=== PATIENT | male | born 1960 | race Caucasian/White ===

== ENCOUNTER 2022-07-09 09:44 | Outpatient (OUT) | payer OTHER, SELFPAY ==
--- NOTE | 2022-07-09 10:02 | XR_ITS ---
The [address] [address] Patient Name: YANIV NARVAEZ MRN: [id number] date: 1960 Sex: M Assigned Patient Location: Current Patient Location: Accession/Order Number: [id number] Exam Date: 07/09/2022 10:11 Report Date: 07/09/2022 15:46 At the request of: POPEYE SINGER Procedure: XR foot LT min 3V PROCEDURE: XR ankle LT min 3V, XR foot LT min 3V HISTORY: LEFT ANKLE PAIN , left foot pain , wound COMPARISON: XR ankle and foot left 06/18/2022 FINDINGS: BONES:Complete collapse of the midfoot and hindfoot with loss versus advanced collapse of the talus. Prominent cortical thickening/periosteal reaction involving the distal tibia and the mid and distal fibula. SOFT TISSUES:Marked soft tissue swelling surrounding the distal lower extremity. EFFUSION:None visible. OTHER: Negative. IMPRESSION: 1. Stable advanced degenerative changes and collapse of the midfoot and hindfoot. 2. No appreciable osteomyelitis. Marked soft tissue swelling surrounding the foot and ankle. Electronically authenticated by: EVITA MORALES Date: 07/09/2022 15:46
--- NOTE | 2022-07-09 10:02 | XR_ITS ---
The [address] [address] Patient Name: YANIV NARVAEZ MRN: [id number] date: 1960 Sex: M Assigned Patient Location: Current Patient Location: Accession/Order Number: [id number] Exam Date: 07/09/2022 10:12 Report Date: 07/09/2022 15:46 At the request of: POPEYE SINGER Procedure: XR ankle LT min 3V PROCEDURE: XR ankle LT min 3V, XR foot LT min 3V HISTORY: LEFT ANKLE PAIN , left foot pain , wound COMPARISON: XR ankle and foot left 06/18/2022 FINDINGS: BONES:Complete collapse of the midfoot and hindfoot with loss versus advanced collapse of the talus. Prominent cortical thickening/periosteal reaction involving the distal tibia and the mid and distal fibula. SOFT TISSUES:Marked soft tissue swelling surrounding the distal lower extremity. EFFUSION:None visible. OTHER: Negative. IMPRESSION: 1. Stable advanced degenerative changes and collapse of the midfoot and hindfoot. 2. No appreciable osteomyelitis. Marked soft tissue swelling surrounding the foot and ankle. Electronically authenticated by: EVITA MORALES Date: 07/09/2022 15:46
== END 2022-07-09 09:45 ==
PROVIDERS: PCP Family Medicine; Visit Provider Podiatrist Foot & Ankle Surgery
DX: M79.672 Pain in left foot (principal); M25.572 Pain in left ankle and joints of left foot; L89.523 Pressure ulcer of left ankle, stage 3; I87.2 Venous insufficiency (chronic) (peripheral); E11.42 Type 2 diabetes mellitus with diabetic polyneuropathy; E11.621 Type 2 diabetes mellitus with foot ulcer; Z89.431 Acquired absence of right foot; S90.422A Blister (nonthermal), left great toe, initial encounter; E11.610 Type 2 diabetes mellitus with diabetic neuropathic arthropathy
CPT/HCPCS: 73610; 73630; 99212

== ENCOUNTER 2022-08-24 12:50 | Outpatient (OUT) | payer BC, SELFPAY ==
--- NOTE | 2022-08-24 13:09 | XR_ITS ---
The [address] [address] Patient Name: YANIV NARVAEZ MRN: [id number] date: 1960 Sex: M Assigned Patient Location: Current Patient Location: Accession/Order Number: [id number] Exam Date: 08/24/2022 13:09 Report Date: 08/24/2022 18:51 At the request of: POPEYE SINGER Procedure: XR foot LT min 3V PROCEDURE: XR ankle LT min 3V, XR foot LT min 3V COMPARISON: 07/09/2022 HISTORY: LEFT ANKLE PAIN FINDINGS: BONES:Stable severe degenerative change of the midfoot and hindfoot with bony destruction of the talus calcaneus and proximal midfoot and low position of the tibia and fibula. Extensive periosteal reaction of the distal tibia and fibula. 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
--- NOTE | 2022-08-24 13:09 | XR_ITS ---
The [address] [address] Patient Name: YANIV NARVAEZ MRN: [id number] date: 1960 Sex: M Assigned Patient Location: Current Patient Location: Accession/Order Number: [id number] Exam Date: 08/24/2022 13:09 Report Date: 08/24/2022 18:51 At the request of: POPEYE SINGER Procedure: XR ankle LT min 3V PROCEDURE: XR ankle LT min 3V, XR foot LT min 3V COMPARISON: 07/09/2022 HISTORY: LEFT ANKLE PAIN FINDINGS: BONES:Stable severe degenerative change of the midfoot and hindfoot with bony destruction of the talus calcaneus and proximal midfoot and low position of the tibia and fibula. Extensive periosteal reaction of the distal tibia and fibula. 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
== END 2022-08-24 12:51 | disposition home or self-care (01) ==
PROVIDERS: PCP Family Medicine; Visit Provider Podiatrist Foot & Ankle Surgery
DX: E11.622 Type 2 diabetes mellitus with other skin ulcer (principal); L97.321 Non-pressure chronic ulcer of left ankle limited to breakdown of skin; E11.610 Type 2 diabetes mellitus with diabetic neuropathic arthropathy; E11.42 Type 2 diabetes mellitus with diabetic polyneuropathy; Z79.4 Long term (current) use of insulin; L89.523 Pressure ulcer of left ankle, stage 3; I87.2 Venous insufficiency (chronic) (peripheral)
CPT/HCPCS: 11042; 73610; 73630

== ENCOUNTER 2022-09-07 14:12 | Outpatient (OUT) | payer BC, SELFPAY ==
--- NOTE | 2022-09-07 14:15 | XR_ITS ---
The [address] [address] Patient Name: YANIV NARVAEZ MRN: [id number] date: 1960 Sex: M Assigned Patient Location: Current Patient Location: Accession/Order Number: [id number] Exam Date: 09/07/2022 14:15 Report Date: 09/07/2022 18:34 At the request of: POPEYE SINGER Procedure: XR foot LT min 3V PROCEDURE: XR ankle LT min 3V, XR foot LT min 3V COMPARISON: 08/24/2022. 07/09/2022 HISTORY: LEFT ANKLE PAIN FINDINGS: BONES:No acute fracture or dislocation. Marked degenerative change of the hindfoot with bony collapse and plantar displacement of the tibia and fibula. Diffuse joint collapse with heterotopic ossification and marginal osteophyte formation. Periosteal reaction distal tibia and fibular diaphyses SOFT TISSUES:Moderate diffuse soft tissue swelling. Vascular calcifications EFFUSION:None visible. OTHER: Negative. XR/XR foot LT min 3V IMPRESSION: Severe stable degenerative changes with hindfoot collapse consistent with known neuropathic osteoarthropathy Electronically authenticated by: ZITA YODER Date: 09/07/2022 18:34
--- NOTE | 2022-09-07 14:15 | XR_ITS ---
The [address] [address] Patient Name: YANIV NARVAEZ MRN: [id number] date: 1960 Sex: M Assigned Patient Location: Current Patient Location: Accession/Order Number: [id number] Exam Date: 09/07/2022 14:15 Report Date: 09/07/2022 18:34 At the request of: POPEYE SINGER Procedure: XR ankle LT min 3V PROCEDURE: XR ankle LT min 3V, XR foot LT min 3V COMPARISON: 08/24/2022. 07/09/2022 HISTORY: LEFT ANKLE PAIN FINDINGS: BONES:No acute fracture or dislocation. Marked degenerative change of the hindfoot with bony collapse and plantar displacement of the tibia and fibula. Diffuse joint collapse with heterotopic ossification and marginal osteophyte formation. Periosteal reaction distal tibia and fibular diaphyses SOFT TISSUES:Moderate diffuse soft tissue swelling. Vascular calcifications EFFUSION:None visible. OTHER: Negative. XR/XR ankle LT min 3V IMPRESSION: Severe stable degenerative changes with hindfoot collapse consistent with known neuropathic osteoarthropathy Electronically authenticated by: ZITA YODER Date: 09/07/2022 18:34
== END 2022-09-07 14:13 | disposition home or self-care (01) ==
LOC: WC 14:12
PROVIDERS: PCP Family Medicine; Visit Provider Podiatrist Foot & Ankle Surgery
DX: M79.672 Pain in left foot (principal); M25.572 Pain in left ankle and joints of left foot; M14.672 Charcot's joint, left ankle and foot; E11.622 Type 2 diabetes mellitus with other skin ulcer; L97.321 Non-pressure chronic ulcer of left ankle limited to breakdown of skin; L97.521 Non-pressure chronic ulcer of other part of left foot limited to breakdown of skin
CPT/HCPCS: 73610; 73630; G0463

== ENCOUNTER 2022-11-09 15:43 | Outpatient (OUT) | payer BC, OTHER, SELFPAY ==
--- NOTE | 2022-11-09 | XR_ITS ---
The [address] [address] Patient Name: YANIV NARVAEZ MRN: [id number] date: 1960 Sex: M Assigned Patient Location: Current Patient Location: Accession/Order Number: [id number] Exam Date: 11/09/2022 13:20 Report Date: 11/09/2022 13:52 At the request of: POPEYE SINGER Procedure: XR foot LT min 3V STUDY: XR ankle LT min 3V, XR foot LT min 3V, [id number], [id number] HISTORY: LEFT ANKLE PAIN COMPARISON: Left foot and ankle x-rays 09/07/2022. FINDINGS: No acute fracture, dislocation, or suspicious osseous lesion. Severe collapse of the left ankle with associated osseous debris and chronic appearing osteolysis/degenerative changes, similar compared with 09/07/2022. Stable degenerative changes throughout the remainder of the left foot. No new or worsening osseous abnormality. Specifically, no new osteolysis. No radiopaque foreign body. XR/XR foot LT min 3V IMPRESSION: Stable severe derangement of the left foot and ankle. No new or worsening osseous abnormality demonstrated. Electronically authenticated by: HECTOR VIGIL Date: 11/09/2022 13:52
--- NOTE | 2022-11-09 | XR_ITS ---
The [address] [address] Patient Name: YANIV NARVAEZ MRN: [id number] date: 1960 Sex: M Assigned Patient Location: Current Patient Location: Accession/Order Number: [id number] Exam Date: 11/09/2022 13:20 Report Date: 11/09/2022 13:52 At the request of: POPEYE SINGER Procedure: XR ankle LT min 3V STUDY: XR ankle LT min 3V, XR foot LT min 3V, [id number], [id number] HISTORY: LEFT ANKLE PAIN COMPARISON: Left foot and ankle x-rays 09/07/2022. FINDINGS: No acute fracture, dislocation, or suspicious osseous lesion. Severe collapse of the left ankle with associated osseous debris and chronic appearing osteolysis/degenerative changes, similar compared with 09/07/2022. Stable degenerative changes throughout the remainder of the left foot. No new or worsening osseous abnormality. Specifically, no new osteolysis. No radiopaque foreign body. XR/XR ankle LT min 3V IMPRESSION: Stable severe derangement of the left foot and ankle. No new or worsening osseous abnormality demonstrated. Electronically authenticated by: HECTOR VIGIL Date: 11/09/2022 13:52
== END 2022-11-09 15:44 | disposition home or self-care (01) ==
LOC: WC 15:43
PROVIDERS: PCP Family Medicine; Visit Provider Podiatrist Foot & Ankle Surgery
DX: M79.672 Pain in left foot (principal); M25.572 Pain in left ankle and joints of left foot; E11.622 Type 2 diabetes mellitus with other skin ulcer; L97.321 Non-pressure chronic ulcer of left ankle limited to breakdown of skin; L97.521 Non-pressure chronic ulcer of other part of left foot limited to breakdown of skin; E11.621 Type 2 diabetes mellitus with foot ulcer
CPT/HCPCS: 73610; 73630; A6213; G0463

== ENCOUNTER 2022-12-03 10:15 | Outpatient (OUT) | payer BC, OTHER, SELFPAY | END 2022-12-03 10:16 | disposition home or self-care (01) | LOC: WC 10:16 | PROVIDERS: PCP Family Medicine; Visit Provider Podiatrist Foot & Ankle Surgery | DX: E11.622 Type 2 diabetes mellitus with other skin ulcer (principal); L97.321 Non-pressure chronic ulcer of left ankle limited to breakdown of skin; E11.621 Type 2 diabetes mellitus with foot ulcer; L97.521 Non-pressure chronic ulcer of other part of left foot limited to breakdown of skin | CPT/HCPCS: 11042 ==

== ENCOUNTER 2022-12-24 10:51 | Outpatient (OUT) | payer BC, OTHER, SELFPAY | END 2022-12-24 10:52 | disposition home or self-care (01) | LOC: WC 10:51 | PROVIDERS: PCP Family Medicine; Visit Provider Podiatrist Foot & Ankle Surgery | DX: E11.621 Type 2 diabetes mellitus with foot ulcer (principal); L97.321 Non-pressure chronic ulcer of left ankle limited to breakdown of skin | CPT/HCPCS: 11042; A6213 ==

== ENCOUNTER 2023-01-14 10:38 | Outpatient (OUT) | payer BC, OTHER, SELFPAY ==
--- NOTE | 2023-01-14 | XR_ITS ---
The [address] [address] Patient Name: YANIV NARVAEZ MRN: [id number] date: 1960 Sex: M Assigned Patient Location: Current Patient Location: Accession/Order Number: [id number] Exam Date: 01/14/2023 11:27 Report Date: 01/16/2023 00:30 At the request of: POPEYE SINGER Procedure: XR ankle LT min 3V EXAM: XR ankle LT min 3V HISTORY: LEFT ANKLE PAIN COMPARISON: 11/09/2022 TECHNIQUE: 3 view study FINDINGS: Again, there is collapse of the left ankle and hindfoot with ostial lysis of the talus and anterior calcaneus. Periosteal reaction of the distal tibia and fibula shafts. These findings are stable compared with prior study of 2 months ago. XR/XR ankle LT min 3V IMPRESSION: Stable findings with collapse at the ankle mortise and hindfoot articulations as well as periosteal reaction of the distal tibia and fibula. No significant interval change from the prior study of 2 months ago. Electronically authenticated by: Eulalia STRICKLAND Date: 01/16/2023 00:30
== END 2023-01-14 10:39 | disposition home or self-care (01) ==
LOC: WC 10:38
PROVIDERS: PCP Family Medicine; Visit Provider Podiatrist Foot & Ankle Surgery
DX: E11.622 Type 2 diabetes mellitus with other skin ulcer (principal); L97.321 Non-pressure chronic ulcer of left ankle limited to breakdown of skin; E11.610 Type 2 diabetes mellitus with diabetic neuropathic arthropathy
CPT/HCPCS: 11042; 73610; A6213

== ENCOUNTER 2023-02-11 11:23 | Outpatient (OUT) | payer BC, SELFPAY ==
--- OUTSIDE RECORDS SUMMARY | 2023-02-11 11:33 | XMS_ITS | CCD ---
Author Name Unknown Address [address] [place] [address] Organization [facility] Care Team Providers Care Mixer Driver Name Role Phone CARLITO VALDOVINOS Referring Unavailable HEIDI, CHARLENE Primary Care Unavailable NICANOR YEBOAH Admitting Unavailable NICANOR YEBOAH Attending Unavailable NON STAFF Primary Care Provider UnavailMD Gil Govea Admit Provider MD Speedy Ramos Other Provider MD Lucille Miller Other Provider YURIDIA Laguna Other Provider DO Michael Caruso Attending Provider Speedy Ramos Unavailable POPEYE PUGH Admitting Unavailable REQUEST, NONE LISTED Primary Care Unavaila POPEYE Galloway Attending Unavailable POPEYE PUGH Admitting Unavailable POPEYE PUGH Consulting Unavailable REQUEST, NONE LISTED Primary Care Unavaila ble POPEYE PUGH Attending Unavailable DIGNA SEXTON Consulting Unavailable DAVID, DR ELVIN Carranza Admitting Unavailable ANDREW, DR EVITA Becker Consulting Unavailable DAIVD, DR ELVIN Carranza Attending Unavailable REQUEST, NONE LISTED Primary Care Unavaila ble DAVID, DR ELVIN Carranza Consulting Unavailable POPEYE PUGH Consulting Unavailable ANDRIA ., REVA DOUGLAS Consulting Unavailable LAURENCE II, LARRY Consulting Unavailable DONTA BARRY Consulting Unavailable VICENTA MONTANEZ Consulting Unavailable POPEYE PUGH Attending Unavailable REQUEST, NONE LISTED Primary Care Unavaila ble PARESH, DR ZITA Cheung Consulting Unavailable POPEYE PUGH Admitting Unavailable POPEYE PUGH Consulting Unavailable POPEYE PUGH Admitting Unavailable POPEYE PUGH Consulting Unavailable REQUEST, NONE LISTED Primary Care Unavaila POPEYE Galloway Attending Unavailable POPEYE PUGH Attending Unavailable POPEYE PUGH Consulting Unavailable REQUEST, NONE LISTED Primary Care Unavaila ble ANTWONANDER, POPEYE Vergara Admitting Unavailable SEXTON, DIGNA Consulting Unavailable REQUEST, NONE LISTED Primary Care Unavaila ble HIGHLANDER, POPEYE Vergara Attending Unavailable HIGHLANDER, POPEYE Vergara Admitting Unavailable HIGHLANDER, POPEYE Vergara Admitting Unavailable HIGHLANDER, POPEYE Vergara Consulting Unavailable REQUEST, NONE LISTED Primary Care Unavaila ble LUCRECIA, POPEYE Vergara Attending Unavailable REQUEST, NONE LISTED Primary Care Unavaila ble NADERER, DR ELVIN Carranza Attending Unavailable NADERER, DR ELVIN Carranza Admitting Unavailable ZIEBER, DR EVITA Becker Consulting Unavailable NADERER, DR ELVIN Carranza Consulting Unavailable HIGHLANDER, POPEYE Vergara Consulting Unavailable CORTEZ, CAROL Consulting Unavailable HIGHLANDER, POPEYE Vergara Procedure Practitioner Unarenny salvador ANDRIA ., REVA DOUGLAS Consulting Unavailable SISTER, MOON Consulting Unavailable NADERER, DR ELVIN Carranza Procedure Practitioner Unavai lable LAURENCE ., PRESLEY Consulting Unavailable LAURENCE II, LARRY Consulting Unavailable HIGHLANDER, POPEYE Vergara Attending Unavailable REQUEST, DR NONE LISTED Primary Care Unavaila ble HIGHLANDER, POPEYE Vergara Admitting Unavailable HIGHLANDER, POPEYE Vergara Admitting Unavailable HIGHLANDER, POPEYE Vergara Attending Unavailable REQUEST, NONE LISTED Primary Care Unavaila ble HIGHLANDER, POPEYE Vergara Admitting Unavailable ZIEBER, DR EVITA Becker Consulting Unavailable REQUEST, NONE LISTED Primary Care Unavaila ble HIGHLANDER, POPEYE Vergara Attending Unavailable HIGHLANDER, POPEYE Vergara Consulting Unavailable HIGHLANDER, POPEYE Vergara Admitting Unavailable WEST, DR ZITA Cheung Consulting Unavailable REQUEST, NONE LISTED Primary Care Unavaila ble HIGHLANDER, POPEYE Vergara Attending Unavailable HIGHLANDER, POPEYE Vergara Consulting Unavailable HIGHLANDER, POPEYE Vergara Admitting Unavailable HIGHLANDER, POPEYE Vergara Consulting Unavailable REQUEST, NONE LISTED Primary Care Unavaila ble LUCRECIA, POPEYE Vergara Attending Unavailable PRESTONRANDALL ARCHULETA Consulting Unavailable HIGHLANDER, POPEYE Vergara Attending Unavailable REQUEST, NONE LISTED Primary Care Unavaila ble HIGHLANDER, POPEYE Vergara Admitting Unavailable HIGHLANDER, POPEYE Vergara Attending Unavailable ZIEBER, DR EVITA Becker Consulting Unavailable HIGHLANDER, POPEYE Vergara Admitting Unavailable HIGHLANDER, POPEYE Vergara Consulting Unavailable Medications Current Medications Medication Drug Class(es) Dates Sig (Normalized) Sig (Original) allopurinol 300 mg oral tablet (2 sources) Xanthine Oxidase Inhibitor Start: 10-07-2021 take 300 mg by mouth once daily Allopurinol Active 300 MG PO Daily October 07, 2021 12:00am amLODIPine 5 mg oral tablet (2 sources) Dihydropyridine Calcium Channel Abel Start: 10-07-2021 take 5 mg by mouth once daily Amlodipine Active 5 MG PO Daily October 07, 2021 12:00am amoxicillin 875 mg / clavulanate 125 mg oral tablet (1 source) Penicillin-class Antibacterial take 1 tablet by mouth every twelve hours Amoxicillin-Pot Clavulanate 875-125 MG 1 tablet Orally every 12 hrs Active atenolol 50 mg oral tablet (2 sources) beta-Adrenergic Abel Start: 10-07-2021 take 50 mg by mouth once daily Atenolol Active 50 MG PO Daily October 07, 2021 12:00am buprenorphine 8 mg / naloxone 2 mg sublingual film (2 sources) Partial Opioid Agonist, Opioid Antagonist Start: 10-07-2021 Buprenorphine-Na loxone Active 2 FILM SUBLINGUAL Daily October 07, 2021 12:00am Buprenorphine HC l-Naloxone HCl 8-2 MG dissolve 2 FILMS under the tongue once daily Sublingual for 28 Days Active cefepime 2000 mg injection (1 source) Cephalosporin Antibacterial Cefepime HCl 2 GM as directed Injection Active clopidogrel 75 mg oral tablet (2 sources) P2Y12 Platelet Inhibitor Start: take 75 mg by mouth once daily Clopidogrel Active 75 MG PO Daily October 07, 2021 12:00am dapagliflozin 5 mg oral tablet (1 source) Sodium-Glucose Cotransporter 2 Inhibitor take 5 mg by mouth once daily FARXIGA 5mg As directed P.O. Daily Active DAPTOmycin (1 source) Lipopeptide Antibacterial Cubicin Active 0.5 ml dulaglutide 1.5 mg/ml auto-injector (2 sources) GLP-1 Receptor Agonist Start: inject 0.75 mg by subcutaneous injection every week Dulaglutide Active 0.75 MG SUBCUT every week October 07, 2021 12:00am Trulicity 0.75 M G/0.5ML INJECT 0.5 ML (0.75 MG TOTAL) UNDER THE SKIN EVERY 7 DAYS Subcutaneous for 28 Days Active ferrous sulfate 325 mg oral tablet (2 sources) Start: 10-07-2021 take 325 mg by mouth once daily Ferrous Sulfate Active 325 MG PO Daily October 07, 2021 12:00am take 1 tablet by mouth once zoe y Ferrous Sulfate 325 (65 Fe) MG 1 tablet Orally Once a day Active furosemide 80 mg oral tablet (2 sources) Loop Diuretic Start: 10-07-2021 take 1 tablet by mouth once daily Furosemide (Lasix) 80 mg Tablet Active 80 MG PO Daily October 07, 2021 12:00am levoFLOXacin 750 mg oral tablet (2 sources) Quinolone Antimicrobial Start: 10-09-2021 Levofloxacin Active 750 MG PO Daily October 09, 2021 12:00am Take every other day, on Tuesday, Tuesday, , and Tuesday, and from Tuesday (10/17/2021) onward then take daily. By that time your kidney function should be normal. take 1 tablet by beryl th every twenty-four hours levoFLOXacin 750 MG 1 tablet Orally Once a day Active linezolid (1 source) Oxazolidinone Antibacterial Zyvox Active lisinopril 10 mg oral tablet (1 source) Angiotensin Converting Enzyme Inhibitor take 1 tablet by mouth every twenty-four hours Lisinopril 10 MG 1 tablet Orally Once a day Active magnesium oxide 400 mg oral tablet (2 sources) Start: 2 take 400 mg by mouth once daily Magnesium Oxide Active 400 MG PO Daily October 07, 2021 12:00am 24 hr metFORMIN hydrochloride 500 mg extended release oral tablet (2 sources) Biguanide Start: 2 take 500 mg by mouth once daily Metformin Active 500 MG PO Daily October 07, 2021 12:00am take 1 tablet by beryl th every twenty-four hours metFORMIN HCl 500 MG 1 tablet with a meal Orally Once a day Active potassium chloride 20 meq powder for oral solution (1 source) take 1 dose by mouth once daily at mealtime Potassium Chloride 20 MEQ 1 packet with food Orally Once a day Active simvastatin 40 mg oral tablet (1 source) HMG-CoA Reductase Inhibitor take 1 tablet by mouth every twenty-four hours Simvastatin 40 MG 1 tablet in the evening Orally Once a day Active tamsulosin hydrochloride 0.4 mg oral capsule (2 sources) alpha-Adrenergic Abel Start: 2 take 1 capsule by mouth once daily Tamsulosin (Flomax) 0.4 mg Capsule Active 0.4 MG PO Daily October 07, 2021 12:00am Problems Active Problems Problem Classification Problem Date Documented Date Episodic/Chronic Acquired foot deformities (1 source) Valgus deformity, not elsewhere classified, left ankle; Translations: [VALGUS DEFORMITY NEC LEFT ANKLE] Onset: 05-27-2022 Episodic Acute and unspecified renal failure (2 sources) Injury of kidney; Translations: [Acute kidney failure, unspecified] 10-07-2021 Episodic Chronic kidney disease (1 source) Chronic kidney disease, unspecified; Translations: [CHRONIC KIDNEY DISEASE UNSPECIFIED] Onset: 02-25-2022 Chronic Chronic ulcer of skin (8 sources) Ankle ulcer; Translations: [Non-pressure chronic ulcer of left ankle with unspecified severity] Onset: 02-25-2022 10-08-2021 Chronic Complications of surgical procedures or medical care (2 sources) Other complications of procedures, not elsewhere classified, subsequent encounter; Translations: [Other complications of procedures, not elsewhere classified, initial encounter] Onset: 04-26-2022 Episodic Coronary atherosclerosis and other heart disease (1 source) Atherosclerotic heart disease of [place] coronary artery without angina pectoris; Translations: [ASHD [place] W/O ANGINA PECTORIS] Onset: 02-25-2022 Chronic Deficiency and other anemia (1 source) Anemia; Translations: [Anemia, unspecified] 10-09-2021 Episodic Diabetes mellitus with complications (17 sources) Type 2 diabetes mellitus with foot ulcer; Translations: [Diabetes with other specified manifestations, type II or unspecified type, not stated as uncontrolled] Onset: 02-25-2022 10-09-2021 Chronic Diabetes mellitus without complication (4 sources) Diabetes mellitus; Translations: [Type 2 diabetes mellitus without complications] Onset: 02-14-2022 10-08-2021 Chronic Essential hypertension (3 sources) Hypertensive disorder; Translations: [Essential (primary) hypertension] Onset: 05-27-2022 10-08-2021 Chronic Gout and other crystal arthropathies (1 source) Gout, unspecified; Translations: [GOUT UNSPECIFIED] Onset: 02-25-2022 Chronic Heart valve disorders (1 source) Nonrheumatic mitral (valve) prolapse; Translations: [NONRHEUMATIC MITRAL VALVE PROLAPSE] Onset: 02-25-2022 Chronic Hypertension with complications and secondary hypertension (1 source) Hypertensive chronic kidney disease with stage 1 through stage 4 chronic kidney disease, or unspecified chronic kidney disease; Translations: [HTN CKD W/STAGE 1-4 CKD/UNS CKD] Onset: 02-25-2022 Chronic Infective arthritis and osteomyelitis (except that caused by tuberculosis or sexually transmitted disease) (5 sources) Osteomyelitis of right foot; Translations: [Osteomyelitis, unspecified] Onset: 02-25-2022 10-08-2021 Chronic Other acquired deformities (1 source) Ankle joint deformity; Translations: [Unspecified acquired deformity of left lower leg] 10-08-2021 Episodic Other acquired deformities (1 source) Unspecified acquired deformity of left lower leg; Translations: [Other acquired deformities of ankle and foot] 10-09-2021 Episodic Other aftercare (1 source) Long-term current use of antibiotic; Translations: [long term care phlebotomist (current) use of antibiotics] 10-07-2021 Episodic Other aftercare (1 source) long term care phlebotomist (current) use of antibiotics; Translations: [Long-term (current) use of antibiotics] 10-09-2021 Episodic Other aftercare (1 source) [facility] (current) use of insulin; Translations: [DELIVERY ARCHITECT CURRENT USE OF INSULIN] Onset: 06-24-2022 Episodic Other aftercare (1 source) long term care phlebotomist (current) use of oral hypoglycemic drugs; Translations: [DELIVERY ARCHITECT USE ORAL HYPOGLYCEMIC DX] Onset: 05-27-2022 Episodic Other bone disease and musculoskeletal deformities (1 source) Acquired absence of right foot; Translations: [ACQUIRED ABSENCE OF RIGHT FOOT] Onset: 04-26-2022 Chronic Other bone disease and musculoskeletal deformities (1 source) Absence of toe; Translations: [Acquired absence of other right toe(s)] 10-07-2021 Episodic Other circulatory disease (1 source) Personal history of transient ischemic attack (TIA), and cerebral infarction without residual deficits; Translations: [PERS HX TIA AND CI NO RESID DEFICIT] Onset: 05-27-2022 Episodic Other connective tissue disease (5 sources) Pain in left foot; Translations: [PAIN IN LEFT FOOT] Onset: 01-26-2022 Episodic Other diseases of veins and lymphatics (5 sources) Venous insufficiency (chronic) (peripheral); Translations: [VENOUS INSUFF CHRONIC PERIPHERAL] Onset: 02-09-2022 Episodic Other ear and sense organ disorders (1 source) Unspecified hearing loss, unspecified ear; Translations: [UNS HEARING LOSS UNSPECIFIED EAR] Onset: 02-25-2022 Chronic Other non-traumatic joint disorders (2 sources) Charcot's arthropathy; Translations: [Charcot's joint, left ankle and foot] 10-08-2021 Chronic Other non-traumatic joint disorders (7 sources) Charcot's joint, left ankle and foot; Translations: [Tabes dorsalis] Onset: 06-04-2022 10-09-2021 Chronic Other non-traumatic joint disorders (5 sources) Pain in left ankle and joints of left foot; Translations: [PAIN IN LEFT ANKLE] Onset: 03-26-2022 Episodic Substance-related disorders (1 source) Opioid abuse, uncomplicated; Translations: [OPIOID ABUSE UNCOMPLICATED] Onset: 02-25-2022 Chronic Superficial injury; contusion (1 source) Blister (nonthermal), left great toe, initial encounter; Translations: [BLISTER NONTHERMAL LT GRT TOE INIT] Onset: 06-24-2022 Episodic Unclassified (1 source) DELIVERY ARCHITECT INJECT NONINSULN ANTIDIAB; Translations: [DELIVERY ARCHITECT INJECT NONINSULN ANTIDIAB] Onset: 05-27-2022 Unclassified (1 source) CONTACT W/AND (SUSP) EXPOS COVID-19; Translations: [CONTACT W/AND (SUSP) EXPOS COVID-19] Onset: 02-18-2022 Past or Other Problems Problem Classification Problem Date Documented Date Episodic/Chronic Acute posthemorrhagic anemia (1 source) Acute posthemorrhagic anemia; Translations: [ACUTE POSTHEMORRHAGIC ANEMIA] Onset: 02-25-2022 Episodic Bacterial infection; unspecified site (3 sources) Methicillin resistant Staphylococcus aureus infection; Translations: [Methicillin resistant Staphylococcus aureus infection, unspecified site] Onset: 02-25-2022 Episodic Deficiency and other anemia (2 sources) Anemia, unspecified; Translations: [Anemia, unspecified] Onset: 02-14-2022 10-09-2021 Episodic Immunizations and screening for infectious disease (1 source) Encounter for immunization; Translations: [ENCOUNTER FOR IMMUNIZATION] Onset: 02-25-2022 Episodic Other aftercare (1 source) Other fdc (current) drug therapy; Translations: [OTH DELIVERY ARCHITECT CURRENT DRUG THERAPY] Onset: 02-25-2022 Episodic Other aftercare (1 source) [facility] (current) use of antithrombotics/antip latelets; Translations: [LONGTERM ANTITHROMBOT/ANTIPLAT LETS] Onset: 02-25-2022 Episodic Other aftercare (1 source) [facility] (current) use of anticoagulants; Translations: [DELIVERY ARCHITECT CURRNT USE ANTICOAGULANTS] Onset: 02-14-2022 Episodic Other bone disease and musculoskeletal deformities (2 sources) Acquired absence of other right toe(s); Translations: [Other toe(s) amputation status] Onset: 02-25-2022 10-09-2021 Episodic Other circulatory disease (1 source) Other specified symptoms and signs involving the circulatory and respiratory systems; Translations: [OTH SPEC SX SIGNS INVLV CIRC RS] Onset: 02-12-2022 Episodic Other connective tissue disease (4 sources) Pain in right foot; Translations: [PAIN IN RIGHT FOOT] Onset: 01-19-2022 Episodic Other non-traumatic joint disorders (1 source) Pain in right ankle and joints of right foot; Translations: [PAIN IN RIGHT ANKLE] Onset: 01-26-2022 Episodic Other skin disorders (1 source) Elastosis perforans serpiginosa; Translations: [ELASTOSIS PERFORANS SERPIGINOSA] Onset: 01-26-2022 Episodic Residual codes; unclassified (1 source) Family history of malignant neoplasm of digestive organs; Translations: [FAM HX MALIG NEOPLASM DIGESTIV ORGN] Onset: 02-25-2022 Episodic Residual codes; unclassified (1 source) Family history of ischemic heart disease and other diseases of the circulatory system; Translations: [FAM HX ISCHEMIC HRT DZ OTH DZ CIRC] Onset: 02-25-2022 Episodic Screening and history of mental health and substance abuse codes (1 source) Personal history of nicotine dependence; Translations: [PERSONAL HISTORY OF NICOTINE DEPEND] Onset: 02-25-2022 Episodic Results Test Name Value Interpretation Reference Range Facility FUNGAL CULTUREon 06-15-2022 Fungus (Mycology) Culture Final report Normal [facility] Comment on above: Performed By: #### O THCX #### [facility] [address] [address] [address] Vitaly Jimenez Fungus Stain Final report Normal [facility] Comment on above: Performed By: #### O THCX #### [facility] [address] [address] [address] Vitaly Jimenez Result [address] [facility] Comment on above: Result Comment: JET/ Calcofluor preparation: no fungus observed. Performed By: #### O THCX #### [facility] [address] [place] [address] Dr. Vitaly Jimenez Result Comment: No y east or mold isolated after 4 weeks. CULTURE OTHERon 05-19-2022 CULTURE OTHER Culture Observations: METHICILLIN RESISTANT STAPH AUREUS ISOLATED. PLEASE FOLLOW APPROPRIATE ISOLATION PROCEDURES. Isolate 1 Staphylococcus aureus Moderate growth of ORGANISM 1 Staphylococcus aureus ANTIBIOTIC M.I.C RX STATUS Beta-Lactamase Pos POS F Cefoxitin Screen Pos POS F Benzylpenicillin >=0.5 R F Oxacillin >=4 R F Ciprofloxacin >=8 R F Levofloxacin >=8 R F Inducible Clindamycin Resistance Neg NEG F Erythromycin >=8 R F Clindamycin >=8 R F Quinupristin/Dalfop ristin 0.5 S F Linezolid 2 S F Vancomycin 1 S F Tetracycline >=16 R F Rifampicin <=0.5 S F Trimethoprim/Sulfam ethoxazole <=[address] [facility] Comment on above: Performed By: #### O THCX #### [facility] [address] [place] [address] Dr. Vitaly Jimenez CBC AUTO DIFFon 05-18-2022 BASO # 0.0 103/ul Normal 0.0-0.1 [facility] Comment on above: Performed By: #### C BC #### [facility] [address] [place] [address] Dr. Vitaly Jimenez Basophils/100 WBC (Bld) 0.2 % Normal 0.2-2.0 [facility] Comment on above: Performed By: #### C BC #### [facility] [address] [place] [address] Dr. Vitaly Jimenez EO # 0.0 103/ul Normal 0.0-0.7 [facility] Comment on above: Performed By: #### C BC #### [facility] [address] [place] [address] Dr. Vitaly Jimenez Eosinophils/100 WBC (Bld) 0.0 % Critically low 0.9-7.0 [facility] Comment on above: Performed By: #### C BC #### [facility] [address] [place] [address] Dr. Vitaly Jimenez Erythrocyte distribution width (RBC) [Ratio] 14.2 % Normal 11.0-15.0 [facility] Comment on above: Performed By: #### C BC #### [facility] [address] [place] [address] Dr. Vitaly Jimenez Hematocrit (Bld) [Volume fraction] 30.0 % Critically low 42.0-54.0 [facility] Comment on above: Performed By: #### C BC #### [facility] [address] [place] [address] Dr. Vitaly Jimenez Hemoglobin (Bld) [Mass/Vol] 10.2 g/dL Critically low 14.0-18.0 [facility] Comment on above: Performed By: #### C BC #### [facility] [address] [place] [address] Dr. Vitaly Jimenez IG # 0.10 10e3/ul Critically high 0.00-0.03 [facility] Comment on above: Performed By: #### C BC #### [facility] [address] [place] [address] Dr. Vitaly Jimenez IG % 0.7 % Critically high 0.0-0.5 [facility] Comment on above: Performed By: #### C BC #### [facility] [address] [place] [address] Dr. Vitaly Jimenez LYMPH # 1.6 103/ul Normal 1.2-3.8 [facility] Comment on above: Performed By: #### C BC #### [facility] [address] [place] [address] Dr. Vitaly Jimenez Lymphocytes/100 WBC (Bld) 10.8 % Critically low 20.5-60.0 [facility] Comment on above: Performed By: #### C BC #### [facility] [address] [place] [address] Dr. Vitaly Jimenez MANUAL DIFF REQ NO Normal [facility] Comment on above: Performed By: #### C BC #### [facility] [address] [place] [address] Dr. Vitaly Jimenez MCH (RBC) [Entitic mass] 28.2 pg Normal 25.9-34.0 [facility] Comment on above: Performed By: #### C BC #### [facility] [address] [place] [address] Dr. Vitaly Jimenez MCHC (RBC) [Mass/Vol] 34.0 g/dL Normal 29.9-35.2 [facility] Comment on above: Performed By: #### C BC #### [facility] [address] [place] [address] Dr. Vitaly Jimenez MCV (RBC) [Entitic vol] 82.9 fL Normal 80.0-94.0 [facility] Comment on above: Performed By: #### C BC #### [facility] [address] [place] [address] Dr. Vitaly Jimenez MONO # 0.8 103/ul Normal 0.3-0.8 [facility] Comment on above: Performed By: #### C BC #### [facility] [address] [place] [address] Dr. Vitaly Jimenez Monocytes/100 WBC (Bld) 5.4 % Normal 1.7-12.0 [facility] Comment on above: Performed By: #### C BC #### [facility] [address] [place] [address] Dr. Vitaly Jimenez NEUT # 12.2 103/ul Critically high 1.4-6.5 [facility] Comment on above: Performed By: #### C BC #### [facility] [address] [place] [address] Dr. Vitaly Jimenez Neutrophils/100 WBC (Bld) 82.9 % Critically high 43.0-75.0 [facility] Comment on above: Performed By: #### C BC #### [facility] [address] [place] [address] Dr. Vitaly Jimenez Platelet mean volume (Bld) [Entitic vol] 10.1 fL Normal 9.5-13.5 [facility] Comment on above: Performed By: #### C BC #### [facility] [address] [address] [address] Vitaly Jimenez PLT 261 103/ul Normal 150-450 [facility] Comment on above: Performed By: #### C BC #### [facility] [address] [place] [address] Dr. Vitaly Jimenez RBC 3.62 106/ul Critically low 4.70-6.10 [facility] Comment on above: Performed By: #### C BC #### [facility] [address] [address] [address] Vitaly Jimenez WBC 14.7 103/ul Critically high 4.0-11.0 [facility] Comment on above: Performed By: #### C BC #### [facility] [address] [place] [address] Dr. Vitaly Jimenez POINT OF CARE GLUCOSEon 05-08 Glucose [Mass/Vol] 273 mg/dL Critically high 74-106 [facility] Comment on above: Performed By: #### A NACX #### [facility] [address] [place] [address] Dr. Vitaly Jimenez Glucose [Mass/Vol] 267 mg/dL Critically high 74-106 [facility] Comment on above: Performed By: #### A NACX #### [facility] [address] [place] [address] Dr. Vitaly Jimenez PROF CHEM 8 (BAS METB)on Anion gap [Moles/Vol] 11.4 mmol/L Normal [facility] Comment on above: Performed By: #### A NACX #### [facility] [address] [place] [address] Dr. Vitaly Jimenez Calcium [Mass/Vol] 9.0 mg/dL Normal 8.5-10.1 [facility] Comment on above: Performed By: #### A NACX #### [facility] [address] [place] [address] Dr. Vitaly Jimenez Chloride [Moles/Vol] 98 mmol/L Normal 98-107 [facility] Comment on above: Performed By: #### A NACX #### [facility] [address] [address] [address] Vitaly Jimenez CO2 [Moles/Vol] 27.0 mmol/L Normal 21.0-32.0 [facility] Comment on above: Performed By: #### A NACX #### [facility] [address] [address] [address] Vitaly Jimenez Creatinine [Mass/Vol] 1.56 mg/dL Critically high 0.70-1.30 [facility] [facility] Comment on above: Performed By: #### A NACX #### [facility] [address] [address] [address] Vitaly Jimenez EGFR-AF GUATEMALAN 55 mL/min/1.73m2 Critically low >=60 [facility] Comment on above: Performed By: #### A NACX #### [facility] [address] [address] [address] Vitaly Jimenez EGFR-NON AF GUATEMALAN 46 mL/min/1.73m2 Critically low >=60 [facility] Comment on above: Performed By: #### A NACX #### [facility] [address] [address] [address] Vitaly Jimenez Glucose [Mass/Vol] 263 mg/dL Critically high 74-106 T [facility] Comment on above: Performed By: #### A NACX #### [facility] [address] [address] [address] Vitaly Jimenez Potassium [Moles/Vol] 4.4 mmol/L Normal 3.5-5.1 [facility] Comment on above: Performed By: #### A NACX #### [facility] [address] [address] [address] Vitaly Jimenez Sodium [Moles/Vol] 132 mmol/L Critically low 136-145 [facility] Comment on above: Performed By: #### A NACX #### [facility] [address] [address] [address] Vitaly Jimenez Urea nitrogen [Mass/Vol] 32.0 mg/dL Critically high 7.0-[address] [facility] Comment on above: Performed By: #### A NACX #### [facility] [address] [place] [address] Dr. Vitaly Jimenez Urea nitrogen/Creatinine [Mass ratio] 20.5 mg/mg Normal [facility] Comment on above: Performed By: #### A NACX #### [facility] [address] [place] [address] Dr. Vitaly Jimenez CBC AUTO DIFFon 05-17-2022 BASO # 0.1 103/ul Normal 0.0-0.1 [facility] Comment on above: Performed By: #### O THCX #### [facility] [address] [place] [address] Dr. Vitaly Jimenez Basophils/100 WBC (Bld) 0.5 % Normal 0.2-2.0 [facility] Comment on above: Performed By: #### O THCX #### [facility] [address] [place] [address] Dr. Vitaly Jimenez EO # 0.2 103/ul Normal 0.0-0.7 [facility] Comment on above: Performed By: #### O THCX #### [facility] [address] [place] [address] Dr. Vitaly Jimenez Eosinophils/100 WBC (Bld) 1.0 % Normal 0.9-7.0 [facility] Comment on above: Performed By: #### O THCX #### [facility] [address] [place] [address] Dr. Vitaly Jimenez Erythrocyte distribution width (RBC) [Ratio] 14.5 % Normal 11.0-15.0 [facility] Comment on above: Performed By: #### O THCX #### [facility] [address] [place] [address] Dr. Vitaly Jimenez Hematocrit (Bld) [Volume fraction] 35.2 % Critically low 42.0-54.0 [facility] Comment on above: Performed By: #### O THCX #### [facility] [address] [place] [address] Dr. Vitaly Jimenez Hemoglobin (Bld) [Mass/Vol] 12.0 g/dL Critically low 14.0-18.0 [facility] Comment on above: Performed By: #### O THCX #### [facility] [address] [address] [address] Vitaly Jimenez IG # 0.11 10e3/ul Critically high 0.00-0.03 [facility] Comment on above: Performed By: #### O THCX #### [facility] [address] [address] [address] Vitaly Jimenez IG % 0.7 % Critically high 0.0-0.5 [facility] Comment on above: Performed By: #### O THCX #### [facility] [address] [address] [address] Vitaly Jimenez LYMPH # 2.5 103/ul Normal 1.2-3.8 [facility] Comment on above: Performed By: #### O THCX #### [facility] [address] [address] [address] Vitaly Jimenez Lymphocytes/100 WBC (Bld) 15.5 % Critically low 20.5-60.0 [facility] Comment on above: Performed By: #### O THCX #### [facility] [address] [address] [address] Vitaly Jimenez MANUAL DIFF REQ NO Normal [facility] Comment on above: Performed By: #### O THCX #### [facility] [address] [address] [address] Vitaly Jimenez MCH (RBC) [Entitic mass] 28.5 pg Normal 25.9-34.0 [facility] Comment on above: Performed By: #### O THCX #### [facility] [address] [address] [address] Vitaly Jimenez MCHC (RBC) [Mass/Vol] 34.1 g/dL Normal 29.9-35.2 [facility] Comment on above: Performed By: #### O THCX #### [facility] [address] [address] [address] Vitaly Jimenez MCV (RBC) [Entitic vol] 83.6 fL Normal 80.0-94.0 [facility] Comment on above: Performed By: #### O THCX #### [facility] [address] [address] [address] Vitaly Jimenez MONO # 1.0 103/ul Critically high 0.3-0.8 [facility] Comment on above: Performed By: #### O THCX #### [facility] [address] [address] [address] Vitaly Jimenez Monocytes/100 WBC (Bld) 6.2 % Normal 1.7-12.0 [facility] Comment on above: Performed By: #### O THCX #### [facility] [address] [address] [address] Vitaly Jimenez NEUT # 12.3 103/ul Critically high 1.4-6.5 [facility] Comment on above: Performed By: #### O THCX #### [facility] [address] [address] [address] Vitaly Jimenez Neutrophils/100 WBC (Bld) 76.1 % Critically high 43.0-75.0 [facility] Comment on above: Performed By: #### O THCX #### [facility] [address] [address] [address] Vitaly Jimenez Platelet mean volume (Bld) [Entitic vol] 9.4 fL Critically low 9.5-13.5 [facility] Comment on above: Performed By: #### O THCX #### [facility] [address] [address] [address] Vitaly Jimenez PLT 313 103/ul Normal 150-450 [facility] Comment on above: Performed By: #### O THCX #### [facility] [address] [address] [address] Vitaly Jimenez RBC 4.21 106/ul Critically low 4.70-6.10 [facility] Comment on above: Performed By: #### O THCX #### [facility] [address] [address] [address] Vitaly Jimenez WBC 16.2 103/ul Critically high 4.0-11.0 [facility] Comment on above: Performed By: #### O THCX #### [facility] [address] [address] LOWER LEG LT WO CONon CT LOWER LEG LT WO CON EXAMINATION: CT LOWER LEG LT WO CON HISTORY: Postoperative visit COMPARISON: XR ankle and foot left 04/30/2022 TECHNIQUE: Multi-planar CT images were created without IV contrast. Dose reduction techniques were achieved by using automated exposure control and/or adjustment of mA and/or kV according to patient size and/or use of iterative reconstruction technique. FINDINGS: BONES: Advanced destructive changes of the ankle joints, hindfoot, and midfoot with complete collapse of the midfoot structures and loss of talus. Numerous lucencies within the bones secondary to prior hardware. SOFT TISSUES: Marked soft tissue swelling lateral to the ankle and hindfoot; edema throughout the subcutaneous fat of the lower left leg and foot. EFFUSION: None visible. OTHER: Negative. IMPRESSION: 1. Marked edema and skin thickening greatest lateral to the foot and ankle. 2. Advanced destructive and degenerative changes of the ankle joint, hindfoot, midfoot. No definable osteomyelitis, but given the chronic advanced degenerative changes this cannot be completely excluded. Electronically authenticated by: EVITA MORALES Date: 2022-05-17 13:22 Normal [facility] CULTURE ANAEROBICon 05-18-19 23 CULTURE ANAEROBIC Culture Observations: No growth of anaerobes at 72 hours Normal [facility] Comment on above: Performed By: #### A NACX #### [facility] [address] [address] [address] Vitaly Jimenez DRUG SCREEN RAPID (URINE)on 05-17-2022 AMP Negative Normal NEGATIVE [facility] Comment on above: Performed By: #### C MP #### [facility] [address] [place] [address] Dr. Vitaly Jimenez BAR Negative Normal NEGATIVE [facility] Comment on above: Performed By: #### C MP #### [facility] [address] [place] [address] Dr. Vitaly Jimenez BUP Positive Abnormal NEGATIVE [facility] Comment on above: Performed By: #### C MP #### [facility] [address] [place] [address] Dr. Vitaly Jimenez BZO Negative Normal NEGATIVE [facility] Comment on above: Performed By: #### C MP #### [facility] [address] [place] [address] Dr. Vitaly Jimenez RUTH Negative Normal NEGATIVE [facility] Comment on above: Performed By: #### C MP #### [facility] [address] [place] [address] Dr. Vitaly Jimenez CUT-OFFS SEE BELOW Normal [facility] Comment on above: Result Comment: AMP (Amphetamine): 500ng/mL, BAR (Barbituates): 200 ng/mL, BZO (Benzodiazepines): 150 ng/mL, BUP (Buprenorphine): 10 ng/mL, RUTH (Cocaine): 150 ng/mL, mAMP (Methamphetamine): 500 ng/mL, MTD (Methadone): 200 ng/mL, OPI (Opiates): 100 ng/mL, OXY (Oxycodone): 100 ng/mL, PCP (Phencyclidine): 25 ng/mL, PPX (Propoxyphene): 300 ng/mL, THC (Cannabinoids): 50 ng/mL, TCA (Trycyclic Antidepressants): 300 ng/mL Performed By: #### C MP #### [facility] [address] [place] [address] Dr. Vitaly Jimenez DRUG CUT HEADER DRUG CLASS TEST SYSTEM CUT-OFF CONCENTRATIONS ARE FOLLOWS: Normal [facility] Comment on above: Performed By: #### C MP #### [facility] [address] [place] [address] Dr. Vitaly Jimenez mAMP Negative Normal NEGATIVE [facility] Comment on above: Performed By: #### C MP #### [facility] [address] [place] [address] Dr. Vitaly Jimenez MTD Negative Normal NEGATIVE [facility] Comment on above: Performed By: #### C MP #### [facility] [address] [place] [address] Dr. Vitaly Jimenez OPI Negative Normal NEGATIVE [facility] Comment on above: Performed By: #### C MP #### [facility] [address] [place] [address] Dr. Vitaly Jimenez OXY Negative Normal NEGATIVE [facility] Comment on above: Performed By: #### C MP #### [facility] [address] [address] [address] Vitaly Jimenez PCP Negative Normal NEGATIVE [facility] Comment on above: Performed By: #### C MP #### [facility] [address] [address] [address] Vitaly Jimenez PPX Negative Normal NEGATIVE [facility] Comment on above: Performed By: #### C MP #### [facility] [address] [address] [address] Vitaly Jimenez TCA Negative Normal NEGATIVE [facility] Comment on above: Performed By: #### C MP #### [facility] [address] [address] [address] Vitaly Jimenez THC Negative Normal NEGATIVE [facility] Comment on above: Performed By: #### C MP #### [facility] [address] [address] [address] Vitaly Jimenez GRAM STAINon 05-17-2022 DIPHTHEROIDS Normal [facility] Comment on above: Performed By: #### A NACX #### [facility] [address] [address] [address] Vitaly Jimenez EPITHELIALS Normal [facility] Comment on above: Performed By: #### A NACX #### [facility] [address] [address] [address] Vitaly Jimenez FUNGAL ELEMENTS Normal [facility] Comment on above: Performed By: #### A NACX #### [facility] [address] [address] [address] Vitaly Jimenez GRAM NEG BACILLI Normal [facility] Comment on above: Performed By: #### A NACX #### [facility] [address] [address] [address] Vitaly Jimenez GRAM NEG DIPPLOCOCCI Normal [facility] Comment on above: Performed By: #### A NACX #### [facility] [address] [address] [address] Vitaly Jimenez GRAM POS BACILLI Normal [facility] Comment on above: Performed By: #### A NACX #### [facility] [address] [address] [address] Vitaly Jimenez GRAM POSITIVE COCCI FEW Normal [facility] Comment on above: Performed By: #### A NACX #### [facility] [address] [address] [address] Vitaly Jimenez GRAM STAIN SOURCE Lt Lower Leg Normal [facility] Comment on above: Performed By: #### A NACX #### [facility] [address] [address] [address] Vitaly Jimenez GS_DIPTH Normal [facility] Comment on above: Performed By: #### A NACX #### [facility] [address] [address] [address] Vitaly Jimenez WBC FEW Normal [facility] Comment on above: Performed By: #### A NACX #### [facility] [address] [place] [address] Dr. Vitaly Jimenez POINT OF CARE GLUCOSEon 05-08 Glucose [Mass/Vol] 399 mg/dL Critically high [address] [place] [address] Comment on above: Performed By: #### O THCX #### [facility] [address] [place] [address] Dr. Vitaly Jimenez Glucose [Mass/Vol] 416 mg/dL Critically high [address] [place] [address] Comment on above: Performed By: #### C BC #### [facility] [address] [address] [address] Vitaly Jimeenz Glucose [Mass/Vol] 411 mg/dL Critically high [address] [place] [address] Comment on above: Performed By: #### C BC #### [facility] [address] [address] [address] Vitaly Jimenez Glucose [Mass/Vol] 195 mg/dL Critically high [address] [place] [address] Comment on above: Performed By: #### C MP #### [facility] [address] [address] [address] Vitaly Jimenez Glucose [Mass/Vol] 221 mg/dL Critically high [facility]106 [facility] Comment on above: Performed By: #### C BC #### [facility] [address] [address] [address] Vitaly Jimenez PROF CHEM 8 (BAS METB)on Anion gap [Moles/Vol] 13.5 mmol/L Normal [facility] Comment on above: Performed By: #### C BC #### [facility] [address] [place] [address] Dr. Vitaly Jimenez Calcium [Mass/Vol] 9.6 mg/dL Normal 8.5-10.1 [facility] Comment on above: Performed By: #### C BC #### [facility] [address] [place] [address] Dr. Vitaly Jimenez Chloride [Moles/Vol] 99 mmol/L Normal 98-107 [facility] Comment on above: Performed By: #### C BC #### [facility] [address] [place] [address] Dr. Vitaly Jimenez CO2 [Moles/Vol] 29.2 mmol/L Normal 21.0-32.0 [facility] Comment on above: Performed By: #### C BC #### [facility] [address] [place] [address] Dr. Vitaly Jimenez Creatinine [Mass/Vol] 1.63 mg/dL Critically high 0.70-1.30 [facility] Comment on above: Performed By: #### C BC #### [facility] [address] [place] [address] Dr. Vitaly Jimenez EGFR-AF GUATEMALAN 53 mL/min/1.73m2 Critically low >=60 [facility] Comment on above: Performed By: #### C BC #### [facility] [address] [place] [address] Dr. Vitaly Jimenez EGFR-NON AF GUATEMALAN 44 mL/min/1.73m2 Critically low >=60 [facility] Comment on above: Performed By: #### C BC #### [facility] [address] [place] [address] Dr. Vitaly Jimenez Glucose [Mass/Vol] 185 mg/dL Critically high 74-106 T [facility] Comment on above: Performed By: #### C BC #### [facility] [address] [address] [address] Vitaly Jimenez Potassium [Moles/Vol] 4.7 mmol/L Normal 3.5-5.1 [facility] Comment on above: Performed By: #### C BC #### [facility] [address] [address] [address] Vitaly Jimenez Sodium [Moles/Vol] 137 mmol/L Normal 136-145 [facility] Comment on above: Performed By: #### C BC #### [facility] [address] [address] [address] Vitaly Jimenez Urea nitrogen [Mass/Vol] 26.0 mg/dL Critically high 7.0-[address] [facility] Comment on above: Performed By: #### C BC #### [facility] [address] [address] [address] Vitaly Jimenez Urea nitrogen/Creatinine [Mass ratio] 16.0 mg/mg Normal [facility] Comment on above: Performed By: #### C BC #### [facility] [address] [address] [address] Vitaly Jimenez ACID FAST SMEAR AND CXon Acid Fast Culture Negative Normal [facility] Comment on above: Result Comment: No a mike fast bacilli isolated after 6 weeks. Performed By: #### C BC #### [facility] [address] [address] [address] Vitaly Jimenez Acid Fast Smear Negative Normal [facility] Comment on above: Performed By: #### C BC #### [facility] [address] [id number] Vitaly Jimenez [employer] Specimen Processing Tissue Grinding [facility] Comment on above: Performed By: #### C BC #### [facility] [id number] Vitaly Jimenez XR FOOT LT MIN 3 VIEWSon XR FOOT LT MIN 3 VIEWS EXAM: XR FOOT LT MIN 3 VIEWS, XR ANKLE LT MIN 3 V HISTORY: Pain in left foot COMPARISON: 02/18/2022. TECHNIQUE: 3 views of the left ankle and 3 views of the left foot were obtained. Limitations: The evaluation of the bony detail of the visualized bones of the ankle and the foot are limited due to the presence of an external device. The lateral view is very suboptimal. 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 There appears to be caudal migration of the tibia and fibula. A longstem device is seen posterior to the tibia and fibula extending to the calcaneus. A talus is not identified. There is extensive periosteal reaction at the distal one third of the fibula and distal one fourth of the tibia. There is extensive sclerosis of the navicular bone. The cuneiforms and the tarsal bones are very deformed with extensive sclerosis. These may be related to prior infection/Charcot arthropathy. Extensive [place] type periosteal reaction is seen at the distal lateral fibular diaphysis. This may be sequela of prior trauma/infection. Neoplasm is also in the differential. IMPRESSION: Marked deformity of the hindfoot and the midfoot which may be related to prior infection/trauma/[place]ot arthropathy. Extensive periosteal reaction at the distal fibula and tibia which may be a sequela of prior neoplasm/infection/ trauma. Clinical correlation and follow-up as indicated. 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 Extensive soft tissue swelling at the entire foot. Periosteal reaction at the proximal half of the metatarsal bones which may be related to prior trauma/infection. Electronically authenticated by: RANDALL PRESTON Date: 2022-03-26 16:[address] [facility] FUNGAL CULTUREon 03-19-2022 Fungus (Mycology) Culture Final report Normal [facility] Comment on above: Performed By: #### A NACX #### [facility] [address] [place] [address] Dr. Vitaly Jimenez Fungus Stain Final report Normal [facility] Comment on above: Performed By: #### A NACX #### [facility] [address], [place] [address] Dr. Vitaly Jimenez Result [address] [facility] Comment on above: Result Comment: JET/ Calcofluor preparation: no fungus observed. Performed By: #### A NACX #### [facility] [address] [address] [address] Vitaly Jimenez Result Comment: No y east or mold isolated after 4 weeks. CBC AUTO DIFFon 02-23-2022 BASO # 0.0 103/ul Normal 0.0-0.1 [facility] Comment on above: Performed By: #### C MP #### [facility] [address] [address] [address] Vitaly Jimenez Basophils/100 WBC (Bld) 0.5 % Normal 0.2-2.0 [facility] Comment on above: Performed By: #### C MP #### [facility] [address] [place] [address] Dr. Vitaly Jimenez EO # 0.2 103/ul Normal 0.0-0.7 [facility] Comment on above: Performed By: #### C MP #### [facility] [address] [address] [address] Vitaly Jimenez Eosinophils/100 WBC (Bld) 4.1 % Normal 0.9-7.0 [facility] Comment on above: Performed By: #### C MP #### [facility] [address] [place] [address] Dr. Vitaly Jimenez Erythrocyte distribution width (RBC) [Ratio] 14.6 % Normal 11.0-15.0 [facility] Comment on above: Performed By: #### C MP #### [facility] [address] [place] [address] Dr. Vitaly Jimenez Hematocrit (Bld) [Volume fraction] 29.0 % Critically low 42.0-54.0 [facility] Comment on above: Performed By: #### C MP #### [facility] [address] [place] [address] Dr. Vitaly Jimenez Hemoglobin (Bld) [Mass/Vol] 9.4 g/dL Critically low 14.0-18.0 [facility] Comment on above: Performed By: #### C MP #### [facility] [address] [place] [address] Dr. Vitaly Jimenez IG # 0.03 10e3/ul Normal 0.00-0.03 [facility] Comment on above: Performed By: #### C MP #### [facility] [address] [place] [address] Dr. Vitaly Jimenez IG % 0.5 % Normal 0.0-0.5 [facility] Comment on above: Performed By: #### C MP #### [facility] [address] [place] [address] Dr. Vitaly Jimenez LYMPH # 1.5 103/ul Normal 1.2-3.8 [facility] Comment on above: Performed By: #### C MP #### [facility] [address] [place] [address] Dr. Vitaly Jimenez Lymphocytes/100 WBC (Bld) 27.2 % Normal 20.5-60.0 [facility] Comment on above: Performed By: #### C MP #### [facility] [address] [place] [address] Dr. Vitaly Jimenez MANUAL DIFF REQ NO Normal [facility] Comment on above: Performed By: #### C MP #### [facility] [address] [place] [address] Dr. Vitaly Jimenez MCH (RBC) [Entitic mass] 26.3 pg Normal 25.9-34.0 [facility] Comment on above: Performed By: #### C MP #### [facility] [address] [place] [address] Dr. Vitaly Jimenez MCHC (RBC) [Mass/Vol] 32.4 g/dL Normal 29.9-35.2 [facility] Comment on above: Performed By: #### C MP #### [facility] [address] [place] [address] Dr. Vitaly Jimenez MCV (RBC) [Entitic vol] 81.2 fL Normal 80.0-94.0 [facility] Comment on above: Performed By: #### C MP #### [facility] [address] [place] [address] Dr. Vitaly Jimenez MONO # 0.4 103/ul Normal 0.3-0.8 [facility] Comment on above: Performed By: #### C MP #### [facility] [address] [place] [address] Dr. Vitaly Jimenez Monocytes/100 WBC (Bld) 6.9 % Normal 1.7-12.0 [facility] Comment on above: Performed By: #### C MP #### [facility] [address] [place] [address] Dr. Vitaly Jimenez NEUT # 3.4 103/ul Normal 1.4-6.5 [facility] Comment on above: Performed By: #### C MP #### [facility] [address] [place] [address] Dr. Vitaly Jimenez Neutrophils/100 WBC (Bld) 60.8 % Normal 43.0-75.0 [facility] Comment on above: Performed By: #### C MP #### [facility] [address] [place] [address] Dr. Vitaly Jimenez Platelet mean volume (Bld) [Entitic vol] 9.0 fL Critically low 9.5-13.5 [facility] Comment on above: Performed By: #### C MP #### [facility] [address] [place] [address] Dr. Vitaly Jimenez PLT 276 103/ul Normal 150-450 [facility] Comment on above: Performed By: #### C MP #### [facility] [address] [place] [address] Dr. Vitaly Jimenez RBC 3.57 106/ul Critically low 4.70-6.10 [facility] Comment on above: Performed By: #### C MP #### [facility] [address] [place], [place] [id number] Dr. Vitaly Jimenez WBC 5.6 103/ul Normal 4.0-11.0 [facility] Comment on above: Performed By: #### C MP #### [facility] [address] [place] [address] Dr. Vitaly Jimenez PROF 14(COMP METB)on 01-17-2 023 Albumin [Mass/Vol] 1.9 g/dL Critically low 3.4-5.0 [facility] Comment on above: Performed By: #### C BC #### [facility] [address] [place] [address] Dr. Vitaly Jimenez Albumin/Globulin [Mass ratio] 0.4 {ratio} Normal [facility] [facility] Comment on above: Performed By: #### C BC #### [facility] [address] [address] [address] Vitaly Jimenez ALP [Catalytic activity/Vol] 118 U/L Critically high 46-116 [facility] Comment on above: Performed By: #### C BC #### [facility] [address] [place] [address] Dr. Vitaly Jimenez ALT [Catalytic activity/Vol] 5 U/L Critically low 16-63 [facility] Comment on above: Performed By: #### C BC #### [facility] [address] [place] [address] Dr. Vitaly Jimenez Anion gap [Moles/Vol] 8.9 mmol/L Normal [facility] Comment on above: Performed By: #### C BC #### [facility] [address] [place] [address] Dr. Vitaly Jimenez AST [Catalytic activity/Vol] 12 U/L Critically low 15-37 [facility] Comment on above: Performed By: #### C BC #### [facility] [address] [place] [address] Dr. Vitaly Jimenez Bilirubin [Mass/Vol] 0.3 mg/dL Normal 0.2-1.0 [facility] Comment on above: Performed By: #### C BC #### [facility] [address] [place] [address] Dr. Vitaly Jimenez Calcium [Mass/Vol] 8.2 mg/dL Critically low 8.5-10.1 [facility] Comment on above: Performed By: #### C BC #### [facility] [address] [place] [address] Dr. Vitaly Jimenez Chloride [Moles/Vol] 101 mmol/L Normal 98-107 [facility] Comment on above: Performed By: #### C BC #### [facility] [address] [address] [address] Vitaly Jimenez CO2 [Moles/Vol] 30.2 mmol/L Normal 21.0-32.0 [facility] Comment on above: Performed By: #### C BC #### [facility] [address] [address] [address] Vitaly Jimenez Creatinine [Mass/Vol] 0.83 mg/dL Normal 0.70-1.30 [facility] Comment on above: Performed By: #### C BC #### [facility] [address] [address] [address] Vitaly Jimenez EGFR-AF GUATEMALAN >60 Normal >=60 [facility] Comment on above: Performed By: #### C BC #### [facility] [address] [address] [address] Vitaly Jimenez EGFR-NON AF GUATEMALAN >60 Normal >=60 [facility] Comment on above: Performed By: #### C BC #### [facility] [address] [address] [address] Vitaly Jimenez Globulin (S) [Mass/Vol] 4.3 g/dL Normal [facility] Comment on above: Performed By: #### C BC #### [facility] [address] [address] [address] Vitaly Jimenez Glucose [Mass/Vol] 113 mg/dL Critically high 74-106 [facility] Comment on above: Performed By: #### C BC #### [facility] [address] [address] [address] Vitaly Jimenez Potassium [Moles/Vol] 4.1 mmol/L Normal 3.5-5.1 [facility] Comment on above: Performed By: #### C BC #### [facility] [address] [place] [address] Dr. Vitaly Jimenez Protein [Mass/Vol] 6.2 g/dL Critically low 6.4-8.2 [facility] Comment on above: Performed By: #### C BC #### [facility] [address] [address] [address] Vitaly Jimenez Sodium [Moles/Vol] 136 mmol/L Normal 136-145 [facility] Comment on above: Performed By: #### C BC #### [facility] [address] [place] [address] Dr. Vitaly Jimenez Urea nitrogen [Mass/Vol] 17.0 mg/dL Normal 7.0-18.0 [facility] Comment on above: Performed By: #### C BC #### [facility] [address] [place] [address] Dr. Vitaly Jimenez Urea nitrogen/Creatinine [Mass ratio] 20.5 mg/mg Normal [facility] Comment on above: Performed By: #### C BC #### [facility] [address] [place] [address] Dr. Vitaly Jimenez VANCOMYCIN TROUGHon 02-23-19 VANCOMYCIN TROUGH 13.2 ug/ml Normal 5.0-20.0 [facility] Comment on above: Performed By: #### C BC #### [facility] [address] [place] [address] Dr. Vitaly Jimenez CBC AUTO DIFFon 02-22-2022 BASO # 0.0 103/ul Normal 0.0-0.1 [facility] Comment on above: Performed By: #### C MP #### [facility] [address] [place] [address] Dr. Vitaly Jimenez Basophils/100 WBC (Bld) 0.7 % Normal 0.2-2.0 [facility] Comment on above: Performed By: #### C MP #### [facility] [address] [place] [address] Dr. Vitaly Jimenez EO # 0.2 103/ul Normal 0.0-0.7 [facility] Comment on above: Performed By: #### C MP #### [facility] [address] [place] [address] Dr. Vitaly Jimenez Eosinophils/100 WBC (Bld) 3.6 % Normal 0.9-7.0 [facility] Comment on above: Performed By: #### C MP #### [facility] [address] [place] [address] Dr. Vitaly Jimenez Erythrocyte distribution width (RBC) [Ratio] 14.5 % Normal 11.0-15.0 [facility] Comment on above: Performed By: #### C MP #### [facility] [address] [place] [address] Dr. Vitaly Jimenez Hematocrit (Bld) [Volume fraction] 27.6 % Critically low 42.0-54.0 [facility] Comment on above: Performed By: #### C MP #### [facility] [address] [place] [address] Dr. Vitaly Jimenez Hemoglobin (Bld) [Mass/Vol] 9.1 g/dL Critically low 14.0-18.0 [facility] Comment on above: Performed By: #### C MP #### [facility] [address] [place] [address] Dr. Vitaly Jimenez IG # 0.02 10e3/ul Normal 0.00-0.03 [facility] Comment on above: Performed By: #### C MP #### [facility] [address] [place] [address] Dr. Vitaly Jimenez IG % 0.3 % Normal 0.0-0.5 [facility] Comment on above: Performed By: #### C MP #### [facility] [address] [place] [address] Dr. Vitaly Jimenez LYMPH # 1.5 103/ul Normal 1.2-3.8 [facility] Comment on above: Performed By: #### C MP #### [facility] [address] [place] [address] Dr. Vitaly Jimenez Lymphocytes/100 WBC (Bld) 26.2 % Normal 20.5-60.0 [facility] Comment on above: Performed By: #### C MP #### [facility] [address] [place] [address] Dr. Vitaly Jimenez MANUAL DIFF REQ NO Normal [facility] Comment on above: Performed By: #### C MP #### [facility] [address] [address] [address] Vitaly Jimenez MCH (RBC) [Entitic mass] 26.3 pg Normal 25.9-34.0 [facility] Comment on above: Performed By: #### C MP #### [facility] [address] [place] [address] Dr. Vitaly Jimenez MCHC (RBC) [Mass/Vol] 33.0 g/dL Normal 29.9-35.2 [facility] Comment on above: Performed By: #### C MP #### [facility] [address] [place] [address] Dr. Vitaly Jimenez MCV (RBC) [Entitic vol] 79.8 fL Critically low 80.0-94. 0 [facility] Comment on above: Performed By: #### C MP #### [facility] [address] [place] [address] Dr. Vitaly Jimenez MONO # 0.6 103/ul Normal 0.3-0.8 [facility] Comment on above: Performed By: #### C MP #### [facility] [address] [place] [address] Dr. Vitaly Jimenez Monocytes/100 WBC (Bld) 9.6 % Normal 1.7-12.0 [facility] Comment on above: Performed By: #### C MP #### [facility] [address] [place] [address] Dr. Vitaly Jimenez NEUT # 3.5 103/ul Normal 1.4-6.5 [facility] Comment on above: Performed By: #### C MP #### [facility] [address] [place] [address] Dr. Vitaly Jimenez Neutrophils/100 WBC (Bld) 59.6 % Normal 43.0-75.0 [facility] Comment on above: Performed By: #### C MP #### [facility] [address] [place] [address] Dr. Vitaly Jimenez Platelet mean volume (Bld) [Entitic vol] 9.2 fL Critically low 9.5-13.5 [facility] Comment on above: Performed By: #### C MP #### [facility] [address] [address] [address] Vitaly Jimenez PLT 250 103/ul Normal 150-450 [facility] Comment on above: Performed By: #### C MP #### [facility] [address] [address] [address] Vitaly Jimenez RBC 3.46 106/ul Critically low 4.70-6.10 [facility] Comment on above: Performed By: #### C MP #### [facility] [address] [address] [address] Vitaly Jimenez WBC 5.8 103/ul Normal 4.0-11.0 [facility] Comment on above: Performed By: #### C MP #### [facility] [address] [place] [address] Dr. Vitaly Jimenez CULTURE OTHERon 02-22-2022 CULTURE OTHER Culture Observations: METHICILLIN RESISTANT STAPH AUREUS ISOLATED. PLEASE FOLLOW APPROPRIATE ISOLATION PROCEDURES. Isolate 1 Staphylococcus aureus Light growth of ORGANISM 1 Staphylococcus aureus ANTIBIOTIC M.I.C RX STATUS Beta-Lactamase Pos POS F Cefoxitin Screen Pos POS F Benzylpenicillin >=0.5 R F Oxacillin >=4 R F Gentamicin <=0.5 S F Ciprofloxacin >=8 R F Levofloxacin >=8 R F Inducible Clindamycin Resistance Neg NEG F Erythromycin >=8 R F Clindamycin >=8 R F Quinupristin/Dalfop ristin 0.5 S F Linezolid 2 S F Vancomycin 1 S F Tetracycline >=16 R F Rifampicin <=0.5 S F Trimethoprim/Sulfam ethoxazole <=10 S F Normal [facility] Comment on above: Performed By: #### O THCX #### [facility] [address] [place] [address] Dr. Vitaly Jimenez PRBC LEUKOREDUCEDon 02-22-19 23 ABO and Rh group Nom (Bld) Cross Match Result Compatible Unit Blood Type A Pos Unit Number [id number] Status Information Transfused Product ID Red Blood Cells Product Code [id number] Cross Match Result Compatible Unit Blood Type A Pos Unit Number [id number] Status Information Transfused Product ID Red Blood Cells Product Code [id number] Normal [facility] Comment on above: Performed By: #### P RBC #### [facility] [address] [place] [address] Dr. Vitaly Jimenez PRBC LEUKOREDUCED Cross Match Result Compatible Unit Blood Type A Pos Unit Number [id number] Status Information Transfused Product ID Red Blood Cells Product Code [id number] Normal [facility] Comment on above: Performed By: #### C MP #### [facility] [address] [place] [address] Dr. Vitaly Jimenez PROF 14(COMP METB)on 023 Albumin [Mass/Vol] 1.8 g/dL Critically low 3.4-5.0 [facility] Comment on above: Performed By: #### C BC #### [facility] [address] [place] [address] Dr. Vitaly Jimenez Albumin/Globulin [Mass ratio] 0.4 {ratio} Normal [facility] Comment on above: Performed By: #### C BC #### [facility] [address] [place] [address] Dr. Viatly Jimenez ALP [Catalytic activity/Vol] 108 U/L Normal 46-116 [facility] Comment on above: Performed By: #### C BC #### [facility] [address] [place] [address] Dr. Vitaly Jimenez ALT [Catalytic activity/Vol] 4 U/L Critically low 16-63 [facility] Comment on above: Performed By: #### C BC #### [facility] [address] [place] [address] Dr. Vitaly Jimenez Anion gap [Moles/Vol] 9.9 mmol/L Normal [facility] Comment on above: Performed By: #### C BC #### [facility] [address] [place] [address] Dr. Vitaly Jimenez AST [Catalytic activity/Vol] 12 U/L Critically low 15-37 [facility] Comment on above: Performed By: #### C BC #### [facility] [address] [place] [address] Dr. Vitaly Jimenez Bilirubin [Mass/Vol] 0.3 mg/dL Normal 0.2-1.0 [facility] Comment on above: Performed By: #### C BC #### [facility] [address] [place] [address] Dr. Vitaly Jimenez Calcium [Mass/Vol] 8.2 mg/dL Critically low 8.5-10.1 [facility] Comment on above: Performed By: #### C BC #### [facility] [address] [place] [address] Dr. Vitaly Jimenez Chloride [Moles/Vol] 100 mmol/L Normal 98-107 [facility] Comment on above: Performed By: #### C BC #### [facility] [address] [place] [address] Dr. Vitaly Jimenez CO2 [Moles/Vol] 29.5 mmol/L Normal 21.0-32.0 [facility] Comment on above: Performed By: #### C BC #### [facility] [address] [place] [address] Dr. Vitaly Jimenez Creatinine [Mass/Vol] 0.96 mg/dL Normal 0.70-1.30 [facility] Comment on above: Performed By: #### C BC #### [facility] [address] [place] [address] Dr. Vitaly Jimenez EGFR-AF GUATEMALAN >60 Normal >=60 [facility] Comment on above: Performed By: #### C BC #### [facility] [address] [place] [address] Dr. Vitaly Jimenez EGFR-NON AF GUATEMALAN >60 Normal >=60 [facility] Comment on above: Performed By: #### C BC #### [facility] [address] [place] [address] Dr. Vitaly Jimenez Globulin (S) [Mass/Vol] 4.2 g/dL Normal [facility] Comment on above: Performed By: #### C BC #### [facility] [address] [place] [address] Dr. Vitaly Jimenez Glucose [Mass/Vol] 147 mg/dL Critically high 74-106 [facility] Comment on above: Performed By: #### C BC #### [facility] [address] [place] [address] Dr. Vitaly Jimenez Potassium [Moles/Vol] 4.4 mmol/L Normal 3.5-5.1 [facility] Comment on above: Performed By: #### C BC #### [facility] [address] [place] [address] Dr. Vitaly Jimenez Protein [Mass/Vol] 6.0 g/dL Critically low 6.4-8.2 [facility] Comment on above: Performed By: #### C BC #### [facility] [address] [place] [address] Dr. Vitaly Jimenez Sodium [Moles/Vol] 135 mmol/L Critically low 136-145 [facility] Comment on above: Performed By: #### C BC #### [facility] [address] [place] [address] Dr. Vitaly Jimenez Urea nitrogen [Mass/Vol] 25.0 mg/dL Critically high 7.0-[address] [facility] Comment on above: Performed By: #### C BC #### [facility] [address] [place] [address] Dr. Vitaly Jimenez Urea nitrogen/Creatinine [Mass ratio] 26.0 mg/mg Normal [facility] Comment on above: Performed By: #### C BC #### [facility] [address] [place] [address] Dr. Vitaly Jimenez CBC AUTO DIFFon 02-21-2022 BASO # 0.0 103/ul Normal 0.0-0.1 [facility] Comment on above: Performed By: #### C BC #### [facility] [address] [place] [address] Dr. Vitaly Jimenez Basophils/100 WBC (Bld) 0.5 % Normal 0.2-2.0 [facility] Comment on above: Performed By: #### C BC #### [facility] [address] [place] [address] Dr. Vitaly Jimenez EO # 0.2 103/ul Normal 0.0-0.7 [facility] Comment on above: Performed By: #### C BC #### [facility] [address] [place] [address] Dr. Vitaly Jimenez Eosinophils/100 WBC (Bld) 2.8 % Normal 0.9-7.0 [facility] Comment on above: Performed By: #### C BC #### [facility] [address] [place] [address] Dr. Vitaly Jimenez Erythrocyte distribution width (RBC) [Ratio] 14.6 % Normal 11.0-15.0 [facility] Comment on above: Performed By: #### C BC #### [facility] [address] [place] [address] Dr. Vitaly Jimenez Hematocrit (Bld) [Volume fraction] 28.6 % Critically low 42.0-54.0 [facility] Comment on above: Performed By: #### C BC #### [facility] [address] [place] [address] Dr. Vitaly Jimenez Hemoglobin (Bld) [Mass/Vol] 9.3 g/dL Critically low 14.0-18.0 [facility] Comment on above: Result Comment: pt. rcvd. blood. Performed By: #### C BC #### [facility] [address] [place] [address] Dr. Vtialy Jimenez IG # 0.02 10e3/ul Normal 0.00-0.03 [facility] Comment on above: Performed By: #### C BC #### [facility] [address] [place] [address] Dr. Vitaly Jimenez IG % 0.3 % Normal 0.0-0.5 [facility] Comment on above: Performed By: #### C BC #### [facility] [address] [place] [address] Dr. Vitaly Jimenez LYMPH # 1.2 103/ul Normal 1.2-3.8 [facility] Comment on above: Performed By: #### C BC #### [facility] [address] [place] [address] Dr. Vitaly Jimenez Lymphocytes/100 WBC (Bld) 18.6 % Critically low 20.5-60.0 [facility] Comment on above: Performed By: #### C BC #### [facility] [address] [place] [address] Dr. Vitaly Jimenez MANUAL DIFF REQ NO Normal [facility] Comment on above: Performed By: #### C BC #### [facility] [address] [place] [address] Dr. Vitaly Jimenez MCH (RBC) [Entitic mass] 26.3 pg Normal 25.9-34.0 [facility] Comment on above: Performed By: #### C BC #### [facility] [address] [place] [address] Dr. Vitaly Jimenez MCHC (RBC) [Mass/Vol] 32.5 g/dL Normal 29.9-35.2 [facility] Comment on above: Performed By: #### C BC #### [facility] [address] [place] [address] Dr. Vitaly Jimenez MCV (RBC) [Entitic vol] 80.8 fL Normal 80.0-94.0 [facility] Comment on above: Performed By: #### C BC #### [facility] [address] [place] [address] Dr. Vitaly Jimenez MONO # 0.6 103/ul Normal 0.3-0.8 [facility] Comment on above: Performed By: #### C BC #### [facility] [address] [place] [address] Dr. Vitaly Jimenez Monocytes/100 WBC (Bld) 9.6 % Normal 1.7-12.0 [facility] Comment on above: Performed By: #### C BC #### [facility] [address] [place] [address] Dr. Vitaly Jimenez NEUT # 4.4 103/ul Normal 1.4-6.5 [facility] Comment on above: Performed By: #### C BC #### [facility] [address] [place] [address] Dr. Vitaly Jimenez Neutrophils/100 WBC (Bld) 68.2 % Normal 43.0-75.0 [facility] Comment on above: Performed By: #### C BC #### [facility] [address] [place] [address] Dr. Vitaly Jimenez Platelet mean volume (Bld) [Entitic vol] 8.8 fL Critically low 9.5-13.5 [facility] Comment on above: Performed By: #### C BC #### [facility] [address] [place] [address] Dr. Vitaly Jimenez PLT 256 103/ul Normal 150-450 [facility] Comment on above: Performed By: #### C BC #### [facility] [address] [place] [address] Dr. Vitaly Jimenez RBC 3.54 106/ul Critically low 4.70-6.10 [facility] Comment on above: Performed By: #### C BC #### [facility] [address] [place] [address] Dr. Vitaly Jimenez WBC 6.5 103/ul Normal 4.0-11.0 [facility] Comment on above: Performed By: #### C BC #### [facility] [address] [place] [address] Dr. Vitaly Jimenez BASO # 0.0 103/ul Normal 0.0-0.1 [facility] Comment on above: Performed By: #### C BC #### [facility] [address] [place] [address] Dr. Vitaly Jimenez Basophils/100 WBC (Bld) 0.3 % Normal 0.2-2.0 [facility] Comment on above: Performed By: #### C BC #### [facility] [address] [place] [address] Dr. Vitaly Jimenez EO # 0.1 103/ul Normal 0.0-0.7 [facility] Comment on above: Performed By: #### C BC #### [facility] [address] [place] [address] Dr. Vitaly Jimenez Eosinophils/100 WBC (Bld) 2.2 % Normal 0.9-7.0 [facility] Comment on above: Performed By: #### C BC #### [facility] [address] [place] [address] Dr. Vitaly Jimenez Erythrocyte distribution width (RBC) [Ratio] 14.2 % Normal 11.0-15.0 [facility] Comment on above: Performed By: #### C BC #### [facility] [address] [place] [address] Dr. Vitaly Jimenez Hematocrit (Bld) [Volume fraction] 22.1 % Critically low 42.0-54.0 [facility] Comment on above: Performed By: #### C BC #### [facility] [address] [place] [address] Dr. Vitaly Jimenez Hemoglobin (Bld) [Mass/Vol] 7.1 g/dL Critically low 14.0-18.0 [facility] Comment on above: Performed By: #### C BC #### [facility] [address] [place] [address] Dr. Vitaly Jimenez IG # 0.03 10e3/ul Normal 0.00-0.03 [facility] Comment on above: Performed By: #### C BC #### [facility] [address] [place] [address] Dr. Vitaly Jimenez IG % 0.5 % Normal 0.0-0.5 [facility] Comment on above: Performed By: #### C BC #### [facility] [address] [place] [address] Dr. Vitaly Jimenez LYMPH # 1.4 103/ul Normal 1.2-3.8 [facility] Comment on above: Performed By: #### C BC #### [facility] [address] [place] [address] Dr. Vitaly Jimenez Lymphocytes/100 WBC (Bld) 24.4 % Normal 20.5-60.0 [facility] Comment on above: Performed By: #### C BC #### [facility] [address] [place] [address] Dr. Vitaly Jimenez MANUAL DIFF REQ NO Normal [facility] Comment on above: Performed By: #### C BC #### [facility] [address] [place] [address] Dr. Vitaly Jimenez MCH (RBC) [Entitic mass] 25.3 pg Critically low 25.9-[address] [facility] Comment on above: Performed By: #### C BC #### [facility] [address] [place] [address] Dr. Vitaly Jimenez MCHC (RBC) [Mass/Vol] 32.1 g/dL Normal 29.9-35.2 [facility] Comment on above: Performed By: #### C BC #### [facility] [address] [place] [address] Dr. Vitaly Jimenez MCV (RBC) [Entitic vol] 78.6 fL Critically low 80.0-94. 0 [facility] Comment on above: Performed By: #### C BC #### [facility] [address] [place] [address] Dr. Vitaly Jimenez MONO # 0.5 103/ul Normal 0.3-0.8 [facility] Comment on above: Performed By: #### C BC #### [facility] [address] [place] [address] Dr. Vitaly Jimenez Monocytes/100 WBC (Bld) 8.4 % Normal 1.7-12.0 [facility] Comment on above: Performed By: #### C BC #### [facility] [address] [place] [address] Dr. Vitaly Jimenez NEUT # 3.7 103/ul Normal 1.4-6.5 [facility] Comment on above: Performed By: #### C BC #### [facility] [address] [place] [address] Dr. Vitaly Jimenez Neutrophils/100 WBC (Bld) 64.2 % Normal 43.0-75.0 [facility] Comment on above: Performed By: #### C BC #### [facility] [address] [place] [address] Dr. Vitaly Jimenez Platelet mean volume (Bld) [Entitic vol] 9.4 fL Critically low 9.5-13.5 [facility] Comment on above: Performed By: #### C BC #### [facility] [address] [address] [address] Vitaly Jimenez PLT 241 103/ul Normal 150-450 [facility] Comment on above: Performed By: #### C BC #### [facility] [address] [place] [address] Dr. Vitaly Jimenez RBC 2.81 106/ul Critically low 4.70-6.10 [facility] Comment on above: Performed By: #### C BC #### [facility] [address] [address] [address] Vitaly Jimenez WBC 5.8 103/ul Normal 4.0-11.0 [facility] Comment on above: Performed By: #### C BC #### [facility] [address] [place] [address] Dr. Vitaly Jimenez PROF 14(COMP METB)on 023 Albumin [Mass/Vol] 1.7 g/dL Critically low 3.4-5.0 [facility] Comment on above: Performed By: #### C MP #### [facility] [address] [place] [address] Dr. Vitaly Jimenez Albumin/Globulin [Mass ratio] 0.4 {ratio} Normal [facility] Comment on above: Performed By: #### C MP #### [facility] [address] [place] [address] Dr. Vitaly Jimenez ALP [Catalytic activity/Vol] 100 U/L Normal 46-116 [facility] Comment on above: Performed By: #### C MP #### [facility] [address] [place] [address] Dr. Vitaly Jimenez ALT [Catalytic activity/Vol] 4 U/L Critically low 16-63 [facility] Comment on above: Performed By: #### C MP #### [facility] [address] [place] [address] Dr. Vitaly Jimenez Anion gap [Moles/Vol] 8.7 mmol/L Normal [facility] Comment on above: Performed By: #### C MP #### [facility] [address] [place] [address] Dr. Vitaly Jimenez AST [Catalytic activity/Vol] 10 U/L Critically low 15-37 [facility] Comment on above: Performed By: #### C MP #### [facility] [address] [place] [address] Dr. Vitaly Jimenez Bilirubin [Mass/Vol] 0.2 mg/dL Normal 0.2-1.0 [facility] Comment on above: Performed By: #### C MP #### [facility] [address] [place] [address] Dr. Vitaly Jimenez Calcium [Mass/Vol] 7.9 mg/dL Critically low 8.5-10.1 [facility] Comment on above: Performed By: #### C MP #### [facility] [address] [place] [address] Dr. Vitaly Jimenez Chloride [Moles/Vol] 98 mmol/L Normal 98-107 [facility] Comment on above: Performed By: #### C MP #### [facility] [address] [place] [address] Dr. Vitaly Jimenez CO2 [Moles/Vol] 29.8 mmol/L Normal 21.0-32.0 [facility] Comment on above: Performed By: #### C MP #### [facility] [address] [place] [address] Dr. Vitaly Jimenez Creatinine [Mass/Vol] 1.45 mg/dL Critically high 0.70-1.30 [facility] Comment on above: Performed By: #### C MP #### [facility] [address] [place] [address] Dr. Vitaly Jimenez EGFR-AF GUATEMALAN 60 mL/min/1.73m2 Normal >=60 [facility] Comment on above: Performed By: #### C MP #### [facility] [address] [place] [address] Dr. Vitaly Jimenez EGFR-NON AF GUATEMALAN 50 mL/min/1.73m2 Critically low >=60 [facility] Comment on above: Performed By: #### C MP #### [facility] [address] [place] [address] Dr. Vitaly Jimenez Globulin (S) [Mass/Vol] 4.0 g/dL Normal [facility] Comment on above: Performed By: #### C MP #### [facility] [address] [place] [address] Dr. Vitaly Jimenez Glucose [Mass/Vol] 138 mg/dL Critically high 74-106 [facility] Comment on above: Performed By: #### C MP #### [facility] [address] [place] [address] Dr. Vitaly Jimenez Potassium [Moles/Vol] 4.5 mmol/L Normal 3.5-5.1 [facility] Comment on above: Performed By: #### C MP #### [facility] [address] [place] [address] Dr. Vitaly Jimenez Protein [Mass/Vol] 5.7 g/dL Critically low 6.4-8.2 [facility] Comment on above: Performed By: #### C MP #### [facility] [address] [place] [address] Dr. Vitaly Jimenez Sodium [Moles/Vol] 132 mmol/L Critically low 136-145 [facility] Comment on above: Performed By: #### C MP #### [facility] [address] [place] [address] Dr. Vitaly Jimenez Urea nitrogen [Mass/Vol] 33.0 mg/dL Critically high 7.0-[address] [facility] Comment on above: Performed By: #### C MP #### [facility] [address] [place] [address] Dr. Vitaly Jimenez Urea nitrogen/Creatinine [Mass ratio] 22.8 mg/mg Normal [facility] Comment on above: Performed By: #### C MP #### [facility] [address] [place] [address] Dr. Vitaly Jimenez CBC AUTO DIFFon 02-20-2022 BASO # 0.0 103/ul Normal 0.0-0.1 [facility] Comment on above: Performed By: #### C BC #### [facility] [address] [place] [address] Dr. Vitaly Jimenez Basophils/100 WBC (Bld) 0.5 % Normal 0.2-2.0 [facility] Comment on above: Performed By: #### C BC #### [facility] [address] [place] [address] Dr. Vitaly Jimenez EO # 0.1 103/ul Normal 0.0-0.7 [facility] Comment on above: Performed By: #### C BC #### [facility] [address] [place] [address] Dr. Vitaly Jimenez Eosinophils/100 WBC (Bld) 1.7 % Normal 0.9-7.0 [facility] Comment on above: Performed By: #### C BC #### [facility] [address] [place] [address] Dr. Vitaly Jimenez Erythrocyte distribution width (RBC) [Ratio] 14.2 % Normal 11.0-15.0 [facility] Comment on above: Performed By: #### C BC #### [facility] [address] [place] [address] Dr. Vitaly Jimenez Hematocrit (Bld) [Volume fraction] 21.3 % Critically low 42.0-54.0 [facility] Comment on above: Performed By: #### C BC #### [facility] [address] [place] [address] Dr. Vitaly Jimenez Hemoglobin (Bld) [Mass/Vol] 7.0 g/dL Critically low 14.0-18.0 [facility] Comment on above: Performed By: #### C BC #### [facility] [address] [place] [address] Dr. Vitaly Jimenez IG # 0.03 10e3/ul Normal 0.00-0.03 [facility] Comment on above: Performed By: #### C BC #### [facility] [address] [place] [address] Dr. Vitaly Jimenez IG % 0.5 % Normal 0.0-0.5 [facility] Comment on above: Performed By: #### C BC #### [facility] [address] [place] [address] Dr. Vitaly Jimenez LYMPH # 1.3 103/ul Normal 1.2-3.8 [facility] Comment on above: Performed By: #### C BC #### [facility] [address] [place] [address] Dr. Vitaly Jimenez Lymphocytes/100 WBC (Bld) 19.3 % Critically low 20.5-60.0 [facility] Comment on above: Performed By: #### C BC #### [facility] [address] [place] [address] Dr. Vitaly Jimenez MANUAL DIFF REQ NO Normal [facility] Comment on above: Performed By: #### C BC #### [facility] [address] [place] [address] Dr. Vitaly Jimenez MCH (RBC) [Entitic mass] 25.3 pg Critically low 25.9-[address] [facility] Comment on above: Performed By: #### C BC #### [facility] [address] [place] [address] Dr. Vitaly Jimenez MCHC (RBC) [Mass/Vol] 32.9 g/dL Normal 29.9-35.2 [facility] Comment on above: Performed By: #### C BC #### [facility] [address] [place] [address] Dr. Vitaly Jimenez MCV (RBC) [Entitic vol] 76.9 fL Critically low 80.0-94. 0 [facility] Comment on above: Performed By: #### C BC #### [facility] [address] [place] [address] Dr. Vitaly Jimenez MONO # 0.4 103/ul Normal 0.3-0.8 [facility] Comment on above: Performed By: #### C BC #### [facility] [address] [place] [address] Dr. Vitaly Jimenez Monocytes/100 WBC (Bld) 6.6 % Normal 1.7-12.0 [facility] Comment on above: Performed By: #### C BC #### [facility] [address] [place] [address] Dr. Vitaly Jimenez NEUT # 4.7 103/ul Normal 1.4-6.5 [facility] Comment on above: Performed By: #### C BC #### [facility] [address] [address] [address] Vitaly Jimenez Neutrophils/100 WBC (Bld) 71.4 % Normal 43.0-75.0 [facility] Comment on above: Performed By: #### C BC #### [facility] [address] [address] [address] Vitaly Jimenez Platelet mean volume (Bld) [Entitic vol] 9.5 fL Normal 9.5-13.5 [facility] Comment on above: Performed By: #### C BC #### [facility] [address] [address] [address] Vitaly Jimenez PLT 225 103/ul Normal 150-450 [facility] Comment on above: Performed By: #### C BC #### [facility] [address] [place] [address] Dr. Vitaly Jimenez RBC 2.77 106/ul Critically low 4.70-6.10 [facility] Comment on above: Performed By: #### C BC #### [facility] [address] [address] [address] Vitaly Jimenez WBC 6.6 103/ul Normal 4.0-11.0 [facility] Comment on above: Performed By: #### C BC #### [facility] [address] [place] [address] Dr. Vitaly Jimenez HEMOGLOBIN AND HEMATOCRITon 02-20-2022 Hematocrit (Bld) [Volume fraction] 25.5 % Critically low 42.0-54.0 [facility] Comment on above: Performed By: #### C MP #### [facility] [address] [address] [address] Vitaly Jimenez Hemoglobin (Bld) [Mass/Vol] 8.2 g/dL Critically low 14.0-18.0 [facility] Comment on above: Performed By: #### C MP #### [facility] [address] [address] [address] Vitaly Jimenez POINT OF CARE GLUCOSEon 02-07 Glucose [Mass/Vol] 229 mg/dL Critically high 74-106 [facility] Comment on above: Performed By: #### P OCGLUC #### [facility] [address] [place] [address] Dr. Vitaly Jimenez PROF 14(COMP METB)on 023 Albumin [Mass/Vol] 1.7 g/dL Critically low 3.4-5.0 [facility] Comment on above: Performed By: #### O THCX #### [facility] [address] [place] [address] Dr. Vitaly Jimenez Albumin/Globulin [Mass ratio] 0.4 {ratio} Normal [facility] Comment on above: Performed By: #### O THCX #### [facility] [address] [place] [address] Dr. Vitaly Jimenez ALP [Catalytic activity/Vol] 111 U/L Normal 46-116 [facility] Comment on above: Performed By: #### O THCX #### [facility] [address] [place] [address] Dr. Vitaly Jimenez ALT [Catalytic activity/Vol] 2 U/L Critically low 16-63 [facility] Comment on above: Performed By: #### O THCX #### [facility] [address] [place] [address] Dr. Vitaly Jimenez Anion gap [Moles/Vol] 9.2 mmol/L Normal [facility] Comment on above: Performed By: #### O THCX #### [facility] [address] [place] [address] Dr. Vitaly Jimenez AST [Catalytic activity/Vol] 9 U/L Critically low 15-37 [facility] Comment on above: Performed By: #### O THCX #### [facility] [address] [place] [address] Dr. Vitaly Jimenez Bilirubin [Mass/Vol] 0.1 mg/dL Critically low 0.2-1.0 [facility] Comment on above: Performed By: #### O THCX #### [facility] [address] [place] [address] Dr. Vitaly Jimenez Calcium [Mass/Vol] 8.3 mg/dL Critically low 8.5-10.1 [facility] Comment on above: Performed By: #### O THCX #### [facility] [address] [place] [address] Dr. Vitaly Jimenez Chloride [Moles/Vol] 97 mmol/L Critically low 98-107 [facility] Comment on above: Performed By: #### O THCX #### [facility] [address] [address] [address] Vitaly Jimenez CO2 [Moles/Vol] 29.2 mmol/L Normal 21.0-32.0 [facility] Comment on above: Performed By: #### O THCX #### [facility] [address] [place] [address] Dr. Vitaly Jimenez Creatinine [Mass/Vol] 1.69 mg/dL Critically high 0.70-1.30 [facility] Comment on above: Performed By: #### O THCX #### [facility] [address] [place] [address] Dr. Vitaly Jimenez EGFR-AF GUATEMALAN 51 mL/min/1.73m2 Critically low >=60 [facility] Comment on above: Performed By: #### O THCX #### [facility] [address] [place] [address] Dr. Vitaly Jimenez EGFR-NON AF GUATEMALAN 42 mL/min/1.73m2 Critically low >=60 [facility] Comment on above: Performed By: #### O THCX #### [facility] [address] [place] [address] Dr. Vitaly Jimenez Globulin (S) [Mass/Vol] 4.0 g/dL Normal [facility] Comment on above: Performed By: #### O THCX #### [facility] [address] [place] [address] Dr. Vitaly Jimenez Glucose [Mass/Vol] 187 mg/dL Critically high 74-106 [facility] Comment on above: Performed By: #### O THCX #### [facility] [address] [place] [address] Dr. Vitaly Jimenez Potassium [Moles/Vol] 4.4 mmol/L Normal 3.5-5.1 [facility] Comment on above: Performed By: #### O THCX #### [facility] [address] [place] [address] Dr. Vitaly Jimenez Protein [Mass/Vol] 5.7 g/dL Critically low 6.4-8.2 [facility] Comment on above: Performed By: #### O THCX #### [facility] [address] [place] [address] Dr. Vitaly Jimenez Sodium [Moles/Vol] 131 mmol/L Critically low 136-145 [facility] Comment on above: Performed By: #### O THCX #### [facility] [address] [place] [address] Dr. Vitaly Jimenez Urea nitrogen [Mass/Vol] 34.0 mg/dL Critically high 7.0-[address] [facility] Comment on above: Performed By: #### O THCX #### [facility] [address] [place] [address] Dr. Vitaly Jimenez Urea nitrogen/Creatinine [Mass ratio] 20.1 mg/mg Normal [facility] Comment on above: Performed By: #### O THCX #### [facility] [address] [place] [address] Dr. Vitaly Jimenez CBC AUTO DIFFon 02-19-2022 BASO # 0.0 103/ul Normal 0.0-0.1 [facility] Comment on above: Performed By: #### C MP #### [facility] [address] [place] [address] Dr. Vitaly Jimenez Basophils/100 WBC (Bld) 0.5 % Normal 0.2-2.0 [facility] Comment on above: Performed By: #### C MP #### [facility] [address] [place] [address] Dr. Vitaly Jimenez EO # 0.1 103/ul Normal 0.0-0.7 [facility] Comment on above: Performed By: #### C MP #### [facility] [address] [address] [address] Vitaly Jimenez Eosinophils/100 WBC (Bld) 1.2 % Normal 0.9-7.0 [facility] Comment on above: Performed By: #### C MP #### [facility] [address] [place] [address] Dr. Vitaly Jimenez Erythrocyte distribution width (RBC) [Ratio] 14.2 % Normal 11.0-15.0 [facility] Comment on above: Performed By: #### C MP #### [facility] [address] [place] [address] Dr. Vitaly Jimenez Hematocrit (Bld) [Volume fraction] 25.7 % Critically low 42.0-54.0 [facility] Comment on above: Performed By: #### C MP #### [facility] [address] [place] [address] Dr. Vitaly Jimenez Hemoglobin (Bld) [Mass/Vol] 7.3 g/dL Critically low 14.0-18.0 [facility] Comment on above: Performed By: #### C MP #### [facility] [address] [place] [address] Dr. Vitaly Jimenez IG # 0.06 10e3/ul Critically high 0.00-0.03 [facility] Comment on above: Performed By: #### C MP #### [facility] [address] [place] [address] Dr. Vitaly Jimenez IG % 0.8 % Critically high 0.0-0.5 [facility] Comment on above: Performed By: #### C MP #### [facility] [address] [place] [address] Dr. Vitaly Jimenez LYMPH # 2.2 103/ul Normal 1.2-3.8 [facility] Comment on above: Performed By: #### C MP #### [facility] [address] [place] [address] Dr. Vitaly Jimenez Lymphocytes/100 WBC (Bld) 27.9 % Normal 20.5-60.0 [facility] Comment on above: Performed By: #### C MP #### [facility] [address] [place] [address] Dr. Vitaly Jimenez MANUAL DIFF REQ NO Normal [facility] Comment on above: Performed By: #### C MP #### [facility] [address] [place] [address] Dr. Vitaly Jimenez MCH (RBC) [Entitic mass] 24.7 pg Critically low 25.9-[address] [facility] Comment on above: Performed By: #### C MP #### [facility] [address] [place] [address] Dr. Vitaly Jimenez MCHC (RBC) [Mass/Vol] 28.4 g/dL Critically low 29.9-35.2 [facility] Comment on above: Performed By: #### C MP #### [facility] [address] [place] [address] Dr. Vitaly Jimenez MCV (RBC) [Entitic vol] 87.1 fL Normal 80.0-94.0 [facility] Comment on above: Performed By: #### C MP #### [facility] [address] [place] [address] Dr. Vitaly Jimenez MONO # 1.0 103/ul Critically high 0.3-0.8 [facility] Comment on above: Performed By: #### C MP #### [facility] [address] [place] [address] Dr. Vitaly Jimenez Monocytes/100 WBC (Bld) 12.4 % Critically high 1.7-12. 0 [facility] Comment on above: Performed By: #### C MP #### [facility] [address] [place] [address] Dr. Vitaly Jimenez NEUT # 4.5 103/ul Normal 1.4-6.5 [facility] Comment on above: Performed By: #### C MP #### [facility] [address] [place] [address] Dr. Vitaly Jimenez Neutrophils/100 WBC (Bld) 57.2 % Normal 43.0-75.0 [facility] Comment on above: Performed By: #### C MP #### [facility] [address] [place] [address] Dr. Vitaly Jimenez Platelet mean volume (Bld) [Entitic vol] 10.0 fL Normal 9.5-13.5 [facility] Comment on above: Performed By: #### C MP #### [facility] [address] [place] [address] Dr. Vitaly Jimenez PLT 269 103/ul Normal 150-450 [facility] Comment on above: Performed By: #### C MP #### [facility] [address] [address] [address] Vitaly Jimenez RBC 2.95 106/ul Critically low 4.70-6.10 [facility] Comment on above: Performed By: #### C MP #### [facility] [address] [place] [address] Dr. Vitaly Jimenez WBC 7.8 103/ul Normal 4.0-11.0 [facility] Comment on above: Performed By: #### C MP #### [facility] [address] [place] [address] Dr. Vitaly Jimenez GLYCOHEMOGLOBIN A1Con 2022 ADA RECOMMENDATION SEE BELOW Normal [facility] Comment on above: Result Comment: ADA RECOMMENDED LIMIT 4.0 - 6.0 ADA THERAPEUTIC TARGET < 7.0 ACTION SUGGESTED > 7.0 Performed By: #### C MP #### [facility] [address] [place] [address] Dr. Vitaly Jimenez Glucose [Mass/Vol] 148 mg/dL Normal [facility] Comment on above: Performed By: #### C MP #### [facility] [address] [place] [address] Dr. Vitaly Jimenez HbA1c (Bld) [Mass fraction] 6.8 % Critically high 4.5-6.2 [facility] Comment on above: Performed By: #### C MP #### [facility] [address] [place] [address] Dr. Vitaly Jimenez HEMOGLOBIN AND HEMATOCRITon 02-19-2022 Hematocrit (Bld) [Volume fraction] 27.1 % Critically low 42.0-54.0 [facility] Comment on above: Performed By: #### C BC #### [facility] [address] [address] [address] Vitaly Jimenez Hemoglobin (Bld) [Mass/Vol] 7.8 g/dL Critically low 14.0-18.0 [facility] Comment on above: Performed By: #### C BC #### [facility] [address] [address] [address] Vitaly Jimenez POINT OF CARE GLUCOSEon 02-07 Glucose [Mass/Vol] 170 mg/dL Critically high [address] [place] [address] Comment on above: Performed By: #### A NACX #### [facility] [address] [address] [address] Vitaly Jimenez Glucose [Mass/Vol] 215 mg/dL Critically high [address] [place] [address] Comment on above: Performed By: #### C BC #### [facility] [address] [address] [address] Vitaly Jimenez Glucose [Mass/Vol] 267 mg/dL Critically high [address] [place] [address] Comment on above: Performed By: #### C BC #### [facility] [address] [address] [address] Vitaly Jimenez Glucose [Mass/Vol] 220 mg/dL Critically high [address] [place] [address] Comment on above: Performed By: #### O THCX #### [facility] [address] [address] [address] Vitaly Jimenez Glucose [Mass/Vol] 200 mg/dL Critically high [address] [place] [address] Comment on above: Performed By: #### O THCX #### [facility] [address] [address] [address] Vitaly Jimenez PROF 14(COMP METB)on 023 Albumin [Mass/Vol] 1.9 g/dL Critically low 3.4-5.0 [facility] Comment on above: Performed By: #### C MP #### [facility] [address] [address] [address] Vitaly Jimenez Albumin/Globulin [Mass ratio] 0.5 {ratio} Normal [facility] Comment on above: Performed By: #### C MP #### [facility] [address] [address] [address] Vitaly Jimenez ALP [Catalytic activity/Vol] 92 U/L Normal 46-116 [facility] Comment on above: Performed By: #### C MP #### [facility] [address] [address] [address] Vitaly Jimenez ALT [Catalytic activity/Vol] 5 U/L Critically low 16-63 [facility] Comment on above: Performed By: #### C MP #### [facility] [address] [address] [address] Vitaly Jimenez Anion gap [Moles/Vol] 9.4 mmol/L Normal [facility] Comment on above: Performed By: #### C MP #### [facility] [address] [place] [address] Dr. Vitaly Jimenez AST [Catalytic activity/Vol] 10 U/L Critically low 15-37 [facility] Comment on above: Performed By: #### C MP #### [facility] [address] [address] [address] Vitaly Jimenez Bilirubin [Mass/Vol] 0.3 mg/dL Normal 0.2-1.0 [facility] Comment on above: Performed By: #### C MP #### [facility] [address] [place] [address] Dr. Vitaly Jimenez Calcium [Mass/Vol] 8.2 mg/dL Critically low 8.5-10.1 [facility] Comment on above: Performed By: #### C MP #### [facility] [address] [address] [address] Vitaly Jimenez Chloride [Moles/Vol] 97 mmol/L Critically low 98-107 [facility] Comment on above: Performed By: #### C MP #### [facility] [address] [address] [address] Vitaly Jimenez CO2 [Moles/Vol] 30.1 mmol/L Normal 21.0-32.0 [facility] Comment on above: Performed By: #### C MP #### [facility] [address] [address] [address] Vitaly Jimenez Creatinine [Mass/Vol] 2.08 mg/dL Critically high 0.70-1.30 [facility] Comment on above: Performed By: #### C MP #### [facility] [address] [address] [address] Vitaly Jimenez EGFR-AF GUATEMALAN 40 mL/min/1.73m2 Critically low >=60 [facility] Comment on above: Performed By: #### C MP #### [facility] [address] [address] [address] Vitaly Jimenez EGFR-NON AF GUATEMALAN 33 mL/min/1.73m2 Critically low >=60 [facility] Comment on above: Performed By: #### C MP #### [facility] [address] [address] [address] Vitaly Jimenez Globulin (S) [Mass/Vol] 3.9 g/dL Normal [facility] Comment on above: Performed By: #### C MP #### [facility] [address] [address] [address] Vitaly Jimenez Glucose [Mass/Vol] 197 mg/dL Critically high 74-106 [facility] Comment on above: Performed By: #### C MP #### [facility] [address] [address] [address] Vitaly Jimenez Potassium [Moles/Vol] 4.5 mmol/L Normal 3.5-5.1 [facility] Comment on above: Performed By: #### C MP #### [facility] [address] [address] [address] Vitaly Jimenez Protein [Mass/Vol] 5.8 g/dL Critically low 6.4-8.2 [facility] Comment on above: Performed By: #### C MP #### [facility] [address] [address] [address] Vitaly Jimenez Sodium [Moles/Vol] 132 mmol/L Critically low 136-145 [facility] Comment on above: Performed By: #### C MP #### [facility] [address] [address] [address] Vitaly Jimenez Urea nitrogen [Mass/Vol] 25.0 mg/dL Critically high 7.0-18 .0 [facility] Comment on above: Performed By: #### C MP #### [facility] [address] [address] [address] Vitaly Jimenez Urea nitrogen/Creatinine [Mass ratio] 12.0 mg/mg Normal [facility] Comment on above: Performed By: #### C MP #### [facility] [address] [address] [address] Vitaly Jimenez TYPE AND SCREENon 02-19-2022 TYPE AND SCREEN Negative Normal [facility] Comment on above: Performed By: #### T NS #### [facility] [address] [address] [address] Vitaly Jimenez CULTURE ANAEROBICon 02-18-19 23 CULTURE ANAEROBIC Culture Observations: NO GROWTH OF ANAEROBES AT 72 HOURS. Normal [facility] Comment on above: Performed By: #### C MP #### [facility] [address] [address] [address] Vitaly Jimenez GRAM STAINon 02-18-2022 COMMENTS NO ORGANISMS OBSERVED Normal [facility] Comment on above: Performed By: #### A NACX #### [facility] [address] [address] [address] Vitaly Jimenez DIPHTHEROIDS Normal [facility] Comment on above: Performed By: #### A NACX #### [facility] [address] [address] [address] Vitaly Jimenez EPITHELIALS Normal [facility] Comment on above: Performed By: #### A NACX #### [facility] [address] [address] [address] Vitaly Jimenez FUNGAL ELEMENTS Normal [facility] Comment on above: Performed By: #### A NACX #### [facility] [address] [address] [address] Vitaly Jimenez GRAM NEG BACILLI Normal [facility] Comment on above: Performed By: #### A NACX #### [facility] [address] [address] [address] Vitaly Jimenez GRAM NEG DIPPLOCOCCI Normal [facility] Comment on above: Performed By: #### A NACX #### [facility] [address] [address] [address] Vitaly Jimenez GRAM POS BACILLI Normal [facility] Comment on above: Performed By: #### A NACX #### [facility] [address] [place] [address] Dr. Vitaly Jimenez GRAM POSITIVE COCCI Normal [facility] Comment on above: Performed By: #### A NACX #### [facility] [address] [address] [address] Vitaly Jimenez GRAM STAIN SOURCE l. tibia [facility] Comment on above: Performed By: #### A NACX #### [facility] [address] [place] [address] Dr. Vitaly Jimenez GS_DIPTH [facility] Comment on above: Performed By: #### A NACX #### [facility] [address] [place] [address] Dr. Vitaly Jimenez WBC RARE Normal [facility] Comment on above: Performed By: #### A NACX #### [facility] [address] [place] [address] Dr. Vitaly Jimenez POINT OF CARE GLUCOSEon 02-07 Glucose [Mass/Vol] 191 mg/dL Critically high 74-106 [facility] Comment on above: Performed By: #### C BC #### [facility] [address] [place] [address] Dr. Vitaly Jimenez Glucose [Mass/Vol] 202 mg/dL Critically high -106 [facility] Comment on above: Performed By: #### C BC #### [facility] [address] [place] [address] Dr. Vitaly Jimenez Glucose [Mass/Vol] 219 mg/dL Critically high -106 [facility] Comment on above: Performed By: #### O THCX #### [facility] [address] [place] [address] Dr. Vitaly Jimenez Covid-19 PCR (CVDTBH)on 02-07 SARS-CoV-2 (COVID-19) RNA TOÑITO+probe Ql (Unsp spec) Not detected Normal NOT DETECTED [facility] Comment on above: Result Comment: This test is not yet approved or cleared by the [place] FDA. When there are no FDA-approved or cleared tests available, and other criteria are met, FDA can make tests available under an emergency access mechanism called an Emergency Use Authorization (EUA). The EUA for this test is supported by the [place] of Health and Human Service's (HHS's) declaration that circumstances exist to justify the emergency use of in vitro diagnostics for the detection and/or diagnosis of the virus that causes COVID-19. This EUA will remain in effect (meaning this test can be used) for the duration of the COVID-19 declaration justifying emergency of IVDs, unless it is terminated or revoked by FDA (after which the test may no longer be used). When diagnostic testing is negative, the possibility of a false negative should be considered in the context of a patient's recent exposures and the presence of clinical signs and symptoms consistent with SARS-CoV-2. Performed By: #### C BC #### [facility] [address] [place] [address] Dr. Vitaly Jimenez CBC AUTO DIFFon 02-10-2022 BASO # 0.0 103/ul Normal 0.0-0.1 [facility] Comment on above: Performed By: #### A NACX #### [facility] [address] [place] [address] Dr. Vitaly Jimenez Basophils/100 WBC (Bld) 0.4 % Normal 0.2-2.0 [facility] Comment on above: Performed By: #### A NACX #### [facility] [address] [place] [address] Dr. Vitaly Jimenez EO # 0.2 103/ul Normal 0.0-0.7 [facility] Comment on above: Performed By: #### A NACX #### [facility] [address] [place] [address] Dr. Vitaly Jimenez Eosinophils/100 WBC (Bld) 1.6 % Normal 0.9-7.0 [facility] Comment on above: Performed By: #### A NACX #### [facility] [address] [place] [address] Dr. Vitaly Jimenez Erythrocyte distribution width (RBC) [Ratio] 13.8 % Normal 11.0-15.0 [facility] Comment on above: Performed By: #### A NACX #### [facility] [address] [place] [address] Dr. Vitaly Jimenez Hematocrit (Bld) [Volume fraction] 29.1 % Critically low 42.0-54.0 [facility] Comment on above: Performed By: #### A NACX #### [facility] [address] [place] [address] Dr. Vitaly Jimenez Hemoglobin (Bld) [Mass/Vol] 9.4 g/dL Critically low 14.0-18.0 [facility] Comment on above: Performed By: #### A NACX #### [facility] [address] [place] [address] Dr. Vitaly Jimenez IG # 0.06 10e3/ul Critically high 0.00-0.03 [facility] Comment on above: Performed By: #### A NACX #### [facility] [address] [place] [address] Dr. Vitaly Jimenez IG % 0.6 % Critically high 0.0-0.5 [facility] Comment on above: Performed By: #### A NACX #### [facility] [address] [place] [address] Dr. Vitaly Jimenez LYMPH # 1.9 103/ul Normal 1.2-3.8 [facility] Comment on above: Performed By: #### A NACX #### [facility] [address] [place] [address] Dr. Vitaly Jimenez Lymphocytes/100 WBC (Bld) 19.6 % Critically low 20.5-60.0 [facility] Comment on above: Performed By: #### A NACX #### [facility] [address] [place] [address] Dr. Vitaly Jimenez MANUAL DIFF REQ NO Normal [facility] Comment on above: Performed By: #### A NACX #### [facility] [address] [place] [address] Dr. Vitaly Jimenez MCH (RBC) [Entitic mass] 25.5 pg Critically low 25.9-[address] [facility] Comment on above: Performed By: #### A NACX #### [facility] [address] [place] [address] Dr. Vitaly Jimenez MCHC (RBC) [Mass/Vol] 32.3 g/dL Normal 29.9-35.2 [facility] Comment on above: Performed By: #### A NACX #### [facility] [address] [place] [address] Dr. Vitaly Jimenez MCV (RBC) [Entitic vol] 79.1 fL Critically low 80.0-94. 0 [facility] Comment on above: Performed By: #### A NACX #### [facility] [address] [place] [address] Dr. Vitaly Jimenez MONO # 0.5 103/ul Normal 0.3-0.8 [facility] Comment on above: Performed By: #### A NACX #### [facility] [address] [place] [address] Dr. Vitaly Jimenez Monocytes/100 WBC (Bld) 5.4 % Normal 1.7-12.0 [facility] Comment on above: Performed By: #### A NACX #### [facility] [address] [place] [address] Dr. Vitaly Jimenez NEUT # 6.9 103/ul Critically high 1.4-6.5 [facility] Comment on above: Performed By: #### A NACX #### [facility] [address] [place] [address] Dr. Vitaly Jimenez Neutrophils/100 WBC (Bld) 72.4 % Normal 43.0-75.0 [facility] Comment on above: Performed By: #### A NACX #### [facility] [address] [place] [address] Dr. Vitaly Jimenez Platelet mean volume (Bld) [Entitic vol] 9.4 fL Critically low 9.5-13.5 [facility] Comment on above: Performed By: #### A NACX #### [facility] [address] [place] [address] Dr. Vitaly Jimenez PLT 288 103/ul Normal 150-450 [facility] Comment on above: Performed By: #### A NACX #### [facility] [address] [address] [address] Vitaly Jimenez RBC 3.68 106/ul Critically low 4.70-6.10 [facility] Comment on above: Performed By: #### A NACX #### [facility] [address] [place] [address] Dr. Vitaly Jimenez WBC 9.5 103/ul Normal 4.0-11.0 [facility] Comment on above: Performed By: #### A NACX #### [facility] [address] [place] [address] Dr. Vitaly Jimenez DRUG SCREEN RAPID (URINE)on 02-10-2022 AMP Negative Normal NEGATIVE [facility] Comment on above: Performed By: #### C BC #### [facility] [address] [place] [address] Dr. Vitaly Jimenez BAR Negative Normal NEGATIVE [facility] Comment on above: Performed By: #### C BC #### [facility] [address] [place] [address] Dr. Vitaly Jimenez BUP Positive Abnormal NEGATIVE [facility] Comment on above: Performed By: #### C BC #### [facility] [address] [place] [address] Dr. Vitaly Jimenez BZO Negative Normal NEGATIVE [facility] Comment on above: Performed By: #### C BC #### [facility] [address] [place] [address] Dr. Vitaly Jimenez RUTH Negative Normal NEGATIVE [facility] Comment on above: Performed By: #### C BC #### [facility] [address] [place] [address] Dr. Vitaly Jimenez CUT-OFFS SEE BELOW Normal [facility] Comment on above: Result Comment: AMP (Amphetamine): 500ng/mL, BAR (Barbituates): 200 ng/mL, BZO (Benzodiazepines): 150 ng/mL, BUP (Buprenorphine): 10 ng/mL, RUTH (Cocaine): 150 ng/mL, mAMP (Methamphetamine): 500 ng/mL, MTD (Methadone): 200 ng/mL, OPI (Opiates): 100 ng/mL, OXY (Oxycodone): 100 ng/mL, PCP (Phencyclidine): 25 ng/mL, PPX (Propoxyphene): 300 ng/mL, THC (Cannabinoids): 50 ng/mL, TCA (Trycyclic Antidepressants): 300 ng/mL Performed By: #### C BC #### [facility] [address] [place] [address] Dr. Vitaly Jimenez DRUG CUT HEADER DRUG CLASS TEST SYSTEM CUT-OFF CONCENTRATIONS ARE FOLLOWS: Normal [facility] Comment on above: Performed By: #### C BC #### [facility] [address] [place] [address] Dr. Vitaly Jimenez mAMP Negative Normal NEGATIVE [facility] Comment on above: Performed By: #### C BC #### [facility] [address] [place] [address] Dr. Vitaly Jimenez MTD Negative Normal NEGATIVE [facility] Comment on above: Performed By: #### C BC #### [facility] [address] [place] [address] Dr. Vitaly Jimenez OPI Negative Normal NEGATIVE [facility] Comment on above: Performed By: #### C BC #### [facility] [address] [place] [address] Dr. Vitaly Jimenez OXY Negative Normal NEGATIVE [facility] Comment on above: Performed By: #### C BC #### [facility] [address] [place] [address] Dr. Vitaly Jimenez PCP Negative Normal NEGATIVE [facility] Comment on above: Performed By: #### C BC #### [facility] [address] [place] [address] Dr. Vitaly Jimenez PPX Negative Normal NEGATIVE [facility] Comment on above: Performed By: #### C BC #### [facility] [address] [address] [address] Vitaly Jimenez TCA Negative Normal NEGATIVE [facility] Comment on above: Performed By: #### C BC #### [facility] [address] [place] [address] Dr. Vitaly Jimenez THC Negative Normal NEGATIVE [facility] Comment on above: Performed By: #### C BC #### [facility] [address] [place] [address] Dr. Vitaly Jimenez PROF CHEM 8 (BAS METB)on Anion gap [Moles/Vol] 11.0 mmol/L Normal [facility] Comment on above: Performed By: #### C BC #### [facility] [address] [place] [address] Dr. Vitaly Jimenez Calcium [Mass/Vol] 8.6 mg/dL Normal 8.5-10.1 [facility] Comment on above: Performed By: #### C BC #### [facility] [address] [place] [address] Dr. Vitaly Jimenez Chloride [Moles/Vol] 97 mmol/L Critically low 98-107 [facility] Comment on above: Performed By: #### C BC #### [facility] [address] [place] [address] Dr. Vitaly Jimenez CO2 [Moles/Vol] 28.3 mmol/L Normal 21.0-32.0 [facility] Comment on above: Performed By: #### C BC #### [facility] [address] [place] [address] Dr. Vitaly Jimenez Creatinine [Mass/Vol] 1.10 mg/dL Normal 0.70-1.30 [facility] Comment on above: Performed By: #### C BC #### [facility] [address] [place] [address] Dr. Vitaly Jimenez EGFR-AF GUATEMALAN >60 Normal >=60 [facility] Comment on above: Performed By: #### C BC #### [facility] [address] [place] [address] Dr. Vitaly Jimenez EGFR-NON AF GUATEMALAN >60 Normal >=60 [facility] Comment on above: Performed By: #### C BC #### [facility] [address] [address] [address] Vitaly Jimenez Glucose [Mass/Vol] 249 mg/dL Critically high 74-106 [facility] Comment on above: Performed By: #### C BC #### [facility] [address] [address] [address] Vitaly Jimenez Potassium [Moles/Vol] 4.3 mmol/L Normal 3.5-5.1 [facility] Comment on above: Performed By: #### C BC #### [facility] [address] [address] [address] Vitaly Jimenez Sodium [Moles/Vol] 132 mmol/L Critically low 136-145 [facility] Comment on above: Performed By: #### C BC #### [facility] [address] [address] [address] Vitaly Jimenez Urea nitrogen [Mass/Vol] 14.0 mg/dL Normal 7.0-18.0 [facility] Comment on above: Performed By: #### C BC #### [facility] [address] [address] [address] Vitaly Jimenez Urea nitrogen/Creatinine [Mass ratio] 12.7 mg/mg Normal [facility] Comment on above: Performed By: #### C BC #### [facility] [address] [address] [address] Vitaly Jimenez PROTIMEon 02-10-2022 INR Coag (PPP) [Relative time] 0.97 {INR} Normal [facility] Comment on above: Performed By: #### A NACX #### [facility] [address] [address] [address] Vitaly Jimenez INR GUIDELINES SEE BELOW Normal [facility] Comment on above: Result Comment: CRISTIANE RED INR: 2.0 - 3.0 CONDITIONS NOT LISTED BELOW 2.5 - 3.5 FOR PROSTHETIC HEART VALVE REPLACEMENT 2.5 - 3.5 RECURRENT THROMBOSIS Performed By: #### A NACX #### [facility] [address], [place] [address] Dr. Vitaly Jimenez PT Coag (PPP) [Time] 10.5 s Normal 9.0-11.6 [facility] Comment on above: Performed By: #### A NACX #### [facility] [address], [place] [address] Dr. Vitaly Jimenez PTTon 02-10-2022 aPTT Coag (Bld) [Time] 27.7 s Normal 22.3-36.2 [facility] Comment on above: Performed By: #### A NACX #### [facility] [address], [place] [address] Dr. Vitaly Jimenez XR ANKLE MADDIE MIN 3 VIEWSon 1 03-22-2021 XR ANKLE MADDIE MIN 3 VIEWS EXAMINATION: XR ANKLE MADDIE MIN 3 VIEWS, XR FOOT MADDIE MIN 3 VIEWS HISTORY: Bilateral ankle joint and foot pain COMPARISON: XR foot right 07/17/2015 FINDINGS: RIGHT FINDINGS: BONES: Amputation of first toe at level of mid metatarsal. Amputation of second toe at distal metatarsal. Suspect remote fractures and healing of the third and fifth metatarsals, possibly the fourth metatarsal. Mild midfoot degenerative changes and loss of plantar arch. Large calcaneal plantar spur. Unremarkable tibiotalar joint. SOFT TISSUES: No visible soft tissue swelling. OTHER: Negative. LEFT FINDINGS: BONES: Advanced destructive changes of the ankle joint, hindfoot, and midfoot with few identifiable structures. Destruction of the distal ends of the tibia and fibula which are positions lateral to the hindfoot. Intact metatarsals and phalanges. Marked degenerative changes at the tarsal metatarsal joints. SOFT TISSUES: Marked soft tissue swelling of the proximal foot and ankle. OTHER: Negative. IMPRESSION: RIGHT CONCLUSION: 1. No acute abnormality significant degenerative changes of the ankle joint. 2. Postsurgical changes of the foot consisting of amputation of the second and third toes at the level of the metatarsals. Suspect remote healed fractures of the third through fifth metatarsals. LEFT CONCLUSION: 1. 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 Electronically authenticated by: EVITA MORALES Date: 2022-01-19 15:33 Normal [facility] A1C with Estimated Average G luon 10-09-2021 Glucose [Mass/Vol] 140 mg/dL Normal [facility] Comment on above: Result Comment: PERF ORMED BY: [place] [address] PATHOLOGIST [employer]EWARDESS ANGIE OLVERA M.D. Performed By: #### B MP, CBC #### [address] HbA1c (Bld) [Mass fraction] 6.5 % High 4.3-5.6 [facility] Comment on above: Result Comment: Incr eased risk for diabetes: 5.7 - 6.4 diabetes: >6.4 glycemic control for adults with diabetes: <7.0 Performed By: #### B MP, CBC #### [address] Activated partial thrombopla stin time (aPTT) in platelet poor plasma by coagulation aOrdered By: Michael Caruso on 10-09-2021 aPTT Coag (PPP) [Time] 30.9 s 25.1-36.5 [facility] Basic Metabolic Panelon Anion gap [Moles/Vol] 10.0 mmol/L Normal 6.0-15.0 [facility] Comment on above: Performed By: #### B MP, CBC #### [address] Calcium [Mass/Vol] 8.9 mg/dL Normal 8.2-10.2 [facility] Comment on above: Performed By: #### B MP, CBC #### [facility] [address] [place] [address] [place] Chloride [Moles/Vol] 101 mmol/L Normal 95-[address] [facility] Comment on above: Performed By: #### B MP, CBC #### [address] CO2 [Moles/Vol] 30.8 mmol/L High 22.0-30.0 [facility] Comment on above: Performed By: #### B MP, CBC #### [facility] [address] [id number] [place] Creatinine [Mass/Vol] 1.91 mg/dL High 0.64-1.27 [facility] Comment on above: Performed By: #### B MP, CBC #### [facility] [address] [id number] [place] Creatinine Clr Calc Pharmacy 53.67 [facility] Comment on above: Performed By: #### B MP, CBC #### [facility] [address] [place] [address] [place] Estimated GFR ( Vianey 44 [facility] Comment on above: Result Comment: GFR estimated reference range: According to KDOQI guidelines, <60 ml/min/1.73m2 is sufficient to diagnose a patient with chronic kidney disease. Performed By: #### B MP, CBC #### [place] [address] [place] Estimated GFR (Non- Am 36 [facility] Comment on above: Performed By: #### B MP, CBC #### [place] [address] [place] Glucose [Mass/Vol] 111 mg/dL High 70-100 [facility] Comment on above: Result Comment: [place] om Glucose Reference Range is dependent on time and content of last meal. Glucose of more than 200 mg/dL in a nonstressed, ambulatory subject supports the diagnosis of Diabetes Mellitus. ADA recommended reference range Performed By: #### B MP, CBC #### [place] [address] [place] Potassium [Moles/Vol] 3.8 mmol/L Normal 3.5-5.1 [facility] Comment on above: Performed By: #### B MP, CBC #### [place] [address] [place] Sodium [Moles/Vol] 138 mmol/L Normal 136-146 [facility] Comment on above: Performed By: #### B MP, CBC #### [place] [address] [place] Urea nitrogen [Mass/Vol] 23 mg/dL Normal 9-23 [facility] Comment on above: Performed By: #### B MP, CBC #### [facility] [address] [place] [address] Basophils Auto (Bld) [#/Vol] Ordered By: Michael Caruso on 10-09-2021 Basophils (Bld) [#/Vol] 0.1 10*3/uL 0.0-0.2 [facility] Basophils/100 WBC Auto (Bld) Ordered By: Michael Caruso on 10-09-2021 Basophils/100 WBC (Bld) 1.2 % . [facility] Blood hemoglobin measurement (mass/volume)Ordered By: Michael Caruso on 10-09-2021 Hemoglobin (Bld) [Mass/Vol] 8.8 g/dL 13.0-17.0 [facility] Blood leukocytes automated c ount (number/volume)Ordered By: Michael Caruso on 10-09-2021 WBC (Bld) [#/Vol] 7.1 10*3/uL 4.5-11.0 [facility] CT biopsyOrdered By: Araseli Caruso on 10-09-2021 Transferrin [Mass/Vol] 176 mg/dL 180-380 [facility] Complete Blood Count Auto Di ffon 10-09-2021 Basophils (Bld) [#/Vol] 0.1 10*3/uL Normal 0.0-0.2 [facility] Comment on above: Result Comment: PERF ORMED BY: [place] [address] PATHOLOGIST [employer]/STEWARDESS ANGIE OLVERA M.D. Performed By: #### F E, TIBC, BMP, REZA, [id number], CBC, PTT, A1C WTH eA, PT #### [facility] [address] Basophils/100 WBC (Bld) 1.2 % Normal . [facility] Comment on above: Performed By: #### F E, TIBC, BMP, REZA, [id number], CBC, PTT, A1C WTH eA, PT #### [address] Eosinophils (Bld) [#/Vol] 0.4 10*3/uL Normal 0.0-0.45 [facility] Comment on above: Performed By: #### F E, TIBC, BMP, REZA, [id number], CBC, PTT, A1C WTH eA, PT #### [address] Eosinophils/100 WBC (Bld) 5.9 % Normal . [facility] Comment on above: Performed By: #### F E, TIBC, BMP, REZA, [id number], CBC, PTT, A1C WTH eA, PT #### [address] Erythrocyte distribution width (RBC) [Ratio] 15.1 % High 12.0-14.8 [facility] Comment on above: Performed By: #### F E, TIBC, BMP, REZA, [id number], CBC, PTT, A1C WTH eA, PT #### [address] Hematocrit (Bld) [Volume fraction] 26.6 % Low 38.8-50.0 [facility] Comment on above: Performed By: #### F E, TIBC, BMP, REZA, [id number], CBC, PTT, A1C WTH eA, PT #### [address] Hemoglobin (Bld) [Mass/Vol] 8.8 g/dL Low 13.0-17.0 [facility] Comment on above: Performed By: #### F E, TIBC, BMP, REZA, [id number], CBC, PTT, A1C WTH eA, PT #### [address] Lymphocytes (Bld) [#/Vol] 2.3 10*3/uL Normal 1.00-4.8 [facility] Comment on above: Performed By: #### F E, TIBC, BMP, REZA, [id number], CBC, PTT, A1C WTH eA, PT #### [address] Lymphocytes/100 WBC (Bld) 33.0 % Normal . [facility] Comment on above: Performed By: #### F E, TIBC, BMP, REZA, [id number], CBC, PTT, A1C WTH eA, PT #### [address] MCH (RBC) [Entitic mass] 28.0 pg Normal 27.5-35.2 [facility] Comment on above: Performed By: #### F E, TIBC, BMP, REZA, [id number], CBC, PTT, A1C WTH eA, PT #### [address] MCV (RBC) [Entitic vol] 84.4 fL Normal 83.5-101 [facility] Comment on above: Performed By: #### F E, TIBC, BMP, REZA, [id number], CBC, PTT, A1C WTH eA, PT #### [address] Mean Corpuscular HGB Conc 33.1 g/dL Normal 32.5-35.6 [facility] Comment on above: Performed By: #### F E, TIBC, BMP, REZA, [id number], CBC, PTT, A1C WTH eA, PT #### [address] Monocytes (Bld) [#/Vol] 0.7 10*3/uL Normal 0.0-0.8 [facility] Comment on above: Performed By: #### F E, TIBC, BMP, REZA, [id number], CBC, PTT, A1C WTH eA, PT #### [address] Monocytes/100 WBC (Bld) 9.4 % Normal . [facility] Comment on above: Performed By: #### F E, TIBC, BMP, REZA, [id number], CBC, PTT, A1C WTH eA, PT #### [facility] [address] [place] [address] [place] Neutrophils (Bld) [#/Vol] 3.6 10*3/uL Normal 1.8-7.7 [facility] Comment on above: Performed By: #### F E, TIBC, BMP, REZA, [id number], CBC, PTT, A1C WTH eA, PT #### [facility] [address] Neutrophils/100 WBC (Bld) 50.5 % Normal . [facility] Comment on above: Performed By: #### F E, TIBC, BMP, REZA, [id number], CBC, PTT, A1C WTH eA, PT #### [place] [address] [place] Nucleated RBC/100 WBC (Bld) [Ratio] 0.1 % Normal 0-0.5 [facility] Comment on above: Performed By: #### F E, TIBC, BMP, REZA, [id number], CBC, PTT, A1C WTH eA, PT #### [place] [address] [place] Platelet mean volume (Bld) [Entitic vol] 7.7 fL Normal 6.6-10.1 [facility] Comment on above: Performed By: #### F E, TIBC, BMP, REZA, [id number], CBC, PTT, A1C WTH eA, PT #### [facility] [address] [place] [address] [place] Platelets (Bld) [#/Vol] 157 10*3/uL Normal 150-450 [facility] Comment on above: Performed By: #### F E, TIBC, BMP, REZA, [id number], CBC, PTT, A1C WTH eA, PT #### [facility] [address] [place] [address] [place] RBC (Bld) [#/Vol] 3.15 10*6/uL Low 3.90-5.60 [facility] Comment on above: Performed By: #### F E, TIBC, BMP, REZA, [id number], CBC, PTT, A1C WTH eA, PT #### [facility] [address] [place] [address] [place] WBC (Bld) [#/Vol] 7.1 10*3/uL Normal 4.5-11.0 [facility] Comment on above: Performed By: #### F E, TIBC, BMP, REZA, [id number], CBC, PTT, A1C WTH eA, PT #### [facility] [address] [place] [address] [place] Creatinine and Glomerular fi ltration rate.predicted panel (S/P/Bld)Ordered By: Michael Caruso on 10-09-2021 Creatinine [Mass/Vol] 1.91 mg/dL 0.64-1.27 [facility] Eosinophils Auto (Bld) [#/Vo l]Ordered By: Michael Caruso on 10-09-2021 Eosinophils (Bld) [#/Vol] 0.4 10*3/uL 0.0-0.45 [facility] Eosinophils/100 WBC Auto (Bl d)Ordered By: Michael Caruso on 10-09-2021 Eosinophils/100 WBC (Bld) 5.9 % . [facility] Erythrocyte distribution wid th Auto (RBC) [Ratio]Ordered By: Michael Caruso on 10-09-2021 Erythrocyte distribution width (RBC) [Ratio] 15.1 % 12.0-14.8 [facility] Estimated glomerular filtrat ion rate (GFR) non- AmericanOrdered By: Michael Caruso on 10-09-2021 GFR/1.73 sq M.predicted among non-blacks MDRD (S/P/Bld) [Vol rate/Area] 36 mL/Min [facility] Ferritinon 10-09-2021 Ferritin [Mass/Vol] 286.1 ng/mL Normal 23.9-336.[address] [facility] Comment on above: Performed By: #### B MP, CBC #### [facility] [address] [place] [id number] [facility] Ferritin [Mass/volume] in Se rum or PlasmaOrdered By: Michael Caruso on 10-09-2021 Ferritin [Mass/Vol] 286.1 ng/mL 23.9-336.[address] [facility] Folate [Mass/volume] in Seru m or PlasmaOrdered By: Michael Caruso on 10-09-2021 Folate [Mass/Vol] 9.0 ng/mL >5.9 [facility] Comment on above: Folate reference ran ge: >5.9 ng/ml The WHO technical consultation on folate and vitamin b12 deficiencies has determined that folate concentrations less than 4 ng/ml are considered deficient. Glucose mean value [Mass/vol ume] in Blood Estimated from glycated hemoglobinOrdered By: Michael Caruso on 10-09-2021 Average glucose Estimated from glycated hemoglobin (Bld) [Mass/Vol] 140 mg/dL [facility] Hematocrit Auto (Bld) [Volum e fraction]Ordered By: Michael Caruso on 10-09-2021 Hematocrit (Bld) [Volume fraction] 26.6 % 38.8-50.0 [facility] Hemoglobin A1c percentageOrd ered By: Michael Caruso on 10-09-2021 HbA1c (Bld) [Mass fraction] 6.5 % 4.3-5.6 [facility] Comment on above: Increased risk for d iabetes: 5.7 - 6.4 diabetes: >6.4 glycemic control for adults with diabetes: <7.0 Ironon 10-09-2021 Iron [Mass/Vol] 37 ug/dL Low 40-160 [facility] Comment on above: Performed By: #### B MP, CBC #### [facility] [address] [place] [id number] [facility] Iron [Mass/volume] in Serum or PlasmaOrdered By: Michael Caruso on 10-09-2021 Iron [Mass/Vol] 37 ug/dL 40-160 [facility] Iron binding capacity [Mass/ volume] in Serum or PlasmaOrdered By: Michael Caruso on 09-02-2022 Iron binding capacity [Mass/Vol] 246 ug/dL 255-450 [facility] Laboratory - Chemistry and C hemistry - challengeOrdered By: Michael Caruso on 10-09-2021 Cobalamin (Vitamin B12) [Mass/Vol] 312 pg/mL 180-914 [facility] Laboratory - CoagulationOrde red By: Michael Caruso on 10-09-2021 PT Coag (PPP) [Time] 14.1 s 9.0-12.[address] [facility] Laboratory - Hematology and Cell countsOrdered By: Michael Caruso on 10-09-2021 Nucleated RBC/100 WBC (Bld) [Ratio] 0.1 % 0-0.5 [facility] Lymphocytes Auto (Bld) [#/Vo l]Ordered By: Michael Caruso on 10-09-2021 Lymphocytes (Bld) [#/Vol] 2.3 10*3/uL 1.00-4.8 [facility] Lymphocytes/100 WBC Auto (Bl d)Ordered By: Michael Caruso on 10-09-2021 Lymphocytes/100 WBC (Bld) 33.0 % . [facility] MCH Auto (RBC) [Entitic mass ]Ordered By: Michael Caruso on 10-09-2021 MCH (RBC) [Entitic mass] 28.0 pg 27.5-35.2 [facility] MCHC Auto (RBC) [Mass/Vol]Or dered By: Michael Caruso on 10-09-2021 MCHC (RBC) [Mass/Vol] 33.1 g/dL 32.5-35.6 [facility] MCV Auto (RBC) [Entitic vol] Ordered By: Michael Caruso on 10-09-2021 MCV (RBC) [Entitic vol] 84.4 fL 83.5-101 [facility] Monocytes Auto (Bld) [#/Vol] Ordered By: Michael Caruso on 10-09-2021 Monocytes (Bld) [#/Vol] 0.7 10*3/uL 0.0-0.8 [facility] Monocytes/100 WBC Auto (Bld) Ordered By: Michael Caruso on 10-09-2021 Monocytes/100 WBC (Bld) 9.4 % . [facility] Neutrophils Auto (Bld) [#/Vo l]Ordered By: Michael Caruso on 10-09-2021 Neutrophils (Bld) [#/Vol] 3.6 10*3/uL 1.8-7.7 [facility] Neutrophils/100 WBC Auto (Bl d)Ordered By: Michael Caruso on 10-09-2021 Neutrophils/100 WBC (Bld) 50.5 % . [facility] No Panel InformationOrdered By: Michael Caruso on 10-09-2021 Estimated GFR () 44 mL/Min [facility] Comment on above: GFR estimated refere nce range: According to KDOQI guidelines, <60 ml/min/1.73m2 is sufficient to diagnose a patient with chronic kidney disease. Pharmacy Creatinine Clearance (Chem 53.67 [facility] Partial Thromboplastin Timeo n 10-09-2021 aPTT Coag (Bld) [Time] 30.9 s Normal 25.1-36.5 [facility] Comment on above: Result Comment: PERF ORMED BY: [place] [id number] PATHOLOGIST [employer] ST[employer]/STEWARDESS ANGIE OLVERA M.D. Performed By: #### F E, TIBC, BMP, REZA, [id number], CBC, PTT, A1C WTH eA, PT #### [facility] [address] Platelet mean volume Auto (B ld) [Entitic vol]Ordered By: Michael Caruso on 10-09-2021 Platelet mean volume (Bld) [Entitic vol] 7.7 fL 6.6-10.1 [facility] Platelet poor plasma interna tional normalized ratio (INR) by coagulation assay (relatOrdered By: Michael Caruso on 10-09-2021 INR Coag (PPP) [Relative time] 1.3 {INR} [facility] Comment on above: INR Therapeutic Rang e A) Pre- and Peroperative OAT started two weeks before surgery. NOT HIP SURGERY: 1.5 - 2.5 HIP SURGERY: 2 - 3 B) Primary and secondary prevention of venous THROMBOSIS: 2 - 3 C) Active venous thrombosis, pulmonary embolism and prevention of recurrent venous thrombosis: 2 - 3 D) Prevention of arterial thromboembolism including patients with mechanical heart valves: 3 - 4.5 Platelets Auto (Bld) [#/Vol] Ordered By: Michael Caruso on 10-09-2021 Platelets (Bld) [#/Vol] 157 10*3/uL 150-450 [facility] Prothrombin Time INRon 10-09 INR Coag (PPP) [Relative time] 1.3 {INR} Normal [facility] Comment on above: Result Comment: INR Therapeutic Range A) Pre- and Peroperative OAT started two weeks before surgery. NOT HIP SURGERY: 1.5 - 2.5 HIP SURGERY: 2 - 3 B) Primary and secondary prevention of venous THROMBOSIS: 2 - 3 C) Active venous thrombosis, pulmonary embolism and prevention of recurrent venous thrombosis: 2 - 3 D) Prevention of arterial thromboembolism including patients with mechanical heart valves: 3 - 4.5 Performed By: #### F E, TIBC, BMP, REZA, [id number], CBC, PTT, A1C WT eA, PT #### [facility] [address] PT Coag (PPP) [Time] 14.1 s High 9.0-12.[address] [facility] Comment on above: Performed By: #### F E, TIBC, BMP, REZA, [id number], CBC, PTT, A1C WT eA, PT #### [facility] [address] RBC Auto (Bld) [#/Vol]Ordere d By: Michael Caruso on 10-09-2021 RBC (Bld) [#/Vol] 3.15 10*6/uL 3.90-5.60 [facility] Serum or plasma anion gap de terminationOrdered By: Michael Caruso on 10-09-2021 Anion gap [Moles/Vol] 10.0 mmol/L 6.0-15.0 [facility] Serum or plasma calcium jarad urement (mass/volume)Ordered By: Michael Caruso on 10-09-2021 Calcium [Mass/Vol] 8.9 mg/dL 8.2-10.2 [facility] Serum or plasma chloride nikita surement (moles/volume)Ordered By: Michael Caruso on 10-09-2021 Chloride [Moles/Vol] 101 mmol/L 95-[address] [facility] Serum or plasma glucose jarad urement (mass/volume)Ordered By: Michael Caruso on 10-09-2021 Glucose [Mass/Vol] 111 mg/dL 70-100 [facility] Comment on above: ADA recommended refe rence range Random Glucose Reference Range is dependent on time and content of last meal. Glucose of more than 200 mg/dL in a nonstressed, ambulatory subject supports the diagnosis of Diabetes Mellitus. Serum or plasma potassium me asurement (moles/volume)Ordered By: Michael Caruso on 10-09-2021 Potassium [Moles/Vol] 3.8 mmol/L 3.5-5.1 [facility] Serum or plasma sodium measu rement (moles/volume)Ordered By: Michael Caruso on 10-09-2021 Sodium [Moles/Vol] 138 mmol/L 136-146 [facility] Serum or plasma total carbon dioxide measurement (moles/volume)Ordered By: Michael Caruso on 10-09-2021 CO2 [Moles/Vol] 30.8 mmol/L 22.0-30.0 [facility] Serum or plasma urea nitroge n measurement (mass/volume)Ordered By: Michael Caruso on 10-09-2021 Urea nitrogen [Mass/Vol] 23 mg/dL 9-23 [facility] Total Iron Binding Capacityo n 10-09-2021 Total Iron Binding Capacity 246 ug/dL Low 255-450 [facility] Comment on above: Performed By: #### B MP, CBC #### [address] Transferrin [Mass/Vol] 176 mg/dL Low 180-380 [facility] Comment on above: Performed By: #### B MP, CBC #### [facility] [address] [place] [address] Vit. B12/Folate Profileon Cobalamin (Vitamin B12) [Mass/Vol] 312 pg/mL Normal 180-914 [facility] Comment on above: Performed By: #### B MP, CBC #### [address] Folate 9.0 ng/mL Normal >5.9 [facility] Comment on above: Result Comment: Nimo te reference range: >5.9 ng/ml The WHO technical consultation on folate and vitamin b12 deficiencies has determined that folate concentrations less than 4 ng/ml are considered deficient. PERFORMED BY: [place] [address] PATHOLOGIST [employer]/STEWARDESS ANGIE OLVERA M.D. Performed By: #### B MP, CBC #### [address] Automated erythrocytes count in urine sediment (number/area)Ordered By: Lucille Miller on 10-08-2021 RBC Auto (Urine sed) [#/Area] 1-2 [HPF] 0-4 [facility] Automated leukocytes count i n urine sediment (number/area)Ordered By: Lucille Salesr on 10-08-2021 WBC Auto (Urine sed) [#/Area] 10-19 [HPF] 0-4 [facility] Basic Metabolic Panelon Anion gap [Moles/Vol] 9.8 mmol/L Normal 6.0-15.0 [facility] Comment on above: Performed By: #### B MP, CBC #### [address] Calcium [Mass/Vol] 8.8 mg/dL Normal 8.2-10.2 [facility] Comment on above: Performed By: #### B MP, CBC #### [place] [address] Chloride [Moles/Vol] 100 mmol/L Normal 95-[address] [facility] Comment on above: Performed By: #### B MP, CBC #### [address] CO2 [Moles/Vol] 28.8 mmol/L Normal 22.0-30.0 [facility] Comment on above: Performed By: #### B MP, CBC #### [address] Creatinine [Mass/Vol] 2.18 mg/dL High 0.64-1.27 [facility] Comment on above: Performed By: #### B MP, CBC #### [address] Creatinine Clr Calc Pharmacy 47.02 [facility] Comment on above: Result Comment: PERF ORMED BY: [place] [address] PATHOLOGIST [employer] ST[employer]/STEWARDESS ANGIE OLVERA M.D. Performed By: #### B MP, CBC #### [address] Estimated GFR ( Vianey 38 [facility] Comment on above: Result Comment: GFR estimated reference range: According to KDOQI guidelines, <60 ml/min/1.73m2 is sufficient to diagnose a patient with chronic kidney disease. Performed By: #### B MP, CBC #### [address] Estimated GFR (Non- Am 31 [facility] Comment on above: Performed By: #### B MP, CBC #### [address] Glucose [Mass/Vol] 108 mg/dL High 70-100 [facility] Comment on above: Result Comment: [place] Glucose Reference Range is dependent on time and content of last meal. Glucose of more than 200 mg/dL in a nonstressed, ambulatory subject supports the diagnosis of Diabetes Mellitus. ADA recommended reference range Performed By: #### B MP, CBC #### [facility] [address] Potassium [Moles/Vol] 3.6 mmol/L Normal 3.5-5.1 [facility] Comment on above: Performed By: #### B MP, CBC #### [facility] [address] Sodium [Moles/Vol] 135 mmol/L Low 136-146 [facility] Comment on above: Performed By: #### B MP, CBC #### [facility] [address] Urea nitrogen [Mass/Vol] 26 mg/dL High 9-23 [facility] Comment on above: Performed By: #### B MP, CBC #### [facility] [address] Bilirubin Test strip Ql (U)O rdered By: Luclile Miller on 10-08-2021 Bilirubin Ql (U) Negative Negative [facility] C reactive protein [Mass/vol ume] in Serum or PlasmaOrdered By: Speedy Ramos on 10-08-2021 CRP [Mass/Vol] 0.8 mg/dL 0.0-1.0 [facility] C-Reactive Proteinon 022 C-Reactive Protein 0.8 mg/dL Normal 0.0-1.0 [facility] Comment on above: Result Comment: PERF ORMED BY: [address] [place] [address] PATHOLOGIST [employer]/STEWARDESS ANGIE OLVERA M.D. Performed By: #### B MP, CBC #### [facility] [address] [place] [address] [place] Color Auto (U)Ordered By: Ab nigel Miller on 10-08-2021 Color (U) Yellow Yellow [facility] Complete Blood Count Auto Di ffon 10-08-2021 Basophils (Bld) [#/Vol] 0.1 10*3/uL Normal 0.0-0.2 [facility] Comment on above: Result Comment: PERF ORMED BY: [address] [place] [address] PATHOLOGIST [employer]/STEWARDESS ANGIE OLVERA M.D. Performed By: #### B MP, CBC #### [facility] [address] [place] [address] [place] Basophils/100 WBC (Bld) 0.8 % Normal . [facility] Comment on above: Performed By: #### B MP, CBC #### [facility] [address] [place] [address] [place] Eosinophils (Bld) [#/Vol] 0.3 10*3/uL Normal 0.0-0.45 [facility] Comment on above: Performed By: #### B MP, CBC #### [facility] [address] Eosinophils/100 WBC (Bld) 4.5 % Normal . [facility] Comment on above: Performed By: #### B MP, CBC #### [facility] [address] Erythrocyte distribution width (RBC) [Ratio] 15.3 % High 12.0-14.8 [facility] Comment on above: Performed By: #### B MP, CBC #### [facility] [address] Hematocrit (Bld) [Volume fraction] 26.3 % Low 38.8-50.0 [facility] Comment on above: Performed By: #### B MP, CBC #### [facility] [address] [place] [address] [place] Hemoglobin (Bld) [Mass/Vol] 8.8 g/dL Low 13.0-17.0 [facility] Comment on above: Performed By: #### B MP, CBC #### [facility] [address] [place] [address] [place] Lymphocytes (Bld) [#/Vol] 1.8 10*3/uL Normal 1.00-4.8 [facility] Comment on above: Performed By: #### B MP, CBC #### [facility] [address] [place] [address] [place] Lymphocytes/100 WBC (Bld) 25.3 % Normal . [facility] Comment on above: Performed By: #### B MP, CBC #### [facility] [address] MCH (RBC) [Entitic mass] 28.1 pg Normal 27.5-35.2 [facility] Comment on above: Performed By: #### B MP, CBC #### [facility] [address] MCV (RBC) [Entitic vol] 84.5 fL Normal 83.5-101 [facility] Comment on above: Performed By: #### B MP, CBC #### [facility] [address] Mean Corpuscular HGB Conc 33.3 g/dL Normal 32.5-35.6 [facility] Comment on above: Performed By: #### B MP, CBC #### [facility] [address] [place] [address] [place] Monocytes (Bld) [#/Vol] 0.8 10*3/uL Normal 0.0-0.8 [facility] Comment on above: Performed By: #### B MP, CBC #### [facility] [address] Monocytes/100 WBC (Bld) 11.1 % Normal . [facility] Comment on above: Performed By: #### B MP, CBC #### [facility] [address] [place] [address] [place] Neutrophils (Bld) [#/Vol] 4.2 10*3/uL Normal 1.8-7.7 [facility] Comment on above: Performed By: #### B MP, CBC #### [facility] [address] [place] [address] [place] Neutrophils/100 WBC (Bld) 58.3 % Normal . [facility] Comment on above: Performed By: #### B MP, CBC #### [facility] [address] [place] [address] [place] Nucleated RBC/100 WBC (Bld) [Ratio] 0.0 % Normal 0-0.5 [facility] Comment on above: Performed By: #### B MP, CBC #### [facility] [address] Platelet mean volume (Bld) [Entitic vol] 8.5 fL Normal 6.6-10.1 [facility] Comment on above: Performed By: #### B MP, CBC #### [facility] [address] Platelets (Bld) [#/Vol] 154 10*3/uL Normal 150-450 [facility] Comment on above: Performed By: #### B MP, CBC #### [address] RBC (Bld) [#/Vol] 3.11 10*6/uL Low 3.90-5.60 [facility] Comment on above: Performed By: #### B MP, CBC #### [address] WBC (Bld) [#/Vol] 7.3 10*3/uL Normal 4.5-11.0 [facility] Comment on above: Performed By: #### B MP, CBC #### [address] Dipstick and Microscopicon 0 10-08-2021 Appearance (U) Clear Normal Clear [facility] Comment on above: Order Comment: Name Collection Type:: Clean-Voided Midstream Performed By: #### A DDONUAPLUS, UEOS #### [address] Bacteria,Urine None Seen Normal None Seen [facility] Comment on above: Order Comment: Name Collection Type:: Clean-Voided Midstream Performed By: #### A DDONUAPLUS, UEOS #### [address] Bilirubin,Urine Negative Normal Negative [facility] Comment on above: Order Comment: Name Collection Type:: Clean-Voided Midstream Performed By: #### A DDONUAPLUS, UEOS #### [facility] [address] [place] [address] Color (U) Yellow Normal Yellow [facility] Comment on above: Order Comment: Name Collection Type:: Clean-Voided Midstream Performed By: #### A DDONUAPLUS, UEOS #### [address] Glucose Ql (U) Normal Normal Normal [facility] Comment on above: Order Comment: Name Collection Type:: Clean-Voided Midstream Performed By: #### A DDONUAPLUS, UEOS #### [address] Hyaline Casts,Urine 0-8 Normal 0-8 [facility] Comment on above: Order Comment: Name Collection Type:: Clean-Voided Midstream Performed By: #### A DDONUAPLUS, UEOS #### [address] Ketones Ql (U) Negative Normal Negative [facility] Comment on above: Order Comment: Name Collection Type:: Clean-Voided Midstream Performed By: #### A DDONUAPLUS, UEOS #### [address] Leukocyte esterase Test strip Ql (U) Negative Normal Negative [facility] Comment on above: Order Comment: Name Collection Type:: Clean-Voided Midstream Performed By: #### A DDONUAPLUS, UEOS #### [facility] [address] [place] [address] [place] Nitrite,Urine Negative Normal Negative [facility] Comment on above: Order Comment: Name Collection Type:: Clean-Voided Midstream Performed By: #### A DDONUAPLUS, UEOS #### [place] [address] [place] Occult Blood,Urine 1+ High Negative [facility] Comment on above: Order Comment: Name Collection Type:: Clean-Voided Midstream Performed By: #### A DDONUAPLUS, UEOS #### [place] [address] [place] pH (U) 6.0 [pH] Normal 5.0-9.0 [facility] Comment on above: Order Comment: Name Collection Type:: Clean-Voided Midstream Performed By: #### A DDONUAPLUS, UEOS #### [facility] [address] [place] [address] Protein (U) [Mass/Vol] 100 mg/dL High Negative [facility] Comment on above: Order Comment: Name Collection Type:: Clean-Voided Midstream Performed By: #### A DDONUAPLUS, UEOS #### [facility] [address] [place] [address] RBC,Urine 1-2 Normal 0-4 [facility] Comment on above: Order Comment: Name Collection Type:: Clean-Voided Midstream Performed By: #### A DDONUAPLUS, UEOS #### [facility] [address] [place] [address] Specificy [place],Urine 1.008 Normal 1.001-1.030 [facility] Comment on above: Order Comment: Name Collection Type:: Clean-Voided Midstream Performed By: #### A DDONUAPLUS, UEOS #### [facility] [address] [place] [address] Squamous Epithelial Cell,Urine 3-4 High 0-2 [facility] Comment on above: Order Comment: Name Collection Type:: Clean-Voided Midstream Performed By: #### A DDONUAPLUS, UEOS #### [facility] [address] [place] [address] Urobilinogen,Urine Normal Normal Normal [facility] Comment on above: Order Comment: Name Collection Type:: Clean-Voided Midstream Performed By: #### A DDONUAPLUS, UEOS #### [facility] [address] [place] [address] [place] WBC,Urine 10-19 High 0-4 [facility] Comment on above: Order Comment: Name Collection Type:: Clean-Voided Midstream Performed By: #### A DDONUAPLUS, UEOS #### [facility] [address] [place] [address] Yeast,Urine Rare Critically abnormal None Seen [facility] Comment on above: Order Comment: Name Collection Type:: Clean-Voided Midstream Result Comment: BUDD ING YEAST Performed By: #### A DDONUAPLUS, UEOS #### [address] Eosinophil,Urineon 2 Eosinophil,Urine 0 % Normal 0-1 [facility] Comment on above: Order Comment: Name Collection Type:: Clean-Voided Midstream Result Comment: PERF ORMED BY: [place] [address] PATHOLOGIST [employer] ST[employer]/STEWARDESS ANGIE OLVERA M.D. Performed By: #### A DDONUAPLUS, UEOS #### [address] Eosinophils detection in uri ne sediment by Gomes stainOrdered By: Lucille Miller on 10-08-2021 Eosinophils Gomes stain Ql (Urine sed) 0 % 0-1 [facility] Erythrocyte Sedimentation Ra scot 10-08-2021 ESR (Bld) [Velocity] 104 mm/h High 0- [facility] Comment on above: Result Comment: PERF ORMED BY: [place] [address] PATHOLOGIST [employer] STEW[employer]/STEWARDESS ANGIE OLVERA M.D. Performed By: #### B MP, CBC #### [facility] [address] [place] [address] Erythrocyte sedimentation ra te by Photometric methodOrdered By: Speedy Ramos on 10-08-2021 ESR Photometric method (Bld) [Velocity] 104 mm/hr 0- [facility] Ketones Auto test strip (U) [Mass/Vol]Ordered By: Lucille Miller on 10-08-2021 Ketones (U) [Mass/Vol] Negative Negative [facility] - UrinalysisOrder ed By: Lucille Miller on 10-08-2021 Hyaline casts LM Ql (Urine sed) 0-8 [LPF] 0-8 [facility] Nitrite Test strip Ql (U)Ord ered By: Lucille Miller on 10-08-2021 Nitrite Ql (U) Negative Negative [facility] Protein Auto test strip (U) [Mass/Vol]Ordered By: Lucille Miller on 10-08-2021 Protein (U) [Mass/Vol] 100 mg/dL [facility] Specific gravity Auto test s trip (U) [Rel density]Ordered By: Lucille Angela on 10-08-2021 Specific gravity (U) [Rel density] 1.008 1.001-1.030 [facility] Squamous epithelial cells de tection in urine sediment by light microscopyOrdered By: Lucille Miller on 10-08-2021 Epithelial cells.squamous LM Ql (Urine sed) 3-4 [HPF] 0-2 [facility] Superficial Wound Cultureon 10-08-2021 Superficial Wound Culture ORGANISM: Pseudomonas aeruginosa (O:PSEAER) Quantity of Growth Light Growth Aerobic YESY Charge (NUC86) ------ SUSCEPTIBILITY ----- ORGANISM: O:PSEAER ANTIBIOTIC INTERPRETATION YESY Amikacin S <16 Aztreonam I 16 Cefepime S 8 Ceftazidime IB 4 Ceftazidime/Avibact am S <8 Ciprofloxacin S <1 Gentamicin S <4 Levofloxacin S <2 Meropenem S 2 Piperacillin/Tazoba ctam IB <16 Tobramycin S <4 S = SUSCEPTIBLE I = INTERMEDIATE R = RESISTANT BLANK = DATA NOT AVAILABLE, OR DRUG NOT ADVISABLE OR TESTED R* = RESISTANCE DUE TO EXTENDED SPECTRUM BETA-LACTAMASES ESBL = EXTENDED SPECTRUM BETA-LACTAMASE TFG = THYMIDINE-DEPENDENT STRAIN FADY = BETA-LACTAMASE POSITIVE IB = INDUCIBLE BETA-LACTAMASE. APPEARS IN PLACE OF 'S' WITH SPECIES KNOWN TO POSSESS INDUCIBLE BETA-LACTAMASES. POTENTIALLY THEY MAY BECOME RESISTANT TO ALL B-LACTAM DRUGS. PERFORMED BY: [address] [place] [address] PATHOLOGIST RAILROAD DINING CAR STEWARD/STEWARDESS ANGIE OLVERA M.D. Normal [facility] Comment on above: Performed By: #### C USUP #### [facility] [address] [place] [address] [place] US renal BIon 10-08-2021 US renal BI [facility] [place] [address] [place] [address] Ultrasound Report Signed Patient: Yaniv Narvaez MR#: [id number] : 1960 Acct:[id number] Age/Sex: 61 / M ADM Date: 10/07/21 Loc: Room: [address] [place] [address] Type: ADM IN Attending Dr: Michael Caruso DO Ordering Provider: Lucille Miller MD Date of Service: 10/08/21 US/US renal BI: CARLYLE Copies to: MD Michael Chen DO BILATERAL RENAL AND BLADDER ULTRASOUND CLINICAL HISTORY: Acute kidney injury COMPARISON: None Estimation of renal size is approximately 13.0 cm on the right and 13.6 cm on the left. No shadowing calculi or hydronephrosis are identified. No renal mass lesions were imaged. There is no perinephric fluid. The urinary bladder is partially distended with a volume of 241 mL. No contour or intraluminal abnormalities are seen. US/US renal BI IMPRESSION: NO OBSTRUCTIVE UROPATHY. Impression dictated by: Jo Yoon M.D.10/08/2021 4:28 PM Dictation Location: [place] [address] Tech: Teri Garcia Transcribed By: CHILO 10/08/21 1628 Dictated By: Jo Yoon MD 10/08/21 1619 Signed By: 10/08/21 1628 Normal [facility] Urine bacteria detection by automated methodOrdered By: Lucille Miller on 10-08-2021 Bacteria Auto Ql (U) None seen None Seen [facility] Urine clarity by refractomet ry automatedOrdered By: Lucille Miller on 10-08-2021 Clarity Refractometry automated (U) Clear Clear [facility] Urine glucose measurement by automated test strip (mass/volume)Ordered By: Lucille Miller on 10-08-2021 Glucose Auto test strip (U) [Mass/Vol] Normal mg/dL Normal [facility] Urine hemoglobin detection b y automated test stripOrdered By: Lucille Miller on 10-08-2021 Hemoglobin Auto test strip Ql (U) 1+ Negative [facility] Urine leukocyte esterase det ection by automated test stripOrdered By: Lucille Miller on 10-08-2021 Leukocyte esterase Auto test strip Ql (U) Negative Negative [facility] Urobilinogen Auto test strip (U) [Mass/Vol]Ordered By: Lucille Miller on 10-08-2021 Urobilinogen (U) [Mass/Vol] Normal mg/dL Normal [facility] Yeast detection in urine sed iment by light microscopyOrdered By: Lucille Miller on 10-08-2021 Yeast LM Ql (Urine sed) Rare [HPF] None Seen [facility] Comment on above: BUDDING YEAST pH Auto test strip (U)Ordere d By: Lucille Miller on 10-08-2021 pH (U) 6.0 [pH] 5.0-9.0 [facility] Body fluid albumin measureme nt (mass/volume)Ordered By: Gil Jackson on 10-07-2021 Albumin (Body fld) [Mass/Vol] 2.6 g/dL 3.2-5.5 [facility] Comprehensive Metabolic Pane chan 10-07-2021 Albumin [Mass/Vol] 2.6 g/dL Low 3.2-5.5 [facility] Comment on above: Performed By: #### C MP #### [facility] [address] [place] [address] [place] Albumin/Globulin [Mass ratio] 0.6 {ratio} Normal [facility] Comment on above: Performed By: #### C MP #### [facility] [address] [place] [id number] [place] ALP [Catalytic activity/Vol] 75 U/L Normal 32-92 [facility] Comment on above: Performed By: #### C MP #### [facility] [address] [place] [address] [place] ALT [Catalytic activity/Vol] 11 U/L Normal 10-60 [facility] Comment on above: Performed By: #### C MP #### [facility] [address] Anion gap [Moles/Vol] 14.5 mmol/L Normal 6.0-15.0 [facility] Comment on above: Performed By: #### C MP #### [facility] [address] AST [Catalytic activity/Vol] 16 U/L Normal 10-42 [facility] Comment on above: Performed By: #### C MP #### [facility] [address] Bilirubin [Mass/Vol] 0.4 mg/dL Normal 0.3-1.[address] [facility] Comment on above: Performed By: #### C MP #### [address] Calcium [Mass/Vol] 9.1 mg/dL Normal 8.2-10.2 [facility] Comment on above: Performed By: #### C MP #### [address] Chloride [Moles/Vol] 95 mmol/L Normal 95-[address] [facility] Comment on above: Performed By: #### C MP #### [address] CO2 [Moles/Vol] 28.3 mmol/L Normal 22.0-30.0 [facility] Comment on above: Performed By: #### C MP #### [address] Creatinine [Mass/Vol] 2.31 mg/dL High 0.64-1.27 [facility] Comment on above: Performed By: #### C MP #### [address] Creatinine Clr Calc Pharmacy 44.38 Normal [facility] Comment on above: Result Comment: PERF ORMED BY: [place] [address] PATHOLOGIST [employer]ILRO[employer] DINING CAR STEWARD/STEWARDESS ANGIE OLVERA M.D. Performed By: #### C MP #### [facility] [address] Estimated GFR ( Vianey 35 [facility] Comment on above: Result Comment: GFR estimated reference range: According to KDOQI guidelines, <60 ml/min/1.73m2 is sufficient to diagnose a patient with chronic kidney disease. Performed By: #### C MP #### [facility] [address] [place] [address] [place] Estimated GFR (Non- Am 29 [facility] Comment on above: Performed By: #### C MP #### [address] Globulin (S) [Mass/Vol] 4.2 g/dL Normal [facility] Comment on above: Performed By: #### C MP #### [address] Glucose [Mass/Vol] 196 mg/dL High 70-100 [facility] Comment on above: Result Comment: [place] Glucose Reference Range is dependent on time and content of last meal. Glucose of more than 200 mg/dL in a nonstressed, ambulatory subject supports the diagnosis of Diabetes Mellitus. ADA recommended reference range Performed By: #### C MP #### [address] Potassium [Moles/Vol] 3.8 mmol/L Normal 3.5-5.1 [facility] Comment on above: Performed By: #### C MP #### [address] Protein [Mass/Vol] 6.8 g/dL Normal 6.1-7.9 [facility] Comment on above: Performed By: #### C MP #### [address] Sodium [Moles/Vol] 134 mmol/L Low 136-146 [facility] Comment on above: Performed By: #### C MP #### [address] Urea nitrogen [Mass/Vol] 26 mg/dL High 9-23 [facility] Comment on above: Performed By: #### C MP #### [facility] [address] [place] [id number] [facility] Globulin Calc (S) [Mass/Vol] Ordered By: Gil Jackson on 10-07-2021 Globulin (S) [Mass/Vol] 4.2 g/dL [facility] Protein [Mass/volume] in Ser um or PlasmaOrdered By: Gil Jackson on 10-07-2021 Protein [Mass/Vol] 6.8 g/dL 6.1-7.9 [facility] Serum or plasma alanine cummings otransferase measurement without P-5'-P (enzymatic activiOrdered By: Gil Jackson on 10-07-2021 ALT No additional P-5'-P [Catalytic activity/Vol] 11 U/L 10-60 [facility] Serum or plasma albumin/glob ulin mass ratioOrdered By: Gli Jackson on 10-07-2021 Albumin/Globulin [Mass ratio] 0.6 {ratio} [facility] Serum or plasma alkaline laureen sphatase measurement (enzymatic activity/volume)Ordered By: Gil Jackson on 10-07-2021 ALP [Catalytic activity/Vol] 75 U/L 32-92 [facility] Serum or plasma aspartate am inotransferase measurement (enzymatic activity/volume)Ordered By: Gil Jackson on 10-07-2021 AST [Catalytic activity/Vol] 16 U/L 10-42 [facility] Serum or plasma total biliru bin measurement (mass/volume)Ordered By: Gil Jackson on 10-07-2021 Bilirubin [Mass/Vol] 0.4 mg/dL 0.3-1.[address] [facility] Vital Signs Date Time Vital Sign Value Performing Clinician Facility 04-07-2022 14:30-0500 Body temperature 97.7 [degF] Speedy Ramos Other [facility] Other 04-07-2022 14:30-0500 Diastolic blood pressure 56 mm[Hg] Speedy Ramos Other [facility] Other 04-07-2022 14:30-0500 Systolic blood pressure 112 mm[Hg] Speedy Ramos Other [facility] Other 10-09-2021 12:00-0400 Body temperature 98.5 [degF] [facility] 10-09-2021 12:00-0400 Diastolic blood pressure 73 mm[Hg] [facility] 10-09-2021 12:00-0400 Heart rate 57 /min [facility] 10-09-2021 12:00-0400 Respiratory rate 16 /min [facility] 10-09-2021 12:00-0400 SaO2% (BldA) [Mass fraction] 97 % [facility] 10-09-2021 12:00-0400 Systolic blood pressure 162 mm[Hg] [facility] 10-09-2021 05:17-0400 Body weight 104.5 kg [facility] 10-08-2021 13:06-0400 Body height 187.96 cm [facility] Encounters Encounter Date Encounter Type Care Provider Facility Start: 2022 End: 06-19-2022 ambulatory POPEYE PUGH Facility:H1 Start: 06-10-2022 End: 06-11-[address] LAYNE GOODMAN Facility:H1 Start: 06-04-2022 End: 06-05-2022 ambulatory POPEYE PUGH Facility:H1 Start: 05-28-2022 End: 05-29-2022 ambulatory POPEYE PUGH Facility:H1 Start: 05-17-2022 End: 05-18-[address] ELVIN HERNANDEZ Facility:H1 Start: 05-15-2022 Encounter for preprocedural laboratory examination [facility]YE [facility] Start: 05-11-2022 End: 05-12-2022 ambulatory POPEYE PUGH Facility:H1 Start: 05-11-2022 End: 05-12-2022 Encounter for preprocedural laboratory examination POPE[facility] PUGH Facility:H1 Start: 04-30-2022 End: 05-01-2022 ambulatory POPEYE PUGH Facility:H1 Start: 04-16-2022 End: 04-17-2022 ambulatory [facility] Facility:[facility] Start: 04-07-2022 End: 04-07-2022 ambulatory Speedy Rachel Other [facility] Other Start: 04-07-2022 Office outpatient ne w 45 minutes Speedy Rachel [facility] Start: 03-26-2022 End: 03-27-2022 ambulatory POPEYE Vergara [facility] Facility:H1 Start: 03-05-2022 End: 03-06-2022 ambulatory POPEYE Vergara [facility] Facility:H1 Start: 02-18-2022 End: 02-23-2022 Evaluation and management of inpatient DR NONE LISTED REQUEST Facility:H1 Start: 02-16-2022 End: 02-17-2022 ambulatory [facility] Jai [facility] Facility:H1 Start: 02-14-2022 Encounter for other preprocedural examination [facility] Start: 02-14-2022 Encounter for preprocedural cardiovascular examination [facility] Start: 02-10-2022 End: 02-11-2022 ambulatory POPEYE Vergara [facility] Facility:H1 Start: 02-09-2022 End: 02-10-2022 ambulatory [facility] Jai [facility] Facility:H1 Start: 02-03-2022 End: 02-04-2022 ambulatory POPEYE Vergara [facility] Facility:H1 Start: 01-19-2022 End: 01-20-2022 ambulatory [facility] Facility:H1 Start: 10-07-2021 End: 10-09-2021 Evaluation and management of inpatient [facility] [place] Start: 07-15-2021 End: 07-15-2021 ambulatory CARLITO U ARUNA [facility] Procedures Date Procedure Procedure Detail Performing Clinician Start: 02-22-2022 Insertion of Infusio n Device into Superior Vena Cava, Percutaneous Approach [facility] Start: 02-21-2022 Transfusion of Nonau tologous Red Blood Cells into Peripheral Vein, Percutaneous Approach [facility] Start: 02-18-2022 Excision of Left Tib ia, Open Approach [facility] Start: 02-18-2022 Insertion of Ring Ex ternal Fixation Device into Left Tibia, Percutaneous Approach [facility] Start: 02-18-2022 INTRO ABX-EL BN VD F LR BONES OPN 7 [facility] Start: 02-18-2022 Resection of Left Ta rsal, Open Approach [facility] Start: 10-08-2021 Ultrasonography of b ilateral kidneys Plan of Treatment Date Care Activity Detail Author Start: 10-09-2021 [facility] Work Phone: Start: 10-07-2021 Referral to infectious diseases physician [facility] Work Phone: Start: 10-07-2021 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 to 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 ii farmworker [facility] Work Phone: Start: 10-07-2021 Referral to documentation billing clerk [facility] Work Phone: Start: 10-07-2021 Hospital admission [facility] Work Phone: Aerobic microbial culture Superficial Wound Culture [facility] Blood [facility] Work Phone: Patient Education Levofloxacin ( Systemic) Acute Kidney Injury (DC) Osteomyelitis (DC) [facility] Work Phone: [facility] referral [facility] Work Phone: Payers Date Payer Category Payer Unknown [id number] 1960 Unknown [id number] 2.16.84 [id number] 1960 Unknown [id number] 2.16.84 [id number] 1960 Unknown [id number] 2.16.84 [id number] 1960 Unknown [id number] 2.16.84 [id number] 1960 Unknown [id number] 2.16.84 0.1.245717.3.579.2.593 1960 Unknown [id number] 2.16.84 0.1.889404.3.579.2.593 1960 Unknown [id number] 2.16.84 0.1.521116.3.579.2.593 1960 Unknown [id number] 2.16.84 0.1.966127.3.579.2.593 1960 Unknown [id number] 2.16.84 0.1.652656.3.579.2.593 1960 Unknown [id number] 2.16.84 0.1.378050.3.579.2.593 1960 Unknown [id number] 2.16.84 0.1.923435.3.579.2.593 1960 Unknown [id number] 2.16.84 0.1.302263.3.579.2.593 1960 Unknown [id number] 2.16.84 0.1.736145.3.579.2.593 1960 Unknown [id number] 2.16.84 [id number] 1960 Unknown [id number] 2.16.84 0.1.483315.3.579.2.593 1960 Unknown [id number] 2.16.84 [id number] 1957 Unknown [id number] Social History Date Type Detail Facility Start: 10-08-2021 Tobacco smoking status NHIS Ex-smoker (finding) [facility] Start: 1960 Sex Assigned At Male [facility] Sex Assigned At Sex Assigned At Bir th [facility] Other Goals Date Patient Goal Desired Activity /State Functional Status Date Assessment Result Facility 10-09-2021 Functional status Patient at Baseline [facility] Work Phone: Mental Status Date Assessment Result Facility 10-09-2021 Cognitive function Cognitive Sta tus Patient at Baseline [facility] Work Phone: Clinical Notes 10-07-2021 to 2022 Note Date & Type Note Facility 2022 Note PROCEDURE: XR FOOT L T MIN 3 VIEWS, XR ANKLE LT MIN 3 V COMPARISON: 05/18/2019 HISTORY: Pain in left foot FINDINGS: BONES:No acute fracture or dislocation. Severe degenerative changes of the midfoot and hindfoot with bony remodeling and callus collapse. Findings are stable. SOFT TISSUES:Moderate diffuse soft tissue swelling. Vascular calcifications. EFFUSION:None visible. OTHER: Negative. IMPRESSION: Stable severe degenerative changes Electronically authenticated by: ZITA YODER Date: 2022 09:29 [facility] 2022 Note PROCEDURE: XR FOOT L T MIN 3 VIEWS, XR ANKLE LT MIN 3 V COMPARISON: 05/18/2019 HISTORY: Pain in left foot FINDINGS: BONES:No acute fracture or dislocation. Severe degenerative changes of the midfoot and hindfoot with bony remodeling and callus collapse. Findings are stable. SOFT TISSUES:Moderate diffuse soft tissue swelling. Vascular calcifications. EFFUSION:None visible. OTHER: Negative. IMPRESSION: Stable severe degenerative changes Electronically authenticated by: ZITA YODER Date: 2022 09:29 [facility] 05-18-2022 Note PROCEDURE: XR ANKLE LT MIN 3 V, XR TIB_FIB LT 2V, XR FOOT LT MIN 3 VIEWS HISTORY: Postoperative visit COMPARISON: XR left ankle and foot 04/30/2022 FINDINGS: BONES:Advanced destructive changes of the ankle joint and midfoot. Large calcaneal degenerative enthesophytes. Prominent periosteal reaction along margins of distal tibia and fibula. SOFT TISSUES:Soft tissue swelling surrounding the foot and ankle. Atherosclerotic disease. EFFUSION:None visible. OTHER: Negative. IMPRESSION: 1. Removal of external fixation device. 2. 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 Electronically authenticated by: EVITA MORALES Date: 2022-05-18 08:49 [facility] 05-18-2022 Note PROCEDURE: XR ANKLE LT MIN 3 V, XR TIB_FIB LT 2V, XR FOOT LT MIN 3 VIEWS HISTORY: Postoperative visit COMPARISON: XR left ankle and foot 04/30/2022 FINDINGS: BONES:Advanced destructive changes of the ankle joint and midfoot. Large calcaneal degenerative enthesophytes. Prominent periosteal reaction along margins of distal tibia and fibula. SOFT TISSUES:Soft tissue swelling surrounding the foot and ankle. Atherosclerotic disease. EFFUSION:None visible. OTHER: Negative. IMPRESSION: 1. Removal of external fixation device. 2. 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 Electronically authenticated by: EVITA MORALES Date: 2022-05-18 08:49 [facility] 05-18-2022 Note PROCEDURE: XR ANKLE LT MIN 3 V, XR TIB_FIB LT 2V, XR FOOT LT MIN 3 VIEWS HISTORY: Postoperative visit COMPARISON: XR left ankle and foot 04/30/2022 FINDINGS: BONES:Advanced destructive changes of the ankle joint and midfoot. Large calcaneal degenerative enthesophytes. Prominent periosteal reaction along margins of distal tibia and fibula. SOFT TISSUES:Soft tissue swelling surrounding the foot and ankle. Atherosclerotic disease. EFFUSION:None visible. OTHER: Negative. IMPRESSION: 1. Removal of external fixation device. 2. 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 Electronically authenticated by: EVITA MORALES Date: 2022-05-18 08:49 [facility] 04-30-2022 Note PROCEDURE: XR FOOT L T MIN 3 VIEWS, XR ANKLE LT MIN 3 V HISTORY: Pain in left foot ; external fixation; stinging sensation around pins COMPARISON: XR left foot and ankle 04/16/2022 FINDINGS: BONES:External fixation device surrounding the distal lower extremity, ankle, and foot without appreciable change in hardware. Advanced destructive changes of the ankle joint and midfoot. SOFT TISSUES:Prominent soft tissue swelling surrounding the lower extremity and foot. Atherosclerotic disease. EFFUSION:None visible. OTHER: Negative. IMPRESSION: 1. External fixation without appreciable change in hardware or new findings to account for patient's symptoms. Electronically authenticated by: EVITA MORALES Date: 2022-04-30 13:58 [facility] 04-30-2022 Note PROCEDURE: XR FOOT L T MIN 3 VIEWS, XR ANKLE LT MIN 3 V HISTORY: Pain in left foot ; external fixation; stinging sensation around pins COMPARISON: XR left foot and ankle 04/16/2022 FINDINGS: BONES:External fixation device surrounding the distal lower extremity, ankle, and foot without appreciable change in hardware. Advanced destructive changes of the ankle joint and midfoot. SOFT TISSUES:Prominent soft tissue swelling surrounding the lower extremity and foot. Atherosclerotic disease. EFFUSION:None visible. OTHER: Negative. IMPRESSION: 1. External fixation without appreciable change in hardware or new findings to account for patient's symptoms. Electronically authenticated by: EVITA MORALES Date: 2022-04-30 13:58 [facility] 04-16-2022 Note PROCEDURE: XR FOOT L T MIN 3 VIEWS, XR ANKLE LT MIN 3 V COMPARISON: 03/26/2022 HISTORY: Pain in left foot FINDINGS: BONES:Severe degenerative changes of the midfoot and hindfoot with marked bony destruction and flattening of the plantar arch. Grossly stable from the prior exam. No new fracture or dislocation is observed. SOFT TISSUES:Diffuse soft tissue swelling EFFUSION:None visible. OTHER: External fixator severely limits exam IMPRESSION: Stable exam Electronically authenticated by: IZTA YODER Date: 2022-04-16 11:46 [facility] 04-16-2022 Note PROCEDURE: XR FOOT L T MIN 3 VIEWS, XR ANKLE LT MIN 3 V COMPARISON: 03/26/2022 HISTORY: Pain in left foot FINDINGS: BONES:Severe degenerative changes of the midfoot and hindfoot with marked bony destruction and flattening of the plantar arch. Grossly stable from the prior exam. No new fracture or dislocation is observed. SOFT TISSUES:Diffuse soft tissue swelling EFFUSION:None visible. OTHER: External fixator severely limits exam IMPRESSION: Stable exam Electronically authenticated by: ZITA YODER Date: 2022-04-16 11:46 [facility] 04-07-2022 Evaluation note Encounter Date Diagnosis Assessment Notes Apr, MRSA infection (ICD-10 - A49.02) Patient treated for an osteomyelitis and is almost done with 6 weeks of appropriate treatment. Initially was 4 weeks of IV but due to nephrotoxicity this was stopped. Has approximately few days left on the oral Zyvox. Feel given the lack of internal hardware at this time observing then off antibiotics. Low threshold to restart an anti-MRSA antibiotic if concern of infection again is seen. We will continue to follow with Dr. Pugh and of course can always follow-up with me if concern of infection again is present. Apr, Charcot's joint, left ankle and foot (ICD-10 - M14.672) Apr, Osteomyelitis, unspecified site, unspecified type (ICD-10 - M86.9) [facility] Other 01-12-2023 NotePROCEDURE: XR ANKLE LT MIN 3 V, XR TIB_FIB LT 2V, XR FOOT LT MIN 3 VIEWS HISTORY: Pain COMPARISON: XR ankle left 02/18/2022 intraoperative images. FINDINGS: BONES: Advanced destructive changes of the ankle joint and midfoot. Suspect removal of the talus. External fixation device has been placed and obscures a majority of foot and ankle. SOFT TISSUES:Antibiotic pellets within soft tissues lateral to the ankle. EFFUSION:None visible. OTHER: Negative. IMPRESSION: 1. Advanced degenerative changes of the ankle and midfoot with placement of external fixation device. Electronically authenticated by: EVITA MORALES Date: 2022-02-18 18:08[facility] NotePROCEDURE: XR ANKLE LT MIN 3 V, XR TIB_FIB LT 2V, XR FOOT LT MIN 3 VIEWS HISTORY: Pain COMPARISON: XR ankle left 02/18/2022 intraoperative images. FINDINGS: BONES: Advanced destructive changes of the ankle joint and midfoot. Suspect removal of the talus. External fixation device has been placed and obscures a majority of foot and ankle. SOFT TISSUES:Antibiotic pellets within soft tissues lateral to the ankle. EFFUSION:None visible. OTHER: Negative. IMPRESSION: 1. Advanced degenerative changes of the ankle and midfoot with placement of external fixation device. Electronically authenticated by: EVITA MORALES Date: 2022-02-18 18:08[facility]01-12-2023 NotePROCEDURE: XR ANKLE LT MIN 3 V, XR TIB_FIB LT 2V, XR FOOT LT MIN 3 VIEWS HISTORY: Pain COMPARISON: XR ankle left 02/18/2022 intraoperative images. FINDINGS: BONES: Advanced destructive changes of the ankle joint and midfoot. Suspect removal of the talus. External fixation device has been placed and obscures a majority of foot and ankle. SOFT TISSUES:Antibiotic pellets within soft tissues lateral to the ankle. EFFUSION:None visible. OTHER: Negative. IMPRESSION: 1. Advanced degenerative changes of the ankle and midfoot with placement of external fixation device. Electronically authenticated by: EVITA MORALES Date: 2022-02-18 18:08[facility]01-12-2023 NotePROCEDURE: XR ANKLE LT 2V HISTORY: Pain COMPARISON: None. FINDINGS: BONES:Multiple intraoperative spot fluoroscopic images demonstrate advanced degenerative changes and collapse of the midfoot and ankle joint. Placement of external fixation device.. IMPRESSION: 1. 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 2. Intraoperative placement of external fixation device. Electronically authenticated by: EVITA MORALES Date: 2022-02-18 18:05[facility]09-02-2022 Hospital Discharge instructionsAmbulatory Orders* Initiate Home Health Time Frame: 10/09/21, Location: Determined By Patient Additional Instructions You must follow up with: Your usual documentation billing clerk. The infectious diseases doctor from [place]. And your Primary Care provider. Please call and schedule these appointments. HOME HEALTH TO MANAGE: Continue previous orders as done prior to this admission. Patient no longer needs IV antibiotics. Monitor VS per protocol Monitor Skin assessment Monitor for increased signs of infection Please draw a BMP on . 10/13/21. Send to Dr. Miller. [facility] Work Phone: 1(727) 307-949209-02-2022 Discharge summary Author Michael Caruso [facility] October 09, 2021 7:36pm Note Date/Time October 09, 2021 11:29am [facility] [address] [place] [address] Discharge Summary Signed Patient: Yaniv Narvaez MR#: [id number] : 1960 Acct:[id number] Age/Sex: 61 / M Adm Date: 2 Loc: Room: [address] [place] [address]: Michael Caruso DO Copies to: NON STAFF Michael Caruso DO~ Providers Date of Discharge: 10/09/21 Discharging Provider: Michael Caruso Primary Care Provider: NON STAFF Consults: 10/07/21 17:34 Consult to Dietitian Routine 10/07/21 18:11 Consult to Infectious Diseases Routine Consult to Nephrology Routine Consult to Podiatry Routine Discharge Diagnosis (1) CARLYLE (acute kidney injury): (2) long term care phlebotomist current use of antibiotics: (3) Right toe amputee: Final Diagnosis Final Discharge Diagnosis: Acute kidney injury, likely due to vancomycin. Summary Hospital Course Hospital course: This is a 61-year-old man with a medical history of diabetes and hypertension aswell as dyslipidemia and peripheral arterial disease who has been dealing with long- term diabetic foot infections. He originally had surgery and premedical hospital in [place] for excision and debridement of osteomyelitis. It appears that he was discharged on IV vancomycin and IV cefepime by way of a PICC line. On the outpatient basis he was noticed to have worsening renal function and change was made to stop the vancomycin and placed him on daptomycin. He was sent to the [facility] emergency room where he remained for about 2days because no bed was available in [place] at which time they called us at [facility] and asked for admission. His creatinine had risen from a baseline of about 0.9 up to about 2.5. Patient was admitted to the hospital here at [facility]. He was placed on IV fluids. Antibiotics were stopped. Nephrotoxic medications were avoided. He had consultation by nephrology. With this his creatinine did improve. A bilateral renal ultrasound did not show any obstructive urologic problem. He was evaluated by a local documentation billing clerk Dr. Rodriguez. Her impression of the wound was that no active infection was present. She recommended ongoing wound care marcia has been doing at home. He was evaluated by local infectious diseases doctor with Dr. Ramos. Despite multiple efforts on the part of nursing staff we were unable to get records transferred over from the [facility] system. Specifically we asked for that 3 different deep cultures that were taken during the amputation and debridement procedure at [facility]. It looks like we have results from 1 of these but it was difficult to tell. We also specifically asked for the infectious diseases consultation and progress notes but never got any of those. Looking at the culture information that we could get over it seems like he has methicillin sensitive Staphylococcus aureus and Pseudomonas that was sensitive to all of the typical antipseudomonal antibacterial agents. The infectious diseases doctor did discuss the case with the documentation billing clerk from [place] who clarified that they had removed all of the infected bone from the right foot andthe surgical site. Therefore is recommended that the patient transition to oralLevaquin that will initially be adjusted for his elevated creatinine and that hecan continue to take Levaquin through the originally planned stop date of antibiotics that have been recommended by the [facility] which was October 31, 2021. On the last hospital day the patient appreciated the wound care efforts by nursing and was eating well and had no diarrhea and was discharged to home. He was encouraged to follow-up closely with his documentation billing clerk, the infectious diseases doctor in [place], and therefore his PICC line was left in in case it should be needed in the near future. Condition Condition at Discharge: Stable Status at Discharge Functional status at discharge: uses cane/walker Overall status at discharge: patient is progressing back to baseline Time Spent with Patient Time spent providing/coordinating discharge services (# min): 68 Diagnostic Studies Completed and Pending Studies Pending studies at discharge: 10/08/21 11:45 Superficial Wound Culture Routine 10/10/21 05:00 BMP [Basic Metabolic Panel] [CHEM] IN AM CBC [Complete Blood Count Auto Diff] IN AM 10/11/21 05:00 BMP [Basic Metabolic Panel] [CHEM] IN AM CBC [Complete Blood Count Auto Diff] IN AM Preliminary micro results at discharge 10/08/21 11:45 Superficial Wound Culture - Pending Foot,Right - Incision Labs on day of discharge: 10/09/21 07:10: Estimat Average Glucose 140, Hemoglobin A1c 6.5 H 10/09/21 07:10: PHA Creatinine Clear 53.67, Sodium 138, Potassium 3.8, Chloride 101, Carbon Dioxide 30.8 H, Anion Gap 10.0, BUN 23, Creatinine 1.91 H, Est GFR ( Amer) 44, Est GFR (Non-Af Amer) 36, Glucose 111 H, Calcium 8.9, Iron 37L, TIBC 246 L, Transferrin 176 L, Ferritin 286.1, Vitamin B12 312, Folate 9.0 10/09/21 07:10: PT 14.1 H, INR 1.3, APTT 30.9 10/09/21 07:10: Corrected WBC 7.1, Uncorrected WBC Count 7.1, RBC 3.15 L, Hgb 8.8 L, Hct 26.6 L, MCV 84.4, MCH 28.0, MCHC 33.1, RDW 15.1 H, Plt Count 157, MPV7.7, Neut % (Auto) 50.5, Lymph % (Auto) 33.0, [place] % (Auto) 9.4, Eos % (Auto) 5.9, Baso % (Auto) 1.2, Neut # (Auto) 3.6, Lymph # (Auto) 2.3, [place] # (Auto) 0.7, Eos # (Auto) 0.4, Baso # (Auto) 0.1, Nucleated RBC % (auto) 0.1 10/08/21 12:15: Urine Color Yellow, Urine Appearance Clear, Urine pH 6.0, Ur Specific [place] 1.008, Urine Protein 100 H, Urine Glucose (UA) Normal, Urine Ketones Negative, Urine Occult Blood 1+ H, Urine Nitrite Negative, Urine Bilirubin Negative, Urine Urobilinogen Normal, Ur Leukocyte Esterase Negative, Urine RBC 1-2, Urine WBC 10-19 H, Ur Squamous Epith Cells 3-4 H, Urine Bacteria None seen, Hyaline Casts 0-8, Urine Yeast Rare A, Urine Eosinophils 0 10/08/21 05:55: C-Reactive Prot, Quant 0.8 10/08/21 05:55: ESR 104 H Exam Physical Exam Vital Signs: Temp Pulse Resp BP Pulse Ox O2 Del Method 98.6 F 65 16 176/83 H 97 Room Air 10/09/21 08:00 10/09/21 08:00 10/09/21 08:00 10/09/21 08:00 10/09/21 08:00 10/09/21 08:00 Narrative: General: Awake. Alert. Generally nontoxic. Both lower extremities have nice Diego wraps on. Wound VAC is on his left lower extremity. Respiratory: Respirations are calm and easy. Talking normally on room air. Skin no visible rashes on the visible portions of the skin Discharge Plan Discharge Plan Patient Disposition: Home Health Services Activity: Other Comment: Follow activity orders as given by your Stripper Preliminary. Diet: Regular Comment: Increase fiber in your diet. Additional Instructions: You must follow up with: Your usual documentation billing clerk. The infectious diseases doctorsheyla Ferrell. And your Primary Care provider. Please call and schedule these appointments. HOME HEALTH TO MANAGE: Continue previous orders as done prior to this admission. Patient no longer needs IV antibiotics. Monitor VS per protocol Monitor Skin assessment Monitor for increased signs of infection Please draw a BMP on . 10/13/21. Send to Dr. Miller. Instructions: Levofloxacin (Systemic), Acute Kidney Injury (DC), Osteomyelitis (DC) Prescriptions: New levofloxacin 750 mg tablet 750 mg PO DAILY Qty: 30 0RF Rx Instructions: Take every other day, on Tuesday, Tuesday, , and Tuesday, and from Tuesday (10/17/2021) onward then take daily. By that time your kidney function should be normal. Continued amlodipine 5 mg Tablet 5 mg PO DAILY allopurinol 300 mg Tablet 300 mg PO DAILY atenolol 50 mg Tablet 50 mg PO DAILY clopidogrel 75 mg tablet 75 mg PO DAILY Label Comments: TAKE 1 TABLET BY MOUTH EVERY DAY magnesium oxide 400 mg (241.3 mg magnesium) tablet 400 mg PO DAILY Label Comments: TAKE 1 TABLET BY MOUTH EVERY DAY IN THE MORNING tamsulosin [Flomax] 0.4 mg Capsule 0.4 mg PO DAILY ferrous sulfate 325 mg (65 mg iron) tablet 325 mg PO DAILY Label Comments: TAKE 1 TABLET BY MOUTH TWICE A DAY metformin 500 mg tablet extended release 24 hr 500 mg PO DAILY Label Comments: TAKE 3 TABLETS BY MOUTH ONCE DAILY buprenorphine-naloxone 8-2 mg film 2 film sublingual DAILY Label Comments: dissolve 2 FILMS under the tongue once daily dulaglutide 0.75 mg/0.5 mL Pen Injector 0.75 mg SUBCUT QWEEK Held furosemide [Lasix] 80 mg Tablet 80 mg PO DAILY Hold Instructions: Resume on 10/11/21. Other Ambulatory Orders: Basic Metabolic Panel (Routine) Timeframe: 20211013 Location: Determined by Patient Ordered By: Lucille Miller Initiate Home Health (Routine) Timeframe: 20211009 Location: Determined by Patient Ordered By: Michael Caruso Follow Up: Lucille Miller MD [Active Staff] - (His office is currently closed. Please call on Tuesday and schedule a 6 week post hospital follow up appointment.) Documented By: Michael Caruso DO [id number] Signed By: <Electronically signed by Michael Caruso DO> 10/09/211935 [facility] Work Phone: 1(960) 913-581009-02-2022 Progress note Author Lucille Miller [facility] October 09, 2021 11:12am Note Date/Time October 09, 2021 10:25am [facility] [address] [place] [address] Nephrology Progress Note Signed with Addenda Patient: Yaniv Narvaez MR#: [id number] : 1960 Acct:[id number] Age/Sex: 61 / M Adm Date: 2 Loc: Room: [address] [place] [address] Type: ADM INOo Attending Dr: Michael Caruso DO Copies to: ~ ADDENDUM1 Patient can be discharged from renal standpoint. Repeat renal function in 3 to 5 days after discharge. Okay to resume Lasix 48 hours later. Outpatient follow-up in our office 4 to 6 weeks. Addendum Documented By: Lucille Miller MD 10/09/21 111 Addendum Signed By: <Electronically signed by Lucille Miller MD> 10/09/21 111 Date of Service: 10/09/2021 Subjective Subjective Narrative: This is a 61-year-old male with a medical history of DM, HTN, dyslipidemia, PAD,diabetic foot infection on IV antibiotics was advised to go to the emergency room due to the CARLYLE.? Patient reported that he has not been dealing with a foot infection and was on IV vancomycin.? He was noticed to have a worsening renal function and his antibiotic was changed from vancomycin to daptomycin.? He reported that he has a ccd-kebhrza-nrokbbndv type 2 diabetes mellitus and deniesany history of diabetic retinopathy.? He currently follows with Dr. Shekhar michaelsported that his hemoglobin A1c is within the target goal for couple of years.?He has hypertension and takes amlodipine and atenolol at home.? Patient also reported to have edema and was taking Lasix at home.? Patient denies any known history of CKD.? Review of record shows the patient has serum creatinine 0.9 mg/dL about a year ago.? His serum creatinine on outpatient lab was 2.6 mg/dL but was checked in the ER was 2.2 mg/dL.? Nephrology was consulted for CARLYLE management.? Interval history Patient was seen at the bedside. He is feeling better denies any chest pain palpitation cough nausea vomit diarrhea shortness of breath. He was seen by ID and podiatry for his bilateral foot ulcers. Currently antibiotic is on hold pending his cultures and record. Exam Physical Exam Vital Signs: Temp Pulse Resp BP Pulse Ox O2 Del Method 98.6 F 65 16 176/83 H 97 Room Air 10/09/21 08:00 10/09/21 08:00 10/09/21 08:00 10/09/21 08:00 10/09/21 08:00 10/09/21 08:00 Narrative: General: Appears comfortable and not in distress Heart: S1-S2, no rub Lung: Bilateral air entry, no wheezing or crackles Abdomen: Soft, positive bowel sounds Extremities: No edema, no cyanosis, bilateral dressing of the legs with Diego wrap. Head: Atraumatic, normocephalic Ear: No gross hearing Deficit or external ear redness Eyes: No pallor or redness Neck: No JVD or visible mass Skin: No rashes or bruises LEASING ASSOCIATE: Awake,Alert, following simple command Musculoskeletal: No joint swelling or limitation of movement Psychiatric: Cooperative, normal mood and affect Objective Intake and Output I&O: Intake & Output 10/06/21 10/07/21 10/08/21 10/09/21 23:59 23:59 23:59 23:59 Intake Total 120 / 120 2880 / 2880 1360 / 1360 Output Total 400 / 400 2670 / 2670 500 / 500 Balance -280 / -280 210 / 210 860 / 860 Weight 104.5 kg 104.5 kg 104.5 kg Meds and Allergies Meds: Active Medications Allopurinol (Allopurinol 300 Mg Tablet) 300 mg PO DAILY [facility] Stop: 10/08/22 08:59 Last Admin: 10/09/21 08:11 Dose: 300 mg Amlodipine Besylate (Amlodipine 5 Mg Tablet) 5 mg PO DAILY [facility] Stop: 10/08/22 08:59 Last Admin: 10/09/21 08:11 Dose: 5 mg Buprenorphine HCl (Buprenorphine Hcl 8 Mg Tab.Subl) 16 mg SUBLINGUAL DAILY [facility] Stop: 10/08/22 08:59 Last Admin: 10/09/21 08:11 Dose: 16 mg Clopidogrel Bisulfate (Clopidogrel Bisulfate 75 Mg Tablet) 75 mg PO DAILY [facility] Stop: 10/08/22 08:59 Last Admin: 10/09/21 08:11 Dose: 75 mg Ferrous Sulfate (Ferrous Sulfate 324 Mg Tablet.Dr) 324 mg PO DAILY [facility] Stop: 10/08/22 08:59 Last Admin: 10/09/21 08:11 Dose: 324 mg Heparin Sodium (Porcine) (Heparin 5,000 Unit/Ml Vial) 5,000 unit SUBCUT Q8HR [facility] Stop: 10/07/22 21:59 Last Admin: 10/09/21 05:59 Dose: 5,000 unit Heparin Sodium (Porcine) (Heparin-Lock 500 Unit/5 Ml Syringe) 500 unit IV-PUSH QSHIFT [facility] Stop: 10/09/22 13:59 Sodium Chloride (0.9% Sodium Chloride 1,000 Ml) 1,000 mls @ 100 mls/hr IV .[id number] Stop: 10/07/22 18:14 Last Admin: 10/09/21 04:53 Dose: 100 mls/hr Magnesium Oxide (Magnesium Oxide 400 Mg Tablet) 400 mg PO DAILY [facility] Stop: 10/08/22 08:59 Last Admin: 10/09/21 08:11 Dose: 400 mg Metoprolol Tartrate (Metoprolol Tartrate 50 Mg Tablet) 50 mg PO BID [facility] Stop: 10/08/22 08:59 Last Admin: 10/09/21 08:17 Dose: 50 mg Non-Formulary Medication (Dulaglutide) 0.75 mg SUBCUT QWEEK [facility] Stop: 10/14/22 08:59 Tamsulosin HCl (Tamsulosin 0.4 Mg Cap.Er.24h) 0.4 mg PO DAILY [facility] Stop: 10/08/22 08:59 Last Admin: 10/09/21 08:11 Dose: 0.4 mg Allergies No Known Allergies Allergy (Verified 10/07/21 19:00) Results Labs CBC & Chem 7: 10/09/21 07:10 10/09/21 07:10 Labs: 10/08/21 10/09/21 12:15 07:10 BUN 23 Creatinine 1.91 H Ferritin 286.1 Urine Color Yellow Urine Appearance Clear Urine pH 6.0 Ur Specific [place] 1.008 Urine Protein 100 H Urine Glucose (UA) Normal Urine Ketones Negative Urine Occult Blood 1+ H Urine Nitrite Negative Ur Leukocyte Esterase Negative Urine RBC 1-2 Urine WBC 10-19 H Urine Bacteria None seen Radiology Impressions Impressions - last 24 hours: Impressions Renal Ultrasound 10/08/21 11:27 IMPRESSION: NO OBSTRUCTIVE UROPATHY. Impression dictated by: Jo Yoon M.D.10/08/2021 4:28 PM Dictation Location: [place] [address] Any impression(s) listed above is documentation that was entered by the reading physician into a diagnostic report(s) for Yaniv Narvaez. I have reviewed the report(s) and am incorporating any findings in the treatment plan of this patient where applicable. A&P - Nephrology Assessment/Plan (1) CARLYLE (acute kidney injury): Assessment/Problem Details: He likely has acute kidney injury due to the vancomycin induced toxicity. His renal function has been slowly improving. He has no evidence of obstructive uropathy on renal ultrasound. (2) Right toe amputee: Assessment/Problem Details: Patient has a PAD and had right toe amputation. (3) Diabetes mellitus: Assessment/Problem Details: He has ufm-jmuqdyd-wlihwejag type 2 diabetes mellitus currently takes metformin and Trulicity at home. (4) HTN (hypertension): Assessment/Problem Details: Blood pressure is controlled. He takes amlodipine and atenolol at home (5) MCFP current use of antibiotics: Assessment/Problem Details: He is currently 40 in the infection and was taking vancomycin. (6) Anemia: Assessment/Problem Details: He is given below the goal. He has a low iron stores but adequate B12 and folate level. Plan * Continue gentle IV fluid resuscitation. * Continue oral iron * Continue to hold home dose of the Lasix and metformin * Continue home dose of the amlodipine * Continue metoprolol.? Continue to hold home dose of the atenolol * Continue Trulicity.? The goal of blood sugars between 100 to 150 mg/dL. * Check renal function daily monitor input output Documented By: Lucille Miller MD 10/09/21 1021 Signed By: <Electronically signed by Lucille Miller MD> 10/09/21 1032 [facility] Work Phone: [phone]) 852-871809-02-2022 Progress note Author Speedy Ramos [facility] October 09, 2021 2:39pm Note Date/Time October 09, 2021 10:58am [facility] [address] [place] [address] Infect. Disease Progress Note Signed Patient: Yaniv Narvaez MR#: [id number] : 1960 Acct:[id number] Age/Sex: 61 / M Adm Date: 2 Loc: 3T Room: [address] [place] [address] Type: ADM INOo Attending Dr: Michael Caruso DO Copies to: ~ Date of Service: 10/09/2021 Subjective Interval history: Patient was seen and examined this morning sitting upright in bed. He states that he did have some heartburn last night with laying down which is not usual for him. Patient also reports that podiatry came in and debrided and packed hiswound on right foot. Patient denies any fevers, chills, abdominal pain, chest pain, shortness of breath, nausea, vomiting, diarrhea, constipation or pain in either extremity. Patient denies any other acute complaints or concerns at thistime. Patient was asking about the results of his kidney ultrasound today. Exam Physical Exam Vital Signs: Temp Pulse Resp BP Pulse Ox O2 Del Method 98.6 F 65 16 176/83 H 97 Room Air 10/09/21 08:00 10/09/21 08:00 10/09/21 08:00 10/09/21 08:00 10/09/21 08:00 10/09/21 08:00 Narrative: General -awake, alert, oriented ?3, not in acute distress, lying in upright position Cardiovascular - regular rate and rhythm with no murmurs, rubs or gallops Pulmonary - CTA b/l without RRW Gastrointestinal - abdomen is soft, nondistended, nontender, normoactive bowel sounds, there is no guarding, rebound or rigidity Upper Extremities - no edema, clubbing or cyanosis Lower Extremities -moderate nonpitting edema bilateral lower extremities, no clubbing or cyanosis. Left lower leg covered with compression wrapping and wound VAC over left lateral malleolus wound. This was not taken off to view wound. No signs of infection including erythema, tenderness, warmth or fluctuance around knee and upper leg. Right foot-patient had compression wrap along with gauze to cover wound. Compression wrap was taken off gauze were partially taken off to view amputationwound. Wound has partially dehisced in the medial section but still has still has multiple stitches in place draining mild to moderate sanguinous fluid. Areawas packed from yesterday's debridement. Slight warmth around area. No erythema or areas of fluctuance. Area is nontender. Neurological -no focal neurological deficit noted Musculoskeletal - 5/5 muscle strength in all extremities Objective Labs CBC/BMP: CBC, BMP 10/09/21 10/09/21 07:10 07:10 Corrected WBC 7.1 Uncorrected WBC Count 7.1 RBC 3.15 L Hgb 8.8 L Hct 26.6 L Plt Count 157 Sodium 138 Potassium 3.8 Chloride 101 Carbon Dioxide 30.8 H Anion Gap 10.0 BUN 23 Creatinine 1.91 H Calcium 8.9 Labs: 10/09/21 07:10 BUN 23 Creatinine 1.91 H Microbiology Microbiology: 10/08/21 11:45 Superficial Wound Culture - Pending Foot,Right - Incision Allergies and Medications Allergies and Active Meds Allergies No Known Allergies Allergy (Verified 10/07/21 19:00) Active Medications Allopurinol (Allopurinol 300 Mg Tablet) 300 mg PO DAILY [facility] Stop: 10/08/22 08:59 Last Admin: 10/09/21 08:11 Dose: 300 mg Alteplase, Recombinant (Alteplase 2 Mg Vial) 2 mg INTRACATH ONCE PRN PRN Reason: Occlusion Amlodipine Besylate (Amlodipine 5 Mg Tablet) 5 mg PO DAILY [facility] Stop: 10/08/22 08:59 Last Admin: 10/09/21 08:11 Dose: 5 mg Buprenorphine HCl (Buprenorphine Hcl 8 Mg Tab.Subl) 16 mg SUBLINGUAL DAILY [facility] Stop: 10/08/22 08:59 Last Admin: 10/09/21 08:11 Dose: 16 mg Clopidogrel Bisulfate (Clopidogrel Bisulfate 75 Mg Tablet) 75 mg PO DAILY [facility] Stop: 10/08/22 08:59 Last Admin: 10/09/21 08:11 Dose: 75 mg Ferrous Sulfate (Ferrous Sulfate 324 Mg Tablet.Dr) 324 mg PO DAILY [facility] Stop: 10/08/22 08:59 Last Admin: 10/09/21 08:11 Dose: 324 mg Heparin Sodium (Porcine) (Heparin 5,000 Unit/Ml Vial) 5,000 unit SUBCUT Q8HR [facility] Stop: 10/07/22 21:59 Last Admin: 10/09/21 05:59 Dose: 5,000 unit Heparin Sodium (Porcine) (Heparin-Lock 500 Unit/5 Ml Syringe) 500 unit IV-PUSH QSHIFT [facility] Stop: 10/09/22 13:59 Sodium Chloride (0.9% Sodium Chloride 1,000 Ml) 1,000 mls @ 100 mls/hr IV .[id number] Stop: 10/07/22 18:14 Last Admin: 10/09/21 04:53 Dose: 100 mls/hr Magnesium Oxide (Magnesium Oxide 400 Mg Tablet) 400 mg PO DAILY [facility] Stop: 10/08/22 08:59 Last Admin: 10/09/21 08:11 Dose: 400 mg Metoprolol Tartrate (Metoprolol Tartrate 50 Mg Tablet) 50 mg PO BID [facility] Stop: 10/08/22 08:59 Last Admin: 10/09/21 08:17 Dose: 50 mg Non-Formulary Medication (Dulaglutide) 0.75 mg SUBCUT QWEEK [facility] Stop: 10/14/22 08:59 Sterile Water (Water For Injection,Sterile 10 Ml Vial) 2.2 ml INJECTION PRN PRN PRN Reason: To Dilute Cathflo Stop: 10/09/22 10:22 Tamsulosin HCl (Tamsulosin 0.4 Mg Cap.Er.24h) 0.4 mg PO DAILY [facility] Stop: 10/08/22 08:59 Last Admin: 10/09/21 08:11 Dose: 0.4 mg A&P - Infectious Disease Assessment/Plan (1) MCFP current use of antibiotics: Code(s): Z79.2 - MCFP (current) use of antibiotics Status: Acute (2) Right toe amputee: Code(s): Z89.421 - Acquired absence of other right toe(s) Status: Acute (3) CARLYLE (acute kidney injury): Code(s): N17.9 - Acute kidney failure, unspecified Status: Acute Plan Patient continues to feel well today. Right foot wound was slightly debrided and cleaned with podiatry and wound care yesterday. Podiatry note demonstrates wound did not probe to bone. There was some surrounding warmth today with some mild sanguinous fluid from wound. Wound culture was sent and is pending. [facility] was received and reviewed which demonstrated patient was sent home on IV cefepime and vancomycin. Podiatry amputation operative note reported that first metatarsal head was removed and remaining bone was slightly scott but hard. A portion of bone was sent for culture but not currently available for review. Patient's CARLYLE continues to improve with creatinine at 1.9today, was 2.18 yesterday. Renal ultrasound was negative for any obstructive pathology. CARLYLE likely coming from long-term IV vancomycin use at this point. Ptcould potentially be started on levaquin based on some of the culture/sensitivities from [facility]. I did receive a call back from his podiatric surgeon who again clarified that she removed all the infected bone from the right foot surgical site. Superficial culture here does have some light growth of gram-negative bacilli. Patient had grown Pseudomonas and MSSA from a culture result in [place] along with some other cultures with corynebacterium species. Patient's podiatric surgeon stated that the lobular biotics actually were not for her surgical incision site and was for a left ankle open wound. Therefore given his care done in [place] but realizing his AKIwas due to his Vanc/Cefepime will transition to PO Levaquin that will be initially adjusted for his CARLYLE to begin on dc as PO to resume antimicrobial coverage. This will go thru orig. planned stop date 10/31 Documented By: Donta Go DO, RES 10/09/21 1 054 Signed By: <Electronically signed by DO DEO Go> 10/09/21 1144 <Electronically signed by MD Speedy Ramos> 10/09/21 8589 [facility] Work Phone: 1(501) 976-721009-01-2022 Progress note Author Michael Caruso [facility] October 08, 2021 5:58pm Note Date/Time October 08, 2021 5:49pm [facility] [address] [place] [address] Hospitalist Progress Note Signed Patient: Yaniv Narvaez MR#: [id number] : 1960 Acct:[id number] Age/Sex: 61 / M Adm Date: 2 Loc: Room: [address] [address] Type: ADM IN Attending Dr: Michael Caruso DO Copies to: ~ Date of Service: 10/08/2021 Subjective Subjective Narrative: Patient is a 61-year-old male past medical history significant for hypertension,hyperlipidemia and diabetes with recent right great toe amputation secondary to osteomyelitis on long-term IV antibiotics who presented to [facility] ER after being found by home health to have abnormal labs (elevated creatinine). At the [facility] ER, patient was noted to have acute kidney injury therefore patient was transferred to [facility] for further evaluation management, after waiting in that ER for nearly 2 days due to no hospital beds available in [place]. Patient states that on 09/18/2021 he had amputation of the right great toe ([facility]) due to osteomyelitis and was placed on IV cefepime and IV vancomycin. Patient reports his IV vancomycin was later changed to IV daptomycin. Patient subsequently was found to have elevated creatinine levels by home health care providers and was sent to ER for further evaluation management. Update; Patient says he is feeling good. Denies any fevers or chills or rigors or myalgias. He says that he can usually tell when he is getting an infection. Hehas been through this a lot. Earlier to other people he had complained of some fatigue. I noticed that he has anemia which I think is likely chronic multifactorial. He denies any nausea or upset stomach. He did get a little bitof heartburn earlier but that resolved on its own. No chest pain or palpitations. No shortness of breath or cough or expectoration any sputum. He is very satisfied with the way that his wounds were wrapped today. Exam Physical Exam Vital Signs: Temp Pulse Resp BP Pulse Ox O2 Del Method 98.2 F 67 14 160/75 H 99 Room Air 10/08/21 16:24 10/08/21 16:24 10/08/21 16:24 10/08/21 16:24 10/08/21 16:24 10/08/21 16:24 Narrative: General: Awake. Alert. Generally nontoxic. Both lower extremities have nice Diego wraps on. Wound VAC is on his left lower extremity. Respiratory: Respirations are calm and easy. Talking normally on room air. Skin no visible rashes on the visible portions of the skin Objective Lab Results CBC & Chem 7: 10/08/21 05:55 10/08/21 05:55 Meds Allergies and Active Meds Allergies No Known Allergies Allergy (Verified 10/07/21 19:00) Active Meds: Active Medications Generic Name Dose Route Start Last Admin Trade Name Freq PRN Reason Stop Dose Admin Allopurinol 300 mg 10/08/21 09:00 10/08/21 08:57 Allopurinol 300 Mg Tablet PO 10/08/22 08:59 300 mg DAILY LINDSEY Administration Amlodipine Besylate 5 mg 10/08/21 09:00 10/08/21 08:57 Amlodipine 5 Mg Tablet PO 10/08/22 08:59 5 mg DAILY LINDSEY Administration Buprenorphine HCl 16 mg 10/08/21 09:00 10/08/21 08:57 Buprenorphine Hcl 8 Mg Tab.Subl SUBLINGUAL 10/08/22 08:59 16 mg DAILY LINDSEY Administration Clopidogrel Bisulfate 75 mg 10/08/21 09:00 10/08/21 08:56 Clopidogrel Bisulfate 75 Mg Tablet PO 10/08/22 08:59 75 mg DAILY LINDSEY Administration Ferrous Sulfate 324 mg 10/08/21 09:00 10/08/21 08:57 Ferrous Sulfate 324 Mg Tablet.Dr PO 10/08/22 08:59 324 mg DAILY LINDSEY Administration Heparin Sodium (Porcine) 5,000 unit 10/07/21 22:00 10/08/21 16:18 Heparin 5,000 Unit/Ml Vial SUBCUT 10/07/22 21:59 5,000 unit Q8HR LINDSEY Administration Sodium Chloride 1,000 mls @ 100 mls/hr 10/07/21 18:15 10/08/21 16:18 0.9% Sodium Chloride 1,000 Ml IV 10/07/22 18:14 100 mls/hr .Q10H LINDSEY Administration Magnesium Oxide 400 mg 10/08/21 09:00 10/08/21 08:57 Magnesium Oxide 400 Mg Tablet PO 10/08/22 08:59 400 mg DAILY LINDSEY Administration Metoprolol Tartrate 50 mg 10/08/21 09:00 10/08/21 08:57 Metoprolol Tartrate 50 Mg Tablet PO 10/08/22 08:59 50 mg BID LINDSEY Administration Non-Formulary Medication 0.75 mg 10/14/21 09:00 Dulaglutide SUBCUT 10/14/22 08:59 QWEEK LINDSEY Tamsulosin HCl 0.4 mg 10/08/21 09:00 10/08/21 08:57 Tamsulosin 0.4 Mg Cap.Er.24h PO 10/08/22 08:59 0.4 mg DAILY LINDSEY Administration A&P - Hospitalist Assessment/Plan (1) CARLYLE (acute kidney injury): (2) Right toe amputee: (3) MCFP current use of antibiotics: (4) HTN (hypertension): (5) Diabetes mellitus: Plan Patient is a 61-year-old male past medical history significant for hypertension,hyperlipidemia and diabetes with recent right great toe amputation secondary to osteomyelitis on long-term IV antibiotics who presented abnormal labs as an outpatient found to have elevated creatinine/CARLYLE. 1. Acute kidney injury Suspect ATN secondary to IV vancomycin Will continue IV fluids and nephrology consulted and recommendations are appreciated. 2. Long-term IV antibiotics -Patient managed on long-term IV antibiotics due to osteomyelitis of lower extremity status post amputation of right great toe -Dr. Caruso did discuss the case in brief with podiatry with Dr. Rodriguez on rounds. We are trying to get reports the 3 cultures that were taken from the deep wound during the surgery and the one that the and of the very end of that procedure. 3. Status post right great toe amputation 4. Diabetes. Metformin on hold, but Dulaglutide continues (weekly.) Will check A1c 5. Hypertension Home metoprolol is continued. Documented By: Michael Caruso DO [id number] Signed By: <Electronically signed by Michael Caruso DO> 10/08/21 3271 [facility] Work Phone: [phone]) 768-695509-01-2022 Consult note Author Wendi Rodriguez [facility] October 08, 2021 5:24pm Note Date/Time October 08, 2021 5:11pm [facility] [address] [place] [address] Podiatry Consult Note Signed Patient: Yaniv Narvaez MR#: [id number] : 1960 Acct:[id number] Age/Sex: 61 / M Adm Date: 2 Loc: Room: [address] [address] Type: ADM IN Attending Dr: Michael Caruso DO Copies to: NON STAFF YURIDIA Cabrera DO~ HPI Data of Consult Consult Date: 10/08/21 Requesting Physician: Michael Caruso DO Primary Care Provider: NON STAFF Consult Narrative Reason for consult: Ulceration, osteomyelitis right first metatarsal History of present illness: Mr. Narvaez is a 61 year old male who had a partial first ray amputation performed at [facility] in [place] on September 18 due to chronic nonhealing wound and sepsis. He was previously followed by Dr. Cole in [place] for a chronic ulceration to the right great toe. He states that after work on that day he noticed increased swelling, redness to the right foot as well as systemic symptoms of the fatigue, chills which prompted his visit to the emergency room. At that time he was noted to be septic. He was admitted and subsequent partial first ray amputation was performed due to confirmation of osteomyelitis on x-rays and MRI. He states that the doctor did tell him that they did remove all of the infected bone that was present on the MRI. He has been following with this physician since surgery. He states that the incision did open some but they have been putting packing in this area. Patient presented to [facility] in [place] due to increased creatinine on routine lab draw by home health care. There was concern about acute kidney injury due to his IV antibiotics ordered postoperatively. At the time of consultation patient is seen at bedside and is resting and in no acute distress. He does have a chronic wound on the outside of the left ankle with wound VAC in place due to Charcot deformity. No other complaints. Review of Systems Review of Systems All other systems reviewed & are negative unless noted below or in HPI PMFSH Vaccinated for COVID-19?: Yes Medical History (Updated 10/08/21 @ 17:17 by Wendi Rodriguez DPM) Arthritis BPH (benign prostatic hyperplasia) Cellulitis Charcot foot due to diabetes mellitus Diabetes mellitus Eczema Foot ulcer, left HTN (hypertension) Hyperlipidemia PVD (peripheral vascular disease) Right toe amputee TIA (transient ischemic attack) Family History Mother Cancer Hx of CABG Colon cancer Mother No problems noted. Social History Smoking Status: Former smoker Tobacco Type: cigarettes Substance Use Type: None Meds Medications and Allergies Allergies No Known Allergies Allergy (Verified 10/07/21 19:00) Home Medications allopurinol 300 mg tablet 300 mg PO DAILY 10/07/21 [History Confirmed 10/07/21] amlodipine 5 mg tablet 5 mg PO DAILY 10/07/21 [History Confirmed 10/07/21] atenolol 50 mg tablet 50 mg PO DAILY 10/07/21 [History Confirmed 10/07/21] buprenorphine 8 mg-naloxone 2 mg sublingual film 2 film sublingual DAILY 10/07/21 [History Confirmed 10/07/21] clopidogrel 75 mg tablet 75 mg PO DAILY 10/07/21 [History Confirmed 10/07/21] dulaglutide 0.75 mg/0.5 mL subcutaneous pen injector 0.75 mg subcut QWEEK 10/07/21 [History Confirmed 10/07/21] ferrous sulfate 325 mg (65 mg iron) tablet 325 mg PO DAILY 10/07/21 [History Confirmed 10/07/21] furosemide 80 mg tablet (Lasix) 80 mg PO DAILY 10/07/21 [History Confirmed 10/07/21] magnesium oxide 400 mg (241.3 mg magnesium) tablet 400 mg PO DAILY 10/07/21 [History Confirmed 10/07/21] metformin 500 mg tablet,extended release 24 hr 500 mg PO DAILY 10/07/21 [History Confirmed 10/07/21] tamsulosin 0.4 mg capsule (Flomax) 0.4 mg PO DAILY 10/07/21 [History Confirmed 10/07/21] Exam Physical Exam Vital Signs: Temp Pulse Resp BP Pulse Ox O2 Del Method 98.2 F 67 14 160/75 H 99 Room Air 10/08/21 16:24 10/08/21 16:24 10/08/21 16:24 10/08/21 16:24 10/08/21 16:24 10/08/21 16:24 Narrative: General: Patient is seen at bedside and is awake and aware and in no acute distress. Vascular: DP and PT pulses are palpable to the bilateral lower extremity. Thereis a slight amount of erythema along the surgical site of the right first ray amputation. No significant streaking or cellulitis is noted. Neurology: Patient has known diabetic peripheral, autonomic and sensory components of neuropathy. Dermatology: Patient has a large wound along the lateral aspect of the left ankle due to underlying Charcot deformity. There are varying levels of depth with a mostly granular base but fibrotic tissue present along the central aspectof the ulceration. No surrounding sign of infection is noted. Incision site along the medial first ray of the right foot is mostly coapted with exception of opening along the central aspect that does probe to deep tissue. There is no evidence of probing to bone. Majority of tissue within the depth of the wound is granular. There is no active bleeding or pustular drainage noted. Mostly serous drainage is noted from the wound. No malodor is noted. Mild erythema along the dorsal incision site but no streaking or cellulitis noted. Orthopedic: Patient has a Charcot deformity of the left ankle with significant inversion, amputation of the right first ray, right second and fifth digit Results Labs CBC & Chem 7: 10/08/21 05:55 10/08/21 05:55 ESR 104 mm/hr (0-19) H 10/08/21 05:55 Microbiology Microbiology: Reviewed from [facility]: MSSA from wound swab and tissue culture but there is nocurrent bone culture available for review. Assessment/Plan (1) Ulcer of right foot: Plan: I had a discussion with the patient in regards to the findings of the wound and ulceration to the right foot. He had partial first ray amputation and based upon review of the operative note and per the patient's history, he did states that the physician removed all of the infected bone. The operative note did state that the remaining bone was hard. They did take a portion of bone for culture which is not currently available for review, but we are requesting thoserecords to determine if the patient needs to be continued on long-term IV antibiotics. His admission currently is due to acute kidney injury likely from use of the long-term IVs. Patient current wound culture is growing MSSA. Thereis an open wound along the incision site which was dressed with quarter inch packing, 4 x 4's, Kerlix and an Diego wrap. At this point in time there is a increased depth of this wound but it does not probe down to bone with no significant evidence of surrounding infection. I would continue with local wound care at this time and do not feel that the patient needs any surgical debridement. He was instructed on the importance of offloading and he does havean offloading postoperative shoe as well as proper wound care, good diabetic control in order to aid in healing. Patient does have home health care established for his wound VAC on the left foot as well as dressing changes to the right foot. Once final wound culture is received this will be helpful to determine if he needs additional IV antibiotics. Code(s): L97.519 - Non-pressure chronic ulcer of other part of right foot with unspecified severity (2) Osteomyelitis of right foot: Code(s): M86.9 - Osteomyelitis, unspecified (3) Charcot's joint of left ankle: Plan: Patient does have a significant Charcot joint dislocation of the left ankle and subsequent lateral ankle wound. He this is currently being treated with a woundVAC. We did have a discussion about further treatment options including reconstruction versus amputation. I did speak with his current documentation billing clerk, Dr. Cole who states that he has recommended amputation in the past but the patientwanted to wait until he was retired from work which she states will begin an additional 18 months. Patient is able to ambulate with a Charcot orthopedic walker and take a brace that was fabricated for him. We did discuss additional reconstruction options as well as amputation and the associated recovery time. He states he is interested in determining if he is a candidate for reconstruction and I did recommend that he schedule a consultation appointment with Dr. Pugh to discuss this further. In the meantime patient will continue with current wound care and wound VAC on the left ankle ulceration. Code(s): M14.672 - Charcot's joint, left ankle and foot (4) Ulcer of left ankle: Code(s): L97.329 - Non-pressure chronic ulcer of left ankle with unspecified severity (5) Diabetes mellitus with foot ulcer: Code(s): E11.621 - Type 2 diabetes mellitus with foot ulcer; L97.509 - Non-pressure chronic ulcer of other part of unspecified foot with unspecified severity (6) Deformity of left ankle joint: Code(s): M21.962 - Unspecified acquired deformity of left lower leg Documented By: Wendi Rodriguez DPM 10/08/21 17 06 Signed By: <Electronically signed by YURIDIA Rodriguez> 10/08/21 0656 [facility] Work Phone: [phone] Consult note Author Lucille Miller [facility] October 08, 2021 11:31am Note Date/Time October 08, 2021 11:06am [facility] [address] [place] [address] Nephrology Consult Note Signed Patient: Yaniv Narvaez MR#: [id number] : 1960 Acct:[id number] Age/Sex: 61 / M Adm Date: 2 Loc: Room: [address] [place] [address] Type: ADM IN Attending Dr: Michael Caruso DO Copies to: NON STAFF LucilleMD Michael Bowie DO~ Providers Consult Date: 10/08/21 Requesting Provider: Michael Caruso DO Primary Care Provider: NON STAFF HPI Reason for Consult: CARLYLE management. History of Present Illness: This is a 61-year-old male with a medical history of DM, HTN, dyslipidemia, PAD,diabetic foot infection on IV antibiotics was advised to go to the emergency room due to the CARLYLE. Patient reported that he has not been dealing with a foot infection and was on IV vancomycin. He was noticed to have a worsening renal function and his antibiotic was changed from vancomycin to daptomycin. He reported that he has a [id number] type 2 diabetes mellitus and deniesany history of diabetic retinopathy. He currently follows with Dr. Shekhar michaelsported that his hemoglobin A1c is within the target goal for couple of years. He has hypertension and takes amlodipine and atenolol at home. Patient also reported to have edema and was taking Lasix at home. Patient denies any known history of CKD. Review of record shows the patient has serum creatinine 0.9 mg/dL about a year ago. His serum creatinine on outpatient lab was 2.6 mg/dL but was checked in the ER was 2.2 mg/dL. Nephrology was consulted for CARLYLE management. Patient was seen examined at bedside denies any complaint. Review of Systems Review of Systems All other systems reviewed & are negative unless noted below or in HPI Review of systems: Cardiovascular: denies any chest pain, palpitation Pulmonary: denies any cough, hemoptysis Gastrointestinal: denies any nausea, vomiting, diarrhea Neurological :denies any headache, numbness, weakness Endocrine: denies any polyuria, polydipsia Dermatological: denies any itching or rash PMFSH Vaccinated for COVID-19?: Yes Medical History (Updated 10/08/21 @ 11:04 by Lucille Miller MD) Arthritis BPH (benign prostatic hyperplasia) Cellulitis Charcot foot due to diabetes mellitus Diabetes mellitus Eczema Foot ulcer, left HTN (hypertension) Hyperlipidemia PVD (peripheral vascular disease) Right toe amputee TIA (transient ischemic attack) Family History Mother Cancer Hx of CABG Colon cancer Mother No problems noted. Social History Smoking Status: Former smoker Tobacco Type: cigarettes Substance Use Type: None Meds Medications & Allergies Allergies No Known Allergies Allergy (Verified 10/07/21 19:00) Home Medications allopurinol 300 mg tablet 300 mg PO DAILY 10/07/21 [History Confirmed 10/07/21] amlodipine 5 mg tablet 5 mg PO DAILY 10/07/21 [History Confirmed 10/07/21] atenolol 50 mg tablet 50 mg PO DAILY 10/07/21 [History Confirmed 10/07/21] buprenorphine 8 mg-naloxone 2 mg sublingual film 2 film sublingual DAILY 10/07/21 [History Confirmed 10/07/21] clopidogrel 75 mg tablet 75 mg PO DAILY 10/07/21 [History Confirmed 10/07/21] dulaglutide 0.75 mg/0.5 mL subcutaneous pen injector 0.75 mg subcut QWEEK 10/07/21 [History Confirmed 10/07/21] ferrous sulfate 325 mg (65 mg iron) tablet 325 mg PO DAILY 10/07/21 [History Confirmed 10/07/21] furosemide 80 mg tablet (Lasix) 80 mg PO DAILY 10/07/21 [History Confirmed 10/07/21] magnesium oxide 400 mg (241.3 mg magnesium) tablet 400 mg PO DAILY 10/07/21 [History Confirmed 10/07/21] metformin 500 mg tablet,extended release 24 hr 500 mg PO DAILY 10/07/21 [History Confirmed 10/07/21] tamsulosin 0.4 mg capsule (Flomax) 0.4 mg PO DAILY 10/07/21 [History Confirmed 10/07/21] Active Medications: Active Medications Allopurinol (Allopurinol 300 Mg Tablet) 300 mg PO DAILY LINDSEY Stop: 10/08/22 08:59 Last Admin: 10/08/21 08:57 Dose: 300 mg Amlodipine Besylate (Amlodipine 5 Mg Tablet) 5 mg PO DAILY LINDSEY Stop: 10/08/22 08:59 Last Admin: 10/08/21 08:57 Dose: 5 mg Buprenorphine HCl (Buprenorphine Hcl 8 Mg Tab.Subl) 16 mg SUBLINGUAL DAILY LINDSEY Stop: 10/08/22 08:59 Last Admin: 10/08/21 08:57 Dose: 16 mg Clopidogrel Bisulfate (Clopidogrel Bisulfate 75 Mg Tablet) 75 mg PO DAILY LINDSEY Stop: 10/08/22 08:59 Last Admin: 10/08/21 08:56 Dose: 75 mg Ferrous Sulfate (Ferrous Sulfate 324 Mg Tablet.Dr) 324 mg PO DAILY [facility] Stop: 10/08/22 08:59 Last Admin: 10/08/21 08:57 Dose: 324 mg Furosemide (Furosemide 80 Mg Tablet) 80 mg PO DAILY LINDSEY Stop: 10/08/22 08:59 Last Admin: 10/08/21 08:57 Dose: 80 mg Heparin Sodium (Porcine) (Heparin 5,000 Unit/Ml Vial) 5,000 unit SUBCUT Q8HR LINDSEY Stop: 10/07/22 21:59 Last Admin: 10/08/21 06:24 Dose: 5,000 unit Sodium Chloride (0.9% Sodium Chloride 1,000 Ml) 1,000 mls @ 100 mls/hr IV .[id number] Stop: 10/07/22 18:14 Last Admin: 10/08/21 06:24 Dose: 100 mls/hr Magnesium Oxide (Magnesium Oxide 400 Mg Tablet) 400 mg PO DAILY LINDSEY Stop: 10/08/22 08:59 Last Admin: 10/08/21 08:57 Dose: 400 mg Metoprolol Tartrate (Metoprolol Tartrate 50 Mg Tablet) 50 mg PO BID [facility] Stop: 10/08/22 08:59 Last Admin: 10/08/21 08:57 Dose: 50 mg Non-Formulary Medication (Dulaglutide) 0.75 mg SUBCUT QWEEK [facility] Stop: 10/14/22 08:59 Tamsulosin HCl (Tamsulosin 0.4 Mg Cap.Er.24h) 0.4 mg PO DAILY LINDSEY Stop: 10/08/22 08:59 Last Admin: 10/08/21 08:57 Dose: 0.4 mg Exam Physical Exam Vital Signs: Temp Pulse Resp BP Pulse Ox O2 Del Method 98.6 F 80 16 155/77 H 97 Room Air 10/08/21 08:54 10/08/21 08:54 10/08/21 08:54 10/08/21 08:54 10/08/21 08:54 10/08/21 08:54 Narrative: General: Appears comfortable and not in distress Heart: S1-S2, no rub Lung: Bilateral air entry, no wheezing or crackles Abdomen: Soft, positive bowel sounds Extremities: No edema, no cyanosis Head: Atraumatic, normocephalic Ear: No gross hearing Deficit or external ear redness Eyes: No pallor or redness Neck: No JVD or visible mass Skin: No rashes or bruises LEASING ASSOCIATE: Awake,Alert, following simple command Psychiatric: Cooperative, normal mood and affect Results Labs CBC & Chem 7: 10/08/21 05:55 10/08/21 05:55 Labs: 10/07/21 10/08/21 20:20 05:55 BUN 26 H 26 H Creatinine 2.31 H 2.18 H Albumin 2.6 L Radiology Impressions Impressions - last 24 hours: Any impression(s) listed above is documentation that was entered by the reading physician into a diagnostic report(s) for Yaniv Eugenio Narvaez. I have reviewed the report(s) and am incorporating any findings in the treatment plan of this patient where applicable. A&P - Nephrology Assessment/Plan (1) CARLYLE (acute kidney injury): Assessment/Problem Details: He likely has acute kidney injury due to the vancomycin induced toxicity. His renal function has been slowly improving. (2) Right toe amputee: Assessment/Problem Details: Patient has a PAD and had right toe amputation. (3) Diabetes mellitus: Assessment/Problem Details: He has qzm-[id number]-qfxlatqio type 2 diabetes mellitus currently takes metformin and Trulicity at home. (4) HTN (hypertension): Assessment/Problem Details: Blood pressure is controlled. He takes amlodipine and atenolol at home (5) long term care phlebotomist current use of antibiotics: Assessment/Problem Details: He is currently 42 in the infection and was taking vancomycin. It was changed to the daptomycin recently. Plan * Will continue gentle IV fluid resuscitation. * Continue to hold home dose of the Lasix and metformin * Check renal ultrasound to evaluate the renal anatomy * Continue home dose of the amlodipine * Continue metoprolol. Continue to hold home dose of the atenolol * Continue Trulicity. The goal of blood sugars between 101 50 g/dL. * Check renal function daily monitor input output * Thanks for consult. We will continue follow with you. Please feel free to call us with any question. Documented By: Lucille Miller MD 10/08/21 1056 Signed By: <Electronically signed by Lucille Miller MD> 10/08/21 113 [facility] Work Phone: 1(211) 710-437009-01-2022 Consult note Author Speedy Ramos [facility] October 08, 2021 11:14am Note Date/Time October 08, 2021 9:50am [facility] [address] [place] [address] Infect. Disease Consult Note Signed Patient: Yaniv Narvaez MR#: [id number] : 1960 Acct:[id number] Age/Sex: 61 / M Adm Date: 2 Loc: Room: [address] [place] [address] Type: ADM IN Attending Dr: Michael Caruso DO Copies to: NON STAFF Donta Go DO, RES DO Speedy Page MD~ HPI Data of Consult Consult date: 10/08/21 Requesting Physician: Michael Caruso DO Primary Care Provider: NON STAFF Consult Narrative Reason for consult: Long-term antibiotic management History of present illness: Mr. Narvaez is a 61 year old male with past medical history of DM, TIA and Charcot foot disease who presented to the ER with issues of elevated creatinine from home health lab testing. Patient reportedly had right great toe amputated on 09/18/2021/2 osteomyelitis and was subsequently placed on vancomycin and cefepime via PICC line. Patient reports that vancomycin was eventually switchedto daptomycin. In [facility] ER patient was noted to have CARLYLE and was admitted. Patient's IV antibiotics were stopped and his thought was CARLYLE was secondary to ATN from IV vancomycin. Infectious disease consulted for long-term antibiotic management of osteomyelitis. Patient seen and examined this morning sitting upright in bed. Patient reports that he never had any symptoms prior to admission it was without abnormal lab results of brought him in. However, this morning patient does report some generalized fatigue. Patient continues to deny any pain anywhere including chestpain or abdominal pain. He does state that he has chronic drainage from right great toe amputation wound. He reports that the dressings have not been changedin 3 to 4 days for this wound. Patient also reports having a left lateral malleolus wound that has been chronic and a wound vac has been in place for this. Patient does follow with podiatry in [facility] for these wounds. Patient was having home health come and dress these wounds 3 times a week. Patient denies any fevers or chills recently. Patient denies any history of heart valve replacement. Patient denies any other acute complaints or concerns at this time. CC: Michael Caruso DO Review of Systems Review of Systems Review of systems: A 10-point review of systems was performed and was negative unless otherwise noted in HPI. [facility] Vaccinated for COVID-19?: Yes Medical History (Updated 10/08/21 @ 11:04 by Lucille Miller MD) Arthritis BPH (benign prostatic hyperplasia) Cellulitis Charcot foot due to diabetes mellitus Diabetes mellitus Eczema Foot ulcer, left HTN (hypertension) Hyperlipidemia PVD (peripheral vascular disease) Right toe amputee TIA (transient ischemic attack) Family History Mother Cancer Hx of CABG Colon cancer Mother No problems noted. Social History Smoking Status: Former smoker Tobacco Type: cigarettes Substance Use Type: None Allergies and Medications Allergies and Active Meds Allergies No Known Allergies Allergy (Verified 10/07/21 19:00) Active Medications Allopurinol (Allopurinol 300 Mg Tablet) 300 mg PO DAILY LINDSEY Stop: 10/08/22 08:59 Last Admin: 10/08/21 08:57 Dose: 300 mg Amlodipine Besylate (Amlodipine 5 Mg Tablet) 5 mg PO DAILY LINDSEY Stop: 10/08/22 08:59 Last Admin: 10/08/21 08:57 Dose: 5 mg Buprenorphine HCl (Buprenorphine Hcl 8 Mg Tab.Subl) 16 mg SUBLINGUAL DAILY LINDSEY Stop: 10/08/22 08:59 Last Admin: 10/08/21 08:57 Dose: 16 mg Clopidogrel Bisulfate (Clopidogrel Bisulfate 75 Mg Tablet) 75 mg PO DAILY ILNDSEY Stop: 10/08/22 08:59 Last Admin: 10/08/21 08:56 Dose: 75 mg Ferrous Sulfate (Ferrous Sulfate 324 Mg Tablet.Dr) 324 mg PO DAILY LINDSEY Stop: 10/08/22 08:59 Last Admin: 10/08/21 08:57 Dose: 324 mg Furosemide (Furosemide 80 Mg Tablet) 80 mg PO DAILY LINDSEY Stop: 10/08/22 08:59 Last Admin: 10/08/21 08:57 Dose: 80 mg Heparin Sodium (Porcine) (Heparin 5,000 Unit/Ml Vial) 5,000 unit SUBCUT Q8HR LINDSEY Stop: 10/07/22 21:59 Last Admin: 10/08/21 06:24 Dose: 5,000 unit Sodium Chloride (0.9% Sodium Chloride 1,000 Ml) 1,000 mls @ 100 mls/hr IV .[id number] Stop: 10/07/22 18:14 Last Admin: 10/08/21 06:24 Dose: 100 mls/hr Magnesium Oxide (Magnesium Oxide 400 Mg Tablet) 400 mg PO DAILY LINDSEY Stop: 10/08/22 08:59 Last Admin: 10/08/21 08:57 Dose: 400 mg Metoprolol Tartrate (Metoprolol Tartrate 50 Mg Tablet) 50 mg PO BID LINDSEY Stop: 10/08/22 08:59 Last Admin: 10/08/21 08:57 Dose: 50 mg Non-Formulary Medication (Dulaglutide) 0.75 mg SUBCUT QWEEK [facility] Stop: 10/14/22 08:59 Tamsulosin HCl (Tamsulosin 0.4 Mg Cap.Er.24h) 0.4 mg PO DAILY LINDSEY Stop: 10/08/22 08:59 Last Admin: 10/08/21 08:57 Dose: 0.4 mg Exam Physical Exam Vital Signs: Temp Pulse Resp BP Pulse Ox O2 Del Method 98.6 F 80 16 155/77 H 97 Room Air 10/08/21 08:54 10/08/21 08:54 10/08/21 08:54 10/08/21 08:54 10/08/21 08:54 10/08/21 08:54 Narrative: General -awake, alert, oriented ?3, not in acute distress, lying in upright position Cardiovascular - regular rate and rhythm with no murmurs, rubs or gallops Pulmonary - CTA b/l without RRW Gastrointestinal - abdomen is soft, nondistended, nontender, normoactive bowel sounds, there is no guarding, rebound or rigidity Upper Extremities - no edema, clubbing or cyanosis Lower Extremities -moderate nonpitting edema bilateral lower extremities, no clubbing or cyanosis. Left lower leg covered with compression device and wound VAC over left lateral malleolus wound. This was not taken off to view wound. No signs of infection including erythema, tenderness, warmth or fluctuance around knee and upper leg. Right foot-patient had compression wrap along with gauze to cover wound. Compression wrap was taken off gauze were partially taken off to view amputationwound. Wound is not closed and still has multiple stitches in place draining mild to moderate sanguinous fluid. No erythema, warmth or areas of fluctuance. Area is nontender. No signs of acute infection Neurological -no focal neurological deficit noted Musculoskeletal - 5/5 muscle strength in all extremities Results Labs CBC & Chem 7: 10/08/21 05:55 10/08/21 05:55 Labs: 10/07/21 20:20: BUN 26 H, Creatinine 2.31 H 10/08/21 05:55: Corrected WBC 7.3, Uncorrected WBC Count 7.3 10/08/21 05:55: BUN 26 H, Creatinine 2.18 H A&P - Infectious Disease (1) [facility]FP current use of antibiotics: Status: Acute (2) Right toe amputee: Status: Acute (3) CARLYLE (acute kidney injury): Status: Acute Plan Mr. Narvaez is a 61 year old male with past medical history of DM, TIA and Charcot foot disease who presented to the ER with issues of elevated creatinine from home health lab testing. Patient reportedly had right great toe amputated on 09/18/2021 2/2 osteomyelitis and was subsequently placed on vancomycin and cefepime via PICC line. Questionable report of patient being narrowed to just daptomycin recently but no records of that found. Patient was noted to have AKIand [facility] ER thought to be secondary to ATN from IV vancomycin use. Upon admission patient was not restarted on any antibiotics andinfectious disease was consulted for management of long-term antibiotics. Rightgreat toe amputation wound does not appear to have any acute signs of infection or abscess formation on exam today. Left lateral ankle wound has wound vac downand was not observed although no signs of cellulitis and left leg. Patient's creatinine is slightly improved today at 2.17 from 2.57 yesterday. No prior cultures in patient's chart for review of sensitivities. Patient was reportedly supposed to be on antibiotics until 10/31/2021 per patient's report. Pt was reporting today that when he had amputation the physician stated that they got all the infection out. [facility] was checked for records which did not result in any results or records from the visit where he had his amputation. Noculture/sensitivities or procedure reports were found. Currently unsure the patient needed to have antibiotics upon discharge initially since patient reports that all of bone was removed with amputation. Will send for records forhospital stay or amputation occurred to see if there was an indication for long-term IV antibiotic use. If records show no indication than antibiotic can be discontinued. In the meantime can hold antibiotics for 1 day secondary to CARLYLE. Hopefully records will be here by tomorrow and antibiotic selection or discontinuation can be decided. I performed a history and physical examination of the patient and discussed his/her management with the resident/student. I reviewed the resident?s/student's note and agree with the documented findings and plan of care. Documented By: Donta Go DO, RES 10/08/21 0 944 Signed By: <Electronically signed by DO DEO Go> 10/08/21 1109 <Electronically signed by MD Speedy Ramos> 10/08/21 1114 [facility] Work Phone: [phone]) 270-929408-31-2022 History and physical note Author Gil Jackson [facility] October 07, 2021 6:05pm Note Date/Time October 07, 2021 6: 05pm [facility] [address] [place] [address] Hospitalist H&P Signed Patient: Yaniv Narvaez MR#: [id number] : 1960 Acct:[id number] Age/Sex: 61 / M Adm Date: 2 Loc: Room: [address] [place] [address] Type: ADM IN Attending Dr: Gil Jackson MD Copies to: NON STAFF Gil Jackson MD~ HPI DATE OF EXAMINATION: 10/07/21 CHIEF COMPLAINT: Abnormal labs (acute kidney injury) HISTORY OF PRESENT ILLNESS: Patient is a 61-year-old male past medical history significant for hypertension,hyperlipidemia and diabetes with recent right great toe amputation secondary to osteomyelitis on long-term IV antibiotics who presented to [facility] ER after being found by home health to have abnormal labs (elevated creatinine). At the [facility] ER, patient was noted to have acute kidney injury therefore patient was transferred to [facility] for further evaluation management. Patient states that on 09/18/2021 he had amputation of the right great toe due toosteomyelitis and was placed on IV cefepime and IV vancomycin. Patient reports her IV vancomycin was later changed to IV daptomycin. Patient subsequently was found to have elevated creatinine levels by home health care providers and was sent to ER for further evaluation management. Review of Systems Review of Systems All other systems reviewed & are negative unless noted below or in HPI PMFSH Vaccinated for COVID-19?: Unknown Medical History (Updated 10/07/21 @ 18:01 by Gil Jackson MD) Arthritis BPH (benign prostatic hyperplasia) Cellulitis Charcot foot due to diabetes mellitus Diabetes mellitus Eczema Foot ulcer, left HTN (hypertension) Hyperlipidemia PVD (peripheral vascular disease) Right toe amputee TIA (transient ischemic attack) Family History (Updated 10/07/21 @ 16:31 by Anila Newell RN) Mother Cancer Hx of CABG Colon cancer Mother No problems noted. Social History Smoking Status: Former smoker Tobacco Type: cigarettes Substance Use Type: None Meds Medications and Allergies Home Medications allopurinol 300 mg tablet 300 mg PO DAILY 10/07/21 [History Confirmed 10/07/21] amlodipine 5 mg tablet 5 mg PO DAILY 10/07/21 [History Confirmed 10/07/21] atenolol 50 mg tablet 50 mg PO DAILY 10/07/21 [History Confirmed 10/07/21] buprenorphine 8 mg-naloxone 2 mg sublingual film 2 film sublingual DAILY 10/07/21 [History Confirmed 10/07/21] clopidogrel 75 mg tablet 75 mg PO DAILY 10/07/21 [History Confirmed 10/07/21] dulaglutide 0.75 mg/0.5 mL subcutaneous pen injector 0.75 mg subcut QWEEK 10/07/21 [History Confirmed 10/07/21] ferrous sulfate 325 mg (65 mg iron) tablet 325 mg PO DAILY 10/07/21 [History Confirmed 10/07/21] furosemide 80 mg tablet (Lasix) 80 mg PO DAILY 10/07/21 [History Confirmed 10/07/21] magnesium oxide 400 mg (241.3 mg magnesium) tablet 400 mg PO DAILY 10/07/21 [History Confirmed 10/07/21] metformin 500 mg tablet,extended release 24 hr 500 mg PO DAILY 10/07/21 [History Confirmed 10/07/21] tamsulosin 0.4 mg capsule (Flomax) 0.4 mg PO DAILY 10/07/21 [History Confirmed 10/07/21] Exam Physical Exam Vital Signs: Temp Pulse Resp BP Pulse Ox O2 Del Method 98.3 F 67 16 168/76 H 98 Room Air 10/07/21 16:09 10/07/21 16:09 10/07/21 16:09 10/07/21 16:09 10/07/21 16:09 10/07/21 16:09 Const General: cooperative, comfortable and no acute distress HEENT Head: normocephalic Eyes Sclera: sclerae normal Resp Effort & Inspection: normal respiratory effort and able to speak in complete sentences Neuro General: patient alert, patient awake and patient oriented x3 A&P - Hospitalist Assessment/Plan (1) CARLYLE (acute kidney injury): (2) Right toe amputee: (3) long term care phlebotomist current use of antibiotics: Plan Patient is a 61-year-old male past medical history significant for hypertension,hyperlipidemia and diabetes with recent right great toe amputation secondary to osteomyelitis on long-term IV antibiotics who presented abnormal labs as an outpatient found to have elevated creatinine/CARLYLE. 1. Acute kidney injury Suspect ATN secondary to IV vancomycin Will continue IV fluids and nephrology consulted for recommendations/management. 2. Long-term IV antibiotics -Patient managed on long-term IV antibiotics due to osteomyelitis of lower extremity status post amputation of right great toe -Will consult factious disease for any further recommendations as patient reported of being on IV cefepime as well as IV vancomycin which was changed to daptomycin 3. Status post right great toe amputation Patient apparently with history of osteomyelitis status post right great toe amputation on 09/20/2019 Will consult podiatry for any further evaluation/management. Documented By: Gil Jackson MD 10/07/21 6457 Signed By: <Electronically signed by Gil Jackson MD> 10/07/21 1805 [facility] Work Phone: Evaluation note* Diagnosis Onset Date Resolution Status CARLYLE (acute kidney injury) ac mrac Anemia acute Charcot's joint of left ankle acute Deformity of left ankle joint acute Diabetes mellitus acute Diabetes mellitus with foot ulcer acute HTN (hypertension) acute MCFP current use of antibiotics acute Osteomyelitis of right foot acute Right toe amputee acute Ulcer of left ankle acute Ulcer of right foot acute [facility] Work Phone: History general Narrative - Reported* Type Description Date Medical History type 2 diabetes Medical History CHRONIC OSTEOMYELITIS Medical History CHARCOTS JOINT Medical History ABSCENCE OF RIGHT FOOT Medical History TIA Medical History BPH Medical History ECZEMA Medical History HYPERLIPIDEMIA Surgical History right great toe and 2nd toe rem milo Surgical History tonsilectomy Surgical History surgery to realign left foot [employer] Other Summary Purpose Family History No Family History Records Found Relationship Condition Age at Onset Recorded Date/T roxanne Not Specified Malignant neoplasm Unknown History of coronary artery bypass surgery Unknown Malignant neoplasm of colon Unknown Advance Directives No Advanced Directives Records Found Advance Directive Response Recorded Date/ Time Advance Directives No October 07, 2021 1:09pm Chief Complaint and Reason for Visit Chief Complaint Acute Kidney Injury Reason for Visit CARLYLE (acute kidney in jury) Anemia Charcot's joint of left ankle Deformity of left ankle joint Diabetes mellitus Diabetes mellitus with foot ulcer HTN (hypertension) long term care phlebotomist current use of antibiotics Osteomyelitis of right foot Right toe amputee Ulcer of left ankle Ulcer of right foot Additional Source Comments (unrecognized sect ion and content) No Status Records FoundNo Status Records FoundNo Status Records Found INFORMATION SOURCE (unrecogn ized section and content) DATE CREATED AUTHOR 07/16/2021 [facility] DATE CREATED AUTHOR AUTHOR'S ORGANIZ ATION 10/16/2021 [facility] DATE CREATED AUTHOR AUTHOR'S ORGANIZ ATION 07/16/2022 [facility] Care Teams (unrecognized sec tion and content) Team Status: Inactive Member Role Status Dates NON STAFF Primary Care Provider Active Gil Jackson MD Admit Provider Active Speedy Ramos MD Other Provider Active Lucille Miller MD Other Provider Active Howard Laguna DPM Other Provider Active Michael Caruso DO Attending Provider Active Team Status: Active Member Role Status Dates NON STAFF Primary Care Provider Active FOR RECORDS PERTAINING TO PATIENTS WHO ARE OR HAVE BEEN ENROLLED IN A CHEMICAL DEPENDENCY/SUBSTANCEABUSE PROGRAM, SOME INFORMATION MAY BE OMITTED. This clinical summary was aggregated from multiple sources. Caution should be exercised in using it in the provision of clinical care. This summary normalizes information from multiple sources, and as a consequence, information in this document may materially change the coding, format and clinical context of patient data. In addition, data may be omitted in some cases. CLINICAL DECISIONS SHOULD BE BASED ON THE PRIMARY CLINICAL RECORDS. [employer] provides no warranty or guarantee of the accuracy or completeness of information in this document.
== END 2023-02-11 11:24 | disposition home or self-care (01) ==
LOC: WC 11:24
PROVIDERS: PCP Family Medicine; Visit Provider Podiatrist Foot & Ankle Surgery
DX: E11.622 Type 2 diabetes mellitus with other skin ulcer (principal); L97.321 Non-pressure chronic ulcer of left ankle limited to breakdown of skin; L97.528 Non-pressure chronic ulcer of other part of left foot with other specified severity
CPT/HCPCS: 11042

== ENCOUNTER 2023-03-11 10:12 | Outpatient (OUT) | payer BC, SELFPAY ==
--- NOTE | 2023-03-11 | XR_ITS ---
The [address] [address] Patient Name: YANIV NARVAEZ MRN: [id number] date: 1960 Sex: M Assigned Patient Location: Current Patient Location: Accession/Order Number: [id number] Exam Date: 03/11/2023 10:35 Report Date: 03/11/2023 12:33 At the request of: POPEYE SINGER Procedure: XR ankle LT min 3V PROCEDURE: XR ankle LT min 3V DATE: 03/11/2023 10:35 AM EST COMPARISONS: 01/14/2023 CLINICAL INDICATION: LEFT AJ Pain FINDINGS: There is marked deformity of the ankle. The distal tibia is collapsed into the hindfoot. The talus is not well-visualized. Anterior os calcis is compressed. There is marked degenerative changes and sclerosis of the visualized portion of the mid foot on these ankle images. There is extensive periosteal reaction of the distal tibia and fibula. Prominent soft tissue swelling is noted about the hindfoot and ankle, stable. No new abnormalities are identified when compared to previous exam.. XR/XR ankle LT min 3V IMPRESSION: Prominent distal tibia/fibula, ankle and hindfoot deformity, similar to previous exam. Electronically authenticated by: NORMA RICO Date: 03/11/2023 12:33
== END 2023-03-11 10:13 | disposition home or self-care (01) ==
LOC: WC 10:12
PROVIDERS: PCP Family Medicine; Visit Provider Podiatrist Foot & Ankle Surgery
DX: E11.622 Type 2 diabetes mellitus with other skin ulcer (principal); L97.321 Non-pressure chronic ulcer of left ankle limited to breakdown of skin; E11.621 Type 2 diabetes mellitus with foot ulcer; L97.528 Non-pressure chronic ulcer of other part of left foot with other specified severity; E11.610 Type 2 diabetes mellitus with diabetic neuropathic arthropathy
CPT/HCPCS: 73610; G0463

== ENCOUNTER 2024-02-01 01:19 | Emergency (ER) | payer MEDICARE, SELFPAY ==
[2024-02-01 01:22] VITALS: BP 178/88; PULSE 102; TEMP 36.7; O2SAT 99; BMI 35.0
--- OUTSIDE RECORDS SUMMARY | 2024-02-01 01:26 | XMS_ITS | CCD ---
Author Organization [facility] CliniSynv Care Team Providers Care Chief Of Production Name Role Phone CARLITO VALDOVINOS Referring Unavailable CHARLENE GORDON Primary Care Unavailable NICANOR YEBOAH Admitting Unavailable NICANOR YEBOAH Attending Unavailable NON STAFF Primary Care Provider UnavailMD Gil Govea Admit Provider MD Speedy Ramos Other Provider MD Lucille Miller Other Provider YURIDIA Laguna Other Provider DO Michael Caruso Attending Provider Speedy Ramos Unavailable POPEYE SINGER Admitting Unavailable REQUEST, NONE LISTED Primary Care Unavaila POPEYE Galloway Attending Unavailable POPEYE SINGER Admitting Unavailable POPEYE SINGER Consulting Unavailable REQUEST, NONE LISTED Primary Care Unavaila POPEYE Galloway Attending Unavailable DIGNA SEXTON Consulting Unavailable DAVID, DR ELVIN Carranza Admitting Unavailable ANDREW, DR EVITA Becker Consulting Unavailable NADEREEugenio, DR ELVIN Carranza Attending Unavailable REQUEST, NONE LISTED Primary Care Unavaila ble DAVID, DR ELVIN Carranza Consulting Unavailable POPEYE SINGER Consulting Unavailable ANDRIA ., REVA DOUGLAS Consulting Unavailable LAURENCE II, LARRY Consulting Unavailable DONTA BARRY Consulting Unavailable VICENTA MONTANEZ Consulting Unavailable POPEYE SINGER Attending Unavailable REQUEST, NONE LISTED Primary Care Unavaila ble PARESH, DR ZITA Cheung Consulting Unavailable POPEYE SINGER Admitting Unavailable POPEYE SINGER Consulting Unavailable POPEYE SINGER Admitting Unavailable POPEYE SINGER Consulting Unavailable REQUEST, NONE LISTED Primary Care Unavaila POPEYE Galloway Attending Unavailable POPEYE SINGER Attending Unavailable POPEYE SINGER Consulting Unavailable REQUEST, NONE LISTED Primary Care Unavaila POPEYE Galloway Admitting Unavailable SEXTONDIGNA Consulting Unavailable REQUEST, NONE LISTED Primary Care Unavaila ble HIGHLANDER, POPEYE Vergara Attending Unavailable HIGHLANDER, POPEYE Vergara Admitting Unavailable HIGHLANDER, POPEYE Vergara Admitting Unavailable HIGHLANDER, POPEYE Vergara Consulting Unavailable REQUEST, NONE LISTED Primary Care Unavaila ble HIGHLANDER, POPEYE Vergara Attending Unavailable REQUEST, NONE LISTED Primary Care Unavaila ble NADERER, DR ELVIN Carranza Attending Unavailable NADERER, DR ELVIN Carranza Admitting Unavailable ZIEBER, DR EVITA Becker Consulting Unavailable NADERER, DR ELVIN Carranza Consulting Unavailable HIGHLANDER, POPEYE Vergara Consulting Unavailable CORTEZ, CAROL Consulting Unavailable HIGHLANDER, POPEYE Vergara Procedure Practitioner Unava ilable ANDRIA ., REVA DOUGLAS Consulting Unavailable SISTER, MOON Consulting Unavailable NADERER, DR ELVIN Carranza Procedure Practitioner Snowvai lable LAURENCE ., PRESLEY Consulting Unavailable LAURENCE [...] Unavaila ble HIGHLANDER, POPEYE Vergara Attending Unavailable PRESTON, RANDALL Consulting Unavailable HIGHLANDER, POPEYE Vergara Attending Unavailable REQUEST, NONE LISTED Primary Care Unavaila ble HIGHLANDER, POPEYE Vergara Admitting Unavailable HIGHLANDER, POPEYE Vergara Attending Unavailable ZIEBER, DR EVITA Becker Consulting Unavailable HIGHLANDER, POPEYE Vergara Admitting Unavailable HIGHLANDER, POPEYE Vergara Consulting Unavailable HEIDI, CHARLENE A Attending Unavailable HEIDICHARLENE A Referring Unavailable HEIDI, CHARLENE A Primary Care Unavailable Heidi Charlene RUSSELL A Primary Care Provider RADHA KAY Attending Unavailable HEIDICHARLENE A Referring Unavailable HEIDICHARLENE A Primary Care Unavailable TRISHA POSADA Referring Unavailable HEIDI, CHARLENE A Primary Care Unavailable HEIDI, CHARLENE A Referring Unavailable HEIDI, CHARLENE A Primary Care Unavailable TRAEMACY JETER Attending Unavailable HEIDI, CHARLENE A Referring Unavailable HEIDI, CHARLENE A Primary Care Unavailable ALMADANI, SAMEH B Admitting Unavailable ALMADANI, SAMEH B Attending Unavailable HEIDI, CHARLENE A Primary Care Unavailable FROYLAN MOON Attending Unavailable HEIDI, CHARLENE A Primary Care Unavailable ALMADANI, SAMEH B Attending Unavailable ALMADANI, SAMEH B Referring Unavailable HEIDI, CHARLENE A Primary Care Unavailable DONTA ZHOU Attending Unavailable TRAE, MACY A Referring Unavailable HEIDI, CHARLENE A Primary Care Unavailable ALMADANI, SAMEH B Attending Unavailable HEIDI, CHARLENE A Referring Unavailable HEIDI, CHARLENE A Primary Care Unavailable OANTHONYAEDWARDO Attending Unavailable HEIDI, CHARLENE A Referring Unavailable HEIDI, CHARLENE A Primary Care Unavailable EDWARDO KIRBY Referring Unavailable HEIDI, CHARLENE A Primary Care Unavailable HEIDI, CHARLENE A Attending Unavailable HEIDI, CHARLENE A Referring Unavailable HEIDI, CHARLENE A Primary Care Unavailable HEIDI, CHARLENE A Attending Unavailable HEIDI, CHARLENE A Referring Unavailable HEIDI, CHARLENE A Primary Care Unavailable HEIDI, CHARLENE A Attending Unavailable HEIDI, CHARLENE A Referring Unavailable HEIDI, CHARLENE A Primary Care Unavailable YANET HARE Attending Unavailabl e HEIDI, CHARLENE A Referring Unavailable HEIDI, CHARLENE A Primary Care Unavailable Medications Current Medications Medication Drug Class(es) Dates Sig (Normalized) Sig (Original) allopurinol 300 mg oral tablet (8 sources) Xanthine Oxidase Inhibitor Start: 10-07-2021 take [...] hrs Active atenolol 50 mg oral tablet (4 sources) beta-Adrenergic Abel Start: 06-20-2022 take 1 tablet by mouth in the morning atenoloL (TENORMIN) 50 mg tablet Take 1 tablet (50 mg total) by mouth in the morning. 90 tablet 3 06/20/2022 Active Start: 10-07-2021 take 50 mg by mouth once daily Atenolol Active 50 MG PO Daily October 07, 2021 12:00am bisacodyl 5 mg delayed release oral tablet (3 sources) Stimulant Laxative Start: 04-12-2023 take 2 tablets by mouth once bisacodyL (DULCOLAX, BISACODYL,) 5 mg EC tablet Indications: Iron deficiency anemia, unspecified iron deficiency anemia type , Change in bowel habit Take 2 tablets (10 mg total) by mouth See Admin Instructions. Take per written instructions 2 tablet 0 04/12/2023 Active blood-glucose meter misc (7 sources) Start: 04-09-2022 blood-glucose meter misc 1 each by miscellaneous route 3 (three) times a day. 1 each 0 04/09/2022 Active buprenorphine 8 mg / naloxone 2 mg sublingual film (9 sources) Partial Opioid Agonist, Opioid Antagonist Start: 10-07-2021 Buprenorphine-Nalox one Active 2 FILM SUBLINGUAL Daily October 07, 2021 12:00am buprenorphine-na loxone (SUBOXONE) 8-2 mg per SL tablet Place 2 tablets under the tongue in the morning. 0 Active Buprenorphine HC l-Naloxone HCl 8-2 MG dissolve 2 FILMS under the tongue once daily Sublingual for 28 Days Active carvedilol 6.25 mg oral tablet (7 sources) alpha-Adrenergic Abel, beta-Adrenergic Abel Start: 04-02-2023 End: 04-28-2023 take 1 tablet by mouth once daily in the morning, then take 1 tablet by mouth once daily at bedtime carvediloL (COREG) 6.25 mg tablet Indications: Hypertensive crisis TAKE 1 TABLET BY MOUTH EVERY MORNING AND TAKE 1 TABLET BY MOUTH EVERY NIGHT AT BEDTIME 60 tablet 0 04/28/2023 Active cefepime 2000 mg injection (1 source) Cephalosporin Antibacterial Cefepime HCl 2 GM as directed Injection Active cholecalciferol 0.125 mg oral tablet (2 sources) Vitamin D Start: 09-17-2022 take 1 tablet by mouth in the morning VITAMIN D3 125 mcg (5,000 unit) tablet Take 1 tablet (5,000 Units total) by mouth in the morning. 0 09/17/2022 Active clopidogrel 75 mg oral tablet (9 sources) P2Y12 Platelet Inhibitor Start: 02-10-2023 take 1 tablet by mouth in the morning clopidogreL (PLAVIX) 75 mg tablet TAKE 1 TABLET (75 MG TOTAL) BY MOUTH IN THE MORNING 90 tablet 1 02/10/2023 Active Start: 10-07-2021 take 75 mg by mouth once daily Clopidogrel Active 75 MG PO Daily October 07, 2021 12:00am dapagliflozin 5 mg oral tablet (1 source) Sodium-Glucose Cotransporter 2 Inhibitor take 5 mg by mouth once daily FARXIGA 5mg As directed P.O. Daily Active DAPTOmycin (1 source) Lipopeptide Antibacterial Cubicin Active ferrous sulfate 325 mg oral tablet (9 sources) Start: take 1 tablet by mouth in the morning, then take 1 tablet by mouth at bedtime ferrous sulfate 325 (65 FE) mg tablet Take 1 tablet (325 mg total) by mouth in the morning and 1 tablet (325 mg total) before bedtime. 0 06/05/2021 Active take 1 tablet by mouth once zoe y Ferrous Sulfate 325 (65 Fe) MG 1 tablet Orally Once a day Active flash glucose sensor (FREESTYLE GERMANIA 2 SENSOR) kit (6 sources) Start: 11-30-2021 flash glucose sensor (FREESTYLE GERMANIA 2 SENSOR) kit Indications: Type 2 diabetes mellitus without complication, unspecified whether custodial insulin 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) 1 kit by miscellaneous route every 30 (thirty) days. Apply sensor to skin subcutaneously; change every 14 days. (2 sensors per kit) 1 kit 11 11/30/2021 Active furosemide 80 mg oral tablet (9 sources) Loop Diuretic Start: 04-02-2023 take 0.5 tablet by mouth once daily furosemide (LASIX) 80 mg tablet Indications: Hypertensive crisis Take 0.5 tablets (40 mg total) by mouth daily. 90 tablet 1 04/02/2023 Active Start: 06-17-2022 take 1 tablet by beryl th once daily furosemide (LASIX) 80 mg tablet Take 1 tablet (80 mg total) by mouth daily. 90 tablet 1 06/17/2022 Active Start: 10-07-2021 take 1 tablet by berly th once daily Furosemide (Lasix) 80 mg Tablet Active 80 MG PO Daily October 07, 2021 12:00am glimepiride 4 mg oral tablet (7 sources) Sulfonylurea Start: 03-04-2023 take 1 tablet by mouth once daily in the morning glimepiride (AMARYL) 4 mg tablet Indications: Type 2 diabetes mellitus with other specified complication, unspecified whether custodial insulin 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) Take 1 tablet (4 mg total) by mouth every morning. 30 tablet 11 03/04/2023 Active levoFLOXacin 750 mg oral tablet (2 sources) Quinolone Antimicrobial Start: 10-09-2021 Levofloxacin Active 750 MG PO Daily October 09, 2021 12:00am Take every other day, on Tuesday, Tuesday, , and Tuesday, and from Tuesday (10/17/2021) onward then take daily. By that time your kidney function should be normal. take 1 tablet by beryl every twenty-four hours levoFLOXacin 750 MG 1 tablet Orally Once a day Active linaclotide 0.145 mg oral capsule (1 source) Guanylate Cyclase-C Agonist Start: 05-04-2023 take 1 capsule by mouth in the morning linaCLOtide (LINZESS) 145 mcg capsule Take 1 capsule (145 mcg total) by mouth in the morning. 30 capsule 2 05/04/2023 Active lisinopril 10 mg oral tablet (1 source) Angiotensin Converting Enzyme Inhibitor take 1 tablet by mouth every twenty-four hours Lisinopril 10 MG 1 tablet Orally Once a day Active magnesium oxide 400 mg oral tablet (9 sources) Start: 06-20-2022 take 1 tablet by mouth in the morning magnesium oxide (MAGOX) 400 mg tablet TAKE 1 TABLET (400 MG TOTAL) BY MOUTH IN THE MORNING 30 tablet 2 06/20/2022 Active Start: 10-07-2021 take 400 mg by mouth once zoe y Magnesium Oxide Active 400 MG PO Daily October 07, 2021 12:00am 24 hr metFORMIN hydrochloride 500 mg extended release oral tablet (9 sources) Biguanide Start: 10-07-2021 take 500 mg by mouth once daily Metformin Active 500 MG PO Daily October 07, 2021 12:00am take 3 tablets by mo [facility] every twenty-four hours in the morning metFORMIN (FORTAMET) 500 MG (OSM) 24 hr tablet Take 3 tablets (1,500 mg total) by mouth in the morning. 0 Active take 1 tablet by beryl th every twenty-four hours metFORMIN HCl 500 MG 1 tablet with a nikita l Orally Once a day Active pantoprazole 20 mg delayed release oral tablet (7 sources) Proton Pump Inhibitor Start: 03-04-2023 take 1 tablet by mouth in the morning pantoprazole (PROTONIX) 20 mg EC tablet Indications: Epigastric pain Take 1 tablet (20 mg total) by mouth in the morning. 90 tablet 1 04/22/2023 Active polyethylene glycol 3350 36986 mg powder for oral solution (5 sources) Osmotic Laxative Start: 03-10-2023 polyethylene glycol (GLYCOLAX) 17 gram/dose powder Take 17 g by mouth in the morning. 289 g 1 03/10/2023 Active potassium chloride 20 meq powder for [...] Active tamsulosin hydrochloride 0.4 mg oral capsule (9 sources) alpha-Adrenergic Abel Start: 12-06-2022 take 1 capsule by mouth once daily in the morning tamsulosin (FLOMAX) 0.4 mg capsule Indications: Weak urine stream TAKE 1 CAPSULE BY MOUTH EVERY MORNING 90 capsule 2 12/06/2022 Active Start: 10-07-2021 take 1 capsule by mo uth once daily Tamsulosin (Flomax) 0.4 mg Capsule Active 0.4 MG PO Daily October 07, 2021 12:00am valsartan 320 mg oral tablet (6 sources) Angiotensin 2 Receptor Abel Start: 04-27-2023 take 1 tablet by mouth in the morning valsartan (DIOVAN) 320 mg tablet Indications: Hypertensive crisis Take 1 tablet (320 mg total) by mouth in the morning. 30 tablet 1 04/27/2023 Active Start: 04-02-2023 End: 04-27-2023 take 1 tablet by mouth in the morning valsartan (DIOVAN) 160 mg tablet Indications: Hypertensive crisis Take 1 tablet (160 mg total) by mouth in the morning. 30 tablet 0 04/02/2023 04/27/2023 Discontinued (Reorder) Completed/Discontinued Medications Medication Drug Class(es) Dates Sig (Normalized) Sig (Original) docusate sodium 100 mg oral capsule (6 sources) Start: 03-10-2023 End: 05-09-2023 take 1 capsule by mouth in the morning, then take 1 capsule by mouth at bedtime docusate sodium (COLACE) 100 mg capsule Take 1 capsule (100 mg total) by mouth in the morning and 1 capsule (100 mg total) before bedtime. 60 capsule 2 03/10/2023 05/09/2023 Discontinued (Therapy completed) 0.5 ml dulaglutide 1.5 mg/ml auto-injector (4 sources) GLP-1 Receptor Agonist Start: 11-22-2022 End: 03-04-2023 dulaglutide (TRULICITY) 0.75 mg/0.5 mL pen injector Indications: Type 2 diabetes mellitus with diabetic peripheral angiopathy and gangrene, without long-term current use of insulin ([facility]) INJECT 0.5 ML (0.75 MG TOTAL) UNDER THE SKIN EVERY 7 DAYS 0.5 mL 3 11/22/2022 03/04/2023 Discontinued Start: 10-07-2021 inject 0.75 mg by abdi bcutaneous injection every week Dulaglutide Active 0.75 MG SUBCUT every week October 07, 2021 12:00am linezolid 600 mg oral tablet (2 sources) Oxazolidinone Antibacterial Start: 03-18-2022 End: 03-04-2023 take 1 tablet by mouth twice daily linezolid (ZYVOX) 600 mg tablet TAKE 1 TABLET BY MOUTH TWICE A DAY FOR 14 DAYS 0 03/18/2022 03/04/2023 Discontinued Zyvox Active polyethylene glycol 3350 199997 mg / potassium chloride 2970 mg / sodium bicarbonate 6740 mg / sodium chloride 5860 mg / sodium sulfate 89063 mg powder for oral solution (4 sources) Osmotic Laxative Start: 04-12-2023 End: 05-09-2023 GAVILYTE-G 236-22.74-6.74 -5.86 gram solution Problems Active Problems Problem Classification Problem Date Documented Da te Episodic/Chronic Acquired foot deformities (1 source) Valgus deformity, not elsewhere classified, left ankle; Translations: [VALGUS DEFORMITY NEC LEFT ANKLE] Onset: 05-27-2022 Episodic Acute and unspecified renal failure (2 sources) Injury of kidney; Translations: [Acute kidney failure, unspecified] 10-07-2021 Episodic Chronic kidney disease (3 sources) Chronic kidney disease, unspecified; Translations: [Chronic kidney disease stage 2] Onset: 02-25-2022 04-27-2023 Chronic Chronic ulcer of skin (15 sources) Ankle ulcer; Translations: [Non-pressure chronic ulcer of left ankle with unspecified severity] Onset: 09-17-2021 10-08-2021 Chronic Complications of surgical procedures or medical care (2 sources) Other complications of procedures, not elsewhere classified, subsequent encounter; Translations: [Other complications of procedures, not elsewhere classified, initial encounter] Onset: 04-26-2022 Episodic Coronary atherosclerosis and other heart disease (1 source) Atherosclerotic heart disease of [place] coronary artery without angina pectoris; Translations: [ASHD [place] CA W/O ANGINA PECTORIS] Onset: 02-25-2022 Chronic Deficiency and other anemia (2 sources) Anemia; Translations: [Anemia, unspecified] Onset: 06-01-2023 10-09-2021 Episodic Diabetes mellitus with complications (20 sources) Type 2 diabetes mellitus with foot ulcer; Translations: [Diabetes with other specified manifestations, type II or unspecified type, not stated as uncontrolled] Onset: 08-05-2020 10-09-2021 Chronic Diabetes mellitus without complication (5 sources) Diabetes mellitus; Translations: [Type 2 diabetes mellitus without complications] Onset: 02-14-2022 10-08-2021 Chronic Disorders of lipid metabolism (9 sources) Pure hypercholesterolemia; Translations: [Pure hypercholesterolemia, unspecified] Onset: 09-04-2019 09-17-2021 Chronic Essential hypertension (17 sources) Hypertensive disorder; Translations: [Essential (primary) hypertension] Onset: 09-04-2019 10-08-2021 Chronic Gout and other crystal arthropathies (3 sources) Gout, unspecified; Translations: [Idiopathic chronic gout, multiple sites, without tophus (tophi)] Onset: 02-25-2022 Chronic Heart valve disorders (1 source) Nonrheumatic mitral (valve) prolapse; Translations: [NONRHEUMATIC MITRAL VALVE PROLAPSE] Onset: 02-25-2022 Chronic Hypertension with complications and secondary hypertension (9 sources) Hypertensive chronic kidney disease with stage 1 through stage 4 chronic kidney disease, or unspecified chronic kidney disease; Translations: [Hypertensive crisis] Onset: 02-25-2022 04-02-2023 Chronic Immunizations and screening for infectious disease (2 sources) Encounter for immunization; Translations: [ENCOUNTER FOR IMMUNIZATION] Onset: 02-25-2022 Episodic Infective arthritis and osteomyelitis (except that caused by tuberculosis or sexually transmitted disease) (20 sources) Osteomyelitis of right foot; Translations: [Osteomyelitis, unspecified] Onset: 06-15-2017 Resolved: 08-19-2017 10-08-2021 Chronic Other acquired deformities (1 source) Ankle joint deformity; Translations: [Unspecified acquired deformity of left lower leg] 10-08-2021 Episodic Other acquired deformities (1 source) Unspecified acquired deformity of left lower leg; Translations: [Other acquired deformities of ankle and foot] 10-09-2021 Episodic Other aftercare (1 source) Long-term current use of antibiotic; Translations: [[facility] (current) use of antibiotics] 10-07-2021 Episodic Other aftercare (1 source) [facility] (current) use of antibiotics; Translations: [Long-term (current) use of antibiotics] 10-09-2021 Episodic Other aftercare (1 source) 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 project 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 of insulin; Translations: [PHOTOGRAPHIC PLATEMAKER CURRENT USE OF INSULIN] Onset: 06-24-2022 Episodic Other aftercare (1 source) 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 project 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 of oral hypoglycemic drugs; Translations: [SENIOR CARE USE ORAL HYPOGLYCEMIC DX] Onset: 05-27-2022 Episodic [...] LOSS UNSPECIFIED EAR] Onset: 02-25-2022 Chronic Other gastrointestinal disorders (1 source) Altered bowel function; Translations: [Change in bowel habit] 03-31-2023 Episodic Other gastrointestinal disorders (1 source) Swollen abdomen; Translations: [Abdominal distension (gaseous)] 04-06-2023 Episodic Other gastrointestinal disorders (1 source) Abdominal distension (gaseous); Translations: [Abdominal distension (gaseous)] Onset: 04-06-2023 Episodic Other non-traumatic joint disorders (2 sources) Charcot's arthropathy; Translations: [Charcot's joint, left ankle and foot] 10-08-2021 Chronic Other non-traumatic joint disorders (7 sources) Charcot's joint, left ankle and foot; Translations: [Tabes dorsalis] Onset: 06-04-2022 10-09-2021 Chronic Other non-traumatic joint disorders (5 sources) Pain in left ankle and joints of left foot; Translations: [PAIN IN LEFT ANKLE] Onset: 03-26-2022 Episodic Other nutritional; endocrine; and metabolic disorders (7 sources) Hypomagnesemia; Translations: [Hypomagnesemia] Onset: 12-19-2017 12-19-2017 Chronic Substance-related disorders (1 source) Opioid abuse, uncomplicated; Translations: [OPIOID ABUSE UNCOMPLICATED] Onset: 02-25-2022 Chronic Superficial injury; contusion (1 source) Blister (nonthermal), left great toe, initial encounter; Translations: [BLISTER NONTHERMAL LT GRT TOE INIT] Onset: 06-24-2022 Episodic Unclassified (1 source) SENIOR CARE INJECT NONINSULN ANTIDIAB; Translations: [SENIOR CARE INJECT NONINSULN ANTIDIAB] Onset: 05-27-2022 Unclassified (1 source) CONTACT W/AND (SUSP) EXPOS COVID-19; Translations: [CONTACT W/AND (SUSP) EXPOS COVID-19] Onset: 02-18-2022 Unclassified (1 source) New Patient Onset: 05-09-2023 Unclassified (1 source) Resistant hypertension; Translations: [Resistant hypertension] Onset: 04-27-2023 Unclassified (1 source) TCM Onset: 04-06-2023 Unclassified (1 source) GI Problem Onset: 03-31-2023 Past or Other Problems Problem Classification Problem Date Documented Da te Episodic/Chronic Abdominal pain (4 sources) Epigastric pain; Translations: [Epigastric pain] Onset: 03-04-2023 03-04-2023 Episodic Acute posthemorrhagic anemia (1 source) Acute posthemorrhagic anemia; Translations: [ACUTE POSTHEMORRHAGIC ANEMIA] Onset: 02-25-2022 Episodic Bacterial infection; unspecified site (3 sources) Methicillin resistant Staphylococcus aureus infection; Translations: [Methicillin resistant Staphylococcus aureus infection, unspecified site] Onset: 02-25-2022 Episodic Deficiency and other anemia (3 sources) Anemia, unspecified; Translations: [Anemia, unspecified] Onset: 02-14-2022 10-09-2021 Episodic Deficiency and other anemia (8 sources) Iron deficiency anemia; Translations: [Iron deficiency anemia, unspecified] Onset: 07-18-2020 09-17-2021 Episodic Deficiency and other anemia (1 source) Iron deficiency anemia, unspecified; Translations: [Iron deficiency anemia, unspecified] Onset: 09-17-2021 Episodic Mood disorders (7 sources) Mood disorders Onset: 02-11-2022 Resolved: 04-27-2023 02-11-2022 Other aftercare (1 source) Other terminal press operator (current) drug therapy; Translations: [OTH SENIOR CARE CURRENT DRUG THERAPY] Onset: 02-25-2022 Episodic Other aftercare (1 source) 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 project 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 of antithrombotics/antip latelets; Translations: [PHOTOGRAPHIC PLATEMAKER ANTITHROMBOT/ANTIPLAT LETS] Onset: 02-25-2022 Episodic Other aftercare (1 source) [facility] (current) use of anticoagulants; Translations: [PHOTOGRAPHIC PLATEMAKER CURRNT USE ANTICOAGULANTS] Onset: 02-14-2022 Episodic Other and unspecified benign neoplasm (7 sources) Adenomatous polyp of colon ; Translations: [Benign neoplasm of ascending colon] Onset: 10-31-2018 10-31-2018 Episodic Other bone disease and musculoskeletal deformities [...] IN RIGHT FOOT] Onset: 01-19-2022 Episodic Other gastrointestinal disorders (7 sources) Constipation; Translations: [Constipation, unspecified] Onset: 10-05-2018 10-05-2018 Episodic Other gastrointestinal disorders (1 source) Change in bowel habit; Translations: [Change in bowel habit] Onset: 03-31-2023 Episodic Other injuries and conditions due to external causes (7 sources) Local infection of wound; Translations: [Other injury of unspecified body region, initial encounter] Onset: 12-09-2020 12-09-2020 Episodic Other non-traumatic joint disorders (1 source) Pain in right ankle and joints of right foot; Translations: [PAIN IN RIGHT ANKLE] Onset: 01-26-2022 Episodic Other screening for suspected conditions (not mental disorders or infectious disease) (10 sources) Patient encounter status; Translations: [Encounter for screening for malignant neoplasm of colon] Onset: 10-05-2018 03-04-2023 Episodic Other skin disorders (1 source) Elastosis [...] HISTORY OF NICOTINE DEPEND] Onset: 02-25-2022 Episodic Skin and subcutaneous tissue infections (14 sources) Localized infection of skin AND/OR subcutaneous tissue; Translations: [Local infection of the skin and subcutaneous tissue, unspecified] Onset: 09-30-2021 Resolved: 08-19-2017 09-30-2021 Episodic Unclassified (7 sources) Onset: 03-13-2023 03-13-2023 Viral infection (7 sources) Disease caused by 2019-nCoV; Translations: [COVID-19] Onset: 07-15-2021 03-13-2023 Episodic Results Test Name Value Interpretation Reference Range Facility CBC AND AUTO DIFFon 07-01-19 24 ABSOLUTE BASOPHIL 0.1 X10E9/L Normal 0.0-0.2 [facility] Comment on above: Performed By: #### C BCA, 4679-7, 24700-3, SPE, 1987-06, FEPR, 2276-4, 2283-8, 2131-10 #### [facility] [facility] ([id number]) [address], [address] [place] [address] ABSOLUTE NEUTROPHIL 5.1 X10E9/L Normal 1.5-6.[address] [facility] Comment on above: Performed By: #### C BCA, 4679-7, 75882-2, SPE, 1987-06, FEPR, 2275-4, 2283-09, 2131-10 #### [facility] ([id number]) [address], [address] [place] [address] Basophils/100 WBC (Bld) 0.7 % Normal [facility] Comment on above: Performed By: #### C BCA, 4679-7, 52412-2, SPE, 1987-06, FEPR, 2275-, 2283-09, 2131-10 #### [facility] ([id number]) [address], [address] [place] [address] Eosinophils (Bld) [#/Vol] 0.1 10*3/uL Normal 0.0-0.4 [facility] Comment on above: Performed By: #### C BCA, 4679-7, 89790-0, SPE, 1987-06, FEPR, 6-4, 2283-, 2131-10 #### [facility] ([id number]) [address], [address] [place] [address] Eosinophils/100 WBC (Bld) 1.9 % Normal [facility] Comment on above: Performed By: #### C BCA, 4679-7, 98392-4, SPE, 1987-06, FEPR, 2276-4, 2283-8, 2131-10 #### [facility] ([id number]) [address], [address] [place] [address] Erythrocyte distribution width (RBC) [Ratio] 13.2 % Normal 11.5-15.0 [facility] Comment on above: Performed By: #### C BCA, 4679-7, 24009-3, SPE, 1987-06, FEPR, 2275-4, 2283-09, 2131-10 #### [facility] ([id number]) [address], [address] [place] [address] Hematocrit (Bld) [Volume fraction] 32.6 % Low 39-49 [facility] Comment on above: Performed By: #### C BCA, 4679-7, 55698-9, SPE, 1987-06, FEPR, 2275-, 2283-09, 2131-10 #### [facility] ([id number]) [address], [address] [place] [address] Hemoglobin (Bld) [Mass/Vol] 11.2 g/dL Low 13.0-17.0 [facility] Comment on above: Performed By: #### C BCA, 4679-7, 56136-6, SPE, 1987-06, FEPR, 2275-4, 2283-09, 2131-10 #### [facility] ([id number]) [address], [address] [place] [address] Lymphocytes (Bld) [#/Vol] 1.3 10*3/uL Normal 1.0-3.5 [facility] Comment on above: Performed By: #### C BCA, 4679-7, 62467-3, SPE, 1987-06, FEPR, 2275-05, 2283-09, 2131-10 #### [facility] ([id number]) [address], [address] [place] [address] Lymphocytes/100 WBC (Bld) 18.8 % Normal [facility] Comment on above: Performed By: #### C BCA, 4679-7, 09022-0, SPE, 1987-06, FEPR, 2275-05, 2283-09, 2131-10 #### [facility] ([id number]) [address], [address] [place] [address] MCH (RBC) [Entitic mass] 30.1 pg Normal 27-34 [facility] Comment on above: Performed By: #### C BCA, 4679-7, 75919-2, SPE, 1987-06, FEPR, 2275-05, 2283-09, 2131-10 #### [facility] ([id number]) [address], [address] [place] [address] MCHC (RBC) [Mass/Vol] 34.4 g/dL Normal 32-36 [facility] Comment on above: Performed By: #### C BCA, 4679-7, 18120-6, SPE, 1987-06, FEPR, 2275-05, 2283-09, 2131-10 #### [facility] ([id number]) [address], [address] [place] [address] MCV (RBC) [Entitic vol] 88 fL Normal 80-100 [facility] Comment on above: Performed By: #### C BCA, 4679-7, 02808-8, SPE, 1987-06, FEPR, 2275-05, 2283-09, 2131-10 #### [facility] ([id number]) [address], [address] [place] [address] Monocytes (Bld) [#/Vol] 0.5 10*3/uL Normal 0-0.9 [facility] Comment on above: Performed By: #### C BCA, 4679-7, 73065-6, SPE, 1987-06, FEPR, 2275-, 2283-09, 2131-10 #### [facility] ([id number]) [address], [address] [place] [address] Monocytes/100 WBC (Bld) 6.5 % Normal [facility] Comment on above: Performed By: #### C BCA, 4679-7, 86667-6, SPE, 1987-06, FEPR, 2275-4, 2283-09, 2131-10 #### [facility] ([id number]) [address], [address] [place] [address] Neutrophils/100 WBC (Bld) 72.1 % Normal [facility] Comment on above: Performed By: #### C SYEDA, 4679-7, 37511-7, SPE, 1987-06, FEPR, 2275-, 2283-09, 2131-10 #### [facility] ([id number]) [address], [address] [place] [address] Platelet mean volume (Bld) [Entitic vol] 8.1 fL Normal 7-12 [facility] Comment on above: Performed By: #### C SYEDA, 4679-7, 52541-2, SPE, 1987-06, FEPR, 2275-, 2283-09, 2131-10 #### [facility] ([id number]) [address], [address] [place] [address] Platelets (Bld) [#/Vol] 178 10*3/uL Normal 150-450 [facility] Comment on above: Performed By: #### C SYEDA, 4679-7, 58932-0, SPE, 1987-06, FEPR, 2275-, 2283-, 2131-10 #### [facility] ([id number]) [address], [address] [place] [address] RBC COUNT 3.71 X10E12/L Low 4.10-5.70 [facility] Comment on above: Performed By: #### C SYEDA, 4679-7, 78401-8, SPE, 1987-06, FEPR, 6-4, 2283-8, 2131-10 #### [facility] ([id number]) [address], [address] [address] WBC (Bld) [#/Vol] 7.1 10*3/uL Normal 4.0-11.0 [facility] Comment on above: Performed By: #### C SYEDA, 4679-7, 05102-3, SPE, 1987-06, FEPR, 2275-, 2283-09, 2131-10 #### [facility] ([id number]) [address], [address] [address] CRP [Mass/Vol]on 07-01-2023 C REACTIVE PROTEIN 1.4 mg/dL High 0.000-0.744 [facility] Comment on above: Performed By: #### C SYEDA, 4679-7, 66374-8, SPE, 1987-06, FEPR, 2275-, 2283-09, 2131-10 #### [facility] ([id number]) [address] [address] ESR Photometric method (Bld) [Velocity]on 07-01-2023 ESR, ERYTHROCYTE SEDIMENTATION RATE 31 mm/h High 0-20 [facility] Comment on above: Performed By: #### C SYEDA, 4679-7, 13094-9, SPE, 1987-06, FEPR, 2275-, 2283-09, 2131-10 #### [facility] ([id number]) [address], [address] [address] Erythropoietin (EPO) Qnon ERYTHROPOIETIN EPO 10.1 mIU/mL Normal 2.6-18.5 [facility] Comment on above: Result Comment: NOTE Test analyzed by the Rosa DxI method. Test Performed By: [facility] [address] [place] [address] Vocational Trainer: Cedrick Ramsay III #[id number] FERRITINon 07-01-2023 Ferritin [Mass/Vol] 199 ng/mL Normal 24-336 [facility] Comment on above: Performed By: #### Yash BARCLAY, 45648-3 #### [facility] ([id number]) [address], [address] [place] [address] Folate [Mass/Vol]on 07-01-19 24 FOLIC ACID 7.4 ng/mL Normal >5.8 [facility] Comment on above: Result Comment: NEW REFERENCE RANGE Performed By: #### Yash BARCLAY, 45932-0 #### [facility] ([id number]) [address], [address] [place] [address] IRON PROFILEon 07-01-2023 Iron [Mass/Vol] 66 ug/dL Normal 50-212 [facility] Comment on above: Performed By: #### C BCA, 4679-7, 04991-7, SPE, 1987-06, FEPR, 2275-4, 2283-, 2131-10 #### [facility] ([id number]) [address], [address] [place] [address] IRON BINDING 363 ug/dL Normal 250-425 [facility] Comment on above: Performed By: #### C BCA, 4679-7, 24375-0, SPE, 1987-06, FEPR, 6-4, 2283-8, 2131-10 #### [facility] ([id number]) [address], [address] [place] [address] IRON SATURATION 18 % SATURATION Low 20-[address] [facility] Comment on above: Performed By: #### C BCA, 4679-7, 84891-7, SPE, 1987-06, FEPR, 2276-4, 2283-8, 2131-10 #### [facility] ([id number]) [address], [address] [place] [address] Reticulocytes/100 RBC (Bld)o n 07-01-2023 RETICULOCYTE COUNT 1.3 % Normal 0.4-2.2 [facility] Comment on above: Performed By: #### C BCA, 4679-7, 43817-2, SPE, 1987-06, FEPR, 2275-4, 2283-09, 2131-10 #### [facility] ([id number]) [address] [place] [address] SERUM PROTEIN ELECTROPHORESI [facility] 07-01-2023 Albumin [Mass/Vol] 4.0 g/dL Normal 3.4-5.3 [facility] Comment on above: Performed By: #### C BCA, 4679-7, 89930-2, SPE, 1987-06, FEPR, 2275-4, 2283-09, 2131-10 #### [facility] ([id number]) [address] [place] [address] ALPHA 1 GLOBULIN 0.3 g/dL Normal 0.1-0.4 [facility] Comment on above: Performed By: #### C BCA, 4679-7, 21187-6, SPE, 1987-06, FEPR, 2275-, 2283-09, 2131-10 #### [facility] ([id number]) [address] [place] [address] ALPHA 2 GLOBULIN 0.8 g/dL Normal 0.4-1.1 [facility] Comment on above: Performed By: #### C BCA, 4679-7, 31591-6, SPE, 1987-06, FEPR, 2275-, 2283-09, 2131-10 #### [facility] ([id number]) [address], [address] [place] [address] BETA GLOBULIN 0.9 g/dL Normal 0.5-1.2 [facility] Comment on above: Performed By: #### C BCA, 4679-7, 87404-9, SPE, 1987-06, FEPR, 6-4, 2283-8, 2131-10 #### [facility] ([id number]) [address], [address] [address] GAMMA GLOBULIN 1.0 g/dL Normal 0.5-1.6 [facility] Comment on above: Performed By: #### C BCA, 4679-7, 68409-0, SPE, 1987-06, FEPR, 2275-4, 2283-09, 2131-10 #### [facility] ([id number]) [address], [address] [address] PROT. ELECTROPHORESIS INTERP Unremarkable protein distribution, no monoclonal bands. Normal [facility] Comment on above: Performed By: #### C BCA, 4679-7, 92026-4, SPE, 1987-06, FEPR, 2275-4, 2283-09, 2131-10 #### [facility] ([id number]) [address], [address] [address] Protein [Mass/Vol] 6.9 g/dL Normal 6.0-8.0 [facility] Comment on above: Performed By: #### C BCA, 4679-7, 35583-4, SPE, 1987-06, FEPR, 2275-4, 2283-09, 2131-10 #### [facility] ([id number]) [address], [address] [address] VITAMIN B12on 07-01-2023 Cobalamin (Vitamin B12) [Mass/Vol] 229 pg/mL Normal 180-914 [facility] Comment on above: Performed By: #### [place], [address]-4 #### [facility] ([id number]) [address] [place] [address], [address] [place] [address] Glucose Glucometer (BldC) [M ass/Vol]on 05-04-2023 Glucose [Mass/Vol] 212 mg/dL High 65-99 [facility] Surgical Pathologyon 024 Surgical Pathology Normal [facility] Comment on above: Result Comment: [facility] [address] [place] [address] Surgical Pathology Consultation Patient Name:YANIV NARVAEZ:1960 (Age: 62)Gender:MTaken:4Reported:05/05/2023hysician(s):Yoli Murphy MD ([phone])Copy To: Rec. #:[id number]: #[id number] Final Pathologic Diagnosis 1. Gastric biopsy: Mild chronic inactive gastritis. Negative for intestinal metaplasia. No Helicobacter pylori organisms identified on H&E stain. 2. Gastroesophageal junction biopsy: Squamocolumnar junctional mucosa showing chronic inflammation with foveolar hyperplasia. Mild reactive squamous changes suggestive of reflux injury. No dysplasia or goblet cell metaplasia identified. 3. Sigmoid colon polypectomy: Tubular adenoma. 4. Cecal polypectomy: Prolapse type inflammatory polyp. No evidence of dysplasia. 5. Ascending colon polypectomy: Tubular adenoma, fragments of. 6. Rectal polypectomy: Hyperplastic polyp. Report Electronically Signed Out ao/4Agloria Lucero MD Interpretation performed at [facility], [address] [place] [address], License number: [id number]. Clinical History Iron deficiency anemia, change in bowel habits. 1. H pylori screen. 2. R/O Barretts. Gross Description 1. Received in formalin labeled NARVAEZ, gastric biopsy are 5 pink-mccall soft tissue fragments ranging from 0.2-0.5 cm in greatest dimension. The specimen is filtered and entirely submitted in one cassette.(1, ns, [id number], m4) MW 2. Received in formalin labeled NARVAEZ, gastroesophageal junction biopsy rule out Oreilly's are 5 scott-mccall, feathery and focally erythematous soft tissue fragments ranging from 0.2 to 0.4 cm in greatest dimension. The specimen is filtered and entirely submitted in one cassette.(1, ns, [id number], m4) MW 3. Received in formalin labeled NARVAEZ, sigmoid colon polyp is a 0.7 cm in greatest dimension pink-mccall soft tissue fragment. The specimen is filtered and entirely submitted in one cassette.(1, ns, [id number], m4) MW 4. Received in formalin labeled NARVAEZ, cecal colon polyp is a 0.4 cm in greatest dimension pink-mccall soft tissue fragment. The specimen is filtered and entirely submitted in one cassette.(1, ns, [id number], m4) MW 5. Received in formalin labeled NARVAEZ, ascending colon polyps are 4 pink-mccall soft tissue fragments ranging from 0.2-0.4 cm in greatest dimension. The specimen is filtered and entirely submitted in one cassette.(1, ns, [id number], m4) MW 6. Received in formalin labeled NARVAEZ, rectal polyp is a 0.4 cm in greatest dimension pink-mccall soft tissue fragment. The specimen is filtered and entirely submitted in one cassette.(1, ns, [id number], m4) MW mx/05/04/2023EAK Specimen(s) Received 1: Gastric biopsy 2: GEJ biopsy 3: Sigmoid colon polyp 4: Cecal colon polyp 5: Ascending colon polyps x2 6: Rectal polyp Fee Codes(s): 1; 27243 2; 26143 3; 65601 4; 67507 5; 28821 6; 78515 BASIC METABOLIC PANLon 04-06 Anion gap [Moles/Vol] 7 mmol/L Normal 5-15 [facility] Comment on above: Performed By: #### B NING, 69276-9 #### [facility] ([id number]) [address] [place] [address] Calcium [Mass/Vol] 9.3 mg/dL Normal 8.5-10.5 [facility] Comment on above: Performed By: #### B NING, 28277-0 #### [facility] ([id number]) [address], [address] [place] [address] Chloride [Moles/Vol] 97 mmol/L Low 98-[address] [facility] Comment on above: Performed By: #### Yash BARCLAY, #### [facility] ([id number]) [address], [address] [place] [address] CO2 [Moles/Vol] 33 mmol/L High 22-32 [facility] Comment on above: Performed By: #### Yash BARCLAY, #### [facility] ([id number]) [address], [address] [place] [address] Creatinine [Mass/Vol] 1.34 mg/dL High 0.60-1.30 [facility] Comment on above: Result Comment: METH OD TRACEABLE TO IDMS STANDARD Performed By: #### Yash BARCLAY, #### [facility] ([id number]) [address], [address] [place] [address] GFR/1.73 sq M.predicted among non-blacks MDRD (S/P/Bld) [Vol rate/Area] 61 mL/min/{1.73_m2} Normal >59 [facility] Comment on above: Result Comment: Reported eGFR is based on the CKD-EPI 2020 equation that does not use a race coefficient. Performed By: #### Yash BARCLAY, #### [facility] ([id number]) [address] [place] [address] Glucose [Mass/Vol] 218 mg/dL High 65-99 [facility] Comment on above: Performed By: #### Yash BARCLAY, #### [facility] ([id number]) [address], [address] [place] [address] Potassium [Moles/Vol] 3.8 mmol/L Normal 3.5-5.0 [facility] Comment on above: Performed By: #### Yash BARCLAY, 57688-9 #### [facility] ([id number]) [address], [address] [place] [address] Sodium [Moles/Vol] 137 mmol/L Normal 134-146 [facility] Comment on above: Performed By: #### B , 86035-8 #### [facility] ([id number]) [address] [place] [address] Urea nitrogen [Mass/Vol] 18 mg/dL Normal 5-23 [facility] Comment on above: Performed By: #### B , 48564-6 #### [facility] ([id number]) [address], [address] [place] [address] MAGNESIUMon 04-06-2023 Magnesium [Mass/Vol] 1.6 mg/dL Low 1.8-2.[address] [facility] Comment on above: Performed By: #### B , 11899-3 #### [facility] ([id number]) [address], [address] [place] [address] XR ABDOMEN AP 1 VWon 024 XR ABDOMEN AP 1 VW XR ABDOMEN AP 1 VW Clinical history: Chronic abdominal pain and stool burden FINDINGS: 1 View abdomen * Moderate amount retained fecal content. * Bowel gas pattern nonobstructive. * No suspicious calcification. * No definite organomegaly. * No definite free air on this single view. * Degenerative changes lower lumbar spine IMPRESSION: Unremarkable supine abdomen with moderate amount retained fecal content. 5 Finalized by Larry Seals MD on 03/08/2023 12:56 PM Normal [facility] XR Abdomen APon 03-08-2023 Clinical history: Chronic abdominal pain and stool burden FINDINGS: 1 View abdomen * Moderate amount retained fecal content. * Bowel gas pattern nonobstructive. * No suspicious calcification. * No definite organomegaly. * No definite free air on this single view. * Degenerative changes lower lumbar spine IMPRESSION: Unremarkable supine abdomen with moderate amount retained fecal content. 5 Finalized by Larry Seals MD on 03/08/2023 12:56 PM [facility] Larry Seals MD - 03/08/2023 Clinical history: Chronic abdominal pain and stool burden FINDINGS: 1 View abdomen * Moderate amount retained fecal content. * Bowel gas pattern nonobstructive. * No suspicious calcification. * No definite organomegaly. * No definite free air on this single view. * Degenerative changes lower lumbar spine IMPRESSION: Unremarkable supine abdomen with moderate amount retained fecal content. 5 Finalized by Larry Seals MD on 03/08/2023 12:56 PM [facility] Rad[facility] Study observation (narrative) [facility] APOrdered By: Aleksandr Seals on 03-08-2023 [facility] Work Phone: POCT Hemoglobin [id number] B y: Riya Guerrero on 03-04-2023 HbA1c (Bld) [Mass fraction] 9.4 g/dL Abnormal 4 - 7 g/dL [facility] Interpretation and review of laboratory results Abnormal [facility] FUNGAL CULTUREon 06-15-2022 Fungus (Mycology) Culture Final report Normal [facility] Comment on above: Performed By: #### O THCX #### [facility] [address] [address] [address] Vitaly Jimenez Fungus Stain Final report Normal [facility] Comment on above: Performed By: #### O THCX #### [facility] [address] [address] [address] Vitaly Jimenez Result 1 Comment Normal [facility] Comment on above: Result Comment: JET/ Calcofluor preparation: no fungus observed. Performed By: #### O THCX #### [facility] [address] [address] [address] Vitaly Jimenez Result Comment: No y [...] F Trimethoprim/Sulfam ethoxazole <=10 S F Normal [facility] Comment on above: Performed By: #### O THCX #### [facility] [address] [place] [address] Dr. Vitaly Jimenez CBC AUTO DIFFon 05-18-2022 BASO # 0.0 103/ul Normal 0.0-0.1 [facility] Comment on above: Performed By: #### C BC #### [facility] [address] [place] [address] Dr. Vitaly Jimenez Basophils/100 WBC (Bld) 0.2 % Normal 0.2-2.0 [facility] Comment on above: Performed By: #### C BC #### [facility] [address] [place] [address] Dr. Vitaly Jimenez EO # 0.0 103/ul Normal 0.0-0.7 [facility] Comment on above: Performed By: #### C BC #### [facility] [address] [place] [address] Dr. Vitaly Jimenez Eosinophils/100 WBC (Bld) 0.0 % Critically low 0.9-7.0 [facility] Comment on above: Performed By: #### C BC #### [facility] [address] [place] [address] Dr. Vitaly Jimenez Erythrocyte distribution width (RBC) [Ratio] 14.2 % Normal 11.0-15.0 [facility] Comment on above: Performed By: #### C BC #### [facility] [address] [place] [address] Dr. Vitaly Jimenez Hematocrit (Bld) [Volume fraction] 30.0 % Critically low 42.0-54.0 [facility] Comment on above: Performed By: #### C BC #### [facility] [address] [address] [address] Vitaly Jimenez Hemoglobin (Bld) [Mass/Vol] 10.2 g/dL Critically low 14.0-18.0 [facility] Comment on above: Performed By: #### C BC #### [facility] [address] [place] [address] Dr. Vitaly Jimenez IG # 0.10 10e3/ul Critically high 0.00-0.03 [facility] Comment on above: Performed By: #### C BC #### [facility] [address] [place] [address] Dr. Vitaly Jimenez IG % 0.7 % Critically high 0.0-0.5 [facility] Comment on above: Performed By: #### C BC #### [facility] [address] [place] [address] Dr. Vitaly Jimenez LYMPH # 1.6 103/ul Normal 1.2-3.8 [facility] Comment on above: Performed By: #### C BC #### [facility] [address] [place] [address] Dr. Vitaly Jimenez Lymphocytes/100 WBC (Bld) 10.8 % Critically low 20.5-60.0 [facility] Comment on above: Performed By: #### C BC #### [facility] [address] [place] [address] Dr. Vitaly Jimenez MANUAL DIFF REQ NO Normal [facility] Comment on above: Performed By: #### C BC #### [facility] [address] [place] [address] Dr. Vitaly Jimenez MCH (RBC) [Entitic mass] 28.2 pg Normal 25.9-34.0 [facility] Comment on above: Performed By: #### C BC #### [facility] [address] [place] [address] Dr. Vitaly Jimenez MCHC (RBC) [Mass/Vol] 34.0 g/dL Normal 29.9-35.2 [facility] Comment on above: Performed By: #### C BC #### [facility] [id number] iVtaly Jimenez MCV (RBC) [Entitic vol] 82.9 fL Normal 80.0-94.0 [facility] Comment on above: Performed By: #### C BC #### [facility] [address] [address] [address] Vitaly Jimenez MONO # 0.8 103/ul Normal 0.3-0.8 [facility] Comment on above: Performed By: #### C BC #### [facility] [address] [address] [address] Vitaly Jimenez Monocytes/100 WBC (Bld) 5.4 % Normal 1.7-12.0 [facility] Comment on above: Performed By: #### C BC #### [facility] [address] [address] Dr. Vitaly Jimenez NEUT # 12.2 103/ul Critically high 1.4-6.5 [facility] Comment on above: Performed By: #### C BC #### [facility] [address] [place] [address] Dr. Vitaly Jimenez Neutrophils/100 WBC (Bld) 82.9 % Critically high 43.0-75.0 [facility] Comment on above: Performed By: #### C BC #### [facility] [address] [place] [address] Dr. Vitaly Jimenez Platelet mean volume (Bld) [Entitic vol] 10.1 fL Normal 9.5-13.5 [facility] Comment on above: Performed By: #### C BC #### [facility] [address] [place] [address] Dr. Vitaly Jimenez PLT 261 103/ul Normal 150-450 [facility] Comment on above: Performed By: #### C BC #### [facility] [address] [place], [place] [id number] Dr. Vitaly Jimenez RBC 3.62 106/ul Critically low 4.70-6.10 [facility] Comment on above: Performed By: #### C BC #### [facility] [address] [address] [address] Vitaly Jimenez WBC 14.7 103/ul Critically high 4.0-11.0 [facility] Comment on above: Performed By: #### C BC #### [facility] [address] [address] [address] Vitaly Jimenez POINT OF CARE GLUCOSEon 05-08 Glucose [Mass/Vol] 273 mg/dL Critically high 74-106 [facility] Comment on above: Performed By: #### A NACX #### [facility] [address] [place] [address] Dr. Vitaly Jimenez Glucose [Mass/Vol] 267 mg/dL Critically high 74-106 [facility] Comment on above: Performed By: #### A NACX #### [facility] [address] [place] [address] Dr. Vitaly Jimenez PROF CHEM 8 (BAS METB)on Anion gap [Moles/Vol] 11.4 mmol/L Normal [facility] Comment on above: Performed By: #### A NACX #### [facility] [address] [place] [address] Dr. Vitaly Jimenez Calcium [Mass/Vol] 9.0 mg/dL Normal 8.5-10.1 [facility] Comment on above: Performed By: #### A NACX #### [facility] [address] [place] [address] Dr. Vitaly Jimenez Chloride [Moles/Vol] 98 mmol/L Normal 98-107 [facility] Comment on above: Performed By: #### A NACX #### [facility] [address] [place] [address] Dr. Vitaly Jimenez CO2 [Moles/Vol] 27.0 mmol/L Normal 21.0-32.0 [facility] Comment on above: Performed By: #### A NACX #### [facility] [address] [place] [address] Dr. Vitaly Jimenez Creatinine [Mass/Vol] 1.56 mg/dL Critically high 0.70-1.30 [facility] Comment on above: Performed By: #### A NACX #### [facility] [address] [address] [address] Vitaly Jimenez EGFR-AF SERBIAN 55 mL/min/1.73m2 Critically low >=60 [facility] Comment on above: Performed By: #### A NACX #### [facility] [address] [address] [address] Vitaly Jimenez EGFR-NON AF SERBIAN 46 mL/min/1.73m2 Critically low >=60 [facility] Comment on above: Performed By: #### A NACX #### [facility] [address] [address] [address] Vitaly iJmenez Glucose [Mass/Vol] 263 mg/dL Critically high 74-106 [facility] Comment on above: Performed By: #### A NACX #### [facility] [address] [place] [address] Dr. Vitaly Jimenez Potassium [Moles/Vol] 4.4 mmol/L Normal 3.5-5.1 [facility] Comment on above: Performed By: #### A NACX #### [facility] [address] [place] [address] Dr. Vitaly Jimenez Sodium [Moles/Vol] 132 mmol/L Critically low 136-145 [facility] Comment on above: Performed By: #### A NACX #### [facility] [address] [place] [address] Dr. Vitaly Jimenez Urea nitrogen [Mass/Vol] 32.0 mg/dL Critically high 7.0-18 .0 [facility] Comment on above: Performed By: #### A NACX #### [facility] [address] [place] [address] Dr. Vitaly Jimenez Urea nitrogen/Creatinine [Mass ratio] 20.5 mg/mg Normal [facility] Comment on above: Performed By: #### A NACX #### [facility] [address] [place] [address] Dr. Vitaly Jimenez CBC AUTO DIFFon 05-17-2022 BASO # 0.1 103/ul Normal 0.0-0.1 [facility] Comment on above: Performed By: #### O THCX #### [facility] [address] [address] [address] Vitaly Jimenez Basophils/100 WBC (Bld) 0.5 % Normal 0.2-2.0 [facility] Comment on above: Performed By: #### O THCX #### [facility] [address] [address] [address] Vitaly Jimenez EO # 0.2 103/ul Normal 0.0-0.7 [facility] Comment on above: Performed By: #### O THCX #### [facility] [address] [address] [address] Vitaly Jimenez Eosinophils/100 WBC (Bld) 1.0 % Normal 0.9-7.0 [facility] Comment on above: Performed By: #### O THCX #### [facility] [address] [place] [address] Dr. Vitaly Jimenez Erythrocyte distribution width (RBC) [Ratio] 14.5 % Normal 11.0-15.0 [facility] Comment on above: Performed By: #### O THCX #### [facility] [address] [place] [address] Dr. Vitaly Jimenez Hematocrit (Bld) [Volume fraction] 35.2 % Critically low 42.0-54.0 [facility] Comment on above: Performed By: #### O THCX #### [facility] [address] [place] [address] Dr. Vitaly Jimenez Hemoglobin (Bld) [Mass/Vol] 12.0 g/dL Critically low 14.0-18.0 [facility] Comment on above: Performed By: #### O THCX #### [facility] [address] [place] [address] Dr. Vitaly Jimenez IG # 0.11 10e3/ul Critically high 0.00-0.03 [facility] Comment on above: Performed By: #### O THCX #### [facility] [address] [place] [address] Dr. Vitaly Jimenez IG % 0.7 % Critically high 0.0-0.5 [facility] Comment on above: Performed By: #### O THCX #### [facility] [address] [address] [address] Vitaly Jimenez LYMPH # 2.5 103/ul Normal 1.2-3.8 [facility] Comment on above: Performed By: #### O THCX #### [facility] [address] [address] [address] Vitaly Jimenez Lymphocytes/100 WBC (Bld) 15.5 % Critically low 20.5-60.0 [facility] Comment on above: Performed By: #### O THCX #### [facility] [address] [place] [address] Dr. Vitaly Jimenez MANUAL DIFF REQ NO Normal [facility] Comment on above: Performed By: #### O THCX #### [facility] [address] [place] [address] Dr. Vitaly Jimenez MCH (RBC) [Entitic mass] 28.5 pg Normal 25.9-34.0 [facility] Comment on above: Performed By: #### O THCX #### [facility] [address] [place] [address] Dr. Vitaly Jimenez MCHC (RBC) [Mass/Vol] 34.1 g/dL Normal 29.9-35.2 [facility] Comment on above: Performed By: #### O THCX #### [facility] [address] [place] [address] Dr. Vitaly Jimenez MCV (RBC) [Entitic vol] 83.6 fL Normal 80.0-94.0 [facility] Comment on above: Performed By: #### O THCX #### [facility] [address] [address] [address] Vitaly Jimenez MONO # 1.0 103/ul Critically high 0.3-0.8 [facility] Comment on above: Performed By: #### O THCX #### [facility] [address] [address] [address] Vitaly Jimenez Monocytes/100 WBC (Bld) 6.2 % Normal 1.7-12.0 [facility] Comment on above: Performed By: #### O THCX #### [facility] [address] [address] [address] Vitaly Jimenez NEUT # 12.3 103/ul Critically high 1.4-6.5 [facility] Comment on above: Performed By: #### O THCX #### [facility] [address] [place] [address] Dr. Vitaly Jimenez Neutrophils/100 WBC (Bld) 76.1 % Critically high 43.0-75.0 [facility] Comment on above: Performed By: #### O THCX #### [facility] [address] [place] [address] Dr. Vitaly Jimenez Platelet mean volume (Bld) [Entitic vol] 9.4 fL Critically low 9.5-13.5 [facility] Comment on above: Performed By: #### O THCX #### [facility] [address] [place] [address] Dr. Vitaly Jimenez PLT 313 103/ul Normal 150-450 [facility] Comment on above: Performed By: #### O THCX #### [facility] [address] [place] [address] Dr. Vitaly Jimenez RBC 4.21 106/ul Critically low 4.70-6.10 [facility] Comment on above: Performed By: #### O THCX #### [facility] [address] [place], [place] [id number] Dr. Vitaly Jimenez WBC 16.2 103/ul Critically high 4.0-11.0 [facility] Comment on above: Performed By: #### O THCX #### [facility] [address] [place], [place] [id number] Dr. Vitaly Jimenez CT LOWER LEG LT [...] EVITA MORALES Date: 2022-05-17 13:22 Normal [facility] CULTURE ANAEROBICon 05-18-19 23 CULTURE ANAEROBIC Culture Observations: No growth of anaerobes at 72 hours Normal [facility] Comment on above: Performed By: #### A NACX #### [facility] [address] [place] [address] Dr. Vitaly Jimenez DRUG SCREEN RAPID (URINE)on 05-17-2022 AMP Negative Normal NEGATIVE [facility] Comment on above: Performed By: #### C MP #### [facility] [address] [place] [address] Dr. Vitaly Jimenez BAR Negative Normal NEGATIVE [facility] Comment on above: Performed By: #### C MP #### [facility] [address] [place] [address] Dr. Vitaly Jimenez BUP Positive Abnormal NEGATIVE [facility] Comment on above: Performed By: #### C MP #### [facility] [address] [place] [address] Dr. Vitaly Jimenez BZO Negative Normal NEGATIVE [facility] Comment on above: Performed By: #### C MP #### [facility] [address] [place] [address] Dr. Vitaly Jimenez RUTH Negative Normal NEGATIVE [facility] Comment on above: Performed By: #### C MP #### [facility] [address] [place] [address] Dr. Vitaly Jimenez CUT-OFFS SEE BELOW Normal [facility] Comment on above: Result Comment: AMP (Amphetamine): 500ng/mL, BAR (Barbituates): 200 ng/mL, BZO (Benzodiazepines): 150 ng/mL, BUP (Buprenorphine): 10 ng/mL, RUTH (Cocaine): 150 ng/mL, mAMP (Methamphetamine): 500 ng/mL, MTD (Methadone): 200 ng/mL, OPI (Opiates): 100 ng/mL, OXY (Oxycodone): 100 ng/mL, PCP (Phencyclidine): 25 ng/mL, PPX (Propoxyphene): 300 ng/mL, THC (Cannabinoids): 50 ng/mL, TCA (Trycyclic Antidepressants): 300 ng/mL Performed By: #### C MP #### [facility] [address] [place] [address] Dr. Vitaly Jimenez DRUG CUT HEADER DRUG CLASS TEST SYSTEM CUT-OFF CONCENTRATIONS ARE FOLLOWS: Normal [facility] Comment on above: Performed By: #### C MP #### [facility] [address] [place] [address] Dr. Vitaly Jimenez mAMP Negative Normal NEGATIVE [facility] Comment on above: Performed By: #### C MP #### [facility] [address] [place] [address] Dr. Vitaly Jimenez MTD Negative Normal NEGATIVE [facility] Comment on above: Performed By: #### C MP #### [facility] [address] [place] [address] Dr. Vitaly Jimenez OPI Negative Normal NEGATIVE [facility] Comment on above: Performed By: #### C MP #### [facility] [address] [place] [address] Dr. Vitaly Jimenez OXY Negative Normal NEGATIVE [facility] Comment on above: Performed By: #### C MP #### [facility] [address] [place] [address] Dr. Vitaly Jimenez PCP Negative Normal NEGATIVE [facility] Comment on above: Performed By: #### C MP #### [facility] [address] [place] [address] Dr. Vitaly Jimenez PPX Negative Normal NEGATIVE [facility] Comment on above: Performed By: #### C MP #### [facility] [address] [address] [address] Vitaly Jimenez TCA Negative Normal NEGATIVE [facility] Comment on above: Performed By: #### C MP #### [facility] [address] [address] [address] Vitaly Jimenez THC Negative Normal NEGATIVE [facility] Comment on above: Performed By: #### C MP #### [facility] [address] [address] [address] Vitaly Jimenez GRAM STAINon 05-17-2022 DIPHTHEROIDS Normal [facility] Comment on above: Performed By: #### A NACX #### [facility] [address] [address] [address] Vitaly Jimenez EPITHELIALS Normal [facility] Comment on above: Performed By: #### A NACX #### [facility] [address] [address] [address] Vitaly Jimenez FUNGAL ELEMENTS Normal [facility] Comment on above: Performed By: #### A NACX #### [facility] [address] [address] [address] Vitaly Jimenez GRAM NEG BACILLI Normal [facility] Comment on above: Performed By: #### A NACX #### [facility] [address] [address] [address] Vitaly Jimenez GRAM NEG DIPPLOCOCCI Normal [facility] Comment on above: Performed By: #### A NACX #### [facility] [address] [address] [address] Vitaly Jimenez GRAM POS BACILLI Normal [facility] Comment on above: Performed By: #### A NACX #### [facility] [address] [address] [address] Vitaly Jimenez GRAM POSITIVE COCCI FEW Normal [facility] Comment on above: Performed By: #### A NACX #### [facility] [address] [address] [address] Vitaly Jimenez GRAM STAIN SOURCE Lt Lower Leg Normal [facility] Comment on above: Performed By: #### A NACX #### [facility] [address] [address] [address] Vitaly Jimenez GS_DIPTH [facility] Comment on above: Performed By: #### A NACX #### [facility] [address] [place] [address] Dr. Vitaly Jimenez WBC FEW [facility] Comment on above: Performed By: #### A NACX #### [facility] [address] [address] [address] Vitaly Jimenez POINT OF CARE GLUCOSEon 05-08 Glucose [Mass/Vol] 399 mg/dL Critically high [facility]106 [facility] Comment on above: Performed By: #### O THCX #### [facility] [address] [place] [address] Dr. Vitaly Jimenez Glucose [Mass/Vol] 416 mg/dL Critically high [address] [place] [address] Comment on above: Performed By: #### C BC #### [facility] [address] [place] [address] Dr. Vitaly Jimenez Glucose [Mass/Vol] 411 mg/dL Critically high [address] [place] [address] Comment on above: Performed By: #### C BC #### [facility] [address] [place] [address] Dr. Vitaly Jimenez Glucose [Mass/Vol] 195 mg/dL Critically high [address] [place] [address] Comment on above: Performed By: #### C MP #### [facility] [address] [place] [address] Dr. Vitaly Jimenez Glucose [Mass/Vol] 221 mg/dL Critically high [address] [place] [address] Comment on above: Performed By: #### C BC #### [facility] [address] [place] [address] Dr. Vitaly Jimenez PROF CHEM 8 (BAS METB)on Anion gap [Moles/Vol] 13.5 mmol/L Normal [facility] Comment on above: Performed By: #### C BC #### [facility] [address] [place] [address] Dr. Vitaly Jimenez Calcium [Mass/Vol] 9.6 mg/dL Normal 8.5-10.1 [facility] Comment on above: Performed By: #### C BC #### [facility] [address] [address] [address] Vitaly Jimenez Chloride [Moles/Vol] 99 mmol/L Normal 98-107 [facility] Comment on above: Performed By: #### C BC #### [facility] [address] [address] [address] Vitaly Jimenez CO2 [Moles/Vol] 29.2 mmol/L Normal 21.0-32.0 [facility] Comment on above: Performed By: #### C BC #### [facility] [address] [place] [address] Dr. Vitaly Jimenez Creatinine [Mass/Vol] 1.63 mg/dL Critically high 0.70-1.30 [facility] Comment on above: Performed By: #### C BC #### [facility] [address] [place] [address] Dr. Vitaly Jimenez EGFR-AF SERBIAN 53 mL/min/1.73m2 Critically low >=60 [facility] Comment on above: Performed By: #### C BC #### [facility] [address] [place] [address] Dr. Vitaly Jimenez EGFR-NON AF SERBIAN 44 mL/min/1.73m2 Critically low >=60 [facility] Comment on above: Performed By: #### C BC #### [facility] [address] [address] [address] Vitaly Jimenez Glucose [Mass/Vol] 185 mg/dL Critically high 74-106 [facility] Comment on above: Performed By: #### C BC #### [facility] [address] [place] [address] Dr. Vitaly Jimenez Potassium [Moles/Vol] 4.7 mmol/L Normal 3.5-5.1 [facility] Comment on above: Performed By: #### C BC #### [facility] [address] [place] [address] Dr. Vitaly Jimenez Sodium [Moles/Vol] 137 mmol/L Normal 136-145 [facility] Comment on above: Performed By: #### C BC #### [facility] [address] [address] [address] Vitaly Jimenez Urea nitrogen [Mass/Vol] 26.0 mg/dL Critically high 7.0-18 .0 [facility] Comment on above: Performed By: #### C BC #### [facility] [address] [place] [address] Dr. Vitaly Jimenez Urea nitrogen/Creatinine [Mass ratio] 16.0 mg/mg Normal [facility] Comment on above: Performed By: #### C BC #### [facility] [address] [place] [address] Dr. Vitaly Jimenez ACID FAST SMEAR AND CXon Acid Fast Culture Negative Normal [facility] Comment on above: Result Comment: No a mike fast bacilli isolated after 6 weeks. Performed By: #### C BC #### [facility] [address] [place] [address] Dr. Vitaly Jimenez Acid Fast Smear Negative Normal [facility] Comment on above: Performed By: #### C BC #### [facility] [address] [place] [address] Dr. Vitaly Jimenez [employer] Specimen Processing Tissue Grinding [facility] Comment on above: Performed By: #### C BC #### [facility] [address] [place], [place] [id number] Dr. Vitaly Jimenez XR FOOT LT MIN [...] be related to prior infection/Charcot arthropathy. Extensive [place] type periosteal reaction is seen at the [...] by: RANDALL PRESTON Date: 2022-03-26 16:54 Normal [facility] FUNGAL CULTUREon 03-19-2022 Fungus (Mycology) Culture Final report Normal [facility] Comment on above: Performed By: #### A NACX #### [facility] [address] [place] [address] Dr. Vitaly Jimenez Fungus Stain Final report Normal [facility] Comment on above: Performed By: #### A NACX #### [facility] [address] [place] [address] Dr. Vitaly Jimenez Result 1 Comment Normal [facility] Comment on above: Result Comment: JET/ Calcofluor preparation: no fungus observed. Performed By: #### A NACX #### [facility] [address] [place] [address] Dr. Vitaly Jimenez Result Comment: No y east or mold isolated after 4 weeks. CBC AUTO DIFFon 02-23-2022 BASO # 0.0 103/ul Normal 0.0-0.1 [facility] Comment on above: Performed By: #### C MP #### [facility] [address] [address] [address] Vitaly Jimenez Basophils/100 WBC (Bld) 0.5 % Normal 0.2-2.0 [facility] Comment on above: Performed By: #### C MP #### [facility] [address] [place] [address] Dr. Vitaly Jimenez EO # 0.2 103/ul Normal 0.0-0.7 [facility] Comment on above: Performed By: #### C MP #### [facility] [address] [place] [address] Dr. Vitaly Jimenez Eosinophils/100 WBC (Bld) 4.1 % Normal 0.9-7.0 [facility] Comment on above: Performed By: #### C MP #### [facility] [address] [place] [address] Dr. Vitaly Jimenez Erythrocyte distribution width (RBC) [Ratio] 14.6 % Normal 11.0-15.0 [facility] Comment on above: Performed By: #### C MP #### [facility] [address] [place] [address] Dr. Vitaly Jimenez Hematocrit (Bld) [Volume fraction] 29.0 % Critically low 42.0-54.0 [facility] Comment on above: Performed By: #### C MP #### [facility] [address] [place] [address] Dr. Vitaly Jimenez Hemoglobin (Bld) [Mass/Vol] 9.4 g/dL Critically low 14.0-18.0 [facility] Comment on above: Performed By: #### C MP #### [facility] [address] [place] [address] Dr. Vitaly Jimenez IG # 0.03 10e3/ul Normal 0.00-0.03 [facility] Comment on above: Performed By: #### C MP #### [facility] [address] [place] [address] Dr. Vitaly Jimenez IG % 0.5 % Normal 0.0-0.5 [facility] Comment on above: Performed By: #### C MP #### [facility] [address] [place] [address] Dr. Vitaly Jimenez LYMPH # 1.5 103/ul Normal 1.2-3.8 [facility] Comment on above: Performed By: #### C MP #### [facility] [address] [place] [address] Dr. Vitaly Jimenez Lymphocytes/100 WBC (Bld) 27.2 % Normal 20.5-60.0 [facility] Comment on above: Performed By: #### C MP #### [facility] [address] [place] [address] Dr. Vitaly Jimenez MANUAL DIFF REQ NO Normal [facility] Comment on above: Performed By: #### C MP #### [facility] [address] [place] [address] Dr. Vitaly Jimenez MCH (RBC) [Entitic mass] 26.3 pg Normal 25.9-34.0 [facility] Comment on above: Performed By: #### C MP #### [facility] [address] [place] [address] Dr. Vitaly Jimenez MCHC (RBC) [Mass/Vol] 32.4 g/dL Normal 29.9-35.2 [facility] Comment on above: Performed By: #### C MP #### [facility] [address] [place] [address] Dr. Vitaly Jimenez MCV (RBC) [Entitic vol] 81.2 fL Normal 80.0-94.0 [facility] Comment on above: Performed By: #### C MP #### [facility] [address] [place] [address] Dr. Vitaly Jimenez MONO # 0.4 103/ul Normal 0.3-0.8 [facility] Comment on above: Performed By: #### C MP #### [facility] [address] [place] [address] Dr. Vitaly Jimenez Monocytes/100 WBC (Bld) 6.9 % Normal 1.7-12.0 [facility] Comment on above: Performed By: #### C MP #### [facility] [address] [place] [address] Dr. Vitaly Jimenez NEUT # 3.4 103/ul Normal 1.4-6.5 [facility] Comment on above: Performed By: #### C MP #### [facility] [address] [address] [address] Vitaly Jimenez Neutrophils/100 WBC (Bld) 60.8 % Normal 43.0-75.0 [facility] Comment on above: Performed By: #### C MP #### [facility] [address] [address] [address] Vitaly Jimenez Platelet mean volume (Bld) [Entitic vol] 9.0 fL Critically low 9.5-13.5 [facility] Comment on above: Performed By: #### C MP #### [facility] [address] [place] [address] Dr. Vitaly Jimenez PLT 276 103/ul Normal 150-450 [facility] Comment on above: Performed By: #### C MP #### [facility] [address] [place] [address] Dr. Vitaly Jimenez RBC 3.57 106/ul Critically low 4.70-6.10 [facility] Comment on above: Performed By: #### C MP #### [facility] [address] [place] [address] Dr. Vitaly Jimenez WBC 5.6 103/ul Normal 4.0-11.0 [facility] Comment on above: Performed By: #### C MP #### [facility] [address] [place] [address] Dr. Vitaly Jimenez PROF 14(COMP METB)on 023 Albumin [Mass/Vol] 1.9 g/dL Critically low 3.4-5.0 [facility] Comment on above: Performed By: #### C BC #### [facility] [address] [place] [address] Dr. Vitaly Jimenez Albumin/Globulin [Mass ratio] 0.4 {ratio} Normal [facility] Comment on above: Performed By: #### C BC #### [facility] [address] [place] [address] Dr. Vitaly Jimenez ALP [Catalytic activity/Vol] 118 U/L Critically high 46-116 [facility] Comment on above: Performed By: #### C BC #### [facility] [address] [place] [address] Dr. Vitaly Jimenez ALT [Catalytic activity/Vol] 5 U/L Critically low 16-63 [facility] Comment on above: Performed By: #### C BC #### [facility] [address] [place] [address] Dr. Vitaly Jimenez Anion gap [Moles/Vol] 8.9 mmol/L Normal [facility] Comment on above: Performed By: #### C BC #### [facility] [address] [place] [address] Dr. Vitaly Jimenez AST [Catalytic activity/Vol] 12 U/L Critically low 15-37 [facility] Comment on above: Performed By: #### C BC #### [facility] [address] [place] [address] Dr. Vitaly iJmenez Bilirubin [Mass/Vol] 0.3 mg/dL Normal 0.2-1.0 [facility] Comment on above: Performed By: #### C BC #### [facility] [address] [place] [address] Dr. Vitaly Jimenez Calcium [Mass/Vol] 8.2 mg/dL Critically low 8.5-10.1 Th [facility] Comment on above: Performed By: #### C BC #### [facility] [address] [place] [address] Dr. Vitaly Jimenez Chloride [Moles/Vol] 101 mmol/L Normal 98-107 [facility] Comment on above: Performed By: #### C BC #### [facility] [address] [address] [address] Vitaly Jimenez CO2 [Moles/Vol] 30.2 mmol/L Normal 21.0-32.0 [facility] Comment on above: Performed By: #### C BC #### [facility] [address] [place] [address] Dr. Vitaly Jimenez Creatinine [Mass/Vol] 0.83 mg/dL Normal 0.70-1.30 [facility] Comment on above: Performed By: #### C BC #### [facility] [address] [address] [address] Vitaly Jimenez EGFR-AF SERBIAN >60 Normal >=60 [facility] Comment on above: Performed By: #### C BC #### [facility] [address] [address] [address] Vitaly Jimenez EGFR-NON AF SERBIAN >60 Normal >=60 [facility] Comment on above: Performed By: #### C BC #### [facility] [address] [address] [address] Vitaly Jimenez Globulin (S) [Mass/Vol] 4.3 g/dL Normal [facility] Comment on above: Performed By: #### C BC #### [facility] [address] [place] [address] Dr. Vitaly Jimenez Glucose [Mass/Vol] 113 mg/dL Critically high 74-106 [facility] Comment on above: Performed By: #### C BC #### [facility] [address] [address] [address] Vitaly Jimenez Potassium [Moles/Vol] 4.1 mmol/L Normal 3.5-5.1 [facility] Comment on above: Performed By: #### C BC #### [facility] [address] [place] [address] Dr. Vitaly Jimenez Protein [Mass/Vol] 6.2 g/dL Critically low 6.4-8.2 [facility] Comment on above: Performed By: #### C BC #### [facility] [address] [address] [address] Vitaly Jimenez Sodium [Moles/Vol] 136 mmol/L Normal 136-145 [facility] Comment on above: Performed By: #### C BC #### [facility] [address] [address] [address] Vitaly Jimenez Urea nitrogen [Mass/Vol] 17.0 mg/dL Normal 7.0-18.0 [facility] Comment on above: Performed By: #### C BC #### [facility] [address] [place] [address] Dr. Vitaly Jimenez Urea nitrogen/Creatinine [Mass ratio] 20.5 mg/mg Normal [facility] Comment on above: Performed By: #### C BC #### [facility] [address] [place] [address] Dr. Vitaly Jimenez VANCOMYCIN TROUGHon 02-23-19 VANCOMYCIN TROUGH 13.2 ug/ml Normal 5.0-20.0 [facility] Comment on above: Performed By: #### C BC #### [facility] [address] [place] [address] Dr. Vitaly Jimenez CBC AUTO DIFFon 02-22-2022 BASO # 0.0 103/ul Normal 0.0-0.1 [facility] Comment on above: Performed By: #### C MP #### [facility] [address] [place] [address] Dr. Vitaly Jimenez Basophils/100 WBC (Bld) 0.7 % Normal 0.2-2.0 [facility] Comment on above: Performed By: #### C MP #### [facility] [address] [place] [address] Dr. Vitaly Jimenez EO # 0.2 103/ul Normal 0.0-0.7 [facility] Comment on above: Performed By: #### C MP #### [facility] [address] [place] [address] Dr. Vitaly Jimenez Eosinophils/100 WBC (Bld) 3.6 % Normal 0.9-7.0 [facility] Comment on above: Performed By: #### C MP #### [facility] [address] [place] [address] Dr. Vitaly Jimenez Erythrocyte distribution width (RBC) [Ratio] 14.5 % Normal 11.0-15.0 [facility] Comment on above: Performed By: #### C MP #### [facility] [address] [place] [address] Dr. Vitaly Jimenez Hematocrit (Bld) [Volume fraction] 27.6 % Critically low 42.0-54.0 [facility] Comment on above: Performed By: #### C MP #### [facility] [address] [address] [address] Vitaly Jimenez Hemoglobin (Bld) [Mass/Vol] 9.1 g/dL Critically low 14.0-18.0 [facility] Comment on above: Performed By: #### C MP #### [facility] [address] [address] [address] Vitaly Jimenez IG # 0.02 10e3/ul Normal 0.00-0.03 [facility] Comment on above: Performed By: #### C MP #### [facility] [address] [address] [address] Vitaly Jimenez IG % 0.3 % Normal 0.0-0.5 [facility] Comment on above: Performed By: #### C MP #### [facility] [address] [place] [address] Dr. Vitaly Jimenez LYMPH # 1.5 103/ul Normal 1.2-3.8 [facility] Comment on above: Performed By: #### C MP #### [facility] [address] [place] [address] Dr. Vitaly Jimenez Lymphocytes/100 WBC (Bld) 26.2 % Normal 20.5-60.0 [facility] Comment on above: Performed By: #### C MP #### [facility] [address] [place] [address] Dr. Vitaly Jimenez MANUAL DIFF REQ NO Normal [facility] Comment on above: Performed By: #### C MP #### [facility] [address] [place] [address] Dr. Vitaly Jimenez MCH (RBC) [Entitic mass] 26.3 pg Normal 25.9-34.0 [facility] Comment on above: Performed By: #### C MP #### [facility] [address] [place] [address] Dr. Vitaly Jimenez MCHC (RBC) [Mass/Vol] 33.0 g/dL Normal 29.9-35.2 [facility] Comment on above: Performed By: #### C MP #### [facility] [address] [address] [address] Vitaly Jimenez MCV (RBC) [Entitic vol] 79.8 fL Critically low 80.0-94. 0 [facility] Comment on above: Performed By: #### C MP #### [facility] [address] [address] [address] Vitaly Jimenez MONO # 0.6 103/ul Normal 0.3-0.8 [facility] Comment on above: Performed By: #### C MP #### [facility] [address] [address] [address] Vitaly Jimenez Monocytes/100 WBC (Bld) 9.6 % Normal 1.7-12.0 [facility] Comment on above: Performed By: #### C MP #### [facility] [address] [place] [address] Dr. Vitaly Jimenez NEUT # 3.5 103/ul Normal 1.4-6.5 [facility] Comment on above: Performed By: #### C MP #### [facility] [address] [address] [address] Vitaly Jimenez Neutrophils/100 WBC (Bld) 59.6 % Normal 43.0-75.0 [facility] Comment on above: Performed By: #### C MP #### [facility] [address] [address] [address] Vitaly Jimenez Platelet mean volume (Bld) [Entitic vol] 9.2 fL Critically low 9.5-13.5 [facility] Comment on above: Performed By: #### C MP #### [facility] [address] [address] [address] Vitaly Jimenez PLT 250 103/ul Normal 150-450 [facility] Comment on above: Performed By: #### C MP #### [facility] [address] [address] [address] Vitaly Jimenez RBC 3.46 106/ul Critically low 4.70-6.10 [facility] Comment on above: Performed By: #### C MP #### [facility] [address] [place] [address] Dr. Vitaly Jimenez WBC 5.8 103/ul Normal 4.0-11.0 [facility] Comment on above: Performed By: #### C MP #### [facility] [address] [place] [address] Dr. Vitaly Jimenez CULTURE OTHERon 02-22-2022 CULTURE [...] Trimethoprim/Sulfam ethoxazole <=10 S F Normal [facility] Comment on above: Performed By: #### O THCX #### [facility] [address] [place] [address] Dr. Vitaly Jimenez PRBC LEUKOREDUCEDon 02-22-19 23 ABO and Rh group Nom (Bld) Cross Match Result Compatible Unit Blood Type A Pos Unit Number [id number] Status Information Transfused Product ID Red Blood Cells Product Code [id number] Cross Match Result Compatible Unit Blood Type A Pos Unit Number [id number] Status Information Transfused Product ID Red Blood Cells Product Code [id number] Normal [facility] Comment on above: Performed By: #### P RBC #### [facility] [address] [place] [address] Dr. Vitaly Jimenez PRBC LEUKOREDUCED Cross Match Result Compatible Unit Blood Type A Pos Unit Number [id number] Status Information Transfused Product ID Red Blood Cells Product Code [id number] [facility] Comment on above: Performed By: #### C MP #### [facility] [address] [place] [address] Dr. Vitaly Jimenez PROF 14(COMP METB)on 023 Albumin [Mass/Vol] 1.8 g/dL Critically low 3.4-5.0 [facility] Comment on above: Performed By: #### C BC #### [facility] [address] [place] [address] Dr. Vitaly Jimenez Albumin/Globulin [Mass ratio] 0.4 {ratio} Normal [facility] Comment on above: Performed By: #### C BC #### [facility] [address] [place] [address] Dr. Vitaly Jimenez ALP [Catalytic activity/Vol] 108 U/L Normal 46-116 [facility] Comment on above: Performed By: #### C BC #### [facility] [address] [place] [address] Dr. Vitaly Jimenez ALT [Catalytic activity/Vol] 4 U/L Critically low 16-63 [facility] Comment on above: Performed By: #### C BC #### [facility] [address] [place] [address] Dr. Vitaly Jimenez Anion gap [Moles/Vol] 9.9 mmol/L Normal [facility] Comment on above: Performed By: #### C BC #### [facility] [address] [place] [address] Dr. Vitaly Jimenez AST [Catalytic activity/Vol] 12 U/L Critically low 15-37 [facility] Comment on above: Performed By: #### C BC #### [facility] [address] [place] [address] Dr. Vitaly Jimenez Bilirubin [Mass/Vol] 0.3 mg/dL Normal 0.2-1.0 [facility] Comment on above: Performed By: #### C BC #### [facility] [address] [place] [address] Dr. Vitaly Jimenez Calcium [Mass/Vol] 8.2 mg/dL Critically low 8.5-10.1 Th [facility] Comment on above: Performed By: #### C BC #### [facility] [address] [place] [address] Dr. Vitaly Jimenez Chloride [Moles/Vol] 100 mmol/L Normal 98-107 [facility] Comment on above: Performed By: #### C BC #### [facility] [address] [address] [address] Vitaly Jimenez CO2 [Moles/Vol] 29.5 mmol/L Normal 21.0-32.0 [facility] Comment on above: Performed By: #### C BC #### [facility] [address] [place] [address] Dr. Vitaly Jimenez Creatinine [Mass/Vol] 0.96 mg/dL Normal 0.70-1.30 [facility] Comment on above: Performed By: #### C BC #### [facility] [address] [place] [address] Dr. Vitaly Jimenez EGFR-AF SERBIAN >60 Normal >=60 [facility] Comment on above: Performed By: #### C BC #### [facility] [address] [place] [address] Dr. Vitaly Jimenez EGFR-NON AF SERBIAN >60 Normal >=60 [facility] Comment on above: Performed By: #### C BC #### [facility] [address] [place] [address] Dr. Vitaly Jimenez Globulin (S) [Mass/Vol] 4.2 g/dL Normal [facility] Comment on above: Performed By: #### C BC #### [facility] [address] [place] [address] Dr. Vitaly Jimenez Glucose [Mass/Vol] 147 mg/dL Critically high 74-106 [facility] Comment on above: Performed By: #### C BC #### [facility] [address] [place] [address] Dr. Vitaly Jimenez Potassium [Moles/Vol] 4.4 mmol/L Normal 3.5-5.1 [facility] Comment on above: Performed By: #### C BC #### [facility] [address] [place] [address] Dr. Vitaly Jimenez Protein [Mass/Vol] 6.0 g/dL Critically low 6.4-8.2 [facility] Comment on above: Performed By: #### C BC #### [facility] [address] [address] [address] Vitaly Jimenez Sodium [Moles/Vol] 135 mmol/L Critically low 136-145 Th [facility] Comment on above: Performed By: #### C BC #### [facility] [address] [place] [address] Dr. Vitaly Jimenez Urea nitrogen [Mass/Vol] 25.0 mg/dL Critically high 7.0-18 .0 [facility] Comment on above: Performed By: #### C BC #### [facility] [address] [place] [address] Dr. Vitaly Jimenez Urea nitrogen/Creatinine [Mass ratio] 26.0 mg/mg Normal [facility] Comment on above: Performed By: #### C BC #### [facility] [address] [place] [address] Dr. Vitaly Jimenez CBC AUTO DIFFon 02-21-2022 BASO # 0.0 103/ul Normal 0.0-0.1 [facility] Comment on above: Performed By: #### C BC #### [facility] [address] [place] [address] Dr. Vitaly Jimenez Basophils/100 WBC (Bld) 0.5 % Normal 0.2-2.0 [facility] Comment on above: Performed By: #### C BC #### [facility] [address] [place] [address] Dr. Vitaly Jimenez EO # 0.2 103/ul Normal 0.0-0.7 [facility] Comment on above: Performed By: #### C BC #### [facility] [address] [place] [address] Dr. Vitaly Jimenez Eosinophils/100 WBC (Bld) 2.8 % Normal 0.9-7.0 [facility] Comment on above: Performed By: #### C BC #### [facility] [address] [place] [address] Dr. Vitaly Jimenez Erythrocyte distribution width (RBC) [Ratio] 14.6 % Normal 11.0-15.0 [facility] Comment on above: Performed By: #### C BC #### [facility] [address] [place] [address] Dr. Vitaly Jimenez Hematocrit (Bld) [Volume fraction] 28.6 % Critically low 42.0-54.0 [facility] Comment on above: Performed By: #### C BC #### [facility] [address] [place] [address] Dr. Vitaly Jimenez Hemoglobin (Bld) [Mass/Vol] 9.3 g/dL Critically low 14.0-18.0 [facility] Comment on above: Result Comment: pt. rcvd. blood. Performed By: #### C BC #### [facility] [address] [place] [address] Dr. Vitaly Jimenez IG # 0.02 10e3/ul Normal 0.00-0.03 [facility] Comment on above: Performed By: #### C BC #### [facility] [address] [place] [address] Dr. Vitaly Jimenez IG % 0.3 % Normal 0.0-0.5 [facility] Comment on above: Performed By: #### C BC #### [facility] [address] [place] [address] Dr. Vitaly Jimenez LYMPH # 1.2 103/ul Normal 1.2-3.8 [facility] Comment on above: Performed By: #### C BC #### [facility] [address] [place] [address] Dr. Vitaly Jimenez Lymphocytes/100 WBC (Bld) 18.6 % Critically low 20.5-60.0 [facility] Comment on above: Performed By: #### C BC #### [facility] [address] [place] [address] Dr. Vitaly Jimenez MANUAL DIFF REQ NO Normal [facility] Comment on above: Performed By: #### C BC #### [facility] [address] [place] [address] Dr. Vitaly Jimenez MCH (RBC) [Entitic mass] 26.3 pg Normal 25.9-34.0 [facility] Comment on above: Performed By: #### C BC #### [facility] [address] [address] [address] Vitaly Jimenez MCHC (RBC) [Mass/Vol] 32.5 g/dL Normal 29.9-35.2 [facility] Comment on above: Performed By: #### C BC #### [facility] [address] [address] [address] Vitaly Jimenez MCV (RBC) [Entitic vol] 80.8 fL Normal 80.0-94.0 [facility] Comment on above: Performed By: #### C BC #### [facility] [address] [address] [address] Vitaly Jimenez MONO # 0.6 103/ul Normal 0.3-0.8 [facility] Comment on above: Performed By: #### C BC #### [facility] [address] [address] [address] Vitaly Jimenez Monocytes/100 WBC (Bld) 9.6 % Normal 1.7-12.0 [facility] Comment on above: Performed By: #### C BC #### [facility] [address] [place] [address] Dr. Vitaly Jimenez NEUT # 4.4 103/ul Normal 1.4-6.5 [facility] Comment on above: Performed By: #### C BC #### [facility] [address] [address] [address] Vitaly Jimenez Neutrophils/100 WBC (Bld) 68.2 % Normal 43.0-75.0 [facility] Comment on above: Performed By: #### C BC #### [facility] [address] [address] [address] Vitaly Jimenez Platelet mean volume (Bld) [Entitic vol] 8.8 fL Critically low 9.5-13.5 [facility] Comment on above: Performed By: #### C BC #### [facility] [address] [address] [address] Vitaly Jimenez PLT 256 103/ul Normal 150-450 [facility] Comment on above: Performed By: #### C BC #### [facility] [address] [address] [address] Vitaly Jimenez RBC 3.54 106/ul Critically low 4.70-6.10 [facility] Comment on above: Performed By: #### C BC #### [facility] [address] [address] [address] Vitaly Jimenez WBC 6.5 103/ul Normal 4.0-11.0 [facility] Comment on above: Performed By: #### C BC #### [facility] [address] [address] [address] Vitaly Jimenez BASO # 0.0 103/ul Normal 0.0-0.1 [facility] Comment on above: Performed By: #### C BC #### [facility] [address] [place] [address] Dr. Vitaly Jimenez Basophils/100 WBC (Bld) 0.3 % Normal 0.2-2.0 [facility] Comment on above: Performed By: #### C BC #### [facility] [address] [place] [address] Dr. Vitaly Jimenez EO # 0.1 103/ul Normal 0.0-0.7 [facility] Comment on above: Performed By: #### C BC #### [facility] [address] [place] [address] Dr. Vitaly Jimenez Eosinophils/100 WBC (Bld) 2.2 % Normal 0.9-7.0 [facility] Comment on above: Performed By: #### C BC #### [facility] [address] [place] [address] Dr. Vitaly Jimenez Erythrocyte distribution width (RBC) [Ratio] 14.2 % Normal 11.0-15.0 [facility] Comment on above: Performed By: #### C BC #### [facility] [address] [place] [address] Dr. Vitaly Jimenez Hematocrit (Bld) [Volume fraction] 22.1 % Critically low 42.0-54.0 [facility] Comment on above: Performed By: #### C BC #### [facility] [address] [place] [address] Dr. Vitaly Jimenez Hemoglobin (Bld) [Mass/Vol] 7.1 g/dL Critically low 14.0-18.0 [facility] Comment on above: Performed By: #### C BC #### [facility] [address] [place] [address] Dr. Vitaly Jimenez IG # 0.03 10e3/ul Normal 0.00-0.03 [facility] Comment on above: Performed By: #### C BC #### [facility] [address] [place] [address] Dr. Vitaly Jimenez IG % 0.5 % Normal 0.0-0.5 [facility] Comment on above: Performed By: #### C BC #### [facility] [address] [place] [address] Dr. Vitaly Jimenez LYMPH # 1.4 103/ul Normal 1.2-3.8 [facility] Comment on above: Performed By: #### C BC #### [facility] [address] [place] [address] Dr. Vitaly Jimenez Lymphocytes/100 WBC (Bld) 24.4 % Normal 20.5-60.0 [facility] Comment on above: Performed By: #### C BC #### [facility] [address] [place] [address] Dr. Vitaly Jimenez MANUAL DIFF REQ NO Normal [facility] Comment on above: Performed By: #### C BC #### [facility] [address] [place] [address] Dr. Vitaly Jimenez MCH (RBC) [Entitic mass] 25.3 pg Critically low 25.9-34 .0 [facility] Comment on above: Performed By: #### C BC #### [facility] [address] [place] [address] Dr. Vitaly Jimenez MCHC (RBC) [Mass/Vol] 32.1 g/dL Normal 29.9-35.2 [facility] Comment on above: Performed By: #### C BC #### [facility] [id number] Vitaly Jimenez MCV (RBC) [Entitic vol] 78.6 fL Critically low 80.0-94. 0 [facility] Comment on above: Performed By: #### C BC #### [facility] [id number] Vitaly Jimenez MONO # 0.5 103/ul Normal 0.3-0.8 [facility] Comment on above: Performed By: #### C BC #### [facility] [address] [address] [address] Vitaly Jimenez Monocytes/100 WBC (Bld) 8.4 % Normal 1.7-12.0 [facility] Comment on above: Performed By: #### C BC #### [facility] [address] [address] [address] Vitaly Jimenez NEUT # 3.7 103/ul Normal 1.4-6.5 [facility] Comment on above: Performed By: #### C BC #### [facility] [address] [address] [address] Vitaly Jimenez Neutrophils/100 WBC (Bld) 64.2 % Normal 43.0-75.0 [facility] Comment on above: Performed By: #### C BC #### [facility] [address] [address] [address] Vitaly Jimenez Platelet mean volume (Bld) [Entitic vol] 9.4 fL Critically low 9.5-13.5 [facility] Comment on above: Performed By: #### C BC #### [facility] [address] [address] [address] Vitaly Jimenez PLT 241 103/ul Normal 150-450 [facility] Comment on above: Performed By: #### C BC #### [facility] [address] [id number] Vitaly Jimenez RBC 2.81 106/ul Critically low 4.70-6.10 [facility] Comment on above: Performed By: #### C BC #### [facility] [address] [address] [address] Vitaly Jimenez WBC 5.8 103/ul Normal 4.0-11.0 [facility] Comment on above: Performed By: #### C BC #### [facility] [address] [place] [address] Dr. Vitaly Jimenez PROF 14(COMP METB)on 023 Albumin [Mass/Vol] 1.7 g/dL Critically low 3.4-5.0 Th e [facility] Comment on above: Performed By: #### C MP #### [facility] [address] [place] [address] Dr. Vitaly Jimenez Albumin/Globulin [Mass ratio] 0.4 {ratio} Normal [facility] Comment on above: Performed By: #### C MP #### [facility] [address] [place] [address] Dr. Vitaly Jimenez ALP [Catalytic activity/Vol] 100 U/L Normal 46-116 [facility] Comment on above: Performed By: #### C MP #### [facility] [address] [place] [address] Dr. Vitaly Jimenez ALT [Catalytic activity/Vol] 4 U/L Critically low 16-63 [facility] Comment on above: Performed By: #### C MP #### [facility] [address] [place] [address] Dr. Vitaly Jimenez Anion gap [Moles/Vol] 8.7 mmol/L Normal [facility] Comment on above: Performed By: #### C MP #### [facility] [address] [place] [address] Dr. Vitaly Jimenez AST [Catalytic activity/Vol] 10 U/L Critically low 15-37 [facility] Comment on above: Performed By: #### C MP #### [facility] [address] [place] [address] Dr. Vitaly Jimenez Bilirubin [Mass/Vol] 0.2 mg/dL Normal 0.2-1.0 [facility] Comment on above: Performed By: #### C MP #### [facility] [address] [place] [address] Dr. Vitaly Jimenez Calcium [Mass/Vol] 7.9 mg/dL Critically low 8.5-10.1 [facility] Comment on above: Performed By: #### C MP #### [facility] [address] [address] [address] Vitaly Jimenez Chloride [Moles/Vol] 98 mmol/L Normal 98-107 [facility] Comment on above: Performed By: #### C MP #### [facility] [address] [address] [address] Vitaly Jimenez CO2 [Moles/Vol] 29.8 mmol/L Normal 21.0-32.0 [facility] Comment on above: Performed By: #### C MP #### [facility] [address] [place] [address] Dr. Vitaly Jimenez Creatinine [Mass/Vol] 1.45 mg/dL Critically high 0.70-1.30 [facility] Comment on above: Performed By: #### C MP #### [facility] [address] [address] [address] Vitaly Jimenez EGFR-AF SERBIAN 60 mL/min/1.73m2 Normal >=60 [facility] Comment on above: Performed By: #### C MP #### [facility] [address] [place] [address] Dr. Vitaly Jimenez EGFR-NON AF SERBIAN 50 mL/min/1.73m2 Critically low >=60 [facility] Comment on above: Performed By: #### C MP #### [facility] [address] [address] [address] Vitaly Jimenez Globulin (S) [Mass/Vol] 4.0 g/dL Normal [facility] Comment on above: Performed By: #### C MP #### [facility] [address] [place] [address] Dr. Vitaly Jimenez Glucose [Mass/Vol] 138 mg/dL Critically high 74-106 [facility] Comment on above: Performed By: #### C MP #### [facility] [address] [place] [address] Dr. Vitaly Jimenez Potassium [Moles/Vol] 4.5 mmol/L Normal 3.5-5.1 [facility] Comment on above: Performed By: #### C MP #### [facility] [address] [place] [address] Dr. Vitaly Jimenez Protein [Mass/Vol] 5.7 g/dL Critically low 6.4-8.2 Th [facility] Comment on above: Performed By: #### C MP #### [facility] [address] [place] [address] Dr. Vitaly Jimenez Sodium [Moles/Vol] 132 mmol/L Critically low 136-145 [facility] Comment on above: Performed By: #### C MP #### [facility] [address] [place] [address] Dr. Vitaly Jimenez Urea nitrogen [Mass/Vol] 33.0 mg/dL Critically high 7.0-18 .0 [facility] Comment on above: Performed By: #### C MP #### [facility] [address] [place] [address] Dr. Vitaly Jimenez Urea nitrogen/Creatinine [Mass ratio] 22.8 mg/mg Normal [facility] Comment on above: Performed By: #### C MP #### [facility] [address] [place] [address] Dr. Vitaly Jimenez CBC AUTO DIFFon 02-20-2022 BASO # 0.0 103/ul Normal 0.0-0.1 [facility] Comment on above: Performed By: #### C BC #### [facility] [address] [place] [address] Dr. Vitaly Jimenez Basophils/100 WBC (Bld) 0.5 % Normal 0.2-2.0 [facility] Comment on above: Performed By: #### C BC #### [facility] [address] [place] [address] Dr. Vitaly Jimenez EO # 0.1 103/ul Normal 0.0-0.7 [facility] Comment on above: Performed By: #### C BC #### [facility] [address] [place] [address] Dr. Vitaly Jimenez Eosinophils/100 WBC (Bld) 1.7 % Normal 0.9-7.0 [facility] Comment on above: Performed By: #### C BC #### [facility] [address] [place] [address] Dr. Vitaly Jimenez Erythrocyte distribution width (RBC) [Ratio] 14.2 % Normal 11.0-15.0 [facility] Comment on above: Performed By: #### C BC #### [facility] [address] [place] [address] Dr. Vitaly Jimenez Hematocrit (Bld) [Volume fraction] 21.3 % Critically low 42.0-54.0 [facility] Comment on above: Performed By: #### C BC #### [facility] [address] [place] [address] Dr. Vitaly Jimenez Hemoglobin (Bld) [Mass/Vol] 7.0 g/dL Critically low 14.0-18.0 [facility] Comment on above: Performed By: #### C BC #### [facility] [address] [place] [address] Dr. Vitaly Jimenez IG # 0.03 10e3/ul Normal 0.00-0.03 [facility] Comment on above: Performed By: #### C BC #### [facility] [address] [place] [address] Dr. Vitaly Jimenez IG % 0.5 % Normal 0.0-0.5 [facility] Comment on above: Performed By: #### C BC #### [facility] [address] [place] [address] Dr. Vitaly Jimenez LYMPH # 1.3 103/ul Normal 1.2-3.8 [facility] Comment on above: Performed By: #### C BC #### [facility] [address] [place] [address] Dr. Vitaly Jimenez Lymphocytes/100 WBC (Bld) 19.3 % Critically low 20.5-60.0 [facility] Comment on above: Performed By: #### C BC #### [facility] [address] [place] [address] Dr. Vitaly Jimenez MANUAL DIFF REQ NO Normal [facility] Comment on above: Performed By: #### C BC #### [facility] [address] [place] [address] Dr. Vitaly Jimenez MCH (RBC) [Entitic mass] 25.3 pg Critically low 25.9-34 .0 [facility] Comment on above: Performed By: #### C BC #### [facility] [address] [place] [address] Dr. Vitaly Jimenez MCHC (RBC) [Mass/Vol] 32.9 g/dL Normal 29.9-35.2 [facility] Comment on above: Performed By: #### C BC #### [facility] [address] [place] [address] Dr. Vitaly Jimenez MCV (RBC) [Entitic vol] 76.9 fL Critically low 80.0-94. 0 [facility] Comment on above: Performed By: #### C BC #### [facility] [address] [place] [address] Dr. Vitaly Jimenez MONO # 0.4 103/ul Normal 0.3-0.8 [facility] Comment on above: Performed By: #### C BC #### [facility] [address] [place] [address] Dr. Vitaly Jimenez Monocytes/100 WBC (Bld) 6.6 % Normal 1.7-12.0 [facility] Comment on above: Performed By: #### C BC #### [facility] [address] [place] [address] Dr. Vitaly Jimenez NEUT # 4.7 103/ul Normal 1.4-6.5 [facility] Comment on above: Performed By: #### C BC #### [facility] [address] [place] [address] Dr. Vitaly Jimenez Neutrophils/100 WBC (Bld) 71.4 % Normal 43.0-75.0 [facility] Comment on above: Performed By: #### C BC #### [facility] [address] [place] [address] Dr. Vitaly Jimenez Platelet mean volume (Bld) [Entitic vol] 9.5 fL Normal 9.5-13.5 [facility] Comment on above: Performed By: #### C BC #### [facility] [address] [place] [address] Dr. Vitaly Jimenez PLT 225 103/ul Normal 150-450 [facility] Comment on above: Performed By: #### C BC #### [facility] [address] [place] [address] Dr. Vitaly Jimenez RBC 2.77 106/ul Critically low 4.70-6.10 [facility] Comment on above: Performed By: #### C BC #### [facility] [address] [place] [address] Dr. Vitaly Jimenez WBC 6.6 103/ul Normal 4.0-11.0 [facility] Comment on above: Performed By: #### C BC #### [facility] [address] [place] [address] Dr. Vitaly Jimenez HEMOGLOBIN AND HEMATOCRITon 02-20-2022 Hematocrit (Bld) [Volume fraction] 25.5 % Critically low 42.0-54.0 [facility] Comment on above: Performed By: #### C MP #### [facility] [address] [place] [address] Dr. Vitaly Jimenez Hemoglobin (Bld) [Mass/Vol] 8.2 g/dL Critically low 14.0-18.0 [facility] Comment on above: Performed By: #### C MP #### [facility] [address] [place] [address] Dr. Vitaly Jimenez POINT OF CARE GLUCOSEon 02-07 Glucose [Mass/Vol] 229 mg/dL Critically high 74-106 [facility] Comment on above: Performed By: #### P OCGLUC #### [facility] [address] [place] [address] Dr. Vitaly Jimenez PROF 14(COMP METB)on 023 Albumin [Mass/Vol] 1.7 g/dL Critically low 3.4-5.0 [facility] Comment on above: Performed By: #### O THCX #### [facility] [address] [address] [address] Vitaly Jimenez Albumin/Globulin [Mass ratio] 0.4 {ratio} Normal [facility] Comment on above: Performed By: #### O THCX #### [facility] [address] [address] [address] Vitaly Jimenez ALP [Catalytic activity/Vol] 111 U/L Normal 46-116 [facility] Comment on above: Performed By: #### O THCX #### [facility] [address] [address] [address] Vitaly Jimenez ALT [Catalytic activity/Vol] 2 U/L Critically low 16-63 [facility] Comment on above: Performed By: #### O THCX #### [facility] [address] [place] [address] Dr. Vitaly Jimenez Anion gap [Moles/Vol] 9.2 mmol/L Normal [facility] Comment on above: Performed By: #### O THCX #### [facility] [address] [address] [address] Vitaly Jimenez AST [Catalytic activity/Vol] 9 U/L Critically low 15-37 [facility] Comment on above: Performed By: #### O THCX #### [facility] [address] [place] [address] Dr. Vitaly Jimenez Bilirubin [Mass/Vol] 0.1 mg/dL Critically low 0.2-1.0 [facility] Comment on above: Performed By: #### O THCX #### [facility] [address] [place] [address] Dr. Vitaly Jimenez Calcium [Mass/Vol] 8.3 mg/dL Critically low 8.5-10.1 Th e [facility] Comment on above: Performed By: #### O THCX #### [facility] [address] [place] [address] Dr. Vitaly Jimenez Chloride [Moles/Vol] 97 mmol/L Critically low 98-107 [facility] Comment on above: Performed By: #### O THCX #### [facility] [address] [place], [place] [id number] Dr. Vitaly Jimenez CO2 [Moles/Vol] 29.2 mmol/L Normal 21.0-32.0 [facility] Comment on above: Performed By: #### O THCX #### [facility] [address] [address] [address] Vitaly Jimenez Creatinine [Mass/Vol] 1.69 mg/dL Critically high 0.70-1.30 [facility] Comment on above: Performed By: #### O THCX #### [facility] [address] [address] [address] Vitaly Jimenez EGFR-AF SERBIAN 51 mL/min/1.73m2 Critically low >=60 [facility] Comment on above: Performed By: #### O THCX #### [facility] [address] [place] [address] Dr. Vitaly Jimenez EGFR-NON AF SERBIAN 42 mL/min/1.73m2 Critically low >=60 [facility] Comment on above: Performed By: #### O THCX #### [facility] [address] [place] [address] Dr. Vitaly Jimenez Globulin (S) [Mass/Vol] 4.0 g/dL Normal [facility] Comment on above: Performed By: #### O THCX #### [facility] [address] [place] [address] Dr. Vitaly Jimenez Glucose [Mass/Vol] 187 mg/dL Critically high 74-106 [facility] Comment on above: Performed By: #### O THCX #### [facility] [address] [place] [address] Dr. Vitaly Jimenez Potassium [Moles/Vol] 4.4 mmol/L Normal 3.5-5.1 [facility] Comment on above: Performed By: #### O THCX #### [facility] [address] [place] [address] Dr. Vitaly Jimenez Protein [Mass/Vol] 5.7 g/dL Critically low 6.4-8.2 Th [facility] Comment on above: Performed By: #### O THCX #### [facility] [address] [place] [address] Dr. Vitaly Jimenez Sodium [Moles/Vol] 131 mmol/L Critically low 136-145 Th [facility] Comment on above: Performed By: #### O THCX #### [facility] [address] [place] [address] Dr. Vitaly Jimenez Urea nitrogen [Mass/Vol] 34.0 mg/dL Critically high 7.0-18 .0 [facility] Comment on above: Performed By: #### O THCX #### [facility] [address] [place] [address] Dr. Vitaly Jimenez Urea nitrogen/Creatinine [Mass ratio] 20.1 mg/mg Normal [facility] Comment on above: Performed By: #### O THCX #### [facility] [address] [place] [address] Dr. Vitaly Jimenez CBC AUTO DIFFon 02-19-2022 BASO # 0.0 103/ul Normal 0.0-0.1 [facility] Comment on above: Performed By: #### C MP #### [facility] [address] [place] [address] Dr. Vitaly Jimenez Basophils/100 WBC (Bld) 0.5 % Normal 0.2-2.0 [facility] Comment on above: Performed By: #### C MP #### [facility] [address] [place] [address] Dr. Vitaly Jimenez EO # 0.1 103/ul Normal 0.0-0.7 [facility] Comment on above: Performed By: #### C MP #### [facility] [address] [place] [address] Dr. Vitaly Jimenez Eosinophils/100 WBC (Bld) 1.2 % Normal 0.9-7.0 [facility] Comment on above: Performed By: #### C MP #### [facility] [address] [place] [address] Dr. Vitaly Jimenez Erythrocyte distribution width (RBC) [Ratio] 14.2 % Normal 11.0-15.0 [facility] Comment on above: Performed By: #### C MP #### [facility] [address] [address] [address] Vitaly Jimenez Hematocrit (Bld) [Volume fraction] 25.7 % Critically low 42.0-54.0 [facility] Comment on above: Performed By: #### C MP #### [facility] [address] [address] [address] Vitaly Jimenez Hemoglobin (Bld) [Mass/Vol] 7.3 g/dL Critically low 14.0-18.0 [facility] Comment on above: Performed By: #### C MP #### [facility] [address] [place] [address] Dr. Vitaly Jimenez IG # 0.06 10e3/ul Critically high 0.00-0.03 [facility] Comment on above: Performed By: #### C MP #### [facility] [address] [place] [address] Dr. Vitaly Jimenez IG % 0.8 % Critically high 0.0-0.5 [facility] Comment on above: Performed By: #### C MP #### [facility] [address] [place] [address] Dr. Vitaly Jimenez LYMPH # 2.2 103/ul Normal 1.2-3.8 [facility] Comment on above: Performed By: #### C MP #### [facility] [address] [place] [address] Dr. Vitaly Jimenez Lymphocytes/100 WBC (Bld) 27.9 % Normal 20.5-60.0 [facility] Comment on above: Performed By: #### C MP #### [facility] [address] [place] [address] Dr. Vitaly Jimenez MANUAL DIFF REQ NO Normal [facility] Comment on above: Performed By: #### C MP #### [facility] [address] [place] [address] Dr. Vitaly Jimenez MCH (RBC) [Entitic mass] 24.7 pg Critically low 25.9-34 .0 [facility] Comment on above: Performed By: #### C MP #### [facility] [address] [address] [address] Vitaly Jimenez MCHC (RBC) [Mass/Vol] 28.4 g/dL Critically low 29.9-35.2 [facility] Comment on above: Performed By: #### C MP #### [facility] [address] [place] [address] Dr. Vitaly Jimenez MCV (RBC) [Entitic vol] 87.1 fL Normal 80.0-94.0 [facility] Comment on above: Performed By: #### C MP #### [facility] [address] [address] [address] Vitaly Jimenez MONO # 1.0 103/ul Critically high 0.3-0.8 [facility] Comment on above: Performed By: #### C MP #### [facility] [address] [place] [address] Dr. Vitaly Jimenez Monocytes/100 WBC (Bld) 12.4 % Critically high 1.7-12. 0 [facility] Comment on above: Performed By: #### C MP #### [facility] [address] [place] [address] Dr. Vitaly Jimenez NEUT # 4.5 103/ul Normal 1.4-6.5 [facility] Comment on above: Performed By: #### C MP #### [facility] [address] [place] [address] Dr. Vitaly Jimenez Neutrophils/100 WBC (Bld) 57.2 % Normal 43.0-75.0 [facility] Comment on above: Performed By: #### C MP #### [facility] [address] [place] [address] Dr. Vitaly Jimenez Platelet mean volume (Bld) [Entitic vol] 10.0 fL Normal 9.5-13.5 [facility] Comment on above: Performed By: #### C MP #### [facility] [address] [place] [address] Dr. Vitaly Jimenez PLT 269 103/ul Normal 150-450 [facility] Comment on above: Performed By: #### C MP #### [facility] [address] [address] [address] Vitaly Jimenez RBC 2.95 106/ul Critically low 4.70-6.10 [facility] Comment on above: Performed By: #### C MP #### [facility] [address] [place] [address] Dr. Vitaly Jimenez WBC 7.8 103/ul Normal 4.0-11.0 [facility] Comment on above: Performed By: #### C MP #### [facility] [address] [place] [address] Dr. Vitaly Jimenez GLYCOHEMOGLOBIN A1Con 2022 ADA RECOMMENDATION SEE BELOW Normal [facility] Comment on above: Result Comment: ADA RECOMMENDED LIMIT 4.0 - 6.0 ADA THERAPEUTIC TARGET < 7.0 ACTION SUGGESTED > 7.0 Performed By: #### C MP #### [facility] [address] [place] [address] Dr. Vitaly Jimenez Glucose [Mass/Vol] 148 mg/dL Normal [facility] Comment on above: Performed By: #### C MP #### [facility] [address] [place] [address] Dr. Vitaly Jimenez HbA1c (Bld) [Mass fraction] 6.8 % Critically high 4.5-6.2 [facility] Comment on above: Performed By: #### C MP #### [facility] [address] [place] [address] Dr. Vitaly Jimenez HEMOGLOBIN AND HEMATOCRITon 02-19-2022 Hematocrit (Bld) [Volume fraction] 27.1 % Critically low 42.0-54.0 [facility] Comment on above: Performed By: #### C BC #### [facility] [address] [place] [address] Dr. Vitaly Jimenez Hemoglobin (Bld) [Mass/Vol] 7.8 g/dL Critically low 14.0-18.0 [facility] Comment on above: Performed By: #### C BC #### [facility] [address] [place] [address] Dr. Vitaly Jimenez POINT OF CARE GLUCOSEon 02-07 Glucose [Mass/Vol] 170 mg/dL Critically high [address] [place] [address] Comment on above: Performed By: #### A NACX #### [facility] [address] [place] [address] Dr. Vitaly Jimenez Glucose [Mass/Vol] 215 mg/dL Critically high [address] [place] [address] Comment on above: Performed By: #### C BC #### [facility] [address] [address] [address] Vitaly Jimenez Glucose [Mass/Vol] 267 mg/dL Critically high [address] [place] [address] Comment on above: Performed By: #### C BC #### [facility] [address] [place] [address] Dr. Vitaly Jimenez Glucose [Mass/Vol] 220 mg/dL Critically high [address] [place] [address] Comment on above: Performed By: #### O THCX #### [facility] [address] [place] [address] Dr. Vitaly Jimenez Glucose [Mass/Vol] 200 mg/dL Critically high [address] [place] [address] Comment on above: Performed By: #### O THCX #### [facility] [address] [place] [address] Dr. Vitaly Jimenez PROF 14(COMP METB)on 023 Albumin [Mass/Vol] 1.9 g/dL Critically low 3.4-5.0 [facility] Comment on above: Performed By: #### C MP #### [facility] [address] [place] [address] Dr. Vitaly Jimenez Albumin/Globulin [Mass ratio] 0.5 {ratio} Normal [facility] Comment on above: Performed By: #### C MP #### [facility] [address] [place] [address] Dr. Vitaly Jimenez ALP [Catalytic activity/Vol] 92 U/L Normal 46-116 [facility] Comment on above: Performed By: #### C MP #### [facility] [address] [place] [address] Dr. Vitaly Jimenez ALT [Catalytic activity/Vol] 5 U/L Critically low 16-63 [facility] Comment on above: Performed By: #### C MP #### [facility] [address] [address] [address] Vitaly Jimenez Anion gap [Moles/Vol] 9.4 mmol/L Normal [facility] Comment on above: Performed By: #### C MP #### [facility] [address] [address] [address] Vitaly Jimenez AST [Catalytic activity/Vol] 10 U/L Critically low 15-37 [facility] Comment on above: Performed By: #### C MP #### [facility] [address] [address] [address] Vitaly Jimenez Bilirubin [Mass/Vol] 0.3 mg/dL Normal 0.2-1.0 [facility] Comment on above: Performed By: #### C MP #### [facility] [address] [address] [address] Vitaly Jimenez Calcium [Mass/Vol] 8.2 mg/dL Critically low 8.5-10.1 Th [facility] Comment on above: Performed By: #### C MP #### [facility] [address] [address] [address] Vitaly Jimenez Chloride [Moles/Vol] 97 mmol/L Critically low 98-107 [facility] Comment on above: Performed By: #### C MP #### [facility] [address] [address] [address] Vitaly Jimenez CO2 [Moles/Vol] 30.1 mmol/L Normal 21.0-32.0 [facility] Comment on above: Performed By: #### C MP #### [facility] [address] [address] [address] Vitaly Jimenez Creatinine [Mass/Vol] 2.08 mg/dL Critically high 0.70-1.30 [facility] Comment on above: Performed By: #### C MP #### [facility] [address] [address] [address] Vitaly Jimenez EGFR-AF SERBIAN 40 mL/min/1.73m2 Critically low >=60 [facility] Comment on above: Performed By: #### C MP #### [facility] [address] [address] [address] Vitaly Jimenez EGFR-NON AF SERBIAN 33 mL/min/1.73m2 Critically low >=60 [facility] Comment on above: Performed By: #### C MP #### [facility] [address] [address] [address] Vitaly Jimenez Globulin (S) [Mass/Vol] 3.9 g/dL Normal [facility] Comment on above: Performed By: #### C MP #### [facility] [address] [address] [address] Vitaly Jimenez Glucose [Mass/Vol] 197 mg/dL Critically high 74-106 [facility] Comment on above: Performed By: #### C MP #### [facility] [address] [address] [address] Vitaly Jimenez Potassium [Moles/Vol] 4.5 mmol/L Normal 3.5-5.1 [facility] Comment on above: Performed By: #### C MP #### [facility] [address] [address] [address] Vitaly Jimenez Protein [Mass/Vol] 5.8 g/dL Critically low 6.4-8.2 [facility] Comment on above: Performed By: #### C MP #### [facility] [address] [address] [address] Vitaly Jimenez Sodium [Moles/Vol] 132 mmol/L Critically low 136-145 [facility] Comment on above: Performed By: #### C MP #### [facility] [address] [address] [address] Vitaly Jimenez Urea nitrogen [Mass/Vol] 25.0 mg/dL Critically high 7.0-18 .0 [facility] Comment on above: Performed By: #### C MP #### [facility] [address] [address] [address] Vitaly Jimenez Urea nitrogen/Creatinine [Mass ratio] 12.0 mg/mg Normal [facility] Comment on above: Performed By: #### C MP #### [facility] [address] [place] [address] Dr. Vitaly Jimenez TYPE AND SCREENon 02-19-2022 TYPE AND SCREEN Negative Normal [facility] Comment on above: Performed By: #### T NS #### [facility] [address] [place] [address] Dr. Vitaly Jimenez CULTURE ANAEROBICon 02-18-19 23 CULTURE ANAEROBIC Culture Observations: NO GROWTH OF ANAEROBES AT 72 HOURS. Normal [facility] Comment on above: Performed By: #### C MP #### [facility] [address] [place] [address] Dr. Vitaly Jimenez GRAM STAINon 02-18-2022 COMMENTS NO ORGANISMS OBSERVED Normal [facility] Comment on above: Performed By: #### A NACX #### [facility] [address] [place] [address] Dr. Vitaly Jimenez DIPHTHEROIDS [facility] Comment on above: Performed By: #### A NACX #### [facility] [address] [place] [address] Dr. Vitaly Jimenez EPITHELIALS [facility] Comment on above: Performed By: #### A NACX #### [facility] [address] [place] [address] Dr. Vitaly Jimenez FUNGAL ELEMENTS Normal [facility] Comment on above: Performed By: #### A NACX #### [facility] [address] [place] [address] Dr. Vitaly Jimenez GRAM NEG BACILLI Normal [facility] Comment on above: Performed By: #### A NACX #### [facility] [address] [place] [address] Dr. Vitaly DORAN NEG DIPPLOCOCCI Normal [facility] Comment on above: Performed By: #### A NACX #### [facility] [address] [place] [address] Dr. Vitaly Jimenez GRAM POS BACILLI [facility] Comment on above: Performed By: #### A NACX #### [facility] [address] [place] [address] Dr. Vitaly Jimenez GRAM POSITIVE COCCI Normal [facility] Comment on above: Performed By: #### A NACX #### [facility] [address] [place] [address] Dr. Vitaly Jimenez GRAM STAIN SOURCE l. tibia [facility] Comment on above: Performed By: #### A NACX #### [facility] [address] [place] [address] Dr. Vitaly Jimenez GS_DIPTH [facility] Comment on above: Performed By: #### A NACX #### [facility] [address] [address] [address] Vitaly Jimenez WBC RARE [facility] Comment on above: Performed By: #### A NACX #### [facility] [address] [place] [address] Dr. Vitaly Jimenez POINT OF CARE GLUCOSEon 02-07 Glucose [Mass/Vol] 191 mg/dL Critically high 74-106 [facility] Comment on above: Performed By: #### C BC #### [facility] [address] [place] [address] Dr. Vitaly Jimenez Glucose [Mass/Vol] 202 mg/dL Critically high [facility]106 [facility] Comment on above: Performed By: #### C BC #### [facility] [address] [place] [address] Dr. Vitaly Jimenez Glucose [Mass/Vol] 219 mg/dL Critically high -106 [facility] Comment on above: Performed By: #### O THCX #### [facility] [address] [place] [address] Dr. Vitaly Jimenez Covid-19 PCR (CVDTB)on 02-07 SARS-CoV-2 (COVID-19) RNA TOÑITO+probe Ql (Unsp spec) Not detected Normal NOT DETECTED [facility] Comment on above: Result Comment: This test is not yet approved or cleared by the [place] FDA. When there are no FDA-approved or cleared tests available, and other criteria are met, FDA can make tests available under an emergency access mechanism called an Emergency Use Authorization (EUA). The EUA for this test is supported by the Mycology Teacher of Health and Human Service's (HHS's) declaration [...] SARS-CoV-2. Performed By: #### C BC #### [facility] [address] [place] [address] Dr. Vitaly Jimenez CBC AUTO DIFFon 02-10-2022 BASO # 0.0 103/ul Normal 0.0-0.1 [facility] Comment on above: Performed By: #### A NACX #### [facility] [address] [place] [address] Dr. Vitaly Jimenez Basophils/100 WBC (Bld) 0.4 % Normal 0.2-2.0 [facility] Comment on above: Performed By: #### A NACX #### [facility] [address] [place] [address] Dr. Vitaly Jimenez EO # 0.2 103/ul Normal 0.0-0.7 [facility] Comment on above: Performed By: #### A NACX #### [facility] [address] [place] [address] Dr. Vitaly Jimenez Eosinophils/100 WBC (Bld) 1.6 % Normal 0.9-7.0 [facility] Comment on above: Performed By: #### A NACX #### [facility] [address] [place] [address] Dr. Vitaly Jimenez Erythrocyte distribution width (RBC) [Ratio] 13.8 % Normal 11.0-15.0 [facility] Comment on above: Performed By: #### A NACX #### [facility] [address] [place] [address] Dr. Vitaly Jimenez Hematocrit (Bld) [Volume fraction] 29.1 % Critically low 42.0-54.0 [facility] Comment on above: Performed By: #### A NACX #### [facility] [address] [place] [address] Dr. Vitaly Jimenez Hemoglobin (Bld) [Mass/Vol] 9.4 g/dL Critically low 14.0-18.0 [facility] Comment on above: Performed By: #### A NACX #### [facility] [address] [place] [address] Dr. Vitaly Jimenez IG # 0.06 10e3/ul Critically high 0.00-0.03 [facility] Comment on above: Performed By: #### A NACX #### [facility] [address] [place] [address] Dr. Vitaly Jimenez IG % 0.6 % Critically high 0.0-0.5 [facility] Comment on above: Performed By: #### A NACX #### [facility] [address] [place] [address] Dr. Vitaly Jimenez LYMPH # 1.9 103/ul Normal 1.2-3.8 [facility] Comment on above: Performed By: #### A NACX #### [facility] [address] [place] [address] Dr. Vitaly Jimenez Lymphocytes/100 WBC (Bld) 19.6 % Critically low 20.5-60.0 [facility] Comment on above: Performed By: #### A NACX #### [facility] [address] [place] [address] Dr. Vitaly Jimenez MANUAL DIFF REQ NO Normal [facility] Comment on above: Performed By: #### A NACX #### [facility] [address] [place] [address] Dr. Vitaly Jimenez MCH (RBC) [Entitic mass] 25.5 pg Critically low 25.9-34 .0 [facility] Comment on above: Performed By: #### A NACX #### [facility] [address] [place] [address] Dr. Vitaly Jimenez MCHC (RBC) [Mass/Vol] 32.3 g/dL Normal 29.9-35.2 [facility] Comment on above: Performed By: #### A NACX #### [facility] [address] [place] [address] Dr. Vitaly Jimenez MCV (RBC) [Entitic vol] 79.1 fL Critically low 80.0-94. 0 [facility] Comment on above: Performed By: #### A NACX #### [facility] [address] [place] [address] Dr. Vitaly Jimenez MONO # 0.5 103/ul Normal 0.3-0.8 [facility] Comment on above: Performed By: #### A NACX #### [facility] [address] [place] [address] Dr. Vitaly Jimenez Monocytes/100 WBC (Bld) 5.4 % Normal 1.7-12.0 [facility] Comment on above: Performed By: #### A NACX #### [facility] [address] [place] [address] Dr. Vitaly Jimenez NEUT # 6.9 103/ul Critically high 1.4-6.5 [facility] Comment on above: Performed By: #### A NACX #### [facility] [address] [place] [address] Dr. Vitaly Jimenez Neutrophils/100 WBC (Bld) 72.4 % Normal 43.0-75.0 [facility] Comment on above: Performed By: #### A NACX #### [facility] [address] [place] [address] Dr. Vitaly Jimenez Platelet mean volume (Bld) [Entitic vol] 9.4 fL Critically low 9.5-13.5 [facility] Comment on above: Performed By: #### A NACX #### [facility] [address] [place] [address] Dr. Vitaly Jimenez PLT 288 103/ul Normal 150-450 [facility] Comment on above: Performed By: #### A NACX #### [facility] [address] [place], [place] [id number] Dr. Vitaly Jimenez RBC 3.68 106/ul Critically low 4.70-6.10 [facility] Comment on above: Performed By: #### A NACX #### [facility] [address] [place] [address] Dr. Vitaly Jimenez WBC 9.5 103/ul Normal 4.0-11.0 [facility] Comment on above: Performed By: #### A NACX #### [facility] [address] [place] [address] Dr. Vitaly Jimenez DRUG SCREEN RAPID (URINE)on 02-10-2022 AMP Negative Normal NEGATIVE [facility] Comment on above: Performed By: #### C BC #### [facility] [address] [place] [address] Dr. Vitaly Jimenez BAR Negative Normal NEGATIVE [facility] Comment on above: Performed By: #### C BC #### [facility] [address] [place] [address] Dr. Vitaly Jimenez BUP Positive Abnormal NEGATIVE [facility] Comment on above: Performed By: #### C BC #### [facility] [address] [place] [address] Dr. Vitaly Jimenez BZO Negative Normal NEGATIVE [facility] Comment on above: Performed By: #### C BC #### [facility] [address] [place] [address] Dr. Vitaly Jimenez RUTH Negative Normal NEGATIVE [facility] Comment on above: Performed By: #### C BC #### [facility] [address] [place] [address] Dr. Vitaly Jimenez CUT-OFFS SEE BELOW Normal [facility] Comment on above: Result Comment: AMP (Amphetamine): 500ng/mL, BAR (Barbituates): 200 ng/mL, BZO (Benzodiazepines): 150 ng/mL, BUP (Buprenorphine): 10 ng/mL, RUTH (Cocaine): 150 ng/mL, mAMP (Methamphetamine): 500 ng/mL, MTD (Methadone): 200 ng/mL, OPI (Opiates): 100 ng/mL, OXY (Oxycodone): 100 ng/mL, PCP (Phencyclidine): 25 ng/mL, PPX (Propoxyphene): 300 ng/mL, THC (Cannabinoids): 50 ng/mL, TCA (Trycyclic Antidepressants): 300 ng/mL Performed By: #### C BC #### [facility] [address] [place] [address] Dr. Vitaly Jimenez DRUG CUT HEADER DRUG CLASS TEST SYSTEM CUT-OFF CONCENTRATIONS ARE FOLLOWS: Normal [facility] Comment on above: Performed By: #### C BC #### [facility] [address] [place] [address] Dr. Vitaly Jimenez mAMP Negative Normal NEGATIVE [facility] Comment on above: Performed By: #### C BC #### [facility] [address] [place] [address] Dr. Vitaly Jimenez MTD Negative Normal NEGATIVE [facility] Comment on above: Performed By: #### C BC #### [facility] [address] [place] [address] Dr. Vitaly Jimenez OPI Negative Normal NEGATIVE [facility] Comment on above: Performed By: #### C BC #### [facility] [address] [place] [address] Dr. Vitaly Jimenez OXY Negative Normal NEGATIVE [facility] Comment on above: Performed By: #### C BC #### [facility] [address] [place] [address] Dr. Vitaly Jimenez PCP Negative Normal NEGATIVE [facility] Comment on above: Performed By: #### C BC #### [facility] [address] [place] [address] Dr. Vitaly Jimenez PPX Negative Normal NEGATIVE [facility] Comment on above: Performed By: #### C BC #### [facility] [address] [place] [address] Dr. Vitaly Jimenez TCA Negative Normal NEGATIVE [facility] Comment on above: Performed By: #### C BC #### [facility] [address] [place] [address] Dr. Vitaly Jimenez THC Negative Normal NEGATIVE [facility] Comment on above: Performed By: #### C BC #### [facility] [address] [place] [address] Dr. Vitaly Jimenez PROF CHEM 8 (BAS METB)on Anion gap [Moles/Vol] 11.0 mmol/L Normal Th [facility] Comment on above: Performed By: #### C BC #### [facility] [address] [place] [address] Dr. Vitaly Jimenez Calcium [Mass/Vol] 8.6 mg/dL Normal 8.5-10.1 [facility] Comment on above: Performed By: #### C BC #### [facility] [address] [place] [address] Dr. Vitaly Jimenez Chloride [Moles/Vol] 97 mmol/L Critically low 98-107 [facility] Comment on above: Performed By: #### C BC #### [facility] [address] [place] [address] Dr. Vitaly Jimenez CO2 [Moles/Vol] 28.3 mmol/L Normal 21.0-32.0 [facility] Comment on above: Performed By: #### C BC #### [facility] [address] [place] [address] Dr. Vitaly Jimenez Creatinine [Mass/Vol] 1.10 mg/dL Normal 0.70-1.30 [facility] Comment on above: Performed By: #### C BC #### [facility] [address] [place] [address] Dr. Vitaly Jimenez EGFR-AF SERBIAN >60 Normal >=60 [facility] Comment on above: Performed By: #### C BC #### [facility] [address] [place] [address] Dr. Vitaly Jimenez EGFR-NON AF SERBIAN >60 Normal >=60 [facility] Comment on above: Performed By: #### C BC #### [facility] [address] [place] [address] Dr. Vitaly Jimenez Glucose [Mass/Vol] 249 mg/dL Critically high 74-106 [facility] Comment on above: Performed By: #### C BC #### [facility] [address] [place] [address] Dr. Vitaly Jimenez Potassium [Moles/Vol] 4.3 mmol/L Normal 3.5-5.1 [facility] Comment on above: Performed By: #### C BC #### [facility] [address] [place] [address] Dr. Vitaly Jimenez Sodium [Moles/Vol] 132 mmol/L Critically low 136-145 Th e [facility] Comment on above: Performed By: #### C BC #### [facility] [address] [place] [address] Dr. Vitaly Jimenez Urea nitrogen [Mass/Vol] 14.0 mg/dL Normal 7.0-18.0 [facility] Comment on above: Performed By: #### C BC #### [facility] [address] [place] [address] Dr. Vitaly Jimenez Urea nitrogen/Creatinine [Mass ratio] 12.7 mg/mg Normal [facility] Comment on above: Performed By: #### C BC #### [facility] [address] [place] [address] Dr. Vitaly Jimenez PROTIMEon 02-10-2022 INR Coag (PPP) [Relative time] 0.97 {INR} Normal [facility] Comment on above: Performed By: #### A NACX #### [facility] [address] [place] [address] Dr. Vitaly Jimenez INR GUIDELINES SEE BELOW Normal [facility] Comment on above: Result Comment: CRISTIANE RED INR: 2.0 - 3.0 CONDITIONS NOT LISTED BELOW 2.5 - 3.5 FOR PROSTHETIC HEART VALVE REPLACEMENT 2.5 - 3.5 RECURRENT THROMBOSIS Performed By: #### A NACX #### [facility] [address] [place] [address] Dr. Vitaly Jimenez PT Coag (PPP) [Time] 10.5 s Normal 9.0-11.6 [facility] Comment on above: Performed By: #### A NACX #### [facility] [address] [place] [address] Dr. Vitaly Jimenez PTTon 02-10-2022 aPTT Coag (Bld) [Time] 27.7 s Normal 22.3-36.2 Th e [facility] Comment on above: Performed By: #### A NACX #### [facility] [address] [address] [address] Vitaly Jimenez XR ANKLE MADDIE MIN [...] by: EVITA MORALES Date: 2022-01-19 15:33 Normal [facility] A1C with Estimated Average G nola 10-09-2021 Glucose [Mass/Vol] 140 mg/dL Normal [facility] Comment on above: Result Comment: PERF ORMED BY: [address] [address] PATHOLOGIST BLANKET INSPECTOR ANGIE OLVERA M.D. Performed By: #### B MP, CBC #### [address] HbA1c (Bld) [Mass fraction] 6.5 % High 4.3-5.6 [facility] Comment on above: Result Comment: Incr eased risk for diabetes: 5.7 - 6.4 diabetes: >6.4 glycemic control for adults with diabetes: <7.0 Performed By: #### B MP, CBC #### [facility] [address] Activated partial thrombopla stin time (aPTT) in platelet poor plasma by coagulation aOrdered By: Michael Caruso on 10-09-2021 aPTT Coag (PPP) [Time] 30.9 s 25.1-36.5 [facility] Basic Metabolic Panelon Anion gap [Moles/Vol] 10.0 mmol/L Normal 6.0-15.0 [facility] Comment on above: Performed By: #### B MP, CBC #### [facility] [address] Calcium [Mass/Vol] 8.9 mg/dL Normal 8.2-10.2 [facility] Comment on above: Performed By: #### B MP, CBC #### [facility] [address] Chloride [Moles/Vol] 101 mmol/L Normal 95-[address] [facility] Comment on above: Performed By: #### B MP, CBC #### [facility] [address] CO2 [Moles/Vol] 30.8 mmol/L High 22.0-30.0 [facility] Comment on above: Performed By: #### B MP, CBC #### [facility] [address] [id number] [place] Creatinine [Mass/Vol] 1.91 mg/dL High 0.64-1.27 [facility] Comment on above: Performed By: #### B MP, CBC #### [facility] [address] [id number] [place] Creatinine Clr Calc Pharmacy 53.67 [facility] Comment on above: Performed By: #### B MP, CBC #### [place] [address] [place] Estimated GFR ( Vianey 44 [facility] Comment on above: Result Comment: GFR estimated reference range: According to KDOQI guidelines, <60 ml/min/1.73m2 is sufficient to diagnose a patient with chronic kidney disease. Performed By: #### B MP, CBC #### [facility] [address] [place] [address] [place] Estimated GFR (Non- Am 36 [facility] Comment on above: Performed By: #### B MP, CBC #### [address] Glucose [Mass/Vol] 111 mg/dL High 70-100 [facility] Comment on above: Result Comment: Island Glucose Reference Range is dependent on time and content of last meal. Glucose of more than 200 mg/dL in a nonstressed, ambulatory subject supports the diagnosis of Diabetes Mellitus. ADA recommended reference range Performed By: #### B MP, CBC #### [address] Potassium [Moles/Vol] 3.8 mmol/L Normal 3.5-5.1 [facility] Comment on above: Performed By: #### B MP, CBC #### [address] Sodium [Moles/Vol] 138 mmol/L Normal 136-146 [facility] Comment on above: Performed By: #### B MP, CBC #### [address] Urea nitrogen [Mass/Vol] 23 mg/dL Normal 9-23 [facility] Comment on above: Performed By: #### B MP, CBC #### [address] Basophils Auto (Bld) [#/Vol] Ordered By: Michael Caruso on 10-09-2021 Basophils (Bld) [#/Vol] 0.1 10*3/uL 0.0-0.2 [facility] Basophils/100 WBC Auto (Bld) Ordered By: Michael Caruso on 10-09-2021 Basophils/100 WBC (Bld) 1.2 % . F [facility] Blood hemoglobin measurement (mass/volume)Ordered By: Michael Caruso on 10-09-2021 Hemoglobin (Bld) [Mass/Vol] 8.8 g/dL 13.0-17.0 [facility] Blood leukocytes automated c ount (number/volume)Ordered By: Michael Caruso on 10-09-2021 WBC (Bld) [#/Vol] 7.1 10*3/uL 4.5-11.[address] [facility] [address] biopsyOrdered By: Araseli Caruso on 10-09-2021 Transferrin [Mass/Vol] 176 mg/dL 180-380 [facility] Complete Blood Count Auto Di ffon 10-09-2021 Basophils (Bld) [#/Vol] 0.1 10*3/uL Normal 0.0-0.2 [facility] Comment on above: Result Comment: PERF ORMED BY: [place] [address] PATHOLOGIST BLANKET INSPECTOR ANGIE OLVERA M.D. Performed By: #### F E, TIBC, BMP, REZA, [id number], CBC, PTT, A1C WTH eA, PT #### [facility] [address] Basophils/100 WBC (Bld) 1.2 % Normal . F [facility] Comment on above: Performed By: #### F E, TIBC, BMP, REZA, [id number], CBC, PTT, A1C WTH eA, PT #### [facility] [address] [place] [address] [place] Eosinophils (Bld) [#/Vol] 0.4 10*3/uL Normal 0.0-0.45 [facility] Comment on above: Performed By: #### F E, TIBC, BMP, REZA, [id number], CBC, PTT, A1C WTH eA, PT #### [address] Eosinophils/100 WBC (Bld) 5.9 % Normal . [facility] Comment on above: Performed By: #### F E, TIBC, BMP, REZA, [id number], CBC, PTT, A1C WTH eA, PT #### [address] Erythrocyte distribution width (RBC) [Ratio] 15.1 % High 12.0-14.8 [facility] Comment on above: Performed By: #### F E, TIBC, BMP, REZA, [id number], CBC, PTT, A1C WTH eA, PT #### [address] Hematocrit (Bld) [Volume fraction] 26.6 % Low 38.8-50.0 [facility] Comment on above: Performed By: #### F E, TIBC, BMP, REZA, [id number], CBC, PTT, A1C WTH eA, PT #### [address] Hemoglobin (Bld) [Mass/Vol] 8.8 g/dL Low 13.0-17.0 [facility] Comment on above: Performed By: #### F E, TIBC, BMP, REZA, [id number], CBC, PTT, A1C WTH eA, PT #### [address] Lymphocytes (Bld) [#/Vol] 2.3 10*3/uL Normal 1.00-4.8 [facility] Comment on above: Performed By: #### F E, TIBC, BMP, REZA, [id number], CBC, PTT, A1C WTH eA, PT #### [address] Lymphocytes/100 WBC (Bld) 33.0 % Normal . [facility] Comment on above: Performed By: #### F E, TIBC, BMP, REZA, [id number], CBC, PTT, A1C WTH eA, PT #### [address] MCH (RBC) [Entitic mass] 28.0 pg Normal 27.5-35.2 [facility] Comment on above: Performed By: #### F E, TIBC, BMP, REZA, [id number], CBC, PTT, A1C WTH eA, PT #### [address] MCV (RBC) [Entitic vol] 84.4 fL Normal 83.5-101 F [facility] Comment on above: Performed By: #### F E, TIBC, BMP, REZA, [id number], CBC, PTT, A1C WTH eA, PT #### [address] Mean Corpuscular HGB Conc 33.1 g/dL Normal 32.5-35.6 [facility] Comment on above: Performed By: #### F E, TIBC, BMP, REZA, [id number], CBC, PTT, A1C WTH eA, PT #### [address] Monocytes (Bld) [#/Vol] 0.7 10*3/uL Normal 0.0-0.8 [facility] Comment on above: Performed By: #### F E, TIBC, BMP, REZA, [id number], CBC, PTT, A1C WTH eA, PT #### [address] Monocytes/100 WBC (Bld) 9.4 % Normal . [facility] Comment on above: Performed By: #### F E, TIBC, BMP, REZA, [id number], CBC, PTT, A1C WTH eA, PT #### [address] Neutrophils (Bld) [#/Vol] 3.6 10*3/uL Normal 1.8-7.7 [facility] Comment on above: Performed By: #### F E, TIBC, BMP, REZA, [id number], CBC, PTT, A1C WTH eA, PT #### [facility] [address] Neutrophils/100 WBC (Bld) 50.5 % Normal . [facility] Comment on above: Performed By: #### F E, TIBC, BMP, REZA, [id number], CBC, PTT, A1C WTH eA, PT #### [facility] [address] Nucleated RBC/100 WBC (Bld) [Ratio] 0.1 % Normal 0-0.5 [facility] Comment on above: Performed By: #### F E, TIBC, BMP, REZA, [id number], CBC, PTT, A1C WTH eA, PT #### [address] Platelet mean volume (Bld) [Entitic vol] 7.7 fL Normal 6.6-10.1 [facility] Comment on above: Performed By: #### F E, TIBC, BMP, REZA, [id number], CBC, PTT, A1C WTH eA, PT #### [address] Platelets (Bld) [#/Vol] 157 10*3/uL Normal 150-450 [facility] Comment on above: Performed By: #### F E, TIBC, BMP, REZA, [id number], CBC, PTT, A1C WTH eA, PT #### [address] RBC (Bld) [#/Vol] 3.15 10*6/uL Low 3.90-5.60 [facility] Comment on above: Performed By: #### F E, TIBC, BMP, REZA, [id number], CBC, PTT, A1C WTH eA, PT #### [address] WBC (Bld) [#/Vol] 7.1 10*3/uL Normal 4.5-11.0 [facility] Comment on above: Performed By: #### F E, TIBC, BMP, REZA, [id number], CBC, PTT, A1C WTH eA, PT #### [facility] [address] [place] [address] [place] Creatinine and Glomerular fi ltration rate.predicted panel (S/P/Bld)Ordered By: Michael Caruso on 10-09-2021 Creatinine [Mass/Vol] 1.91 mg/dL 0.64-1.27 [facility] Eosinophils Auto (Bld) [#/Vo l]Ordered By: Michael Caruso on 10-09-2021 Eosinophils (Bld) [#/Vol] 0.4 10*3/uL 0.0-0.45 [facility] Eosinophils/100 WBC Auto (Bl d)Ordered By: Michael Caruso on 10-09-2021 Eosinophils/100 WBC (Bld) 5.9 % . [facility] Erythrocyte distribution wid th Auto (RBC) [Ratio]Ordered By: Michael Caruso on 10-09-2021 Erythrocyte distribution width (RBC) [Ratio] 15.1 % 12.0-14.8 [facility] Estimated glomerular filtrat ion rate (GFR) non- AmericanOrdered By: Michael Caruso on 10-09-2021 GFR/1.73 sq M.predicted among non-blacks MDRD (S/P/Bld) [Vol rate/Area] 36 mL/Min [facility] Ferritinon 10-09-2021 Ferritin [Mass/Vol] 286.1 ng/mL Normal 23.9-336.[address] [facility] Comment on above: Performed By: #### B MP, CBC #### [facility] [address] [id number] [place] Ferritin [Mass/volume] in Se rum or PlasmaOrdered By: Michael Caruso on 10-09-2021 Ferritin [Mass/Vol] 286.1 ng/mL 23.9-336.[address] [facility] Folate [Mass/volume] in Seru m or PlasmaOrdered By: Michael Caruso on 10-09-2021 Folate [Mass/Vol] 9.0 ng/mL >5.9 [facility] Comment on above: Folate reference ran ge: >5.9 ng/ml The WHO technical consultation on folate and vitamin b12 deficiencies has determined that folate concentrations less than 4 ng/ml are considered deficient. Glucose mean value [Mass/vol ume] in Blood Estimated from glycated hemoglobinOrdered By: Michael Caruso on 10-09-2021 Average glucose Estimated from glycated hemoglobin (Bld) [Mass/Vol] 140 mg/dL [facility] Hematocrit Auto (Bld) [Volum e fraction]Ordered By: Michael Caruso on 10-09-2021 Hematocrit (Bld) [Volume fraction] 26.6 % 38.8-50.0 [facility] Hemoglobin A1c percentageOrd ered By: Michael Caruso on 10-09-2021 HbA1c (Bld) [Mass fraction] 6.5 % 4.3-5.6 [facility] Comment on above: Increased risk for d iabetes: 5.7 - 6.4 diabetes: >6.4 glycemic control for adults with diabetes: <7.0 Ironon 10-09-2021 Iron [Mass/Vol] 37 ug/dL Low 40-160 [facility] Comment on above: Performed By: #### B MP, CBC #### [address] Iron [Mass/volume] in Serum or PlasmaOrdered By: Michael Caruso on 10-09-2021 Iron [Mass/Vol] 37 ug/dL 40-160 [facility] Iron binding capacity [Mass/ volume] in Serum or PlasmaOrdered By: Michael Caruso on 10-09-2021 Iron binding capacity [Mass/Vol] 246 ug/dL 255-450 [facility] Laboratory - Chemistry and C hemistry - challengeOrdered By: Michael Caruso on 10-09-2021 Cobalamin (Vitamin B12) [Mass/Vol] 312 pg/mL 180-914 [facility] - CoagulationOrde red By: Michael Caruso on 10-09-2021 PT Coag (PPP) [Time] 14.1 s 9.0-12.[address] [facility] - Hematology and Cell countsOrdered By: Michael Caruso on 10-09-2021 Nucleated RBC/100 WBC (Bld) [Ratio] 0.1 % 0-0.5 [facility] Lymphocytes Auto (Bld) [#/Vo l]Ordered By: Michael Caruso on 10-09-2021 Lymphocytes (Bld) [#/Vol] 2.3 10*3/uL 1.00-4.8 [facility] Lymphocytes/100 WBC Auto (Bl d)Ordered By: Michael Caruso on 10-09-2021 Lymphocytes/100 WBC (Bld) 33.0 % . [facility] MCH Auto (RBC) [Entitic mass ]Ordered By: Michael Caruso on 10-09-2021 MCH (RBC) [Entitic mass] 28.0 pg 27.5-35.2 [facility] MCHC Auto (RBC) [Mass/Vol]Or dered By: Michael Caruso on 10-09-2021 MCHC (RBC) [Mass/Vol] 33.1 g/dL 32.5-35.6 [facility] MCV Auto (RBC) [Entitic vol] Ordered By: Michael Caruso on 10-09-2021 MCV (RBC) [Entitic vol] 84.4 fL 83.5-101 F [facility] Monocytes Auto (Bld) [#/Vol] Ordered By: Michael Caruso on 10-09-2021 Monocytes (Bld) [#/Vol] 0.7 10*3/uL 0.0-0.8 [facility] Monocytes/100 WBC Auto (Bld) Ordered By: Michael Caruso on 10-09-2021 Monocytes/100 WBC (Bld) 9.4 % . F [facility] Neutrophils Auto (Bld) [#/Vo l]Ordered By: Michael Caruso on 10-09-2021 Neutrophils (Bld) [#/Vol] 3.6 10*3/uL 1.8-7.7 [facility] Neutrophils/100 WBC Auto (Bl d)Ordered By: Michael Caruso on 10-09-2021 Neutrophils/100 WBC (Bld) 50.5 % . [facility] No Panel InformationOrdered By: Michael Caruso on 10-09-2021 Estimated GFR () 44 mL/Min [facility] Comment on above: GFR estimated refere nce range: According to KDOQI guidelines, <60 ml/min/1.73m2 is sufficient to diagnose a patient with chronic kidney disease. Pharmacy Creatinine Clearance (Chem 53.67 [facility] Partial Thromboplastin Timeo n 10-09-2021 aPTT Coag (Bld) [Time] 30.9 s Normal 25.1-36.5 [facility] Comment on above: Result Comment: PERF ORMED BY: [place] [address] PATHOLOGIST BLANKET INSPECTOR ANGIE OLVERA M.D. Performed By: #### F E, TIBC, BMP, REZA, [id number], CBC, PTT, A1C WTH eA, PT #### [facility] [address] Platelet mean volume Auto (B ld) [Entitic vol]Ordered By: Michael Caruso on 10-09-2021 Platelet mean volume (Bld) [Entitic vol] 7.7 fL 6.6-10.1 [facility] Platelet poor plasma interna tional normalized ratio (INR) by coagulation assay (relatOrdered By: Michael Caruso on 10-09-2021 INR Coag (PPP) [Relative time] 1.3 {INR} [facility] Comment on above: INR Therapeutic Rang e [...] 10-09-2021 Platelets (Bld) [#/Vol] 157 10*3/uL 150-450 [facility] Prothrombin Time INRon 10-09 INR Coag (PPP) [Relative time] 1.3 {INR} Normal [facility] Comment on above: Result Comment: INR Therapeutic [...] By: #### F E, TIBC, BMP, REZA, [id number], CBC, PTT, A1C WTH eA, PT #### [facility] [address] PT Coag (PPP) [Time] 14.1 s High 9.0-12.[address] [facility] Comment on above: Performed By: #### F E, TIBC, BMP, REZA, [id number], CBC, PTT, A1C WTH eA, PT #### [facility] [address] RBC Auto (Bld) [#/Vol]Ordere d By: Michael Caruso on 10-09-2021 RBC (Bld) [#/Vol] 3.15 10*6/uL 3.90-5.60 [facility] Serum or plasma anion gap de terminationOrdered By: Michael Caruso on 10-09-2021 Anion gap [Moles/Vol] 10.0 mmol/L 6.0-15.0 [facility] Serum or plasma calcium jarad urement (mass/volume)Ordered By: Michael Caruso on 10-09-2021 Calcium [Mass/Vol] 8.9 mg/dL 8.2-10.2 [facility] Serum or plasma chloride nikita surement (moles/volume)Ordered By: Michael Caruso on 10-09-2021 Chloride [Moles/Vol] 101 mmol/L 95-[address] [facility] Serum or plasma glucose jarad urement (mass/volume)Ordered By: Michael Caruso on 10-09-2021 Glucose [Mass/Vol] 111 mg/dL 70-100 [facility] Comment on above: ADA recommended refe rence range Random Glucose Reference Range is dependent on time and content of last meal. Glucose of more than 200 mg/dL in a nonstressed, ambulatory subject supports the diagnosis of Diabetes Mellitus. Serum or plasma potassium me asurement (moles/volume)Ordered By: Michael Caruso on 10-09-2021 Potassium [Moles/Vol] 3.8 mmol/L 3.5-5.1 [facility] Serum or plasma sodium measu rement (moles/volume)Ordered By: Michael Caruso on 10-09-2021 Sodium [Moles/Vol] 138 mmol/L 136-146 [facility] Serum or plasma total carbon dioxide measurement (moles/volume)Ordered By: Michael Caruso on 10-09-2021 CO2 [Moles/Vol] 30.8 mmol/L 22.0-30.0 [facility] Serum or plasma urea nitroge n measurement (mass/volume)Ordered By: Michael Caruso on 10-09-2021 Urea nitrogen [Mass/Vol] 23 mg/dL 9-23 [facility] Total Iron Binding Capacityo n 10-09-2021 Total Iron Binding Capacity 246 ug/dL Low 255-450 [facility] Comment on above: Performed By: #### B MP, CBC #### [facility] [address] [place] [address] [place] Transferrin [Mass/Vol] 176 mg/dL Low 180-380 [facility] Comment on above: Performed By: #### B MP, CBC #### [facility] [address] [id number] [place] Vit. B12/Folate Profileon Cobalamin (Vitamin B12) [Mass/Vol] 312 pg/mL Normal 180-914 [facility] Comment on above: Performed By: #### B MP, CBC #### [facility] [address] [place] [address] Folate 9.0 ng/mL Normal >5.9 [facility] Comment on above: Result Comment: Nimo te reference range: >5.9 ng/ml The WHO technical consultation on folate and vitamin b12 deficiencies has determined that folate concentrations less than 4 ng/ml are considered deficient. PERFORMED BY: [place] [address] PATHOLOGIST BLANKET INSPECTOR ANGIE OLVERA M.D. Performed By: #### B MP, CBC #### [address] Automated erythrocytes count in urine sediment (number/area)Ordered By: Lucille Miller on 10-08-2021 RBC Auto (Urine sed) [#/Area] 1-2 [HPF] 0-4 [facility] Automated leukocytes count i n urine sediment (number/area)Ordered By: Lucille Miller on 10-08-2021 WBC Auto (Urine sed) [#/Area] 10-19 [HPF] 0-4 [facility] Basic Metabolic Panelon Anion gap [Moles/Vol] 9.8 mmol/L Normal 6.0-15.0 [facility] Comment on above: Performed By: #### B MP, CBC #### [address] Calcium [Mass/Vol] 8.8 mg/dL Normal 8.2-10.2 [facility] Comment on above: Performed By: #### B MP, CBC #### [facility] [address] [place] [address] [place] Chloride [Moles/Vol] 100 mmol/L Normal 95-[address] [facility] Comment on above: Performed By: #### B MP, CBC #### [facility] [address] [place] [address] [place] CO2 [Moles/Vol] 28.8 mmol/L Normal 22.0-30.0 [facility] Comment on above: Performed By: #### B MP, CBC #### [facility] [address] Creatinine [Mass/Vol] 2.18 mg/dL High 0.64-1.27 [facility] Comment on above: Performed By: #### B MP, CBC #### [address] Creatinine Clr Calc Pharmacy 47.02 [facility] Comment on above: Result Comment: PERF ORMED BY: [place] [address] PATHOLOGIST BLANKET INSPECTOR ANGIE OLVERA M.D. Performed By: #### B MP, CBC #### [address] Estimated GFR ( Vianey 38 [facility] Comment on above: Result Comment: GFR estimated reference range: According to KDOQI guidelines, <60 ml/min/1.73m2 is sufficient to diagnose a patient with chronic kidney disease. Performed By: #### B MP, CBC #### [address] Estimated GFR (Non- Am 31 [facility] Comment on above: Performed By: #### B MP, CBC #### [address] Glucose [Mass/Vol] 108 mg/dL High 70-100 [facility] Comment on above: Result Comment: [place] Glucose Reference Range is dependent on time and content of last meal. Glucose of more than 200 mg/dL in a nonstressed, ambulatory subject supports the diagnosis of Diabetes Mellitus. ADA recommended reference range Performed By: #### B MP, CBC #### [address] Potassium [Moles/Vol] 3.6 mmol/L Normal 3.5-5.1 [facility] Comment on above: Performed By: #### B MP, CBC #### [address] Sodium [Moles/Vol] 135 mmol/L Low 136-146 [facility] Comment on above: Performed By: #### B MP, CBC #### [facility] [address] [place] [address] [place] Urea nitrogen [Mass/Vol] 26 mg/dL High 9 [facility] Comment on above: Performed By: #### B MP, CBC #### [facility] [address] [place] [address] Bilirubin Test strip Ql (U)O rdered By: Lucille Miller on 10-08-2021 Bilirubin Ql (U) Negative Negative [facility] C reactive protein [Mass/vol ume] in Serum or PlasmaOrdered By: Speedy Ramos on 10-08-2021 CRP [Mass/Vol] 0.8 mg/dL 0.0-1.0 [facility] C-Reactive Proteinon 022 C-Reactive Protein 0.8 mg/dL Normal 0.0-1.0 [facility] Comment on above: Result Comment: PERF ORMED BY: [place] [address] PATHOLOGIST BLANKET INSPECTOR ANGIE OLVERA M.D. Performed By: #### B MP, CBC #### [facility] [address] [place] [address] [place] Color Auto (U)Ordered By: Ab nigel Miller on 10-08-2021 Color (U) Yellow Yellow [facility] Complete Blood Count Auto Di ffon 10-08-2021 Basophils (Bld) [#/Vol] 0.1 10*3/uL Normal 0.0-0.2 [facility] Comment on above: Result Comment: PERF ORMED BY: [place] [address] PATHOLOGIST BLANKET INSPECTOR ANGIE OLVERA M.D. Performed By: #### B MP, CBC #### [facility] [address] [place] [address] [place] Basophils/100 WBC (Bld) 0.8 % Normal . [facility] Comment on above: Performed By: #### B MP, CBC #### [facility] [address] [place] [address] [place] Eosinophils (Bld) [#/Vol] 0.3 10*3/uL Normal 0.0-0.45 [facility] Comment on above: Performed By: #### B MP, CBC #### [address] Eosinophils/100 WBC (Bld) 4.5 % Normal . [facility] Comment on above: Performed By: #### B MP, CBC #### [address] Erythrocyte distribution width (RBC) [Ratio] 15.3 % High 12.0-14.8 [facility] Comment on above: Performed By: #### B MP, CBC #### [address] Hematocrit (Bld) [Volume fraction] 26.3 % Low 38.8-50.0 [facility] Comment on above: Performed By: #### B MP, CBC #### [address] Hemoglobin (Bld) [Mass/Vol] 8.8 g/dL Low 13.0-17.0 [facility] Comment on above: Performed By: #### B MP, CBC #### [address] Lymphocytes (Bld) [#/Vol] 1.8 10*3/uL Normal 1.00-4.8 [facility] Comment on above: Performed By: #### B MP, CBC #### [address] Lymphocytes/100 WBC (Bld) 25.3 % Normal . [facility] Comment on above: Performed By: #### B MP, CBC #### [address] MCH (RBC) [Entitic mass] 28.1 pg Normal 27.5-35.2 [facility] Comment on above: Performed By: #### B MP, CBC #### [address] MCV (RBC) [Entitic vol] 84.5 fL Normal 83.5-101 [facility] Comment on above: Performed By: #### B MP, CBC #### [facility] [address] Mean Corpuscular HGB Conc 33.3 g/dL Normal 32.5-35.6 [facility] Comment on above: Performed By: #### B MP, CBC #### [facility] [address] [place] [address] [place] Monocytes (Bld) [#/Vol] 0.8 10*3/uL Normal 0.0-0.8 [facility] Comment on above: Performed By: #### B MP, CBC #### [facility] [address] Monocytes/100 WBC (Bld) 11.1 % Normal . [facility] Comment on above: Performed By: #### B MP, CBC #### [facility] [address] Neutrophils (Bld) [#/Vol] 4.2 10*3/uL Normal 1.8-7.7 [facility] Comment on above: Performed By: #### B MP, CBC #### [facility] [address] Neutrophils/100 WBC (Bld) 58.3 % Normal . [facility] Comment on above: Performed By: #### B MP, CBC #### [facility] [address] [place] [address] [place] Nucleated RBC/100 WBC (Bld) [Ratio] 0.0 % Normal 0-0.5 [facility] Comment on above: Performed By: #### B MP, CBC #### [facility] [address] [place] [address] [place] Platelet mean volume (Bld) [Entitic vol] 8.5 fL Normal 6.6-10.1 [facility] Comment on above: Performed By: #### B MP, CBC #### [facility] [address] [place] [address] [place] Platelets (Bld) [#/Vol] 154 10*3/uL Normal 150-450 [facility] Comment on above: Performed By: #### B MP, CBC #### [facility] [address] RBC (Bld) [#/Vol] 3.11 10*6/uL Low 3.90-5.60 [facility] Comment on above: Performed By: #### B MP, CBC #### [facility] [address] WBC (Bld) [#/Vol] 7.3 10*3/uL Normal 4.5-11.0 [facility] Comment on above: Performed By: #### B MP, CBC #### [place] [address] [place] Dipstick and Microscopicon 0 10-08-2021 Appearance (U) Clear Normal Clear [facility] Comment on above: Order Comment: Name Collection Type:: Clean-Voided Midstream Performed By: #### A DDONUAPLUS, UEOS #### [address] Bacteria,Urine None Seen Normal None Seen [facility] Comment on above: Order Comment: Name Collection Type:: Clean-Voided Midstream Performed By: #### A DDONUAPLUS, UEOS #### [address] Bilirubin,Urine Negative Normal Negative [facility] Comment on above: Order Comment: Name Collection Type:: Clean-Voided Midstream Performed By: #### A DDONUAPLUS, UEOS #### [place] [address] [place] Color (U) Yellow Normal Yellow [facility] Comment on above: Order Comment: Name Collection Type:: Clean-Voided Midstream Performed By: #### A DDONUAPLUS, UEOS #### [facility] [address] [place] [address] [place] Glucose Ql (U) Normal Normal Normal [facility] Comment on above: Order Comment: Name Collection Type:: Clean-Voided Midstream Performed By: #### A DDONUAPLUS, UEOS #### [facility] [address] [place] [address] Hyaline Casts,Urine 0-8 Normal 0-8 [facility] Comment on above: Order Comment: Name Collection Type:: Clean-Voided Midstream Performed By: #### A DDONUAPLUS, UEOS #### [address] Ketones Ql (U) Negative Normal Negative [facility] Comment on above: Order Comment: Name Collection Type:: Clean-Voided Midstream Performed By: #### A DDONUAPLUS, UEOS #### [address] Leukocyte esterase Test strip Ql (U) Negative Normal Negative [facility] Comment on above: Order Comment: Name Collection Type:: Clean-Voided Midstream Performed By: #### A DDONUAPLUS, UEOS #### [address] Nitrite,Urine Negative Normal Negative [facility] Comment on above: Order Comment: Name Collection Type:: Clean-Voided Midstream Performed By: #### A DDONUAPLUS, UEOS #### [address] Occult Blood,Urine 1+ High Negative [facility] Comment on above: Order Comment: Name Collection Type:: Clean-Voided Midstream Performed By: #### A DDONUAPLUS, UEOS #### [address] pH (U) 6.0 [pH] Normal 5.0-9.0 [facility] Comment on above: Order Comment: Name Collection Type:: Clean-Voided Midstream Performed By: #### A DDONUAPLUS, UEOS #### [address] Protein (U) [Mass/Vol] 100 mg/dL High Negative [facility] Comment on above: Order Comment: Name Collection Type:: Clean-Voided Midstream Performed By: #### A DDONUAPLUS, UEOS #### [facility] [address] [place] [address] RBC,Urine 1-2 Normal 0-4 [facility] Comment on above: Order Comment: Name Collection Type:: Clean-Voided Midstream Performed By: #### A DDONUAPLUS, UEOS #### [address] Specificy Lambert,Urine 1.008 Normal 1.001-1.030 [facility] Comment on above: Order Comment: Name Collection Type:: Clean-Voided Midstream Performed By: #### A DDONUAPLUS, UEOS #### [address] Squamous Epithelial Cell,Urine 3-4 High 0-2 [facility] Comment on above: Order Comment: Name Collection Type:: Clean-Voided Midstream Performed By: #### A DDONUAPLUS, UEOS #### [address] Urobilinogen,Urine Normal Normal Normal [facility] Comment on above: Order Comment: Name Collection Type:: Clean-Voided Midstream Performed By: #### A DDONUAPLUS, UEOS #### [address] WBC,Urine 10-19 High 0-4 [facility] Comment on above: Order Comment: Name Collection Type:: Clean-Voided Midstream Performed By: #### A DDONUAPLUS, UEOS #### [address] Yeast,Urine Rare Critically abnormal None Seen [facility] Comment on above: Order Comment: Name Collection Type:: Clean-Voided Midstream Result Comment: BUDD ING YEAST Performed By: #### A DDONUAPLUS, UEOS #### [facility] [address] [place] [address] Eosinophil,Urineon 2 Eosinophil,Urine 0 % Normal 0-1 [facility] Comment on above: Order Comment: Name Collection Type:: Clean-Voided Midstream Result Comment: PERF ORMED BY: [place] [address] PATHOLOGIST BLANKET INSPECTOR ANGIE OLVERA M.D. Performed By: #### A DDONUAPLUS, UEOS #### [facility] [address] [place] [address] Eosinophils detection in uri ne sediment by Gomes stainOrdered By: Lucille Miller on 10-08-2021 Eosinophils Gomes stain Ql (Urine sed) 0 % 0-1 [facility] Erythrocyte Sedimentation Ra scot 10-08-2021 ESR (Bld) [Velocity] 104 mm/h High 0-[address] [facility] Comment on above: Result Comment: PERF ORMED BY: [place] [address] PATHOLOGIST BLANKET INSPECTOR ANGIE OLVERA M.D. Performed By: #### B MP, CBC #### [facility] [address] [place] [address] Erythrocyte sedimentation ra te by Photometric methodOrdered By: Speedy Ramos on 10-08-2021 ESR Photometric method (Bld) [Velocity] 104 mm/hr 0-19 [facility] Ketones Auto test strip (U) [Mass/Vol]Ordered By: Lucille Miller on 10-08-2021 Ketones (U) [Mass/Vol] Negative Negative [facility] Laboratory - UrinalysisOrder ed By: Lucille Miller on 10-08-2021 Hyaline casts LM Ql (Urine sed) 0-8 [LPF] 0-8 [facility] Nitrite Test strip Ql (U)Ord ered By: Lucille Miller on 10-08-2021 Nitrite Ql (U) Negative Negative [facility] Protein Auto test strip (U) [Mass/Vol]Ordered By: Lucille Miller on 10-08-2021 Protein (U) [Mass/Vol] 100 mg/dL Negative [facility] Specific gravity Auto test s trip (U) [Rel density]Ordered By: Lucille Miller on 10-08-2021 Specific gravity (U) [Rel density] 1.008 1.001-1.030 [facility] Squamous epithelial cells de tection in urine sediment by light microscopyOrdered By: Lucille Miller on 10-08-2021 Epithelial cells.squamous LM Ql (Urine sed) 3-4 [HPF] 0-2 [facility] Superficial Wound Cultureon 10-08-2021 Superficial Wound Culture [...] RESISTANT TO ALL B-LACTAM DRUGS. PERFORMED BY: [place] [address] PATHOLOGIST BLANKET INSPECTOR ANGIE OLVERA M.D. [facility] Comment on above: Performed By: #### C USUP #### [address] US renal BIon 10-08-2021 US renal BI [facility] [place] [address] [place] [address] Ultrasound Report Signed Patient: Yaniv Narvaez MR#: [id number] : [id number] Acct:[id number] Age/Sex: 61 / M ADM Date: 10/07/21 Loc: Room: 0F5324-0 Type: ADM IN Attending Dr: Michael Caruso [...] Jo Yoon M.D.10/08/2021 4:28 PM Dictation Location: [place] [address] Tech: [facility] Transcribed By: CHILO 10/08/21 1628 Dictated By: Jo Yoon MD 10/08/21 1619 Signed By: 10/08/21 1628 Normal [facility] Urine bacteria detection by automated methodOrdered By: Lucille Miller on 10-08-2021 Bacteria Auto Ql (U) None seen None Seen [facility] Urine clarity by refractomet ry automatedOrdered By: Lucille Miller on 10-08-2021 Clarity Refractometry automated (U) Clear Clear [facility] Urine glucose measurement by automated test strip (mass/volume)Ordered By: Lucille Miller on 10-08-2021 Glucose Auto test strip (U) [Mass/Vol] Normal mg/dL Normal [facility] Urine hemoglobin detection b y automated test stripOrdered By: Lucille Miller on 10-08-2021 Hemoglobin Auto test strip Ql (U) 1+ Negative [facility] Urine leukocyte esterase det ection by automated test stripOrdered By: Lucille Miller on 10-08-2021 Leukocyte esterase Auto test strip Ql (U) Negative Negative [facility] Urobilinogen Auto test strip (U) [Mass/Vol]Ordered By: Lucille Miller on 10-08-2021 Urobilinogen (U) [Mass/Vol] Normal mg/dL Normal [facility] Yeast detection in urine sed iment by light microscopyOrdered By: Lucille Miller on 10-08-2021 Yeast LM Ql (Urine sed) Rare [HPF] None Seen [facility] Comment on above: BUDDING YEAST pH Auto test strip (U)Ordere d By: Lucille Miller on 10-08-2021 pH (U) 6.0 [pH] 5.0-9.0 [facility] Body fluid albumin measureme nt (mass/volume)Ordered By: Gil Jackson on 10-07-2021 Albumin (Body fld) [Mass/Vol] 2.6 g/dL 3.2-5.5 [facility] Comprehensive Metabolic Pane chan 10-07-2021 Albumin [Mass/Vol] 2.6 g/dL Low 3.2-5.5 [facility] Comment on above: Performed By: #### C MP #### [facility] [address] [place] [address] Albumin/Globulin [Mass ratio] 0.6 {ratio} Normal [facility] Comment on above: Performed By: #### C MP #### [facility] [address] ALP [Catalytic activity/Vol] 75 U/L Normal 32-92 [facility] Comment on above: Performed By: #### C MP #### [facility] [address] [place] [address] [place] ALT [Catalytic activity/Vol] 11 U/L Normal 10-60 [facility] Comment on above: Performed By: #### C MP #### [facility] [address] [place] [address] [place] Anion gap [Moles/Vol] 14.5 mmol/L Normal 6.0-15.0 [facility] Comment on above: Performed By: #### C MP #### [facility] [address] [place] [address] [place] AST [Catalytic activity/Vol] 16 U/L Normal 10-42 [facility] Comment on above: Performed By: #### C MP #### [facility] [address] Bilirubin [Mass/Vol] 0.4 mg/dL Normal 0.3-1.[address] [facility] Comment on above: Performed By: #### C MP #### [facility] [address] Calcium [Mass/Vol] 9.1 mg/dL Normal 8.2-10.2 [facility] Comment on above: Performed By: #### C MP #### [facility] [address] Chloride [Moles/Vol] 95 mmol/L Normal 95-[address] [facility] Comment on above: Performed By: #### C MP #### [address] CO2 [Moles/Vol] 28.3 mmol/L Normal 22.0-30.0 [facility] Comment on above: Performed By: #### C MP #### [address] Creatinine [Mass/Vol] 2.31 mg/dL High 0.64-1.27 [facility] Comment on above: Performed By: #### C MP #### [address] Creatinine Clr Calc Pharmacy 44.38 [facility] Comment on above: Result Comment: PERF ORMED BY: [place] [address] PATHOLOGIST BLANKET INSPECTOR ANGIE OLVERA M.D. Performed By: #### C MP #### [address] Estimated GFR ( Vianey 35 Normal [facility] Comment on above: Result Comment: GFR estimated reference range: According to KDOQI guidelines, <60 ml/min/1.73m2 is sufficient to diagnose a patient with chronic kidney disease. Performed By: #### C MP #### [address] Estimated GFR (Non- Am 29 Normal [facility] Comment on above: Performed By: #### C MP #### [facility] [address] Globulin (S) [Mass/Vol] 4.2 g/dL Normal F [facility] Comment on above: Performed By: #### C MP #### [facility] [address] Glucose [Mass/Vol] 196 mg/dL High 70-100 [facility] Comment on above: Result Comment: [facility] Glucose Reference Range is dependent on time and content of last meal. Glucose of more than 200 mg/dL in a nonstressed, ambulatory subject supports the diagnosis of Diabetes Mellitus. ADA recommended reference range Performed By: #### C MP #### [facility] [address] Potassium [Moles/Vol] 3.8 mmol/L Normal 3.5-5.1 [facility] Comment on above: Performed By: #### C MP #### [facility] [address] Protein [Mass/Vol] 6.8 g/dL Normal 6.1-7.9 [facility] Comment on above: Performed By: #### C MP #### [facility] [address] Sodium [Moles/Vol] 134 mmol/L Low 136-146 [facility] Comment on above: Performed By: #### C MP #### [facility] [address] Urea nitrogen [Mass/Vol] 26 mg/dL High 9-23 [facility] Comment on above: Performed By: #### C MP #### [facility] [address] Globulin Calc (S) [Mass/Vol] Ordered By: Gil Jackson on 10-07-2021 Globulin (S) [Mass/Vol] 4.2 g/dL F [facility] Protein [Mass/volume] in Ser um or PlasmaOrdered By: Gil Jackson on 10-07-2021 Protein [Mass/Vol] 6.8 g/dL 6.1-7.9 [facility] Serum or plasma alanine cummings otransferase measurement without P-5'-P (enzymatic activiOrdered By: Gil Jackson on 10-07-2021 ALT No additional P-5'-P [Catalytic activity/Vol] 11 U/L 10-60 [facility] Serum or plasma albumin/glob ulin mass ratioOrdered By: Gil Jackson on 10-07-2021 Albumin/Globulin [Mass ratio] 0.6 {ratio} [facility] Serum or plasma alkaline laureen sphatase measurement (enzymatic activity/volume)Ordered By: Gil Jackson on 10-07-2021 ALP [Catalytic activity/Vol] 75 U/L 32-92 [facility] Serum or plasma aspartate am inotransferase measurement (enzymatic activity/volume)Ordered By: Gil Jackson on 10-07-2021 AST [Catalytic activity/Vol] 16 U/L 10-42 [facility] Serum or plasma total biliru bin measurement (mass/volume)Ordered By: Gil Jackson on 10-07-2021 Bilirubin [Mass/Vol] 0.4 mg/dL 0.3-1.[address] [facility] Vital Signs Date Time Vital Sign Value Performing Clinician Facility 05-09-2023 12:05-0400 Body height 188 cm Donta Zhou MD Work Phone: [facility] 05-09-2023 12:05-0400 Body mass index (BMI) [Ratio] 35.31 kg/m2 Donta Zhou MD Work Phone: [facility] 05-09-2023 12:05-0400 Body weight 124.74 kg Donta Zhou MD Work Phone: [facility] Comment on above: Wearing a big boot and brace 05-09-2023 12:05-0400 Diastolic blood pressure 130 mm[Hg] Donta Zhou MD Work Phone: [facility] 05-09-2023 12:05-0400 Heart rate 114 /min Donta Zhou MD Work Phone: [facility] [email or web address] [facility] 05-09-2023 12:05-0400 Respiratory rate 16 /min Donta Zhou MD Work Phone: [facility] [email or web address] [facility] 05-09-2023 12:05-0400 SaO2% (BldA) [Mass fraction] 96 % Donta Zhou MD Work Phone: [facility] [email or web address] [facility] 05-09-2023 12:05-0400 Systolic blood pressure 232 mm[Hg] Donta Zhou MD Work Phone: [facility] [email or web address] [facility] 04-27-2023 13:06-0400 Body height 188 cm Macy Larkin ORAL SURGEON-CORPORATE STAFF ACCOUNTANT Work Phone: [facility] [email or web address] [facility] 04-27-2023 13:06-0400 Body mass index (BMI) [Ratio] 22.97 kg/m2 Macy Trae ORAL SURGEON-CORPORATE STAFF ACCOUNTANT Work Phone: [facility] [email or web address] [facility] 04-27-2023 13:06-0400 Body weight 81.19 kg Macy Larkin ORAL SURGEON-CORPORATE STAFF ACCOUNTANT [facility] 04-27-2023 13:06-0400 Diastolic blood pressure 82 mm[Hg] Macy Trae ORAL SURGEON-CORPORATE STAFF ACCOUNTANT Work Phone: [facility] [employer] 04-27-2023 13:06-0400 Heart rate 68 /min Macy Larkin ORAL SURGEON-CORPORATE STAFF ACCOUNTANT Work Phone: [facility] [email or web address] [facility] 04-27-2023 13:06-0400 SaO2% (BldA) [Mass fraction] 97 % Macy Trae ORAL SURGEON-CORPORATE STAFF ACCOUNTANT Work Phone: [facility] [employer] 04-27-2023 13:06-0400 Systolic blood pressure 150 mm[Hg] Macy Larkin ORAL SURGEON-CORPORATE STAFF ACCOUNTANT Work Phone: [facility] [email or web address] [facility] 04-21-2023 14:12-0400 Body height 188 cm [facility] [email or web address] [facility] 04-21-2023 14:12-0400 Body mass index (BMI) [Ratio] 35.31 kg/m2 [facility] [address] [facility] 04-21-2023 14:120400 Body weight 124.74 kg [facility] [address] [facility] 04-06-2023 10:22-0500 Body height 188 cm Radha Emerson APRN-CORPORATE STAFF ACCOUNTANT Work Phone: [facility] 04-06-2023 10:22-0500 Body mass index (BMI) [Ratio] 36.08 kg/m2 Radha Emerson ORAL SURGEON-CORPORATE STAFF ACCOUNTANT Work Phone: [facility] 04-06-2023 10:22-0500 Body weight 127.46 kg Radha Emerson APRN-CORPORATE STAFF ACCOUNTANT Work Phone: [facility] 04-06-2023 10:22-0500 Diastolic blood pressure 80 mm[Hg] Radha Emerson APRN-CORPORATE STAFF ACCOUNTANT Work Phone: [facility] 04-06-2023 10:22-0500 Heart rate 84 /min Radha Emerson ORAL SURGEON-CORPORATE STAFF ACCOUNTANT Work Phone: [facility] 04-06-2023 10:22-0500 Respiratory rate 18 /min Radha Emerson APRN-CORPORATE STAFF ACCOUNTANT Work Phone: [facility] 04-06-2023 10:22-0500 SaO2% (BldA) [Mass fraction] 94 % Radha Emerson APRN-CORPORATE STAFF ACCOUNTANT Work Phone: [facility] 04-06-2023 10:22-0500 Systolic blood pressure 150 mm[Hg] Rahdatiesha Emerson ORAL SURGEON-CORPORATE STAFF ACCOUNTANT Work Phone: [facility] 03-31-2023 09:56-0500 Body height 188 cm Yanet Hare PA-C Work Phone: [facility] 03-31-2023 09:56-0500 Body mass index (BMI) [Ratio] 36.08 kg/m2 Yanet Schrinel PA-C [facility] 03-31-2023 09:56-0500 Body weight 127.46 kg Yanet Herrerarinel PA-C Work Phone: [facility] [email or web address] [facility] 03-31-2023 09:56-0500 Diastolic blood pressure 110 mm[Hg] Yanet Herrerarinel PA-C Work Phone: [facility] [email or web address] [facility] 03-31-2023 09:56-0500 Heart rate 75 /min Yanet Herrerarinel PA-C [facility] 03-31-2023 09:56-0500 Systolic blood pressure 190 mm[Hg] Yanet Herrerarinel PA-C Work Phone: [facility] [email or web address] [facility] 03-04-2023 13:33-0500 Body height 188 cm Charlene [place] ORAL SURGEON-CORPORATE STAFF ACCOUNTANT Work Phone: [facility] [email or web address] [facility] 03-04-2023 13:33-0500 Body mass index (BMI) [Ratio] 35.68 kg/m2 Charlene Heidi ORAL SURGEON-CORPORATE STAFF ACCOUNTANT [facility] 03-04-2023 13:33-0500 Body weight 126.1 kg Charlene [place] ORAL SURGEON-CORPORATE STAFF ACCOUNTANT Work [facility] 03-04-2023 13:33-0500 Diastolic blood pressure 82 mm[Hg] Charlene Heidi ORAL SURGEON-CORPORATE STAFF ACCOUNTANT Work Phone[facility] 03-04-2023 13:33-0500 Systolic blood pressure 126 mm[Hg] Charlene [place] ORAL SURGEON-CORPORATE STAFF ACCOUNTANT Work Phone[facility] 04-07-2022 14:30-0500 Body temperature 97.7 [degF] Speedy Ramos Other [employer] Other 04-07-2022 14:30-0500 Diastolic blood pressure 56 mm[Hg] Speedy Ramos Other [facility] Other 04-07-2022 14:30-0500 Systolic blood pressure 112 mm[Hg] Speedy Ramos Other [facility] Other 10-09-2021 12:00-0400 Body temperature 98.5 [degF] [facility] 10-09-2021 12:00-0400 Diastolic blood pressure 73 mm[Hg] [facility] 10-09-2021 12:00-0400 Heart rate 57 /min [facility] 10-09-2021 12:00-0400 Respiratory rate 16 /min [facility] 10-09-2021 12:00-0400 SaO2% (BldA) [Mass fraction] 97 % [facility] 10-09-2021 12:00-0400 Systolic blood pressure 162 mm[Hg] [facility] 10-09-2021 05:17-0400 Body weight 104.5 kg [facility] 10-08-2021 13:06-0400 Body height 187.96 cm [facility] Encounters Encounter Date Encounter Type Care Provider Facility Start: 01-25-2024 End: 01-25-2024 ambulatory [facility] Start: 09-13-2023 End: 09-13-2023 ambulatory [facility] Start: 07-01-2023 End: 07-02-2023 ambulatory [facility] Start: 07-01-2023 End: 07-01-2023 ambulatory [facility] Start: 06-01-2023 End: 06-01-2023 ambulatory ROBERT MURPHY [facility] Start: 05-09-2023 End: 05-09-2023 ambulatory DONTA ZHOU [facility] Start: 05-09-2023 End: 05-09-2023 Office outpatient new 45 minutes Donta Zhou MD Work Phone: [facility] Comment on above: Essential hypertensi on (Primary Dx); Resistant hypertension; Pure hypercholesterolemia Start: 05-05-2023 End: 05-05-2023 Evaluation and management of inpatient FROYLAN MOON [facility] Start: 05-04-2023 End: 05-05-2023 Evaluation and management of inpatient [facility] Start: 05-04-2023 End: 05-04-2023 Evaluation and management of inpatient [facility] Start: 04-28-2023 Refill Trisha Posada MD Work Phone: [facility] Comment on above: Hypertensive crisis Start: 04-27-2023 End: 04-27-2023 ambulatory [facility] Start: 04-27-2023 End: 04-27-2023 Office outpatient visit 15 minutes [facility] ORAL SURGEON-CORPORATE STAFF ACCOUNTANT Work Phone: [facility] Comment on above: Type 2 diabetes dory itus with other specified complication, unspecified whether custodial insulin use ([facility]-H[facility]) (Primary Dx); Hypertensive crisis; Stage 2 chronic kidney disease; Resistant hypertension Start: 04-21-2023 End: 04-21-2023 Evaluation and management of inpatient CHARLENE GORDON [facility] Start: 04-20-2023 End: 04-21-2023 Admission to [facility] Phone Call Provider 3 [facility] Start: 04-06-2023 End: 04-07-2023 ambulatory TRISHA POSADA [facility] Start: 04-06-2023 End: 04-06-2023 Transitional care manage srvc 7 day discharge Radha Emerson ORAL SURGEON-CORPORATE STAFF ACCOUNTANT Work Phone: [facility] Comment on above: Type 2 diabetes dory itus with other specified complication, 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 (CMS-HCC) (Primary Dx); Primary hypertension; Abdominal distention Start: 03-31-2023 End: 03-31-2023 Office outpatient new 45 minutes Yanet BUSTAMANTE-C Work Phone: [facility] Comment on above: Iron deficiency anem ia, unspecified iron deficiency anemia type (Primary Dx); Special screening for malignant neoplasm of colon; Change in bowel habit Start: 03-31-2023 End: 03-31-2023 ambulatory [facility] Erica HARE [facility] Start: 03-08-2023 End: 03-09-2023 ambulatory [facility] Start: 03-04-2023 End: 03-04-2023 Office outpatient visit 15 minutes [facility] ORAL SURGEON-CORPORATE STAFF ACCOUNTANT Work Phone: [facility] Comment on above: Type 2 diabetes dory itus with other specified complication, 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) (Primary Dx); Special screening for malignant neoplasm of colon; Epigastric pain Start: 03-04-2023 End: 03-04-2023 ambulatory [facility] Start: 2022 End: 06-19-2022 ambulatory POPEYE SINGER Facility:H1 Start: 06-10-2022 End: 06-11-[address] LAYNE GOODMAN Facility:[facility]1 Start: 06-04-2022 End: 06-05-2022 ambulatory POEPYE SINGER Facility:[facility]1 Start: 05-28-2022 End: 05-29-2022 ambulatory POPEYE SINGER Facility:[facility]1 Start: 05-17-2022 End: 05-18-[address] ELVIN HERNANDEZ Facility:H1 Start: 05-15-2022 Encounter for prepro cedural laboratory examination POPEYE SINGER [facility] Start: 05-11-2022 End: 05-12-2022 ambulatory POPEYE SINGER Facility:H1 Start: 05-11-2022 End: 05-12-2022 Encounter for preprocedural laboratory examination POPEYE SINGER Facility:H1 Start: 04-30-2022 End: 05-01-2022 ambulatory POPEYE SINGER Facility:H1 Start: 04-16-2022 End: 04-17-2022 ambulatory POPEYE SINGER Facility:[facility]1 Start: 04-07-2022 End: 04-07-2022 ambulatory Speedy Ramos Other [employer] Other Start: 04-07-2022 Office outpatient ne w 45 minutes Speedy Ramos [facility] Start: 03-26-2022 End: 03-27-2022 [facility] Start: 03-05-2022 End: 03-06-2022 ambulatory POPEYE Vergara [facility] Facility:H1 Start: 02-18-2022 End: 02-23-2022 Evaluation and management of inpatient DR NONE LISTED REQUEST Facility:H1 Start: 02-16-2022 End: 02-17-2022 ambulatory POPEYE Vergara [facility] Facility:H1 Start: 02-14-2022 Encounter for other preprocedural examination [facility] Start: 02-14-2022 Encounter for prepro cedural cardiovascular examination [facility] Start: 02-10-2022 End: 02-11-2022 ambulatory POPEYE Jai [facility] Facility:H1 Start: 02-09-2022 End: 02-10-2022 ambulatory POPEYE Vergara [facility] Facility:H1 Start: 02-03-2022 End: 02-04-2022 ambulatory POPEYE Vergara [facility] Facility:H1 Start: 01-19-2022 End: 01-20-2022 ambulatory POPEYE Vergara [facility] Facility:H1 Start: 10-07-2021 End: 10-09-2021 Evaluation and management of inpatient [facility] Start: 07-15-2021 End: 07-15-2021 ambulatory CARLITO U ARUNA [facility] Procedures Date Procedure Procedure Detail Performing Clinician Start: 09-13-2023 Follow-up visit Follow-up CHARLENE GORDON Start: 05-04-2023 Colonoscopy Donta Zhou MD Work Phone: Start: 04-27-2023 Adult depression screening assessment Macy Larkin ORAL SURGEON-CORPORATE STAFF ACCOUNTANT Work Phone: Start: 04-06-2023 Adult depression screening assessment Radha Emerson ORAL SURGEON-CORPORATE STAFF ACCOUNTANT Work Phone: Start: 03-04-2023 Hemoglobin glycosylated a1c Charlene escamilla ORAL SURGEONSoviCORPORATE STAFF ACCOUNTANT Work Phone: Start: 02-22-2022 Insertion of Infusion Device into Superior Vena Cava, Percutaneous Approach POPEYE [facility] Start: 02-21-2022 Transfusion of Nonautologous Red Blood Cells into Peripheral Vein, Percutaneous Approach [facility] Start: 02-18-2022 Excision of Left Tibia, Open Approach [facility] Start: 02-18-2022 Insertion of Ring External Fixation Device into Left Tibia, Percutaneous Approach [facility] Start: 02-18-2022 INTRO ABX-EL BN VD FLR BONES OPN 7 [facility] Start: 02-18-2022 Resection of Left Tarsal, Open Approach [facility] Start: 02-11-2022 Adult depression screening assessment Charlene Gordon [employer] Work Phone: Start: 10-08-2021 Ultrasonography of bilateral kidneys Start: 06-09-2021 Microalbumin [Mass/volume] in Urine by Test strip Charlene Gordon [employer] Work Phone: Start: 10-07-2019 Colonoscopy Charlene Gordon [employer] Work Phone: Start: 08-19-2017 History of amputation of lesser toe Status post amputation of lesser toe of right foot Charlene Gordon [employer] Work Phone: Plan of Treatment Date Care Activity Detail Author Start: 06-14-2029 DTaP,Tdap and Td Vaccines (2 - Td or Tdap) DTaP,Tdap and Td Vaccines (2 - Td or Tdap) [facility] Start: 05-03-2026 Screening for malignant neoplasm of colon Colonoscopy [facility] Start: 05-03-2024 Adult BMI Screening Adult BMI Screening [facility] Start: 05-03-2024 Tobacco Screening Tobacco Screening [facility] Start: 04-26-2024 Adult BMI Screening Adult BMI Screening [facility] Start: 04-26-2024 Depression Screening Depression Screening [facility] Start: 04-26-2024 Tobacco Screening Tobacco Screening [facility] Start: 04-20-2024 Tobacco Screening Tobacco Screening [facility] Start: 04-06-2024 Adult BMI Screening Adult BMI Screening [facility] Start: 04-06-2024 Depression Screening Depression Screening [facility] Start: 04-06-2024 Tobacco Screening Tobacco Screening [facility] Start: 03-31-2024 Adult BMI Screening Adult BMI Screening [facility] Start: 03-31-2024 Tobacco Screening Tobacco Screening [facility] Start: 03-04-2024 Adult BMI Follow Up Plan Adult BMI Follow Up Plan [facility] Start: 03-04-2024 Adult BMI Screening Adult BMI Screening [facility] Start: 03-04-2024 Tobacco Screening Tobacco Screening [facility] Start: 10-09-2023 Influenza vaccination Influenza Vaccine [facility] Start: 07-01-2023 End: 07-01-2023 Patient encounter procedure 07/01/2023 1:00 PM EDT Off ice Visit [facility] [address] [place] [address] Charlene Gordon, ORAL SURGEON-CORPORATE STAFF ACCOUNTANT [address] [place] [address] [facility] Start: 06-03-2023 End: 06-03-2023 Patient encounter procedure 06/03/2023 2:00 PM EDT Off ice Visit [facility] [address] [place] [address] Charlene Gordon, ORAL SURGEON-CORPORATE STAFF ACCOUNTANT [address] [place] [address] [facility] Start: 05-09-2023 End: 05-08-2024 CT Heart and Coronary arteries for calcium scoring WO contrast CT heart without contrast including scoring Imaging Routine Essential hypertension Pure hypercholesterolemia Expected: 05/09/2023, Expires: 05/08/2024 [facility] Work Phone: Comment on above: Expected: 05/09/2023, Expires: Start: 05-09-2023 End: 05-09-2023 Patient encounter procedure 05/09/2023 12:00 PM EDT Of fice Visit [facility] [address] [facility] [place] [address] Donta Zhou MD [address] [facility] [place] [address] [facility] Start: 05-04-2023 End: 05-04-2023 Admission to same day surgery center 05/04/2023 8:15 AM EDT - 05/04/2023 9:15 AM EDT Surgery [facility] [address] [facility] [place] [address] Robert Murphy MD [address] [facility] [place] [address] ESOPHAGOGASTRODUODENOSCOPY DIAGNOSTIC [45231 (CPT )] [facility] Comment on above: ESOPHAGOGASTRODUODENOSCOPY DIAGNOSTIC [4 3232 (CPT )] Start: 05-04-2023 End: 05-04-2023 Colonoscopy flx dx w/collj spec when pfrmd COLONOSCOPY DIAGNOSTIC / SCREENING IRON DEFICIENCY ANEMIA, CHANGE IN BOWEL HABITS 05/04/2023 8:15 AM EDT [facility] Start: 05-04-2023 End: 05-04-2023 Esophagogastroduodenoscopy transoral diagnostic ESOPHAGOGASTRODUODENOSCOPY DIAGNOSTIC IRON DEFICIENCY ANEMIA, CHANGE IN BOWEL HABITS 05/04/2023 8:15 AM EDT [facility] Start: 05-04-2023 Subsequent hospital visit by physician 05/04/2023 8:15 AM EDT Hospital Encounter [facility] [address] [place] [address] Robert Murphy MD [address] [facility] [place] [address] [facility] Start: 04-06-2023 Adult BMI Follow Up Plan Adult BMI Follow Up Plan [facility] Start: 03-31-2023 End: 03-31-2023 Patient encounter procedure 03/31/2023 10:15 AM EST Of fice Visit [facility] [address] [place] [id number] Yanet Hare, PA-C [address] [facility] [address] [place] [address] [facility] Start: 02-11-2023 Depression Screening Depression Screening [facility] Start: 10-08-2022 COVID-19 Vaccine ( season) COVID-19 Vaccine () [facility] Start: 10-08-2022 Influenza vaccination Influenza Vaccine [facility] Start: 10-06-2022 Screening for malignant neoplasm of colon Colonoscopy [facility] Start: 09-16-2022 Diabetic foot examination Diabetic Foot Exam [facility] Start: 06-09-2022 Urine screening for protein Urine Microalbumin [facility] Start: 10-09-2021 [facility] Work Phone: Start: 10-07-2021 Referral to infectious diseases physician [facility] Work Phone: Start: 10-07-2021 Referral to emt paramedic [facility] Work Phone: Start: 10-07-2021 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 commander [facility] Work Phone: Start: 10-07-2021 Hospital admission [facility] Work Phone: Start: 2012 Administration of varicella zoster vaccine Zoster (Shingles) Vaccine (1 of 2) [facility] Start: 1960 Glaucoma screening Diabetic Ophthalmology Exam [facility] Aerobic microbial culture Superficial Wou nd Culture [facility] End: 04-26-2024 Basic metabolic 2000 panel - Serum or Plasma Basic Metabolic Panel Lab Routine Stage 2 chronic kidney disease 1 Occurrences starting 04/27/2023 until 04/26/2024 [employer] Work Phone: Comment on above: 1 Occurrences starting 04/27/2023 until 04/26/2024 Blood chemistry [facility] Work Phone: End: 03-31-2024 EGD / Colonoscopy EGD / Colonoscopy GI Routine Iron deficiency anemia, unspecified iron deficiency anemia type Change in bowel habit 1 Occurrences starting 03/31/2023 until 03/31/2024 [employer] Work Phone: Comment on above: 1 Occurrences starting 03/31/2023 until 03/31/2024 End: 03-31-2024 Endomysial antibody, IgA titer Endomysial antibody, Ig A titer Lab Routine Iron deficiency anemia, unspecified iron deficiency anemia type Change in bowel habit 1 Occurrences starting 03/31/2023 until 03/31/2024 [employer] Comment on above: 1 Occurrences starting 03/31/2023 until 03/31/2024 End: 03-30-2024 IgA [Mass/volume] in Serum or Plasma IGA Lab Routine Iron deficiency anemia, unspecified iron deficiency anemia type Change in bowel habit 1 Occurrences starting 03/31/2023 until 03/30/2024 [employer] Comment on above: 1 Occurrences starting 03/31/2023 until 03/30/2024 Patient Education Levofloxacin ( Systemic) Acute Kidney Injury (DC) Osteomyelitis (DC) [facility] Work Phone: Patient referral [facility] Work Phone: End: 03-31-2024 Tissue transglutaminase, IgA & IgG Tissue transglutaminase, IgA & IgG Lab Routine Iron deficiency anemia, unspecified iron deficiency anemia type Change in bowel habit 1 Occurrences starting 03/31/2023 until 03/31/2024 [employer] Comment on above: 1 Occurrences starting 03/31/2023 until 03/31/2024 End: 03-31-2024 TSH with Reflex TSH with Reflex Lab Routine Change in bowel habit 1 Occurrences starting 03/31/2023 until 03/31/2024 [employer] Comment on above: 1 Occurrences starting 03/31/2023 until 03/31/2024 Immunizations Immunization Date Immunization Notes Care Provider Cintia lanier 02-23-2022 influenza, injectabl e, quadrivalent, preservative free Radha Emerson ORAL SURGEON-CORPORATE STAFF ACCOUNTANT Work Phone: [facility] 02-23-2022 influenza virus vaccine, unspecified formulation Charlene Heidi ORAL SURGEON-CORPORATE STAFF ACCOUNTANT Work Phone: [facility] 11-13-2020 influenza, injectabl e, quadrivalent, preservative free Charlene [place] ORAL SURGEON-CORPORATE STAFF ACCOUNTANT Work Phone: [facility] 05-16-2020 COVID-19, mRNA, LNP- S, PF, 30mcg/0.3mL Dose Charlene [place] ORAL SURGEON-CORPORATE STAFF ACCOUNTANT Work Phone: [facility] 05-15-2020 COVID-19, mRNA, LNP- S, PF, 30mcg/0.3mL Dose Charlene [place] ORAL SURGEON-CORPORATE STAFF ACCOUNTANT Work Phone: [facility] 05-06-2020 influenza, injectabl e, quadrivalent, preservative free Charlene Heidi ORAL SURGEON-CORPORATE STAFF ACCOUNTANT Work Phone: [facility] 04-25-2020 COVID-19, mRNA, LNP- S, PF, 30mcg/0.3mL Dose Charlene [place] ORAL SURGEON-CORPORATE STAFF ACCOUNTANT Work Phone: [facility] 04-24-2020 COVID-19, mRNA, LNP- S, PF, 30mcg/0.3mL Dose Charlene [place] ORAL SURGEON-CORPORATE STAFF ACCOUNTANT Work Phone: [facility] 12-03-2019 influenza, injectabl e, quadrivalent, preservative free Charlene Heidi ORAL SURGEON-CORPORATE STAFF ACCOUNTANT Work Phone: [facility] 06-15-2019 tetanus toxoid, redu dariel diphtheria toxoid, and acellular pertussis vaccine, adsorbed Charlene Heidi ORAL SURGEON-CORPORATE STAFF ACCOUNTANT Work Phone: [facility] 11-20-2018 influenza virus vaccine, unspecified formulation Charlene Heidi ORAL SURGEON-CORPORATE STAFF ACCOUNTANT Work Phone: [facility] 11-06-2018 influenza, injectabl e, quadrivalent, preservative free Charlene [place] ORAL SURGEON-CORPORATE STAFF ACCOUNTANT Work Phone: [facility] 06-06-2018 influenza virus vaccine, unspecified formulation Charlene Heidi ORAL SURGEON-CORPORATE STAFF ACCOUNTANT Work Phone: [facility] 12-15-2017 influenza, injectabl e, quadrivalent, preservative free Charlene [place] ORAL SURGEON-CORPORATE STAFF ACCOUNTANT Work Phone: [facility] Payers Date Payer Category Payer Unknown [employer] [place] [facility] HMO/PPO/TRUST [id number] 2022-Present [phone] [address] [place] [address] [id number] 2022 Unknown [id number] 1960 Unknown [id number] 2.16.840.1.256527.3.579.2.175 1962 Unknown [id number] 2.16.840.1.361907.3.579.2.593 1962 Unknown [id number] 2.16.840.1.368093.3.579.2.593 1962 Unknown [id number] 2.16.840.1.665972.3.579.2.593 1962 Unknown [id number] 2.16.840.1.448378.3.579.2.59 1962 Unknown [id number] 2.16.840.1.873859.3.579.2.593 1962 Unknown [id number] 2.16.840.1.286740.3.579.2.593 1962 Unknown [id number] 2.16.840.1.156266.3.579.2.593 1962 Unknown [id number] 2.16.840.1.980527.3.579.2.593 1962 Unknown [id number] 2.16.840.1.055386.3.579.2.593 1962 Unknown [id number] 2.16.840.1.124544.3.579.2.593 1962 Unknown [id number] 2.16.840.1.752941.3.579.2.593 1962 Unknown [id number] 2.16.840.1.161829.3.579.2.593 1962 Unknown [id number] 2.16.840.1.315221.3.579.2.593 1962 Unknown [id number] 2.16.840.1.598164.3.579.2.593 1962 Unknown [id number] 2.16.840.1.818728.3.579.2.593 1962 Unknown [id number] 2.16.840.1.372181.3.579.2.593 1962 Unknown [id number] 2.16.840.1.254864.3.579.2.128 1962 Unknown [id number] 2.16.840.1.419287.3.579.2.128 1962 Unknown [id number] 2.16.840.1.690326.3.579.2.128 6 1962 Unknown [id number] 2.16.840.1.492015.3.579.2.128 1962 Unknown [id number] 2.16.840.1.854648.3.579.2.128 6 1962 Unknown [id number] 2.16.840.1.631882.3.579.2.128 1962 Unknown [id number] 2.16.840.1.599576.3.579.2.128 1962 Unknown [id number] 2.16.840.1.318771.3.579.2.128 1962 Unknown [id number] 2.16.840.1.283711.3.579.2.128 1962 Unknown [id number] 2.16.840.1.835624.3.579.2.128 1962 Unknown [id number] 2.16.840.1.171986.3.579.2.128 1962 Unknown [id number] 2.16.840.1.352535.3.579.2.128 1962 Unknown [id number] 2.16.840.1.081558.3.579.2.128 1962 Unknown [id number] 2.16.840.1.335644.3.579.2.128 1962 Unknown [id number] 2.16.840.1.534237.3.579.2.128 1962 Unknown [id number] 2.16.840.1.521187.3.579.2.128 1962 Unknown [id number] 2.16.840.1.785040.3.579.2.128 1962 Unknown [id number] 2.16.840.1.578784.3.579.2.128 1959 Unknown [id number] Social History Date Type Detail Facility Start: 10-08-2021 End: 05-09-2023 Tobacco smoking status INIS Ex-smoker (finding) [facility] Start: 1960 Sex Assigned At Male [facility] Start: 12-21-2021 End: 04-27-2023 Sex Assigned At [facility] Start: 02-07-1981 End: 02-07-1991 History of tobacco use Current smoker [facility] Start: 02-07-1981 End: 02-07-1991 History of tobacco use Cigarette Smoker [employer] Start: 11-19-2021 End: 12-21-2021 Cigarettes smoked current (pack per day) - Reported 0.5 [employer] Start: 11-19-2021 End: 05-09-2023 Tobacco use and exposure Smokeless tobacco non-user [employer] Start: 03-04-2023 End: 05-09-2023 Alcohol intake Current non-drinker of alcohol (finding) [facility] In a typical week, h ow many times do you talk on the telephone with family, friends, or neighbors? Patient declined [employer] Start: 1960 Sex Assigned At Not on file P Figure 8 Surgical Has the [employer], [employer], or water [employer] threatened to shut off services in your home in past 12Mo No [employer] Medical Equipment Procedure Code Equipment Code Equipment Origin al Text Equipment Identifier Dates Gft Hmn Tiss 250 mg Amniofill - [id number] - [id number] Start: 2017 Tiss Epifix Mesh 2x3cm - [id number] - [id number] Start: 09-23-2017 Gft Hmn Tiss 2x3 cm Epicord - [id number] - [id number] Start: 11-18-2017 Gft Hmn Tiss 2x3 cm [employer] - [id number] - [id number] Start: 01-20-2018 Tissue Epifix 2x 2 Cm - [id number] - [id number] Start: 09-02-2017 Tissue Epifix 2x 2 Cm - [id number] - [id number] Start: 09-09-2017 Comment on above: Description: 1.6 cm wide, 1.4 cm length, 4-5 mm deep Tissue Epifix 2x 2 Cm - [id number] - [id number] Start: 10-07-2017 Tissue Epifix 2x 2 Cm - [id number] - [id number] Start: 10-14-2017 Tissue Epifix 2x 2 Cm - [id number] - [id number] Start: 10-21-2017 Tissue Epifix 2x 2 Cm - [id number] - [id number] Start: 11-04-2017 Tissue Epifix 2x 2 Cm - [id number] - [id number] Start: 12-09-2017 [id number] Start: 09-04-2021 1 strip by other route 3 (three) times a day. [id number] Start: 04-09-2022 Tid [id number] Start: 04-09-2022 Goals Date Patient Goal Desired Activity /State Personal health goal Comment on above: Formatting of this n ote might be different from the original. Evaluation of progress towards goal: Home with family support Functional Status Date Assessment Result Facility 10-09-2021 Functional status Patient at Baseline [facility] Work Phone: Mental Status Date Assessment Result Facility 10-09-2021 Cognitive function Cognitive Sta tus Patient at Baseline [facility] Work Phone: Clinical Notes 10-07-2021 to 05-09-2023 Donta Zhou MD - 05/09/2023 12:00 PM DREW Agosto - 04/27/2023 1:15 PM EDTPre-Procedure Instructions - Diana Karimi RN - 04/20/2023 1:15 PM EDTPatient Instructions Note Date & Type Note Facility 05-09-2023 History of Present illness Narrative Images from the original note were not included. Name: Yaniv Narvaez : 1960 Gender: male PCP: DREW Kolb Age: 62 y.o. PCP Encounter Date: 05/09/23 CHIEF COMPLAINT: Subjective Yaniv Narvaez is an 62 y.o. male with a longstanding history of diabetes, hypertension, hyperlipidemia. He presents today for evaluation for elevated blood pressure and need for medications. Patient states he was recently in the ER found to be significantly hypertensive. His placed on Coreg and Diovan and asked to continue those medications. Patient decided he would want to take him until he saw a pipe buffer's therefore presents today on no medications. Patient reports he was told in the past he had mitral valve prolapse. He was on atenolol for 20 years but it was discontinued in favor of Coreg. Patient denies any chest pain or significant shortness of breath but is not very active. 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 ROS chronic pain from Charcot left foot PAST MED/SURG HISTORY: Past Medical History: Diagnosis Date Acute eczema Acute renal insufficiency Adrenogenital disorder ([facility]) Adrenogenital syndrome ([facility]) Anxiety BPH without urinary obstruction Cellulitis in diabetic foot ([facility]) Cellulitis of left toe Charcot ankle, left Chronic ulcer of skin ([facility]) Complete traumatic amputation of great toe ([facility]) Right Great Toe Decreased testosterone level Dehydration Dental disease Diabetes mellitus type 2, controlled ([facility]) Diabetic foot infection [place] [place] 09/16/2021 Diabetic neuropathy ([facility] [place] Diarrhea Electrolyte imbalance Enterocolitis due to Clostridium difficile HL (hearing loss) Hyperlipidemia Hypertension Lymphedema Noncompliance Obesity Onychomycosis Peripheral vascular disease ([facility]) PVD (peripheral vascular disease) ([facility] [place] TIA (transient ischemic attack) Visual impairment Past Surgical History: Procedure Laterality Date AMPUTATION RIGHT GREAT TOE, AMPUTATION RIGHT FIRST METATARSAL Right 09/19/2021 Performed by Mari Leyva DPM at [facility] AMPUTATION TOE, 2ND METARSAL Right 2017 Performed by Evita Cole DPM at [facility] APPLICATION EPICORD GRAFT (EPIFIX) Right 11/18/2017 Performed by Evita Cole DPM at [facility] APPLICATION EPIFIX Right 12/09/2017 Performed by Evita Cole DPM at [facility] APPLICATION EPIFIX Right 11/04/2017 Performed by Evita Cole DPM at [facility] APPLICATION EPIFIX Right 10/14/2017 Performed by Evita Cole DPM at [facility] APPLICATION EPIFIX GRAFT Right 01/20/2018 Performed by Evita Cole DPM at [facility] APPLICATION EPIFIX GRAFT Right 10/21/2017 Performed by Evita Cole DPM at [facility] APPLICATION EPIFIX GRAFT Right 10/07/2017 Performed by Evita Cole DPM at [facility] APPLICATION EPIFIX GRAFT Right 09/23/2017 Performed by Evita Cole DPM at [facility] APPLICATION EPIFIX GRAFT Right 09/02/2017 Performed by Evita Cole DPM at [facility] APPLICATION GRAFIX GRAFT Right 09/09/2017 Performed by Evita Cole DPM at [facility] APPLICATION SKIN SUBSTITUTE LOWER EXTREMITY Bilateral 09/04/2021 Performed by Evita Cole DPM at [facility] APPLICATION WOUND VAC LOWER EXTREMITY Left 09/04/2021 Performed by Evita Cole DPM at [facility] COLONOSCOPY N/A 10/20/2018 Performed by Bronson Alexandra MD at [facility] COLONOSCOPY POLYPECTOMY N/A 05/04/2023 Performed by Robert Murphy MD at [facility] DEBRIDEMENT FOOT/ANKLE Left 09/04/2021 Performed by Evita Cole DPM at [facility] ESOPHAGOGASTRODUODENOSCOPY BIOPSY N/A 05/04/2023 Performed by Robert Murphy MD at [facility] FRACTURE SURGERY 1979 Ankle INCISION AND DRAINAGE FOOT OR TOE Right 2017 Performed by Evita Cole DPM at [facility] LIMBAL STEM CELL TRANSPLANT Right great toe TONSILLECTOMY TUMOR EXCISION left knee Social History Socioeconomic History Marital status: Spouse name: Not on file Number of children: Not on file Years of education: Not on file Highest education level: Not on file Occupational History Not on file Tobacco Use Smoking status: Former Packs/day: 0.50 Years: 10.00 Additional pack years: 0.00 Total pack years: 5.00 Types: Cigarettes Start date: 02/07/1981 Quit date: 02/07/1991 Years since quittin.2 Smokeless tobacco: Never Vaping Use Vaping Use: Never used Substance and Sexual Activity Alcohol use: No Drug use: Not Currently Types: Other Comment: takes 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 Sexual activity: Defer Other Topics Concern Caffeine Use Yes Social History Narrative Not on file Social Determinants of Health Financial Resource Strain: Unknown (12/21/2021) Overall Financial Resource Strain (CARDIA) Difficulty of Paying Living Expenses: Patient declined Food Insecurity: No Food Insecurity (04/27/2023) Hunger Screening Food Insecurity - Worry: Never True Food Insecurity - Inability: Never True Transportation Needs: Patient Declined (04/01/2023) PRAPARE - Transportation Lack of Transportation (Medical): Patient declined Lack of Transportation (Non-Medical): Patient declined Physical Activity: Unknown (12/21/2021) Exercise Vital Sign Days of Exercise per Week: Patient declined Minutes of Exercise per Session: Patient declined Stress: Not on file Social Connections: Unknown (12/21/2021) Social Connection and Isolation Panel [NHANES] Frequency of Communication with Friends and Family: Patient declined Frequency of Social Gatherings with Friends and Family: Patient declined Attends Latter-Day Services: Patient declined Active Member of Clubs or Organizations: Patient declined Attends Club or Organization Meetings: Patient declined Marital Status: Patient declined Interpersonal Safety: Not At Risk (04/01/2023) Humiliation, Afraid, Rape, and Kick questionnaire Fear of Current or Ex-Partner: No Emotionally Abused: No Physically Abused: No Sexually Abused: No Housing Instability: Low Risk (04/01/2023) Housing Instability Housing Instability: No FAMILY HISTORY: Family History Problem Relation Age of Onset Diabetes Mother Diabetes Father Stroke Father Diabetes Paternal Grandmother Diabetes Paternal Grandfather Cancer Paternal Grandfather Anesthesia problems Neg Hx CURRENT MEDICATIONS: Current Outpatient Medications: blood sugar diagnostic strip, 1 strip by other route 3 (three) times a day., Disp: 100 strip, Rfl: 6 blood-glucose meter misc, 1 each by miscellaneous route 3 (three) times a day., Disp: 1 each, Rfl: 0 buprenorphine-naloxone (SUBOXONE) 8-2 mg per SL tablet, Place 2 tablets under the tongue in the morning., Disp: , Rfl: clopidogreL (PLAVIX) 75 mg tablet, TAKE 1 TABLET (75 MG TOTAL) BY MOUTH IN THE MORNING, Disp: 90 tablet, Rfl: 1 ferrous sulfate 325 (65 FE) mg tablet, Take 1 tablet (325 mg total) by mouth in the morning and 1 tablet (325 mg total) before bedtime., Disp: , Rfl: furosemide (LASIX) 80 mg tablet, Take 0.5 tablets (40 mg total) by mouth daily., Disp: 90 tablet, Rfl: 1 glimepiride (AMARYL) 4 mg tablet, Take 1 tablet (4 mg total) by mouth every morning., Disp: 30 tablet, Rfl: 11 lancets (onetouch ultrasoft) misc, Tid, Disp: 100 each, Rfl: 6 linaCLOtide (LINZESS) 145 mcg capsule, Take 1 capsule (145 mcg total) by mouth in the morning., Disp: 30 capsule, Rfl: 2 magnesium oxide (MAGOX) 400 mg tablet, TAKE 1 TABLET (400 MG TOTAL) BY MOUTH IN THE MORNING, Disp: 30 tablet, Rfl: 2 metFORMIN (FORTAMET) 500 MG (OSM) 24 hr tablet, Take 3 tablets (1,500 mg total) by mouth in the morning., Disp: , Rfl: pantoprazole (PROTONIX) 20 mg EC tablet, Take 1 tablet (20 mg total) by mouth in the morning., Disp: 90 tablet, Rfl: 1 tamsulosin (FLOMAX) 0.4 mg capsule, TAKE 1 CAPSULE BY MOUTH EVERY MORNING, Disp: 90 capsule, Rfl: 2 carvediloL (COREG) 6.25 mg tablet, TAKE 1 TABLET BY MOUTH EVERY MORNING AND TAKE 1 TABLET BY MOUTH EVERY NIGHT AT BEDTIME (Patient not taking: Reported on 05/09/2023), Disp: 60 tablet, Rfl: 0 valsartan (DIOVAN) 320 mg tablet, Take 1 tablet (320 mg total) by mouth in the morning. (Patient not taking: Reported on 05/09/2023), Disp: 30 tablet, Rfl: 1 ALLERGIES: Allergies as of 05/09/2023 (No Known Allergies) VITALS: Vitals: 05/09/23 1205 BP: (!) 232/130 Pulse: 114 Resp: 16 SpO2: 96% Admit Weight: Weight: 124.7 kg (275 lb) (Wearing a big boot and brace) Wt Readings from Last 3 Encounters: 05/09/23 124.7 kg (275 lb) 05/04/23 124.7 kg (275 lb) 04/27/23 81.2 kg (179 lb) Body mass index is 35.31 kg/m . PHYSICAL EXAM: Physical Exam General: alert, active, in no acute distress. A and O x 3 Neck: Supple,No JVP or HJR Lungs: Clear to A and P Heart: Normal PMI. regular rate and rhythm, normal S1, S2, no murmurs or gallops. Neuro: normal without focal findings Back/Spine: back straight, no defects Musculoskeletal: moves all extremities equally, full range of motion Skin: skin color, texture and turgor are normal; no bruising, rashes or lesions noted Vascular: no bruits, distal pulses 2+ Extremities: Specialized shoe left foot LAB REVIEW: CBC: Lab Results Component Value Date WBC 8.7 04/02/2023 HGB 10.9 (L) 04/02/2023 HCT 30.4 (L) 04/02/2023 MCV 87 04/02/2023 PLT 176 04/02/2023 PLT 203 04/01/2023 PLT 186 10/25/2022 BMP: Lab Results Component Value Date CALCIUM 9.3 04/06/2023 K 3.8 04/06/2023 CO2 33 (H) 04/06/2023 CL 97 (L) 04/06/2023 BUN 18 04/06/2023 CREATININE 1.34 (H) 04/06/2023 CREATININE 1.34 (H) 04/02/2023 CREATININE 1.37 (H) 04/01/2023 PT/INR: Lab Results Component Value Date INR 1.4 (H) 07/07/2021 INR 1.3 (H) 12/20/2017 INR 1.5 (H) 06/15/2017 PROTIME 16.5 (H) 07/07/2021 PROTIME 15.1 (H) 12/20/2017 PROTIME 17.2 (H) 06/15/2017 APTT: Lab Results Component Value Date PTT 39 (H) 07/07/2021 PTT 27 06/20/2017 PTT 27 06/15/2017 MAG: Lab Results Component Value Date MG 1.6 (L) 04/06/2023 MG 1.7 (L) 04/02/2023 MG 1.7 (L) 10/05/2021 D DIMER: Lab Results Component Value Date DDIMER 150 04/01/2023 TROPONIN T No results found for: TROPI ProBNP: BNP Date Value Ref Range Status 04/01/2023 74 <100.0 pg/mL Final LIPIDS: Lab Results Component Value Date CHOL 80 (L) 06/09/2021 CHOL 111 (L) 09/10/2019 Lab Results Component Value Date HDL 28 (L) 06/09/2021 HDL 29 (L) 09/10/2019 Lab Results Component Value Date LDLCALC 39 06/09/2021 LDLCALC 68 09/10/2019 Lab Results Component Value Date TRIG 65 06/09/2021 TRIG 70 09/10/2019 ASSESSMENT/PLAN/DISCUSSION 1. Essential hypertension 2. Resistant hypertension 3. Pure hypercholesterolemia Start the Coreg at 6.25 b.i.d. and the Diovan 320. Monitor blood pressure at home and keep recordings. Follow-up in 4-6 weeks and adjust medications further. Check calcium score of the heart Long discussion with patient regarding his risk with ongoing pressures as they are today. He understood and would follow therapeutic guidelines as discussed. When he comes back in 4-6 weeks adjust those medications further drive his systolic pressure down under 140 and diastolic under 90s. Orders Placed This Encounter Procedures CT heart without contrast including scoring No orders of the defined types were placed in this encounter. Medications Discontinued During This Encounter Medication Reason docusate sodium (COLACE) 100 mg capsule Therapy completed GAVILYTE-G 236-22.74-6.74 -5.86 gram solution Therapy completed Total time spent was 30 minutes which did not include joaf-nd-bian contact with the patient: Preparing to see the patient (e.g., review of tests) Obtaining and/or reviewing separately obtained history Referring and communicating with other health career and guidance counselor (not separately reported) Documenting clinical information in the electronic or other health record Independently interpreting results (not separately reported) and communicating results to the patient/family/caregiver The note was completed using EMR. Every effort was made to ensure accuracy; however, inadvertent computerized workforce analyst errors may be present. CARDIOVASCULAR STUDIES: EKG: No results found. ECHO: Echo complete W/O contrast Result Date: 11/05/2022 Left Ventricle: Left ventricle appears normal in size. There is mild to moderate concentric increased wall thickness/hypertrophy. Systolic function is normal with an ejection fraction of 55-60%. The quantitative EF by 2D Morales biplane is 55%. Grade II diastolic dysfunction (pseudonormal) is present. Lateral E' is 8.59 cm/s. Medial E' is 7.18 cm/s. Left Atrium: Left atrium volume index is mildly increased. The left atrial volume index is 41.4 mL/m2. Right Ventricle: Right ventricular size is borderline dilated. The right ventricular basal diameter is 41.0 mm. Systolic function is normal. Aortic Valve: The aortic valve is trileaflet. There is mild sclerosis. There is trace regurgitation. There is no evidence of aortic valve stenosis. Mitral Valve: The leaflets are mildly thickened. There is mild posterior annular calcification. There is mild regurgitation with a centrally directed jet. There is no evidence of mitral valve stenosis. Tricuspid Valve: The leaflets are mildly thickened. There is mild regurgitation. The tricuspid valve regurgitation jet is central. There is no evidence of tricuspid valve stenosis. The right ventricular systolic pressure is mildly elevated. RVSP calculated at 40 mmHg. RVSP is based on RA pressure of 8 mmHg. There is mild pulmonary hypertension. IVC/SVC: The right atrial pressure is estimated at 8 mmHg. IVC appears dilated with increased right atrial pressure. There is partial collapse with deep inspiration. Echo complete W/O contrast Result Date: 09/18/2021 Left Ventricle: There is mild concentric increased wall thickness/hypertrophy. Systolic function is normal with an ejection fraction of 55-60%. The quantitative EF by 2D Morales biplane is 59%. Right Ventricle: Right ventricular size appears normal. The right ventricular basal diameter is 40.0 mm. Systolic function is normal. Tricuspid Valve: There is mild regurgitation. There is no evidence of tricuspid valve stenosis. The right ventricular systolic pressure is mildly elevated. RVSP calculated at 39 mmHg. There is mild pulmonary hypertension. Stress Test: No results found. Cath: No results found. Device: Other: DONTA ZHOU MD documented in this encounter [employer] 04-27-2023 History of Present illness Narrative Images from the original note were not included. [facility] [address] [facility] [address] . Date of Patient's visit: 04/27/2023 Patient's name: Yaniv Narvaez Date of : 1960 Reason for visit/chief complaint: Chief Complaint Patient presents with Hypertension Patient here for high blood pressure. Has been taking coreg and diovan by Dr. Posada in [place]. patients blood pressure fluctuates between 170/80-90's - 210/104 on his off days, which isnt too often and hasn't seen it that high since. Patient states he feels well all around. Has an upcoming colonoscopy on the . Needs a refill of coreg and diovan as he is almost out.Glucose meter needs new batteries so unable to check at home, has been a couple of weeks since he last checked them. HPI CYRUS Norris is a 62-year-old male that presents today to follow-up on his blood pressure. He was recently hospitalized at [facility] on 04/01/2023 was later discharged on 04/02/2023 for a hypertensive crisis. While admitted to [facility] he was started on both Coreg and valsartan. Today he states that he is doing well his blood pressure has been manageable. HTN Patient states that his blood pressure has been spiking every so often. He has been taking his medication as prescribed. Continue Coreg and Diovan (will increase0 Denies chest pain, shortness of breath, palpitations, visual disturbances, bilateral lower leg edema and visual disturbances Decrease salt intake Increase exercise as tolerated Today blood pressure 150/82 Patient would like to see a pipe buffer due to recurrent elevated blood pressure. DM 2 Hemoglobin A1c 9.3 >> repeat in 2 months DM2 care guide: - Education: Reviewed ABCs of diabetes management:: A1C (<7), blood pressure (<130/80), and cholesterol (LDL <100). - Compliance at present is estimated to be good. Efforts to improve compliance (if necessary) will be directed at dietary modifications and increased exercise. - Increase exercise as tolerated - Adhere to a diabetic diet: monitor carbs/high sugar fruit intake. Increase lean proteins and water intake - Decrease alcohol intake and sugar filled drinks - Follow up: in 3 months for repeat hemoglobin A1c and as needed - Continue with new/current medication plan - Do not hesitate to reach out if symptoms worsen or change Abdominal distention and abdominal pain Plan for EGD and colonoscopy Presurgical clearance May hold Plavix 5 days prior May hold iron supplement 5 days prior Review of Systems: Review of Systems Constitutional: Negative for chills and fever. HENT: Negative for ear pain and sore throat. Eyes: Negative for pain and visual disturbance. Respiratory: Negative for cough and shortness of breath. Cardiovascular: Negative for chest pain and palpitations. Gastrointestinal: Negative for abdominal pain and vomiting. Genitourinary: Negative for dysuria and hematuria. Musculoskeletal: Negative for arthralgias and back pain. Skin: Negative for color change and rash. Neurological: Negative for seizures and syncope. All other systems reviewed and are negative. Objective: BP 150/82 (BP Site: Right Arm, BP Postition: Sitting) Pulse 68 Ht 188 cm (6' 2.02 ) Wt 81.2 kg (179 lb) SpO2 97% BMI 22.97 kg/m Physical Exam Constitutional: Appearance: Normal appearance. He is normal weight. HENT: Head: Normocephalic and atraumatic. Nose: Nose normal. Mouth/Throat: Mouth: Mucous membranes are moist. Pharynx: Oropharynx is clear. Cardiovascular: Rate and Rhythm: Normal rate and regular rhythm. Pulses: Normal pulses. Heart sounds: Normal heart sounds, S1 normal and S2 normal. Pulmonary: Effort: Pulmonary effort is normal. Breath sounds: Normal breath sounds. No wheezing or rhonchi. Abdominal: General: Bowel sounds are normal. Palpations: Abdomen is soft. Musculoskeletal: General: No swelling. Cervical back: Full passive range of motion without pain. Right lower leg: No edema. Left lower leg: No edema. Skin: General: Skin is warm and dry. Capillary Refill: Capillary refill takes less than 2 seconds. Neurological: General: No focal deficit present. Mental Status: He is alert. Mental status is at baseline. Outpatient Encounter Medications as of 04/27/2023 Medication Sig Dispense Refill allopurinol (ZYLOPRIM) 300 mg tablet Take 1 tablet (300 mg total) by mouth in the morning. bisacodyL (DULCOLAX, BISACODYL,) 5 mg EC tablet Take 2 tablets (10 mg total) by mouth See Admin Instructions. Take per written instructions 2 tablet 0 blood sugar diagnostic strip 1 strip by other route 3 (three) times a day. 100 strip 6 blood-glucose meter misc 1 each by miscellaneous route 3 (three) times a day. 1 each 0 buprenorphine-naloxone (SUBOXONE) 8-2 mg per SL tablet Place 2 tablets under the tongue in the morning. clopidogreL (PLAVIX) 75 mg tablet TAKE 1 TABLET (75 MG TOTAL) BY MOUTH IN THE MORNING 90 tablet 1 ferrous sulfate 325 (65 FE) mg tablet Take 1 tablet (325 mg total) by mouth in the morning and 1 tablet (325 mg total) before bedtime. furosemide (LASIX) 80 mg tablet Take 0.5 tablets (40 mg total) by mouth daily. 90 tablet 1 GAVILYTE-G 236-22.74-6.74 -5.86 gram solution glimepiride (AMARYL) 4 mg tablet Take 1 tablet (4 mg total) by mouth every morning. 30 tablet 11 lancets (onetouch ultrasoft) misc Tid 100 each 6 magnesium oxide (MAGOX) 400 mg tablet TAKE 1 TABLET (400 MG TOTAL) BY MOUTH IN THE MORNING 30 tablet 2 metFORMIN (FORTAMET) 500 MG (OSM) 24 hr tablet Take 3 tablets (1,500 mg total) by mouth in the morning. pantoprazole (PROTONIX) 20 mg EC tablet Take 1 tablet (20 mg total) by mouth in the morning. 90 tablet 1 tamsulosin (FLOMAX) 0.4 mg capsule TAKE 1 CAPSULE BY MOUTH EVERY MORNING 90 capsule 2 [DISCONTINUED] carvediloL (COREG) 6.25 mg tablet Take 1 tablet (6.25 mg total) by mouth in the morning and 1 tablet (6.25 mg total) before bedtime. 60 tablet 0 [DISCONTINUED] valsartan (DIOVAN) 160 mg tablet Take 1 tablet (160 mg total) by mouth in the morning. 30 tablet 0 carvediloL (COREG) 6.25 mg tablet Take 1 tablet (6.25 mg total) by mouth in the morning and 1 tablet (6.25 mg total) before bedtime. 60 tablet 0 docusate sodium (COLACE) 100 mg capsule Take 1 capsule (100 mg total) by mouth in the morning and 1 capsule (100 mg total) before bedtime. (Patient not taking: Reported on 04/27/2023) 60 capsule 2 flash glucose sensor (FREESTYLE GERMANIA 2 SENSOR) kit 1 kit by miscellaneous route every 30 (thirty) days. Apply sensor to skin subcutaneously; change every 14 days. (2 sensors per kit) (Patient not taking: Reported on 04/27/2023) 1 kit 11 polyethylene glycol (GLYCOLAX) 17 gram/dose powder Take 17 g by mouth in the morning. (Patient not taking: Reported on 04/27/2023) 289 g 1 valsartan (DIOVAN) 320 mg tablet Take 1 tablet (320 mg total) by mouth in the morning. 30 tablet 1 No facility-administered encounter medications on file as of 04/27/2023. Laboratory: A1c: Lab Results Component Value Date HGBA1C 6.3 09/17/2021 HGBA1C 6.9 (H) 12/10/2020 Fasting LP: Cholesterol Date Value Ref Range Status 06/09/2021 80 (L) 150 - 200 mg/dL Final Cholesterol:HDL Ratio Date Value Ref Range Status 06/09/2021 2.9 1.0 - 5.0 Final HDL Cholesterol Date Value Ref Range Status 06/09/2021 28 (L) >39 mg/dL Final Comment: HDL <40 mg/dL - High Risk HDL > or = 40mg/dL- Desirable HDL >60 mg/dL - Negative Risk Micro: Lab Results Component Value Date MICROALBUR 29.0 (H) 06/09/2021 URINECREAT 68.90 06/09/2021 ALBCREATRA 420.9 (H) 06/09/2021 CBC: Lab Results Component Value Date WBC 8.7 04/02/2023 RBCCOUNT 3.51 (L) 04/02/2023 HGB 10.9 (L) 04/02/2023 HCT 30.4 (L) 04/02/2023 MCV 87 04/02/2023 MCH 31.1 04/02/2023 MCHC 35.8 04/02/2023 RDW 13.7 04/02/2023 PLT 176 04/02/2023 MPV 8.0 04/02/2023 CMP: Lab Results Component Value Date SODIUM 137 04/06/2023 K 3.8 04/06/2023 CL 97 (L) 04/06/2023 CO2 33 (H) 04/06/2023 ANIONGAP 7 04/06/2023 BUN 18 04/06/2023 GLU 218 (H) 04/06/2023 CALCIUM 9.3 04/06/2023 TOTALPROTEI 6.3 04/02/2023 ALBUMIN 3.4 04/02/2023 ALKPHOS 68 04/02/2023 AST 19 04/02/2023 ALT 13 04/02/2023 GFR >60 09/22/2021 GFR >60 09/22/2021 Last imaging results X-ray chest 1 view Indication: Hypertension chest pain TECHNIQUE: Frontal view the chest obtained portably and compared to multiple prior exams most recent dated 10/25/2022. FINDINGS: Lung volumes are decreased since prior exam. Central pulmonary vasculature appears somewhat congested. Heart and mediastinum show increased size accentuated by technique and decreased lung volumes. Focal consolidation, pleural effusion, or pneumothorax are not seen. IMPRESSION: 1. Apparent central congestive change versus bronchovascular crowding. Finalized by Ila Lucero MD on 04/01/2023 2:11 PM Echo complete W/O contrast Result Date: 11/05/2022 Left Ventricle: Left ventricle appears normal in size. There is mild to moderate concentric increased wall thickness/hypertrophy. Systolic function is normal with an ejection fraction of 55-60%. The quantitative EF by 2D Morales biplane is 55%. Grade II diastolic dysfunction (pseudonormal) is present. Lateral E' is 8.59 cm/s. Medial E' is 7.18 cm/s. Left Atrium: Left atrium volume index is mildly increased. The left atrial volume index is 41.4 mL/m2. Right Ventricle: Right ventricular size is borderline dilated. The right ventricular basal diameter is 41.0 mm. Systolic function is normal. Aortic Valve: The aortic valve is trileaflet. There is mild sclerosis. There is trace regurgitation. There is no evidence of aortic valve stenosis. Mitral Valve: The leaflets are mildly thickened. There is mild posterior annular calcification. There is mild regurgitation with a centrally directed jet. There is no evidence of mitral valve stenosis. Tricuspid Valve: The leaflets are mildly thickened. There is mild regurgitation. The tricuspid valve regurgitation jet is central. There is no evidence of tricuspid valve stenosis. The right ventricular systolic pressure is mildly elevated. RVSP calculated at 40 mmHg. RVSP is based on RA pressure of 8 mmHg. There is mild pulmonary hypertension. IVC/SVC: The right atrial pressure is estimated at 8 mmHg. IVC appears dilated with increased right atrial pressure. There is partial collapse with deep inspiration. Echo complete W/O contrast Result Date: 09/18/2021 Left Ventricle: There is mild concentric increased wall thickness/hypertrophy. Systolic function is normal with an ejection fraction of 55-60%. The quantitative EF by 2D Morales biplane is 59%. Right Ventricle: Right ventricular size appears normal. The right ventricular basal diameter is 40.0 mm. Systolic function is normal. Tricuspid Valve: There is mild regurgitation. There is no evidence of tricuspid valve stenosis. The right ventricular systolic pressure is mildly elevated. RVSP calculated at 39 mmHg. There is mild pulmonary hypertension. Assessment and Plan Yaniv was seen today for hypertension. 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) - The current medical regimen is effective; continue present plan and medications. Hypertensive crisis - valsartan (DIOVAN) 320 mg tablet; Take 1 tablet (320 mg total) by mouth in the morning. - carvediloL (COREG) 6.25 mg tablet; Take 1 tablet (6.25 mg total) by mouth in the morning and 1 tablet (6.25 mg total) before bedtime. - Patient is advised to start taking her blood pressure about an hour to an hour and a half after her blood pressure medications and prior to bedtime. Patient is also advised to write down these numbers twice daily and to bring in the journal to the next visit. If patient starts to have a headache or starts to feel lightheaded, tired, fatigued or dizzy she is also advised to take her blood pressure. Stage 2 chronic kidney disease - Basic Metabolic Panel; Future - avoid NSAIDs - TIRE MOLDER 1.34, eGFR 61 (baseline) Resistant hypertension - Ambulatory referral to Cardiology; Future - Patient is very concerned about his blood pressure, would like a referral to Cardiology for further evaluation. He states he will continue his current medication regiment at this time and monitor his blood pressure Follow up and Instructions: No follow-ups on file. Future Appointments Date Time Provider Department Center 06/03/2023 2:00 PM Charlene Gordon APRN-[facility] The patient was counseled regarding risks and benefits of treatment options, instruction for management, importance of compliance with treatments, and risk factor reductions. Over 50% of this visit was spent face to face with this patient addressing counseling components and/or coordination of care. The patient verbalized understanding and agreement to the plan. Patient is to reach out if there are any changes in symptoms, worsening symptoms or questions. Please note that portions of this note were generated using voice recognition [email or web address] dictation software. Although every effort was made to ensure the accuracy of this automated workforce analyst, some errors in workforce analyst may have occurred. DREW Martinez [facility] DREW Martinez 04/28/23 0101 documented in this encounter [facility] [email or web address] [facility] 04-20-2023 Instructions Formatting of th is note might be different from the original. Your surgery/procedure is scheduled at [facility] on May 03 at 815 Arrival Time [facility] Address: [address] [place] [address] Park in P1 Parking lot located on [facility]. Report to the Entrance B. Check in at the information desk the surgery. The waiting room located on the second floor. If you have any questions prior to surgery, please call Pre-Admission Clinic at [phone] between 7:30 am and 4:30 pm Tuesday through Tuesday. If you have questions the morning of surgery, please call the Pre-op Department at [phone]. Notify your SURGEON if you develop any illness such as a cold, cough, fever, sore throat, vomiting or are hospitalized between now and your surgery. CONTINUE TO TAKE YOUR MEDICATIONS PRESCRIBED. DO NOT STOP YOUR PRESCRIBED MEDICATIONS UNLESS DIRECTED BY YOUR PRESCRIBING PHYSICIAN Take the following medications the morning of surgery with a sip of water: carvedilil(coreg), suboxone Weight loss medications: N/A Take inhalers as prescribed the morning of surgery. . Blood thinners: Medications such as Coumadin, Heparin, Aspirin, Plavix, Eliquis, Pradaxa) Please contact your physician regarding a stop/hold date for these medications. Diabetics: If you take insulin, contact your prescribing doctor for instructions on how to manage this the night before and the morning of surgery. Non-steriodal Anti-Inflammatory Drugs (NSAIDS)- Stop 3 days prior to surgery unless otherwise directed by your surgeon. Vitamins/Herbal Products: You may continue to take your prescribed vitamins such as potassium, iron, vitamin B, vitamin C, or multivitamin unless specifically instructed by your surgeon to stop. STOP taking all herbal products/teas one week prior to your surgery. Marijuana: Stop marijuana 72 hours prior to surgery, stop CBD oil 48 hours prior to surgery. If you have been given bowel prep instructions by your surgeon, please call the surgeon's office with any questions about these instructions. What do I do the day of Surgery? Age 2 through adult - Stop all solids by midnight, You may have clear liquids up to 2 hours before surgery, unless otherwise instructed by your surgeon. Clear liquids are: water, sports drinks such as Gatorade or G2, or apple juice. You may NOT have: tube feedings, dairy products, alcoholic beverages, orange juice, or any liquids with solids or pulp in it. If applicable, shower again with CHG soap the morning of your surgery. If you received a green plastic bracelet, bring it with you the day of surgery and your nurse will put it on you. In order to help prevent infection post-operatively, you may be asked to use a CHG mouthwash when you arrive to the Pre-op area. Your nurse will provide instruction the morning of. What do I need to do to prepare for surgery? If you will be going home the same day as your surgery, arrange for an adult over [address] Riding in a bus or taxi by yourself is not permitted. You should not smoke or drink alcohol 24 hours before your surgery. Alcohol thins the blood and may cause bleeding problems during surgery. Smoking increases the risk of breathing problems after surgery. If you have been assigned SUMANTH Education by your surgeon's office, please complete this education prior to your surgery. For questions regarding SUMANTH education, reach out to your surgeon's office. If you have been given a prescription for occupational, physical or speech therapy, please set up these appointments before your procedure. If you would like to schedule therapy at a [facility] facility, please call [phone] ([phone]). Do not use lotions, creams, powders, perfume, make up, cologne or after-shaves day of surgery. Remove ALL jewelry including wedding rings, body piercings,hair extensions that contain metal, nail spanish, make-up, and contact lens. You may brush your teeth the morning of surgery, but do not swallow the water. Wear your dentures and partial plates to the hospital (no adhesive). Shower the night the before. If applicable, use the CHG (chlorhexidine gluconate) soap or wipes What should I bring to the hospital? If you received a green plastic bracelet, bring it with you the day of surgery and your nurse will put it on you. Eyeglass or contact lens case If you will be spending the night, please bring personal care items and leave them in the car until you are taken to your room after surgery. Leave ALL valuables at home. If any of these instructions conflict with those you received from the surgeon, please seek clarification from your surgeon's office. DEEP BREATHING EXERCISES This exercise helps promote good air exchange and helps to prevent pneumonia after surgery. Breathe in slowly and deeply through the nose. Hold your breath for a few seconds and then exhale slowly through the mouth. Repeat this three times and then cough.Coughing helps to clear your lungs. If you have had a surgery with an incision into your abdomen or chest, press gently against your incision with a pillow or a folded blanket when you cough. Please be aware - it may not be ballard to cough following some types of surgeries involving the eyes, ears, sinuses and throat. Always follow your doctor's instructions. LEG EXERCISE These exercises help promote good circulation and help to prevent blood clots after surgery. Point your toes to the ceiling and then point them to the wall. Do this slowly about 15-20 times. You may also move your feet in circles. Do the exercise that is most comfortable for you. If you have had surgery involving your shoulder or arm, we recommend you move your fingers. PRACTICING We ask that you begin practicing these exercises before your surgery. After surgery try to do both exercises at least every 2 hours during the day and early evening. SURGICAL SITE INFECTION PREVENTION What is a Surgical Site Infection? Infection can happen to the area of the body where surgery is done. This is called a surgical site infection (SSI). A SSI does not happen very often. Can SSIs be treated? Antibiotics are used to treat SSI. Some patients may need another surgery to treat the infection. The doctor will discuss treatment options with you. What are some of the things that hospitals are doing to prevent SSIs? Soap and water or alcohol hand rub are used before and after caring for each patient. Special soap is used to clean surgery workers hands and arms just before the surgery. Masks, gowns, gloves and hair covers are worn during the surgery to keep the area clean. Hair in the surgery area may be removed with clippers (not razors). A special soap that kills germs is used to clean the skin at the surgery site. Antibiotics may be given before the surgery starts. What can you do to prevent SSIs? Before surgery: You may be asked to shower or bathe with a special soap that kills germs the night before and the day of surgery. Use the soap as you were told. If you smoke, stop or cut down. Ask your doctor about ways to quit. Do not shave near where you will have surgery. Shaving can irritate the skin and make it easier to get and infection. After surgery: Be sure that the doctors and nurses clean their hands before and after touching you. Be sure your family and friends clean their hands before and after visiting you. Do not be afraid to remind them. * Care for your wound at home as told by your doctor or nurse * Call your doctor right away if you have fever, redness, increased pain, or drainage at the surgery site. Further questions? Contact the doctor, nurse or the Infection Prevention and Control department if you have any questions. PATIENT RIGHTS AND RESPONSIBILITIES As a patient at [facility], you have the right to: Receive medical care and be informed of who is taking care of you Be treated with dignity and respect Have a family member/title insurance sales representative of choice and your physician notified of your admission Receive information and actively participate in decisions about your care and treatment Refuse care, treatment and services Decide who may provide your support and speak for you Access orthodoxy and spiritual services Participate in ethical issues and questions about your care Receive private and confidential care Have appropriate assessment and management of your pain Know guest visitation restrictions or limitations Have an advance directive Access protective services Consent or refuse to participate in research studies or production or recordings, films or other images Have resolution of your complaints Receive information of hospital charges and payment methods Patient/patient title insurance sales representative responsibilities are to: Provide information about health status to facilitate care, treatment and services Follow the treatment, plan, keep appointments and speak up when you do not understand the plan Respect the rights of other patients and healthcare personnel Follow organizational rules and regulations that support quality care and a safe environment Fulfill financial obligations as promptly as possible [facility] 04-20-2023 Miscellaneous Notes Your surgery/procedure is scheduled at [facility] on May 03 at 815 Arrival Time [facility] Address: [address] [place] [address]. [place] [address] Park in [address] Parking lot located on [facility]. Report to the Entrance B. Check in at the information desk the surgery. The waiting room located on the second floor. If you have any questions prior to surgery, please call Pre-Admission Clinic at [phone] between 7:30 am and 4:30 pm Tuesday through Tuesday. If you have questions the morning of surgery, please call the Pre-op Department at [phone]. Notify your SURGEON if you develop any illness such as a cold, cough, fever, sore throat, vomiting or are hospitalized between now and your surgery. CONTINUE TO TAKE YOUR MEDICATIONS PRESCRIBED. DO NOT STOP YOUR PRESCRIBED MEDICATIONS UNLESS DIRECTED BY YOUR PRESCRIBING PHYSICIAN Take the following medications the morning of surgery with a sip of water: carvedilil(coreg), suboxone Weight loss medications: N/A Take inhalers as prescribed the morning of surgery. . Blood thinners: Medications such as Coumadin, Heparin, Aspirin, Plavix, Eliquis, Pradaxa) Please contact your physician regarding a stop/hold date for these medications. Diabetics: If you take insulin, contact your prescribing doctor for instructions on how to manage this the night before and the morning of surgery. Non-steriodal Anti-Inflammatory Drugs (NSAIDS)- Stop 3 days prior to surgery unless otherwise directed by your surgeon. Vitamins/Herbal Products: You may continue to take your prescribed vitamins such as potassium, iron, vitamin B, vitamin C, or multivitamin unless specifically instructed by your surgeon to stop. STOP taking all herbal products/teas one week prior to your surgery. Marijuana: Stop marijuana 72 hours prior to surgery, stop CBD oil 48 hours prior to surgery. If you have been given bowel prep instructions by your surgeon, please call the surgeon's office with any questions about these instructions. What do I do the day of Surgery? Age 2 through adult - Stop all solids by midnight, You may have clear liquids up to 2 hours before surgery, unless otherwise instructed by your surgeon. Clear liquids are: water, sports drinks such as Gatorade or G2, or apple juice. You may NOT have: tube feedings, dairy products, alcoholic beverages, orange juice, or any liquids with solids or pulp in it. If applicable, shower again with CHG soap the morning of your surgery. If you received a green plastic bracelet, bring it with you the day of surgery and your nurse will put it on you. In order to help prevent infection post-operatively, you may be asked to use a CHG mouthwash when you arrive to the Pre-op area. Your nurse will provide instruction the morning of. What do I need to do to prepare for surgery? If you will be going home the same day as your surgery, arrange for an adult over [address] Riding in a bus or taxi by yourself is not permitted. You should not smoke or drink alcohol 24 hours before your surgery. Alcohol thins the blood and may cause bleeding problems during surgery. Smoking increases the risk of breathing problems after surgery. If you have been assigned SUMANTH Education by your surgeon's office, please complete this education prior to your surgery. For questions regarding SUMANTH education, reach out to your surgeon's office. If you have been given a prescription for occupational, physical or speech therapy, please set up these appointments before your procedure. If you would like to schedule therapy at a [facility] facility, please call [phone] ([phone]). Do not use lotions, creams, powders, perfume, make up, cologne or after-shaves day of surgery. Remove ALL jewelry including wedding rings, body piercings,hair extensions that contain metal, nail spanish, make-up, and contact lens. You may brush your teeth the morning of surgery, but do not swallow the water. Wear your dentures and partial plates to the hospital (no adhesive). Shower the night the before. If applicable, use the CHG (chlorhexidine gluconate) soap or wipes What should I bring to the hospital? If you received a green plastic bracelet, bring it with you the day of surgery and your nurse will put it on you. Eyeglass or contact lens case If you will be spending the night, please bring personal care items and leave them in the car until you are taken to your room after surgery. Leave ALL valuables at home. If any of these instructions conflict with those you received from the surgeon, please seek clarification from your surgeon's office. DEEP BREATHING EXERCISES This exercise helps promote good air exchange and helps to prevent pneumonia after surgery. Breathe in slowly and deeply through the nose. Hold your breath for a few seconds and then exhale slowly through the mouth. Repeat this three times and then cough.Coughing helps to clear your lungs. If you have had a surgery with an incision into your abdomen or chest, press gently against your incision with a pillow or a folded blanket when you cough. Please be aware - it may not be ballard to cough following some types of surgeries involving the eyes, ears, sinuses and throat. Always follow your doctor's instructions. LEG EXERCISE These exercises help promote good circulation and help to prevent blood clots after surgery. Point your toes to the ceiling and then point them to the wall. Do this slowly about 15-20 times. You may also move your feet in circles. Do the exercise that is most comfortable for you. If you have had surgery involving your shoulder or arm, we recommend you move your fingers. PRACTICING We ask that you begin practicing these exercises before your surgery. After surgery try to do both exercises at least every 2 hours during the day and early evening. SURGICAL SITE INFECTION PREVENTION What is a Surgical Site Infection? Infection can happen to the area of the body where surgery is done. This is called a surgical site infection (SSI). A SSI does not happen very often. Can SSIs be treated? Antibiotics are used to treat SSI. Some patients may need another surgery to treat the infection. The doctor will discuss treatment options with you. What are some of the things that hospitals are doing to prevent SSIs? Soap and water or alcohol hand rub are used before and after caring for each patient. Special soap is used to clean surgery workers hands and arms just before the surgery. Masks, gowns, gloves and hair covers are worn during the surgery to keep the area clean. Hair in the surgery area may be removed with clippers (not razors). A special soap that kills germs is used to clean the skin at the surgery site. Antibiotics may be given before the surgery starts. What can you do to prevent SSIs? Before surgery: You may be asked to shower or bathe with a special soap that kills germs the night before and the day of surgery. Use the soap as you were told. If you smoke, stop or cut down. Ask your doctor about ways to quit. Do not shave near where you will have surgery. Shaving can irritate the skin and make it easier to get and infection. After surgery: Be sure that the doctors and nurses clean their hands before and after touching you. Be sure your family and friends clean their hands before and after visiting you. Do not be afraid to remind them. * Care for your wound at home as told by your doctor or nurse * Call your doctor right away if you have fever, redness, increased pain, or drainage at the surgery site. Further questions? Contact the doctor, nurse or the Infection Prevention and Control department if you have any questions. PATIENT RIGHTS AND RESPONSIBILITIES As a patient at [facility], you have the right to: Receive medical care and be informed of who is taking care of you Be treated with dignity and respect Have a family member/title insurance sales representative of choice and your physician notified of your admission Receive information and actively participate in decisions about your care and treatment Refuse care, treatment and services Decide who may provide your support and speak for you Access orthodoxy and spiritual services Participate in ethical issues and questions about your care Receive private and confidential care Have appropriate assessment and management of your pain Know guest visitation restrictions or limitations Have an advance directive Access protective services Consent or refuse to participate in research studies or production or recordings, films or other images Have resolution of your complaints Receive information of hospital charges and payment methods 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 [facility] [address] [place] [id number] Name: Yaniv Narvaez : 1960 SUBJECTIVE Yaniv Narvaez is a 62 y.o. White or male who presents to the office for a discharge follow-up from hospital. TCM ([id number]. TCM call completed 04/04. [facility] 04/01/23-04/02/23. Dx: Hypertensive crisis) TRANSITION OF CARE Date of Admission: April 01 Date of Discharge: April 02 Diagnosis on Discharge: Hypertensive Crisis Name of Discharging Facility: [facility] Data Reviewed: Medications, health risk assessment, allergies, past medical history, past surgical history, social history, family history, and immunization history. Follow Up Appointments with Providers: [facility]: [facility]/Summary: This is a 62-year-old male who presented to [facility] with elevated blood pressure. He was treated for hypertensive crisis, he had the addition of Coreg and valsartan to his medication regimen. The patient was discharged home in stable condition. Services utilized by Patient after Discharge: Patient went home no needs. He has been adjusting to being home well. Patient has another follow up visit scheduled with Charlene in May. Patient is due for repeat lab work--BMP and mag and plans to have this drawn after this visit today in the lab downstairs. Additional Questions/Concerns Requiring PCP Follow-Up: Patient BP has been running in the 130-150 systolic at home, with diastolic 60-80s. He is checking his blood pressure daily in the morning before taking his medications. Patient has been tolerating his medication changes well. Patient endorses having ongoing abdominal discomfort. He is following with GI for this, his discomfort is unchanged from previous. Hospital medical records were reviewed and medications were updated according to the hospital discharge medication list. Medication reconciliation was completed. See chart and scanned documents for details. Review of Systems Constitutional: Negative for chills and fever. HENT: Negative for ear pain and sore throat. Eyes: Negative for pain and visual disturbance. Respiratory: Negative for cough and shortness of breath. Cardiovascular: Negative for chest pain and palpitations. Gastrointestinal: Positive for abdominal distention. Negative for abdominal pain and vomiting. Genitourinary: Negative for dysuria and hematuria. Musculoskeletal: Negative for arthralgias and back pain. Skin: Negative for color change and rash. Neurological: Negative for seizures and syncope. All other systems reviewed and are negative. Patient Active Problem List Diagnosis Diabetic foot ulcer (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) Charcot foot due to diabetes mellitus ([facility] [place] Local infection of the skin and subcutaneous tissue, unspecified COVID-19 Osteomyelitis ([facility] [place] Hypertensive crisis Outpatient Medications Prior to Visit Medication Sig Dispense Refill allopurinol (ZYLOPRIM) 300 mg tablet Take 1 tablet (300 mg total) by mouth in the morning. blood sugar diagnostic strip 1 strip by other route 3 (three) times a day. 100 strip 6 blood-glucose meter misc 1 each by miscellaneous route 3 (three) times a day. 1 each 0 buprenorphine-naloxone (SUBOXONE) 8-2 mg per SL tablet Place 2 tablets under the tongue in the morning. carvediloL (COREG) 6.25 mg tablet Take 1 tablet (6.25 mg total) by mouth in the morning and 1 tablet (6.25 mg total) before bedtime. 60 tablet 0 clopidogreL (PLAVIX) 75 mg tablet TAKE 1 TABLET (75 MG TOTAL) BY MOUTH IN THE MORNING 90 tablet 1 docusate sodium (COLACE) 100 mg capsule Take 1 capsule (100 mg total) by mouth in the morning and 1 capsule (100 mg total) before bedtime. 60 capsule 2 ferrous sulfate 325 (65 FE) mg tablet Take 1 tablet (325 mg total) by mouth in the morning and 1 tablet (325 mg total) before bedtime. flash glucose sensor (FREESTYLE GERMANIA 2 SENSOR) kit 1 kit by miscellaneous route every 30 (thirty) days. Apply sensor to skin subcutaneously; change every 14 days. (2 sensors per kit) 1 kit 11 furosemide (LASIX) 80 mg tablet Take 0.5 tablets (40 mg total) by mouth daily. 90 tablet 1 glimepiride (AMARYL) 4 mg tablet Take 1 tablet (4 mg total) by mouth every morning. 30 tablet 11 lancets (onetouch ultrasoft) misc Tid 100 each 6 magnesium oxide (MAGOX) 400 mg tablet TAKE 1 TABLET (400 MG TOTAL) BY MOUTH IN THE MORNING 30 tablet 2 metFORMIN (FORTAMET) 500 MG (OSM) 24 hr tablet Take 3 tablets (1,500 mg total) by mouth in the morning. pantoprazole (PROTONIX) 20 mg EC tablet Take 1 tablet (20 mg total) by mouth in the morning. 30 tablet 1 polyethylene glycol (GLYCOLAX) 17 gram/dose powder Take 17 g by mouth in the morning. 289 g 1 tamsulosin (FLOMAX) 0.4 mg capsule TAKE 1 CAPSULE BY MOUTH EVERY MORNING 90 capsule 2 valsartan (DIOVAN) 160 mg tablet Take 1 tablet (160 mg total) by mouth in the morning. 30 tablet 0 No facility-administered medications prior to visit. No Known Allergies OBJECTIVE Vitals: 04/06/23 1022 BP: 150/80 BP Site: Right Arm BP Postition: Sitting BP CUFF SIZE: M (9-13 inches) Pulse: 84 Resp: 18 SpO2: 94% Weight: 127.5 kg (281 lb) Height: 188 cm (6' 2 ) Body mass index is 36.08 kg/m . Physical Exam Constitutional: General: He is not in acute distress. Appearance: He is well-developed. HENT: Head: Normocephalic. Right Ear: External ear normal. Left Ear: External ear normal. Nose: Nose normal. Eyes: Conjunctiva/sclera: Conjunctivae normal. Pupils: Pupils are equal, round, and reactive to light. Cardiovascular: Rate and Rhythm: Normal rate and regular rhythm. Heart sounds: Normal heart sounds. No murmur heard. Pulmonary: Effort: Pulmonary effort is normal. Breath sounds: Normal breath sounds. No wheezing. Abdominal: General: Bowel sounds are normal. Palpations: Abdomen is soft. There is no mass. Tenderness: There is no abdominal tenderness. Musculoskeletal: General: Normal range of motion. Cervical back: Normal range of motion. Lymphadenopathy: Cervical: No cervical adenopathy. Skin: General: Skin is warm and dry. Findings: No rash. Neurological: Mental Status: He is alert. Cranial Nerves: No cranial nerve deficit. Coordination: Coordination normal. Psychiatric: Behavior: Behavior normal. Laboratory Studies: Hospital Outpatient Visit on 04/05/2023 Component Date Value Ref Range Status IgA 04/05/2023 345 68 - 378 mg/dL Final TSH 04/05/2023 1.79 0.49 - 4.67 uIU/mL Final Admission on 04/01/2023, Discharged on 04/02/2023 Component Date Value Ref Range Status White Blood Cells 04/01/2023 10.8 4.0 - 11.0 X10E9/L Final RBC count 04/01/2023 4.02 (L) 4.10 - 5.70 X10E12/L Final Hemoglobin 04/01/2023 12.4 (L) 13.0 - 17.0 g/dL Final Hematocrit 04/01/2023 35.0 (L) 39 - 49 % Final MCV 04/01/2023 87 80 - 100 fL Final MCH 04/01/2023 30.8 27 - 34 pg Final MCHC 04/01/2023 35.4 32 - 36 g/dL Final RDW 04/01/2023 13.4 11.5 - 15.0 % Final Platelets 04/01/2023 203 150 - 450 X10E9/L Final MPV 04/01/2023 7.7 7 - 12 fL Final % neutrophils 04/01/2023 73.7 % Final % lymphocytes 04/01/2023 16.9 % Final % monocytes 04/01/2023 6.4 % Final % eosinophils 04/01/2023 2.3 % Final % Basophils 04/01/2023 0.7 % Final Neutrophils Absolute (A) 04/01/2023 7.9 (H) 1.5 - 6.6 X10E9/L Final Lymphocytes Absolute 04/01/2023 1.8 1.0 - 3.5 X10E9/L Final Monocytes Absolute 04/01/2023 0.7 0 - 0.9 X10E9/L Final Eosinophils Absolute 04/01/2023 0.2 0.0 - 0.4 X10E9/L Final Basophils Absolute 04/01/2023 0.1 0.0 - 0.2 X10E9/L Final BNP 04/01/2023 74 <100.0 pg/mL Final Sodium 04/01/2023 133 (L) 134 - 146 mmol/L Final Potassium, Bld 04/01/2023 4.1 3.5 - 5.0 mmol/L Final Chloride 04/01/2023 99 98 - 109 mmol/L Final CO2 04/01/2023 26 22 - 32 mmol/L Final Anion gap 04/01/2023 8 5 - 15 mmol/L Final BUN 04/01/2023 21 5 - 23 mg/dL Final Creatinine 04/01/2023 1.37 (H) 0.70 - 1.20 mg/dL Final METHOD TRACEABLE TO IDWI STANDARD Glucose 04/01/2023 223 (H) 65 - 99 mg/dL Final Calcium 04/01/2023 9.0 8.5 - 10.5 mg/dL Final Total Protein 04/01/2023 7.7 6.0 - 8.0 g/dL Final Albumin 04/01/2023 4.0 3.2 - 5.3 g/dL Final Alkaline Phosphatase 04/01/2023 84 39 - 130 U/L Final AST 04/01/2023 20 0 - 41 U/L Final ALT 04/01/2023 15 0 - 40 U/L Final Total bilirubin 04/01/2023 0.8 0.3 - 1.2 mg/dL Final eGFR (CKD-EPI)non-race dependent 04/01/2023 59 (L) >59 ml/min/1.73sq.m Final Comment: Reported eGFR is based on the CKD-EPI 2020 equation that does not use a race coefficient. D-dimer 04/01/2023 150 <255 ng/mL DDU Final Comment: Results <255 ng/mL DDU: The presence of a VTE can safely be excluded with a negative D-Dimer result and Wells score. A negative result doesn't exclude the possibility of DIC. The test be repeated along with other diagnostic tests if the patient's symptoms persist or worsen. [email or web address] [email or web address] Troponin I 04/01/2023 0.03 0.00 - 0.04 ng/mL Final Sodium 04/02/2023 134 134 - 146 mmol/L Final Potassium, Bld 04/02/2023 3.7 3.5 - 5.0 mmol/L Final Chloride 04/02/2023 98 98 - 109 mmol/L Final CO2 04/02/2023 27 22 - 32 mmol/L Final Anion gap 04/02/2023 9 5 - 15 mmol/L Final BUN 04/02/2023 22 5 - 23 mg/dL Final Creatinine 04/02/2023 1.34 (H) 0.70 - 1.20 mg/dL Final METHOD TRACEABLE TO IDWI STANDARD Glucose 04/02/2023 152 (H) 65 - 99 mg/dL Final Calcium 04/02/2023 8.8 8.5 - 10.5 mg/dL Final Total Protein 04/02/2023 6.3 6.0 - 8.0 g/dL Final Albumin 04/02/2023 3.4 3.2 - 5.3 g/dL Final Alkaline Phosphatase 04/02/2023 68 39 - 130 U/L Final AST 04/02/2023 19 0 - 41 U/L Final ALT 04/02/2023 13 0 - 40 U/L Final Total bilirubin 04/02/2023 0.7 0.3 - 1.2 mg/dL Final eGFR (CKD-EPI)non-race dependent 04/02/2023 61 >59 ml/min/1.73sq.m Final Comment: Reported eGFR is based on the CKD-EPI 2020 equation that does not use a race coefficient. Magnesium 04/02/2023 1.7 (L) 1.8 - 2.6 mg/dL Final White Blood Cells 04/02/2023 8.7 4.0 - 11.0 X10E9/L Final RBC count 04/02/2023 3.51 (L) 4.10 - 5.70 X10E12/L Final Hemoglobin 04/02/2023 10.9 (L) 13.0 - 17.0 g/dL Final Hematocrit 04/02/2023 30.4 (L) 39 - 49 % Final MCV 04/02/2023 87 80 - 100 fL Final MCH 04/02/2023 31.1 27 - 34 pg Final MCHC 04/02/2023 35.8 32 - 36 g/dL Final RDW 04/02/2023 13.7 11.5 - 15.0 % Final Platelets 04/02/2023 176 150 - 450 X10E9/L Final MPV 04/02/2023 8.0 7 - 12 fL Final % neutrophils 04/02/2023 57.2 % Final % lymphocytes 04/02/2023 31.8 % Final % monocytes 04/02/2023 7.1 % Final % eosinophils 04/02/2023 3.0 % Final % Basophils 04/02/2023 0.9 % Final Neutrophils Absolute (A) 04/02/2023 5.0 1.5 - 6.6 X10E9/L Final Lymphocytes Absolute 04/02/2023 2.8 1.0 - 3.5 X10E9/L Final Monocytes Absolute 04/02/2023 0.6 0 - 0.9 X10E9/L Final Eosinophils Absolute 04/02/2023 0.3 0.0 - 0.4 X10E9/L Final Basophils Absolute 04/02/2023 0.1 0.0 - 0.2 X10E9/L Final TSH 04/01/2023 1.34 0.49 - 4.67 uIU/mL Final T4, free 04/01/2023 1.14 0.61 - 1.60 ng/dL Final Troponin I 04/01/2023 0.03 0.00 - 0.04 ng/mL Final Troponin I 04/02/2023 0.03 0.00 - 0.04 ng/mL Final Bedside glucose 04/01/2023 258 (H) 65 - 99 mg/dL Final ASSESSMENT / PLAN 1. Type 2 diabetes mellitus with other specified complication, unspecified whether custodial insulin 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) -continue current medication regimen -repeat hemoglobin A1c in 3 months 2. Primary hypertension -continue current medication regimen -monitor blood pressure daily -repeat BMP and MAG to be completed today 3. Abdominal distention -following with Gastroenterology -planning to undergo EGD and colonoscopy Return for With [facility] as scheduled in May . Counseling: Risks, benefits, and alternatives to all new medications were discussed with patient. Continue all other medications as prescribed. All questions answered to patient's satisfaction. The patient was instructed to call if condition/symptoms worsen or fail to improve. The patient was counseled regarding impressions, instructions for management and importance of compliance with treatment. OARRS system will be checked if patient is prescribed controlled medication(s). Radha Emerson APRN-CORPORATE STAFF ACCOUNTANT 04/06/23 1110 documented in this encounter [facility] System 03-31-2023 History of Present illness Narrative [facility] New Patient Visit - History & Physical CHIEF COMPLAINT: Chief Complaint Patient presents with GI Problem Pt states he is here for a consult prior to colonoscopy. Pt states he is having some abdominal bloating. Pt states no solid stools. Pt reports having to drink malox to help and then able to have diarrhea,been going on for a month. Pt reports had an xray done 3/4 weeks ago. HISTORY OF PRESENT ILLNESS: Yaniv Narvaez is a 62 y.o. male who has a PMH of T2DM, HTN, adenomatous polyp of ascending colon, constipation, chronic osteomyelitis of right foot, CALVIN who presents to our office today for consult prior to colonoscopy due to Plavix and upper abdominal discomfort. Brief GI History Last colonoscopy in 10/[address] Alexandra showed a tubular adenomatous polyp. 02/2023 KUB showed moderate stool burden. Has a history of iron-deficiency anemia with most recent blood work from 10/27/2022 showed hemoglobin 12, with normal iron studies and ferritin on iron supplementation, LFTs normal. No prior EGD on file. Patient's BP in the office upon arrival is 192/110. Denies any SOB, chest pain, dizziness, chest tightness, change in vision, headaches. He states he did not take his atenolol yet this morning. He states this is typically how high his blood pressure will run in the morning before he takes his medication. Upon another recheck he was 182/100 in his left arm and 184/100 in his right arm. I did strongly recommend that he present to an ER for EKG, blood work and potential control of his blood pressure, he declines at this time and would like to call his PCP and discuss with his . He did leave the office in stable condition today. Around 3-4 weeks ago, he began to experience constipation, began skipping days between bowel movements, straining with bowel movements. He also began experiencing generalized abdominal bloating. He has tried MiraLax up to 3 capfuls daily that cause watery diarrhea the following day around 2-3 times. This does seem to relieve the generalized abdominal bloating. He has not been using MiraLax daily, he does not drink 64 fluid oz of water daily at this time. Denies any other GI symptoms. Denies tobacco use, marijuana use, illicit drug use, persistent NSAID use, persistent alcohol use. The patient denies any known family history of esophageal, gastric, liver, pancreatic or colorectal cancers. Denies any known family history of other digestive disorders or diseases such as inflammatory bowel disease. Weight 03/31/23 0956 82.1 kg (181 lb) 03/04/23 1333 126.1 kg (278 lb) 11/15/22 1035 128.1 kg (282 lb 6.4 oz) 11/05/22 1105 123.4 kg (272 lb) 10/25/22 1033 123.7 kg (272 lb 9.6 oz) 02/11/22 1417 114.3 kg (252 lb) PAST MEDICAL HISTORY Past Medical History: Diagnosis Date Acute eczema Acute renal insufficiency Adrenogenital disorder ([facility]) Adrenogenital syndrome ([facility]) Anxiety BPH without urinary obstruction Cellulitis in diabetic foot ([facility]) Cellulitis of left toe Charcot ankle, left Chronic ulcer of skin ([facility]) Complete traumatic amputation of great toe ([facility]) Right Great Toe Decreased testosterone level Dehydration Dental disease Diabetes mellitus type 2, controlled ([facility]) Diabetic foot infection 09/16/2021 Diabetic neuropathy ([facility]) Diarrhea Electrolyte imbalance Enterocolitis due to Clostridium difficile HL (hearing loss) Hyperlipidemia Hypertension Lymphedema Noncompliance Obesity Onychomycosis Peripheral vascular disease ([facility]) PVD (peripheral vascular disease) ([facility]) TIA (transient ischemic attack) Visual impairment PREVIOUS ENDOSCOPIC PROCEDURES: 10/20/[address] Alexandra -- Mod Sed. Performed due to screening purposes. A polyp in the ascending colon and 1 in the rectum. Rectal polyp biopsy showed hyperplastic polyp. Ascending colon polyp showed tubular adenoma. PREVIOUS IMAGIN03/08/2023 KUB Moderate amount retained fecal content. 04/02/2019 KUB Moderate amount of stool. Past Surgical History: Past Surgical History: Procedure Laterality Date AMPUTATION RIGHT GREAT TOE, AMPUTATION RIGHT FIRST METATARSAL Right 09/19/2021 Performed by Mari Leyva DPM at [facility] AMPUTATION TOE, 2ND METARSAL Right 2017 Performed by Evita Cole DPM at [facility] APPLICATION EPICORD GRAFT (EPIFIX) Right 11/18/2017 Performed by Evita Cole, DPM at [facility] APPLICATION EPIFIX Right 12/09/2017 Performed by Evita Cole, DPM at [facility] APPLICATION EPIFIX Right 11/04/2017 Performed by Evita Cole, DPM at [facility] APPLICATION EPIFIX Right 10/14/2017 Performed by Evita Cole, DPM at [facility] APPLICATION EPIFIX GRAFT Right 01/20/2018 Performed by Evtia Cole, DPM at [facility] APPLICATION EPIFIX GRAFT Right 10/21/2017 Performed by Evita Cole, DPM at [facility] APPLICATION EPIFIX GRAFT Right 10/07/2017 Performed by Evita Cole, DPM at [facility] APPLICATION EPIFIX GRAFT Right 09/23/2017 Performed by Evita Cole, DPM at [facility] APPLICATION EPIFIX GRAFT Right 09/02/2017 Performed by Evita Cole, DPM at [facility] APPLICATION GRAFIX GRAFT Right 09/09/2017 Performed by Evita Cole, YURIDIA at [facility] APPLICATION SKIN SUBSTITUTE LOWER EXTREMITY Bilateral 09/04/2021 Performed by Evita Cole DPM at [facility] APPLICATION WOUND VAC LOWER EXTREMITY Left 09/04/2021 Performed by Evita Cole DPM at [facility] COLONOSCOPY N/A 10/20/2018 Performed by Bronson Alexandra MD at [facility] DEBRIDEMENT FOOT/ANKLE Left 09/04/2021 Performed by Evita Cole DPM at [facility] FRACTURE SURGERY 1979 Ankle INCISION AND DRAINAGE FOOT OR TOE Right 2017 Performed by Evita Cole DPM at [facility] LIMBAL STEM CELL TRANSPLANT Right great toe TONSILLECTOMY TUMOR EXCISION left knee Current Medications: Current Outpatient Medications: allopurinol (ZYLOPRIM) 300 mg tablet, Take 1 tablet (300 mg total) by mouth in the morning., Disp: , Rfl: atenoloL (TENORMIN) 50 mg tablet, Take 1 tablet (50 mg total) by mouth in the morning., Disp: 90 tablet, Rfl: 3 blood sugar diagnostic strip, 1 strip by other route 3 (three) times a day., Disp: 100 strip, Rfl: 6 blood-glucose meter misc, 1 each by miscellaneous route 3 (three) times a day., Disp: 1 each, Rfl: 0 buprenorphine-naloxone (SUBOXONE) 8-2 mg per SL tablet, Place 1 tablet under the tongue in the morning., Disp: , Rfl: clopidogreL (PLAVIX) 75 mg tablet, TAKE 1 TABLET (75 MG TOTAL) BY MOUTH IN THE MORNING, Disp: 90 tablet, Rfl: 1 docusate sodium (COLACE) 100 mg capsule, Take 1 capsule (100 mg total) by mouth in the morning and 1 capsule (100 mg total) before bedtime., Disp: 60 capsule, Rfl: 2 ferrous sulfate 325 (65 FE) mg tablet, Take 1 tablet (325 mg total) by mouth in the morning and 1 tablet (325 mg total) before bedtime., Disp: , Rfl: furosemide (LASIX) 80 mg tablet, Take 1 tablet (80 mg total) by mouth daily., Disp: 90 tablet, Rfl: 1 glimepiride (AMARYL) 4 mg tablet, Take 1 tablet (4 mg total) by mouth every morning., Disp: 30 tablet, Rfl: 11 lancets (onetouch ultrasoft) misc, Tid, Disp: 100 each, Rfl: 6 metFORMIN (FORTAMET) 500 MG (OSM) 24 hr tablet, Take 3 tablets (1,500 mg total) by mouth in the morning., Disp: , Rfl: pantoprazole (PROTONIX) 20 mg EC tablet, Take 1 tablet (20 mg total) by mouth in the morning., Disp: 30 tablet, Rfl: 1 polyethylene glycol (GLYCOLAX) 17 gram/dose powder, Take 17 g by mouth in the morning., Disp: 289 g, Rfl: 1 tamsulosin (FLOMAX) 0.4 mg capsule, TAKE 1 CAPSULE BY MOUTH EVERY MORNING, Disp: 90 capsule, Rfl: 2 flash glucose sensor (FREESTYLE GERMANIA 2 SENSOR) kit, 1 kit by miscellaneous route every 30 (thirty) days. Apply sensor to skin subcutaneously; change every 14 days. (2 sensors per kit) (Patient not taking: Reported on 03/31/2023), Disp: 1 kit, Rfl: 11 magnesium oxide (MAGOX) 400 mg tablet, TAKE 1 TABLET (400 MG TOTAL) BY MOUTH IN THE MORNING (Patient not taking: Reported on 03/31/2023), Disp: 30 tablet, Rfl: 2 VITAMIN D3 125 mcg (5,000 unit) tablet, Take 1 tablet (5,000 Units total) by mouth in the morning. (Patient not taking: Reported on 03/31/2023), Disp: , Rfl: I reviewed and reconciled this patient's medication list today. The list included in this note is the most up to date list that I can attest to at this time based on the information that the patient has provided me and the electronic medical record. ALLERGIES: Patient has no known allergies. 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 HENT: Negative for trouble swallowing. Gastrointestinal: Positive for abdominal distention and constipation. Negative for abdominal pain, anal bleeding, blood in stool, diarrhea, nausea, rectal pain and vomiting. Skin: Negative for color change. PHYSICAL EXAM: Vitals: 03/31/23 0956 BP: (!) 190/110 Pulse: 75 Weight: 82.1 kg (181 lb) Height: 188 cm (6' 2 ) Body mass index is 23.24 kg/m . Physical Exam Constitutional: General: He is not in acute distress. Appearance: He is not toxic-appearing. Eyes: General: No scleral icterus. Cardiovascular: Rate and Rhythm: Normal rate and regular rhythm. Heart sounds: Normal heart sounds. No murmur heard. Pulmonary: Effort: Pulmonary effort is normal. Breath sounds: Normal breath sounds. Abdominal: General: Bowel sounds are normal. There is no distension. Palpations: Abdomen is soft. Tenderness: There is no abdominal tenderness. There is no guarding or rebound. Skin: Coloration: Skin is not jaundiced or pale. Neurological: Mental Status: He is alert. Psychiatric: Mood and Affect: Mood normal. Behavior: Behavior normal. PERTINENT DATA: CBC: Lab Results Component Value Date WBC 8.0 10/25/2022 HGB 12.0 (L) 10/25/2022 HCT 34.1 (L) 10/25/2022 MCV 88 10/25/2022 RDW 13.7 10/25/2022 PLT 186 10/25/2022 CMP: Lab Results Component Value Date K 4.1 11/05/2022 CL 101 11/05/2022 CO2 26 11/05/2022 BUN 24 (H) 11/05/2022 GLU 169 (H) 11/05/2022 GLU 164 (H) 09/23/2021 Lab Results Component Value Date INR 1.4 (H) 07/07/2021 INR 1.3 (H) 12/20/2017 INR 1.5 (H) 06/15/2017 PROTIME 16.5 (H) 07/07/2021 PROTIME 15.1 (H) 12/20/2017 PROTIME 17.2 (H) 06/15/2017 ASSESSMENT AND PLAN: Yaniv Narvaez is a 62 y.o. male who has a PMH of T2DM, HTN, adenomatous polyp of ascending colon, constipation, chronic osteomyelitis of right foot, CALVIN who presents to our office today for consult prior to colonoscopy due to Plavix and upper abdominal discomfort. Last colonoscopy in 10/[address] Alexandra showed a tubular adenomatous polyp. 02/2023 KUB showed moderate stool burden. Has a history of iron-deficiency anemia with most recent blood work from 10/27/2022 showed hemoglobin 12, with normal iron studies and ferritin on iron supplementation, LFTs normal. No prior EGD on file. Around 3-4 weeks ago, he began to experience constipation, began skipping days between bowel movements, straining with bowel movements. He also began experiencing generalized abdominal bloating. He has tried MiraLax up to 3 capfuls daily that cause watery diarrhea the following day around 2-3 times. This does seem to relieve the generalized abdominal bloating. He has not been using MiraLax daily, he does not drink 64 fluid oz of water daily at this time. Denies any other GI symptoms. Patient's BP in the office upon arrival is 192/110. Denies any SOB, chest pain, dizziness, chest tightness, change in vision, headaches. He states he did not take his atenolol yet this morning. He states this is typically how high his blood pressure will run in the morning before he takes his medication. Upon another recheck he was 182/100 in his left arm and 184/100 in his right arm. I did strongly recommend that he present to an ER for EKG, blood work and potential control of his blood pressure, he declines at this time and would like to call his PCP and discuss with his . He did leave the office in stable condition today. New Onset Constipation / Abdominal Distention: Recommend MiraLax bowel purge as listed below. Suspect his underlying abdominal distention is related to constipation as he does experience relief of abdominal bloating after bowel movements. Discussed importance of increasing water intake to minimum 64 fluid oz daily, increase exercise, may need to consider CIC medication. Will also biopsy for H.pylori on EGD as below. Ordered TSH. Purge instructions: -- Mix one 64 oz Gatorade or Propel with one bottle (238 grams (8.3 ounces)) of Miralax powder or generic polyethylene glycol and drink it all over the weekend (over a 12-24 hour period) when not going to be out -- Then start a better daily bowel regimen with 1 capful of Miralax BID to prevent recurrent constipation CALVIN: As AGA guidelines do recommend bidirectional endoscopy overt just iron supplementation alone inpatient has not had an EGD or colonoscopy to evaluate iron-deficiency anemia and his iron studies improved with just ferrous sulfate alone, we will proceed with EGD and colonoscopy at this time. Will also check celiac markers as below. EGD/CLN with Dr. Murphy, ASA3, MAC only at [facility] or [facility]. Needs cardiac clearance due to Plavix, elevated BP today in the office. CRC Screening / Hx of Tubular Adenomatous Polyps: Plan for colonoscopy as above. Denies known family history or personal history of colon cancer. Further recommendations pending workup as above. I will also notify PCP of BP today in office. Patient is aware and agreeable to this plan. Patient is to follow-up 2 months after endoscopic procedures or sooner as needed. Orders Placed This Encounter Procedures IGA Tissue transglutaminase, IgA & IgG Endomysial antibody, IgA titer TSH with Reflex EGD / Colonoscopy Total time spent was 42 minutes: Preparing to see the patient (e.g., review of tests) Obtaining and/or reviewing separately obtained history Performing a medically appropriate examination and/or evaluation Counseling and educating the patient/family/caregiver Ordering medications, tests, or procedures YANET HARE PA-C [facility] [address] [place] [address] PH: [phone] ([place]) / [phone] ([place]) ([place]) / [phone] ([place]) Patient to follow with Yanet Hare PA-C and Dr. Murphy This note is dictated with the use of M*Modal.Please note that this dictation was completed with computer voice recognition software. Quite often unanticipated grammatical, syntax, homophones, and other interpretive errors are inadvertently transcribed by the computer software. Please disregard these errors. Please excuse any errors that have escaped final proofreading. Yanet Hare PA-C 03/31/23 1103 documented in this encounter [facility] 03-31-2023 Instructions Yanet Hare PA-C - 03/31/2023 10:15 AM EST EGD and colonoscopy with Dr. Murphy Blood work MiraLax bowel purge with daily MiraLax use as listed below: Mix one 64 oz Gatorade or Propel with one bottle (238 grams (8.3 ounces)) of Miralax powder or generic polyethylene glycol and drink it all over the weekend (over a 12-24 hour period) when not going to be out Then start a better daily bowel regimen with 1 capful of Miralax once to twice daily to prevent recurrent constipation Increase physical activity to 30 minutes daily, 5 days per week. Increase water intake to minimum 64 fluid oz of water daily. Increase dietary fiber intake or add fiber supplement such as Benefiber, Metamucil or Citrucel nightly. documented in this encounter [employer] 03-04-2023 History of Present illness Narrative Images from the original note were not included. [facility] [address] [id number] [facility] [address] . Date of Patient's visit: 03/04/2023 Patient's name: Yaniv Narvaez Date of : 1960 Reason for visit/chief complaint: Chief Complaint Patient presents with Abdominal Pain Pt states he has a pain that comes and goes mostly when he is laying down Pt has taken OTC medication and it helps sometimes but he do not want to keep taking OTC medications Diabetes History of Present illness: Yaniv Narvaez is an 62 y.o. male who presents for Patient presents to the office to discuss abdominal pain and follow up on diabetes. Diabetes: Hgb A1C is 9.4 today. Patient's A1C was 4.5 in October while he was taking Trulicity. Patient feels that Trulicity is the cause of his stomach pain/problems and stopped taking it. He does not want to take any other injectable medication at this time. He would like to stay on oral medication. He is currently only taking Metformin. Abdominal pain: Patient states pain is more of an ache, occurs daily but is not constant. He states it's not affected by what he eats. Weight has increased. Tells me he needs laxatives to have a bowel movement. He reports bloating, gurgling, but denies any blood in his stools. Had a colonoscopy about 7 years ago-- 2 polyps removed at that time. He is not having any nausea or heartburn, has a full feeling sometimes, and tries to make himself burp/belch. Takes Pepto Bismol OTC-- nothing else. States it takes a lot of miralax to produce a good bowel movement. Review of Systems: Review of Systems Constitutional: Negative for chills and fever. HENT: Negative for ear pain and sore throat. Eyes: Negative for pain and visual disturbance. Respiratory: Negative for cough and shortness of breath. Cardiovascular: Negative for chest pain and palpitations. Gastrointestinal: Positive for abdominal distention, abdominal pain and constipation. Negative for blood in stool, diarrhea, nausea and vomiting. Genitourinary: Negative for dysuria and hematuria. Musculoskeletal: Negative for arthralgias and back pain. Skin: Negative for color change and rash. Neurological: Negative for seizures and syncope. All other systems reviewed and are negative. Objective: BP 126/82 Ht 188 cm (6' 2.02 ) Wt 126.1 kg (278 lb) BMI 35.68 kg/m Physical Exam Vitals reviewed. Constitutional: Appearance: Normal appearance. HENT: Head: Normocephalic. Nose: Nose normal. Mouth/Throat: Mouth: Mucous membranes are moist. Eyes: Extraocular Movements: Extraocular movements intact. Pupils: Pupils are equal, round, and reactive to light. Cardiovascular: Rate and Rhythm: Normal rate and regular rhythm. Pulmonary: Effort: Pulmonary effort is normal. Breath sounds: Normal breath sounds. Abdominal: General: Bowel sounds are normal. Palpations: Abdomen is soft. Musculoskeletal: General: Normal range of motion. Cervical back: Normal range of motion. Skin: General: Skin is warm. Neurological: General: No focal deficit present. Mental Status: He is alert. Psychiatric: Mood and Affect: Mood normal. Outpatient Encounter Medications as of 03/04/2023 Medication Sig Dispense Refill allopurinol (ZYLOPRIM) 300 mg tablet Take 1 tablet (300 mg total) by mouth in the morning. atenoloL (TENORMIN) 50 mg tablet Take 1 tablet (50 mg total) by mouth in the morning. 90 tablet 3 blood sugar diagnostic strip 1 strip by other route 3 (three) times a day. 100 strip 6 blood-glucose meter misc 1 each by miscellaneous route 3 (three) times a day. 1 each 0 buprenorphine-naloxone (SUBOXONE) 8-2 mg per SL tablet Place 1 tablet under the tongue in the morning. clopidogreL (PLAVIX) 75 mg tablet TAKE 1 TABLET (75 MG TOTAL) BY MOUTH IN THE MORNING 90 tablet 1 ferrous sulfate 325 (65 FE) mg tablet Take 1 tablet (325 mg total) by mouth in the morning and 1 tablet (325 mg total) before bedtime. flash glucose sensor (FREESTYLE GERMANIA 2 SENSOR) kit 1 kit by miscellaneous route every 30 (thirty) days. Apply sensor to skin subcutaneously; change every 14 days. (2 sensors per kit) 1 kit 11 furosemide (LASIX) 80 mg tablet Take 1 tablet (80 mg total) by mouth daily. 90 tablet 1 lancets (onetouch ultrasoft) misc Tid 100 each 6 linezolid (ZYVOX) 600 mg tablet TAKE 1 TABLET BY MOUTH TWICE A DAY FOR 14 DAYS magnesium oxide (MAGOX) 400 mg tablet TAKE 1 TABLET (400 MG TOTAL) BY MOUTH IN THE MORNING 30 tablet 2 metFORMIN (FORTAMET) 500 MG (OSM) 24 hr tablet Take 3 tablets (1,500 mg total) by mouth in the morning. tamsulosin (FLOMAX) 0.4 mg capsule TAKE 1 CAPSULE BY MOUTH EVERY MORNING 90 capsule 2 VITAMIN D3 125 mcg (5,000 unit) tablet Take 1 tablet (5,000 Units total) by mouth in the morning. dulaglutide (TRULICITY) 0.75 mg/0.5 mL pen injector INJECT 0.5 ML (0.75 MG TOTAL) UNDER THE SKIN EVERY 7 DAYS (Patient not taking: Reported on 03/04/2023) 0.5 mL 3 dulaglutide 0.75 mg/0.5 mL pen injector Inject 0.5 mL (0.75 mg total) under the skin every 7 days. (Patient not taking: Reported on 03/04/2023) No facility-administered encounter medications on file as of 03/04/2023. Laboratory: A1c: Lab Results Component Value Date HGBA1C 6.3 09/17/2021 HGBA1C 6.9 (H) 12/10/2020 Fasting LP: Cholesterol Date Value Ref Range Status 06/09/2021 80 (L) 150 - 200 mg/dL Final Cholesterol:HDL Ratio Date Value Ref Range Status 06/09/2021 2.9 1.0 - 5.0 Final HDL Cholesterol Date Value Ref Range Status 06/09/2021 28 (L) >39 mg/dL Final Comment: HDL <40 mg/dL - High Risk HDL > or = 40mg/dL- Desirable HDL >60 mg/dL - Negative Risk Micro: Lab Results Component Value Date MICROALBUR 29.0 (H) 06/09/2021 URINECREAT 68.90 06/09/2021 ALBCREATRA 420.9 (H) 06/09/2021 CBC: Lab Results Component Value Date WBC 8.0 10/25/2022 RBCCOUNT 3.89 (L) 10/25/2022 HGB 12.0 (L) 10/25/2022 HCT 34.1 (L) 10/25/2022 MCV 88 10/25/2022 MCH 31.0 10/25/2022 MCHC 35.3 10/25/2022 RDW 13.7 10/25/2022 PLT 186 10/25/2022 MPV 8.2 10/25/2022 CMP: Lab Results Component Value Date SODIUM 139 11/05/2022 K 4.1 11/05/2022 CL 101 11/05/2022 CO2 26 11/05/2022 ANIONGAP 12 11/05/2022 BUN 24 (H) 11/05/2022 GLU 169 (H) 11/05/2022 CALCIUM 9.6 11/05/2022 TOTALPROTEI 7.4 10/25/2022 ALBUMIN 4.3 10/25/2022 ALKPHOS 88 10/25/2022 AST 15 10/25/2022 ALT 18 10/25/2022 GFR >60 09/22/2021 GFR >60 09/22/2021 Last imaging results Echo complete W/O contrast Left Ventricle: Left ventricle appears normal in size. There is mild to moderate concentric increased wall thickness/hypertrophy. Systolic function is normal with an ejection fraction of 55-60%. The quantitative EF by 2D Morales biplane is 55%. Grade II diastolic dysfunction (pseudonormal) is present. Lateral E' is 8.59 cm/s. Medial E' is 7.18 cm/s. Left Atrium: Left atrium volume index is mildly increased. The left atrial volume index is 41.4 mL/m2. Right Ventricle: Right ventricular size is borderline dilated. The right ventricular basal diameter is 41.0 mm. Systolic function is normal. Aortic Valve: The aortic valve is trileaflet. There is mild sclerosis. There is trace regurgitation. There is no evidence of aortic valve stenosis. Mitral Valve: The leaflets are mildly thickened. There is mild posterior annular calcification. There is mild regurgitation with a centrally directed jet. There is no evidence of mitral valve stenosis. Tricuspid Valve: The leaflets are mildly thickened. There is mild regurgitation. The tricuspid valve regurgitation jet is central. There is no evidence of tricuspid valve stenosis. The right ventricular systolic pressure is mildly elevated. RVSP calculated at 40 mmHg. RVSP is based on RA pressure of 8 mmHg. There is mild pulmonary hypertension. IVC/SVC: The right atrial pressure is estimated at 8 mmHg. IVC appears dilated with increased right atrial pressure. There is partial collapse with deep inspiration. Echo complete W/O contrast Result Date: 11/05/2022 Left Ventricle: Left ventricle appears normal in size. There is mild to moderate concentric increased wall thickness/hypertrophy. Systolic function is normal with an ejection fraction of 55-60%. The quantitative EF by 2D Morales biplane is 55%. Grade II diastolic dysfunction (pseudonormal) is present. Lateral E' is 8.59 cm/s. Medial E' is 7.18 cm/s. Left Atrium: Left atrium volume index is mildly increased. The left atrial volume index is 41.4 mL/m2. Right Ventricle: Right ventricular size is borderline dilated. The right ventricular basal diameter is 41.0 mm. Systolic function is normal. Aortic Valve: The aortic valve is trileaflet. There is mild sclerosis. There is trace regurgitation. There is no evidence of aortic valve stenosis. Mitral Valve: The leaflets are mildly thickened. There is mild posterior annular calcification. There is mild regurgitation with a centrally directed jet. There is no evidence of mitral valve stenosis. Tricuspid Valve: The leaflets are mildly thickened. There is mild regurgitation. The tricuspid valve regurgitation jet is central. There is no evidence of tricuspid valve stenosis. The right ventricular systolic pressure is mildly elevated. RVSP calculated at 40 mmHg. RVSP is based on RA pressure of 8 mmHg. There is mild pulmonary hypertension. IVC/SVC: The right atrial pressure is estimated at 8 mmHg. IVC appears dilated with increased right atrial pressure. There is partial collapse with deep inspiration. Echo complete W/O contrast Result Date: 09/18/2021 Left Ventricle: There is mild concentric increased wall thickness/hypertrophy. Systolic function is normal with an ejection fraction of 55-60%. The quantitative EF by 2D Morales biplane is 59%. Right Ventricle: Right ventricular size appears normal. The right ventricular basal diameter is 40.0 mm. Systolic function is normal. Tricuspid Valve: There is mild regurgitation. There is no evidence of tricuspid valve stenosis. The right ventricular systolic pressure is mildly elevated. RVSP calculated at 39 mmHg. There is mild pulmonary hypertension. Assessment and Plan Yaniv was seen today for abdominal pain and diabetes. Diagnoses and all orders for this visit: Type 2 diabetes mellitus with other specified complication, unspecified whether custodial insulin 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) - POCT Hemoglobin A1c - glimepiride (AMARYL) 4 mg tablet; Take 1 tablet (4 mg total) by mouth every morning. - Continue taking Metformin at current dose - Will need to revisit insulin/injectables if A1C does not come down. Special screening for malignant neoplasm of colon - [facility] [place], [place]; Future Epigastric pain - X-ray abdomen ap 1 view; Future - pantoprazole (PROTONIX) 20 mg EC tablet; Take 1 tablet (20 mg total) by mouth in the morning. Follow up and Instructions: 3 months Patient noted to have elevated BMI and the following intervention(s) were applied: encouragement to exercise. OARRS report is reviewed before prescribing medications. The OARRS/MAPPS database was reviewed today and found to be appropriate. No indication of medication diversion, or non compliance Non smoker The patient was counseled regarding risks and benefits of treatment options, instruction for management, importance of compliance with treatments, and risk factor reductions. Over 50% of this visit was spent face to face with this patient addressing counseling components and/or coordination of care. The patient verbalized understanding and agreement to the plan. Charlene Gordon APRN, TONE [facility] DREW Kolb 03/13/[id number] documented in this encounter [facility] [employer] 2022 Note PROCEDURE: XR FOOT L T [...] severe degenerative changes Electronically authenticated by: ZITA Andres: 2022 09:29 [facility] 2022 Note PROCEDURE: XR FOOT L [...] authenticated by: ZITA YODER Date: 2022 09:29 [facility] 05-18-2022 Note PROCEDURE: XR ANKLE LT [...] by: EVITA MORALES Date: 2022-05-18 08:49 [facility] 05-18-2022 Note PROCEDURE: XR ANKLE LT MIN [...] by: EVITA MORALES Date: 2022-05-18 08:49 [facility] 05-18-2022 Note PROCEDURE: XR ANKLE LT MIN [...] by: EVITA MORALES Date: 2022-05-18 08:49 [facility] 04-30-2022 Note PROCEDURE: XR FOOT L T [...] by: EVITA MORALES Date: 2022-04-30 13:58 [facility] 04-30-2022 Note PROCEDURE: XR FOOT L T [...] by: EVITA MORALES Date: 2022-04-30 13:58 [facility] 04-16-2022 Note PROCEDURE: XR FOOT L T [...] authenticated by: ZITA YODER Date: 2022-04-16 11:46 [facility] 04-16-2022 Note PROCEDURE: XR FOOT L [...] authenticated by: ZITA YODER Date: 2022-04-16 11:46 [facility] 04-07-2022 Evaluation note Encounter Date Diagnosis [...] We will continue to follow with Dr. Singer and of course can always follow-up with me if concern of infection again is present. Apr, Charcot's joint, left ankle and foot (ICD-10 - M14.672) Apr, Osteomyelitis, unspecified site, unspecified type (ICD-10 - M86.9) [employer] [facility] 01-12-2023 NotePROCEDURE: XR ANKLE LT MIN [...] Electronically authenticated by: EVITA MORALES Date: 2022-02-18 18:08[facility]01-12-2023 NotePROCEDURE: XR ANKLE LT MIN 3 [...] Electronically authenticated by: EVITA MORALES Date: 2022-02-18 18:08[facility]01-12-2023 NotePROCEDURE: XR ANKLE LT MIN 3 [...] Electronically authenticated by: EVITA MORALES Date: 2022-02-18 18:08[facility]01-12-2023 NotePROCEDURE: XR ANKLE LT 2V HISTORY: Pain COMPARISON: None. FINDINGS: BONES:Multiple intraoperative spot fluoroscopic images demonstrate advanced degenerative changes and collapse of the midfoot and ankle joint. Placement of external fixation device.. IMPRESSION: 1. 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 2. Intraoperative placement of external fixation device. Electronically authenticated by: EVITA MORALES Date: 2022-02-18 18:05[facility]09-02-2022 Hospital Discharge instructionsAmbulatory Orders* Initiate Home Health Time Frame: 10/09/21, Location: Determined By Patient Additional Instructions You must follow up with: Your usual police reserves commander. The infectious diseases doctor from [place]. And your Primary Care provider. Please call and schedule these appointments. HOME HEALTH TO MANAGE: Continue previous orders as done prior to this admission. Patient no longer needs IV antibiotics. Monitor VS per protocol Monitor Skin assessment Monitor for increased signs of infection Please draw a BMP on . 10/13/21. Send to Dr. Miller. [facility] Work Phone: 1(307) 461-664009-02-2022 Discharge summary Author Michael Caruso [facility] October 09, 2021 7:36pm Note Date/Time October 09, 2021 11:29am [facility] [address] [place] [address] Discharge Summary Signed Patient: Yaniv Narvaez MR#: [id number] : 1960 Acct:[id number] Age/Sex: 61 / M Adm Date: 2 Loc: Room: [address] [place] [address]: Michael Caruso DO Copies to: NON STAFF Michael Caruso DO~ Providers Date of Discharge: 10/09/21 Discharging Provider: Michael Caruso Primary Care Provider: NON STAFF Consults: 10/07/21 17:34 Consult to Dietitian Routine 10/07/21 18:11 Consult to Infectious Diseases Routine Consult to Nephrology Routine Consult to Podiatry Routine Discharge Diagnosis (1) CARLYLE (acute kidney injury): (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 Summary Hospital Course Hospital course: This is a 61-year-old man with a medical history of diabetes and hypertension aswell as dyslipidemia and peripheral arterial disease who has been dealing with long- term diabetic foot infections. He originally had surgery and premedical hospital in [place] for excision and debridement of osteomyelitis. It appears that he was discharged on IV vancomycin and IV cefepime by way of a PICC line. On the outpatient basis he was noticed to have worsening renal function and change was made to stop the vancomycin and placed him on daptomycin. He was sent to the [facility] emergency room where he remained for about 2days because no bed was available in [place] at which time they called us at [facility] and asked for admission. His creatinine had risen from a baseline of about 0.9 up to about 2.5. Patient was admitted to the hospital here at [facility]. He was placed on IV fluids. Antibiotics were stopped. Nephrotoxic medications were avoided. He had consultation by nephrology. With this his creatinine did improve. A bilateral renal ultrasound did not show any obstructive urologic problem. He was evaluated by a local police reserves commander Dr. Rodriguez. Her impression of the wound was that no active infection was present. She recommended ongoing wound care marcia has been doing at home. He was evaluated by local infectious diseases doctor with Dr. Ramos. Despite multiple efforts on the part of nursing staff we were unable to get records transferred over from the [facility] system. Specifically we asked for that 3 different deep cultures that were taken during the amputation and debridement procedure at [facility]. It looks like we have results [...] doctor did discuss the case with the police reserves commander from [place] who clarified that they had removed all of the infected bone from the right foot andthe surgical site. Therefore is recommended that the patient transition to oralLevaquin that will initially be adjusted for his elevated creatinine and that hecan continue to take Levaquin through the originally planned stop date of antibiotics that have been recommended by the [facility] which was October 31, 2021. On the last hospital day the patient appreciated the wound care efforts by nursing and was eating well and had no diarrhea and was discharged to home. He was encouraged to follow-up closely with his police reserves commander, the infectious diseases doctor in [place], and therefore his PICC line was left [...] % (Auto) 50.5, Lymph % (Auto) 33.0, Maries % (Auto) 9.4, Eos % (Auto) 5.9, Baso % (Auto) 1.2, Neut # (Auto) 3.6, Lymph # (Auto) 2.3, Maries # (Auto) 0.7, Eos # (Auto) 0.4, Baso # (Auto) 0.1, Nucleated RBC % (auto) 0.1 10/08/21 12:15: Urine Color Yellow, Urine Appearance Clear, Urine pH 6.0, Ur Specific Lambert 1.008, Urine Protein 100 H, Urine Glucose [...] Follow activity orders as given by your Auxiliary Equipment Tender. Diet: Regular Comment: Increase fiber in your diet. Additional Instructions: You must follow up with: Your usual police reserves commander. The infectious diseases doctorsheyla Mix. And your Primary Care provider. Please call [...] By: <Electronically signed by Michael Caruso DO> 10/09/21 193 [facility] Work Phone: 1(401) 551-577809-02-2022 Progress note Author Lucille Miller [facility] October 09, 2021 11:12am Note Date/Time October 09, 2021 10:25am [facility] [address] [place] [address] Nephrology Progress Note Signed with Addenda Patient: Yaniv Narvaez MR#: [id number] : 1960 Acct:[id number] Age/Sex: 61 / M Adm Date: 2 Loc: Room: [address] [place] [address] Type: ADM INOo Attending Dr: Michael Caruso DO Copies to: ~ ADDENDUM1 Patient can be discharged from renal standpoint. Repeat renal function in 3 to 5 days after discharge. Okay to resume Lasix 48 hours later. Outpatient follow-up in our office 4 to 6 weeks. Addendum Documented By: Lucille Miller MD 10/09/211111 Addendum Signed By: <Electronically signed by Lucille Miller MD> 10/09/211111 Date of Service: 10/09/2021 Subjective Subjective Narrative: [...] daptomycin.? He reported that he has a opl-iqbfsbk-stdlclaei type 2 diabetes mellitus and deniesany history [...] visible mass Skin: No rashes or bruises ELECTRICAL CONTROLS ASSEMBLER: Awake,Alert, following simple command Musculoskeletal: No joint [...] 300 Mg Tablet) 300 mg PO DAILY [facility] Stop: 10/08/22 08:59 Last Admin: 10/09/21 08:11 [...] Unit/5 Ml Syringe) 500 unit IV-PUSH QSHIFT [facility] Stop: 10/09/22 13:59 Sodium Chloride (0.9% Sodium Chloride 1,000 Ml) 1,000 mls @ 100 mls/hr IV .[id number] Stop: 10/07/22 18:14 Last Admin: 10/09/21 04:53 Dose: 100 mls/hr Magnesium Oxide (Magnesium Oxide 400 Mg Tablet) 400 mg PO DAILY LINDSEY Stop: 10/08/22 08:59 Last Admin: 10/09/21 08:11 Dose: 400 mg Metoprolol Tartrate (Metoprolol Tartrate 50 Mg Tablet) 50 mg PO BID LINDSEY Stop: 10/08/22 08:59 Last Admin: 10/09/21 08:17 Dose: 50 mg Non-Formulary Medication (Dulaglutide) 0.75 mg SUBCUT QWEEK LINDSEY Stop: 10/14/22 08:59 Tamsulosin HCl (Tamsulosin 0.4 [...] Appearance Clear Urine pH 6.0 Ur Specific Lambert 1.008 Urine Protein 100 H Urine Glucose (UA) Normal Urine Ketones Negative Urine Occult Blood 1+ H Urine Nitrite Negative Ur Leukocyte Esterase Negative Urine RBC 1-2 Urine WBC 10-19 H Urine Bacteria None seen Radiology Impressions Impressions - last 24 hours: Impressions Renal Ultrasound 10/08/21 11:27 IMPRESSION: NO OBSTRUCTIVE UROPATHY. Impression dictated by: Jo Yoon M.D.10/08/2021 4:28 PM Dictation Location: [place] [address] Any impression(s) listed above is documentation that [...] (3) Diabetes mellitus: Assessment/Problem Details: He has zwf-zxjylpe-nattvbmlp type 2 diabetes mellitus currently takes metformin and Trulicity at home. (4) HTN (hypertension): Assessment/Problem Details: Blood pressure is controlled. 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 Disease Progress Note Signed Patient: Yaniv Narvaez MR#: [id number] : 1960 Acct:[id number] Age/Sex: 61 / M Adm Date: 2 Loc: Room: [address] [place] [address] Type: ADM INOo Attending Dr: Michael Caruso [...] Unit/5 Ml Syringe) 500 unit IV-PUSH QSHIFT LINDSEY Stop: 10/09/22 13:59 Sodium Chloride (0.9% Sodium Chloride 1,000 Ml) 1,000 mls @ 100 mls/hr IV .[id number] Stop: 10/07/22 18:14 Last Admin: 10/09/21 04:53 Dose: 100 mls/hr Magnesium Oxide (Magnesium Oxide 400 Mg Tablet) 400 mg PO DAILY LINDSEY Stop: 10/08/22 08:59 Last Admin: 10/09/21 08:11 Dose: 400 mg Metoprolol Tartrate (Metoprolol Tartrate 50 Mg Tablet) 50 mg PO BID LINDSEY Stop: 10/08/22 08:59 Last Admin: 10/09/21 08:17 Dose: 50 mg Non-Formulary Medication (Dulaglutide) 0.75 mg SUBCUT QWEEK LINDSE[facility] Stop: 10/14/22 08:59 Sterile Water (Water For Injection,Sterile 10 Ml Vial) 2.2 ml INJECTION PRN PRN PRN Reason: To Dilute Cathflo Stop: 10/09/22 10:22 Tamsulosin HCl (Tamsulosin 0.4 Mg Cap.Er.24h) 0.4 mg PO DAILY LINDSEY Stop: 10/08/22 08:59 Last Admin: 10/09/21 08:11 Dose: 0.4 mg A&P - Infectious Disease Assessment/Plan (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 [facility] was received and reviewed which demonstrated [...] based on some of the culture/sensitivities from [facility]. I did receive a call back from his podiatric surgeon who again clarified that she removed all the infected bone from the right foot surgical site. Superficial culture here does have some light growth of gram-negative bacilli. Patient had grown Pseudomonas and MSSA from a culture result in [place] along with some other cultures with corynebacterium species. Patient's podiatric surgeon stated that the lobular biotics actually were not for her surgical incision site and was for a left ankle open wound. Therefore given his care done in [place] but realizing his AKIwas due to his [...] <Electronically signed by MD Speedy Ramos> 10/09/21 1438 [facility] Work Phone: 1(411) 161-407609-01-2022 Progress note Author Michael Caruso [facility] October 08, 2021 5:58pm Note Date/Time October 08, 2021 5:49pm [facility] [address] [place] [address] Hospitalist Progress Note Signed Patient: Yaniv Narvaez MR#: [id number] : 1960 Acct:[id number] Age/Sex: 61 / M Adm Date: 2 Loc: Room: [address] [place] [address] Type: ADM IN Attending Dr: Michael Caruso DO Copies to: ~ Date of Service: 10/08/2021 Subjective Subjective Narrative: Patient is a 61-year-old male past medical history significant for hypertension,hyperlipidemia and diabetes with recent right great toe amputation secondary to osteomyelitis on long-term IV antibiotics who presented to [facility] ER after being found by home health to have abnormal labs (elevated creatinine). At the [facility] ER, patient was noted to have acute kidney injury therefore patient was transferred to [facility] for further evaluation management, after waiting in that ER for nearly 2 days due to no hospital beds available in [place]. Patient states that on 09/18/2021 he had amputation of the right great toe ([facility]) due to osteomyelitis and was placed on [...] Dose Route Start Last Admin Trade Name Tino PRN Reason Stop Dose Admin Allopurinol 300 [...] 09:00 10/08/21 08:57 Ferrous Sulfate 324 Mg Tablet. 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: (4) HTN (hypertension): [...] <Electronically signed by Michael Caruso DO> 10/08/21 2268 [facility] Work Phone: [phone] 482-913709-01-2022 Consult note Author Wendi Rodriguez [facility] October 08, 2021 5:24pm Note Date/Time October 08, 2021 5:11pm [facility] [address] [place] [address] Podiatry Consult Note Signed Patient: Yaniv Narvaez MR#: [id number] : 1960 Acct:[id number] Age/Sex: 61 / M Adm Date: 2 Loc: Room: [address] [place] [address] Type: ADM IN Attending Dr: Michael Caruso DO Copies to: NON STAFF YURIDIA Cabrera DO~ HPI Data of Consult Consult Date: 10/08/21 Requesting Physician: Michael Caruso DO Primary Care Provider: NON STAFF Consult Narrative Reason for consult: Ulceration, osteomyelitis right first metatarsal History of present illness: Mr. Narvaez is a 61 year old male who had a partial first ray amputation performed at [facility] in [place] on September 18 due to chronic nonhealing wound and sepsis. He was previously followed by Dr. Cole in [place] for a chronic ulceration to the right [...] packing in this area. Patient presented to [facility] in [place] due to increased creatinine on routine lab [...] H 10/08/21 05:55 Microbiology Microbiology: Reviewed from [facility]: MSSA from wound swab and tissue culture [...] amputation. 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 Singer to discuss this further. In the meantime [...] By: <Electronically signed by YURIDIA Rodriguez> 10/08/21 1724 [facility] Work Phone: 1(394) 436-500409-01-2022 Consult note Author Lucille Miller [facility] October 08, 2021 11:31am Note Date/Time October 08, 2021 11:06am [facility] [address] [place] [address] Nephrology Consult Note Signed Patient: Yaniv Narvaez MR#: [id number] : 1960 Acct:[id number] Age/Sex: 61 / M Adm Date: 2 Loc: Room: [address] [place] [address] Type: ADM IN Attending Dr: Michael Caruso DO Copies to: NON STAFF MD Michael Chen DO~ Providers Consult Date: 10/08/21 Requesting Provider: Michael Caruso DO Primary Care Provider: NON STAFF [facility] Reason for Consult: CARLYLE management. History of [...] daptomycin. He reported that he has a sls-njeglup-itaskyxce type 2 diabetes mellitus and deniesany history [...] 300 Mg Tablet) 300 mg PO DAILY [facility] Stop: 10/08/22 08:59 Last Admin: 10/08/21 08:57 Dose: 300 mg Amlodipine Besylate (Amlodipine 5 Mg Tablet) 5 mg PO DAILY [facility] Stop: 10/08/22 08:59 Last Admin: 10/08/21 08:57 [...] Ml) 1,000 mls @ 100 mls/hr IV .[id number] Stop: 10/07/22 18:14 Last Admin: 10/08/21 06:24 Dose: 100 mls/hr Magnesium Oxide (Magnesium Oxide 400 Mg Tablet) 400 mg PO DAILY LINDSEY Stop: 10/08/22 08:59 Last Admin: 10/08/21 08:57 Dose: 400 mg Metoprolol Tartrate (Metoprolol Tartrate 50 Mg Tablet) 50 mg PO BID LINDSEY Stop: 10/08/22 08:59 Last Admin: 10/08/21 08:57 Dose: 50 mg Non-Formulary Medication (Dulaglutide) 0.75 mg SUBCUT QWEEK [facility] Stop: 10/14/22 08:59 Tamsulosin HCl (Tamsulosin 0.4 Mg Cap.Er.24h) 0.4 mg PO DAILY [facility] Stop: 10/08/22 08:59 Last Admin: 10/08/21 08:57 [...] visible mass Skin: No rashes or bruises ELECTRICAL CONTROLS ASSEMBLER: Awake,Alert, following simple command Psychiatric: Cooperative, normal [...] (3) Diabetes mellitus: Assessment/Problem Details: He has elo-cnqhiyp-guwearboc type 2 diabetes mellitus currently takes metformin and Trulicity at home. (4) HTN (hypertension): Assessment/Problem Details: Blood pressure is controlled. 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 Documented By: Lucille Miller MD 10/08/21 1051 Signed By: <Electronically signed by Lucille Miller MD> 10/08/21 1135 [facility] Work Phone: [phone]) 708-162609-01-2022 Consult note Author Speedy Ramos [facility] October 08, 2021 11:14am Note Date/Time October 08, 2021 9:50am [facility] [address] [place] [address] Infect. Disease Consult Note Signed Patient: Yaniv Narvaez MR#: [id number] : 1960 Acct:[id number] Age/Sex: 61 / M Adm Date: 2 Loc: 3T Room: 4C6990-6 Type: ADM IN Attending Dr: Michael Caruso [...] that vancomycin was eventually switchedto daptomycin. In [facility] ER patient was noted to have CARLYLE [...] this. Patient does follow with podiatry in [facility] for these wounds. Patient was having home [...] was negative unless otherwise noted in HPI. PMFSH Vaccinated for COVID-19?: Yes Medical History [...] Ml) 1,000 mls @ 100 mls/hr IV .[id number] Stop: 10/07/22 18:14 Last Admin: 10/08/21 06:24 Dose: 100 mls/hr Magnesium Oxide (Magnesium Oxide 400 Mg Tablet) 400 mg PO DAILY LINDSEY Stop: 10/08/22 08:59 Last Admin: 10/08/21 08:57 Dose: 400 mg Metoprolol Tartrate (Metoprolol Tartrate 50 Mg Tablet) 50 mg PO BID [facility] Stop: 10/08/22 08:59 Last Admin: 10/08/21 08:57 Dose: 50 mg Non-Formulary Medication (Dulaglutide) 0.75 mg SUBCUT QWEEK [facility] Stop: 10/14/22 08:59 Tamsulosin HCl (Tamsulosin 0.4 Mg Cap.Er.24h) 0.4 mg PO DAILY [facility] Stop: 10/08/22 08:59 Last Admin: 10/08/21 08:57 [...] 2.18 H A&P - Infectious Disease (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 Patient was noted to have AKIand [facility] ER thought to be secondary to ATN [...] that they got all the infection out. [employer] was checked for records which did not [...] signed by MD Speedy Ramos> 10/08/21 1114 [facility] Work Phone: [phone]) [phone] History and physical note Author Gil Jackson [facility] October 07, 2021 6:05pm Note Date/Time October 07, 2021 6: 05pm [facility] [address] [place] [address] Hospitalist H&P Signed Patient: Yaniv Narvaez MR#: [id number] : 1960 Acct:[id number] Age/Sex: 61 / M Adm Date: 2 Loc: Room: [address] [place] [address] Type: ADM IN Attending Dr: Gil Jackson MD Copies to: NON STAFF Gil Jackson MD~ HPI DATE OF EXAMINATION: 10/07/21 CHIEF COMPLAINT: Abnormal labs (acute kidney injury) HISTORY OF PRESENT ILLNESS: Patient is a 61-year-old male past medical history significant for hypertension,hyperlipidemia and diabetes with recent right great toe amputation secondary to osteomyelitis on long-term IV antibiotics who presented to [facility] ER after being found by home health to have abnormal labs (elevated creatinine). At the [facility] ER, patient was noted to have acute kidney injury therefore patient was transferred to [facility] for further evaluation management. Patient states that [...] kidney injury): (2) Right toe amputee: (3) [facility] current use of antibiotics: Plan Patient is [...] evaluation/management. Documented By: Gil Jackson MD 10/07/21 7642 Signed By: <Electronically signed by Gil Jackson MD> 10/07/21 1805 [facility] Work Phone: Evaluation note* Diagnosis Onset Date Resolution Status CARLYLE (acute kidney injury) ac marc Anemia acute Charcot's joint of left ankle acute Deformity of left ankle joint acute Diabetes mellitus acute Diabetes mellitus with foot ulcer acute HTN (hypertension) acute [facility]CF current use of antibiotics acute Osteomyelitis of right foot acute Right toe amputee acute Ulcer of left ankle acute Ulcer of right foot acute [facility] Work Phone: Evaluation note* Diagnosis Type 2 diabetes mellitus with other specified complication, unspecified whether custodial insulin 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)- Primary Special screening for malignant neoplasm of colon Special screening for malignant neoplasms, colon Epigastric pain Abdominal pain, epigastric Epigastric pain Abdominal pain, epigastric documented in this encounter [facility]* Diagnosis Iron deficiency anemia, unspecified iron deficiency anemia type- Primary Special screening for malignant neoplasm of colon Special screening for malignant neoplasms, colon Change in bowel habit documented in this encounter [facility]* Diagnosis Type 2 diabetes mellitus with other specified complication, unspecified whether custodial insulin use ([facility])- Primary Primary hypertension Unspecified essential hypertension Abdominal distention Flatulence, eructation, and gas pain documented in this encounter [facility]* Diagnosis Type 2 diabetes mellitus with other specified complication, 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 ([facility])- Primary Hypertensive crisis Hypertensive encephalopathy Stage 2 chronic kidney disease Resistant hypertension [facility] in this encounter [facility]* Diagnosis Hypertensive crisis Hypertensive encephalopathy [facility]* Diagnosis Essential hypertension- Primary Unspecified essential hypertension Resistant hypertension Pure hypercholesterolemia documented [facility] this [facility] general Narrative - Reported* Type Description Date Medical History type 2 diabetes Medical History CHRONIC OSTEOMYELITIS Medical History CHARCOTS JOINT Medical History ABSCENCE OF RIGHT FOOT Medical History TIA Medical History BPH Medical History ECZEMA Medical History HYPERLIPIDEMIA Surgical History right great toe and 2nd toe rem milo Surgical History tonsilectomy Surgical History surgery to realign left foot [employer] Other Instructions* Attachments The following attachments cannot be sent through Care Everywhere. * Glimepiride, ADULT (Lao) documented in this [facility] [email or web address] SystemInstructionsNot on file documented in this encounterProSt. [facility] St. [facility] [email or web address] SystemInstructionsNot on file documented in this encounterProSt. [facility] St. [facility] [email or web address] SystemInstructionsNot on file documented in this encounterProSt. [facility] St. [facility] [email or web address] SystemInstructionsNot on file documented in this encounterProGreene [facility] Hospital SystemInstructionsNot on file documented in this encounterGood [facility]aritan [facility] SystemReason for referral (narrative)* Consultation (Routine) - Pending Review Specialty Diagnoses / Procedures Referred By Bri riley Referred To Contact Gastroenterology Diagnoses Special screening for malignant neoplasm of colon Charlene Gordon APRN-CNP [address] [place] [address] [facility] [address] [place] [address] Referral ID Status Reason Start Date Expiration Date Visits Requested Visits Authorized [id number] Pending Review Specialty Services Required 03/04/2023 03/03/2024 1 1 [facility] for referral (narrative)* Consultation (Routine) - Pending Review Specialty Diagnoses / Procedures Referred By Bri riley Referred To Contact Cardiology Diagnoses Resistant hypertension Macy Larkin, KIMBERLY-CORPORATE STAFF ACCOUNTANT [address] [facility] [place] [address] Donta Zhou MD [address] [facility] [place] [address] Referral ID Status Reason Start Date Expiration Date Visits Requested Visits Authorized [id number] Pending Review Specialty Services Required 04/27/2023 04/26/2024 1 1 [employer] Summary Purpose Family History No Family History Records Found Relationship Condition Age at Onset Recorded Date/T roxanne Not Specified Malignant neoplasm Unknown History of coronary artery bypass surgery Unknown Malignant neoplasm of colon Unknown Advance Directives No Advanced Directives Records Found Advance Directive Response Recorded Date/ Time Advance Directives No October 07, 2021 1:09pm Latest Code Status on File Code Status Date Activated Date Inactivated Comments Full Code 10/06/2021 7:51 AM 10/07/2021 4:50 PM Code Status History Code Status Date Activated Date Inactivated Comments Full Code 09/17/2021 10:08 AM 09/23/2021 7:31 PM Full Code 12/10/2020 3:46 PM 12/15/2020 12:15 AM Full Code 12/19/2017 6:13 PM 12/21/2017 4:35 PM Full Code 2017 11:58 AM 06/21/2017 2:59 PM Latest Code Status on File Code Status Date Activated Date Inactivated Comments Full Code 04/01/2023 4:10 PM 04/02/2023 2:46 PM Code Status History Code Status Date Activated Date Inactivated Comments Full Code 10/06/2021 7:51 AM 10/07/2021 4:50 PM Full Code 09/17/2021 10:08 AM 09/23/2021 7:31 PM Full Code 12/10/2020 3:46 PM 12/15/2020 12:15 AM Full Code 12/19/2017 6:13 PM 12/21/2017 4:35 PM Latest Code Status on File Code Status Date Activated Date Inactivated Comments Full Code 04/01/2023 4:10 PM 04/02/2023 2:46 PM Code Status History Code Status Date Activated Date Inactivated Comments Full Code 10/06/2021 7:51 AM 10/07/2021 4:50 PM Full Code 09/17/2021 10:08 AM 09/23/2021 7:31 PM Full Code 12/10/2020 3:46 PM 12/15/2020 12:15 AM Full Code 12/19/2017 6:13 PM 12/21/2017 4:35 PM Chief Complaint and Reason for Visit Chief Complaint Acute Kidney Injury Reason for Visit CARLYLE (acute kidney in jury) Anemia Charcot's joint of left ankle Deformity of left ankle joint Diabetes mellitus Diabetes mellitus with foot ulcer HTN (hypertension) 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 Osteomyelitis of right foot Right toe amputee Ulcer of left ankle Ulcer of right foot Reason for Referral Specialty Diagnoses / Procedures Referred By Contac t Referred To Contact Radiology Diagnoses Essential hypertension Pure hypercholesterolemia Procedures CT heart without contrast including scoring Donta Zhou MD [address] [facility] [place] [address] Referral ID Status Reason Start Date Expiration Date V isits Requested Visits Authorized [id number] Pending Review 05/09/2023 05/08/2024 1 1 Specialty Diagnoses / Procedures Referred By Contac t Referred To Contact Diagnoses Iron deficiency anemia, unspecified iron deficiency anemia type Change in bowel habit Procedures EGD / Colonoscopy Yanet Hare, PETER [address] [facility] [address] [place] [address] Referral ID Status Reason Start Date Expiration Date V isits Requested Visits Authorized [id number] Pending Review 03/31/2023 03/30/2024 1 1 Additional Source Comments (unrecognized sect ion and content) No Status Records FoundNo Status Records FoundNo Status Records FoundNo Status Records FoundNo Status Records FoundNo Status Records Found INFORMATION SOURCE (unrecogn ized section and content) DATE CREATED AUTHOR 07/16/2021 [facility] DATE CREATED AUTHOR AUTHOR'S ORGANIZ ATION 10/16/2021 [facility] DATE CREATED AUTHOR AUTHOR'S ORGANIZ ATION 07/16/2022 [facility] DATE CREATED AUTHOR AUTHOR'S ORGANIZ ATION 03/13/2023 [facility] DATE CREATED AUTHOR AUTHOR'S ORGANIZ ATION 07/06/2023 [facility] DATE CREATED AUTHOR AUTHOR'S ORGANIZ ATION 01/28/2024 [facility] Care Teams (unrecognized sec tion and content) Team Status: Inactive Member Role Status Dates NON STAFF Primary Care Provider Active Gil Jackson MD Admit Provider Active Speedy Ramos MD Other Provider Active Lucille Miller MD Other Provider Active Howard Laguna DPM Other Provider Active Michael Caruso DO Attending Provider Active Team Status: Active Member Role Status Dates NON STAFF Primary Care Provider Active Chief Of Production Relationship Specialty Start Date End Date Charlene Gordon APRN-CORPORATE STAFF ACCOUNTANT [address] [place] [address] PCP - General Family Medicine 06/04/21 Chief Of Production Relationship Specialty Start Date End Date Charlene Gordon APRN-CORPORATE STAFF ACCOUNTANT [address] [place] [id number] PCP - General Family Medicine 06/04/21 Chief Of Production Relationship Specialty Start Date End Date Charlene Gordon ORAL SURGEON-CORPORATE STAFF ACCOUNTANT [address] [place] [address] PCP - General Family Medicine 06/04/21 Chief Of Production Relationship Specialty Start Date End Date Charlene Gordon ORAL SURGEON-CORPORATE STAFF ACCOUNTANT [address] [place] [address] PCP - General Family Medicine 06/04/21 Chief Of Production Relationship Specialty Start Date End Date Laura Gordonity TereDREW [address] [place] [address] PCP - General Family Medicine 06/04/21 Chief Of Production Relationship Specialty Start Date End Date Laura GordonDREW Dorantes [address] [place] [address] PCP - General Family Medicine 06/04/21 Reason for Visit (unrecogniz ed section and content) Reason Comments New Patient Hypertension Specialty Diagnoses / Procedures Referred By Bri riley Referred To Contact Cardiology Diagnoses Resistant hypertension Macy Larkin, ORAL SURGEON-CORPORATE STAFF ACCOUNTANT [address] [facility] [address] [place] [address] Donta Zhou MD [address] [facility] [place] [address] Referral ID Status Reason Start Date Expiration Date Visits Requested Visits Authorized [id number] Pending Review Specialty Services Required 04/27/2023 04/26/2024 1 1 Reason Comments Med Refill Reason Comments Hypertension Patient here for hig h blood pressure. Has been taking coreg and diovan by Dr. Posada in [place]. patients blood pressure fluctuates between 170/80-90's - 210/104 on his off days, which isnt too often and hasn't seen it that high since. Patient states he feels well all around. Has an upcoming colonoscopy on the . Needs a refill of coreg and diovan as he is almost out.Glucose meter needs new batteries so unable to check at home, has been a couple of weeks since he last checked them. Reason Comments [facility] [id number]. [facility] call comp leted 04/04. [facility] 04/01/23-04/02/23. Dx: Hypertensive crisis Reason Comments GI Problem Pt states he is here for a consult prior to colonoscopy. Pt states he is having some abdominal bloating. Pt states no solid stools. Pt reports having to drink malox to help and then able to have diarrhea,been going on for a month. Pt reports had an xray done 3/4 weeks ago. Specialty Diagnoses / Procedures Referred By Bri riely Referred To Contact Gastroenterology Diagnoses Special screening for malignant neoplasm of colon Charlene Gordon, [employer] SUR[employer]AFF ACCOUNTANT [address] [place] [address] [facility] [address] [place] [address] Referral ID Status Reason Start Date Expiration Date Visits Requested Visits Authorized [id number] Pending Review Specialty Services Required 03/04/2023 03/03/2024 1 1 Reason Comments Abdominal Pain Pt states he has a p ain that comes and goes mostly when he is laying downPt has taken OTC medication and it helps sometimes but he do not want to keep taking OTC medications Diabetes FOR RECORDS PERTAINING TO PATIENTS WHO ARE [...] BE BASED ON THE PRIMARY CLINICAL RECORDS. [employer] provides no warranty or guarantee of the accuracy or completeness of information in this document.
--- NOTE | 2024-02-01 01:40 | ED.GENADUL1 ---
HPI HPI - General Adult General Chief complaint: Extremity Injury, Lower Stated complaint: LOWER LEFT EXTREMITY PAIN Time Seen by Provider: 02/01/24 01:28 Source: patient Mode of arrival: walk-in Limitations: no limitations History of Present Illness HPI narrative: Patient presents to ED complaining of left lower extremity swelling and wound on the lateral malleolus. Patient has a history of Kqepjbc-[id number]-[id number] and deformity of his foot and ankle on the left side. Patient states this was corrected by Dr. Pugh about a year ago surgically. He developed a wound on the lateral malleolus after the surgery. He said it was very large at first and they got it down to almost nothing but sometimes it opens up again. He said his foot was becoming a little more swollen so the lateral malleolus started to rub on his shoe. This caused an ulcer to form again. He does have some increased swelling in the foot and leg although it is always bigger than the other side. Patient denies any shortness of breath or chest pain. No fever. No syncope. Vital signs here are stable although he is slightly hypertensive. Oxygen saturation 99%. Patient complains of mild pain in the lateral aspect of the leg with mild erythema and feels like he is getting the early signs of cellulitis. It sounds like he has been treated for cellulitis multiple times in the past. Related Data Home Medications ?Medication ?Instructions ?Recorded ?Confirmed buprenorphine 8 mg-naloxone 2 mg film 02/01/24 sublingual film carvedilol 6.25 mg tablet mg 02/01/24 dulaglutide 1.5 mg/0.5 mL mg subcut 02/01/24 subcutaneous pen injector (Trulicity) furosemide 80 mg tablet mg 02/01/24 metformin 500 mg tablet,extended mg PO 02/01/24 release 24 hr peg 3350-electrolytes 236 ml 02/01/24 gram-22.74 gram-6.74 gram-5.86 gram solution (GaviLyte-G) tamsulosin 0.4 mg capsule mg PO 02/01/24 valsartan 160 mg tablet mg 02/01/24 valsartan 320 mg tablet mg 02/01/24 Previous Rx's ?Medication ?Instructions ?Recorded doxycycline hyclate 100 mg capsule 100 mg PO BID 10 days #20 caps 02/01/24 Allergies Allergy/AdvReac Type Severity Reaction Status Date / Time No Known Drug Allergies Allergy Verified 02/01/24 01:29 Opioid HPI Opioid Management Most Recent Opioid Data: No Data to Display Review of Systems ROS Status of ROS 10 or more systems reviewed and unremarkable except as noted in history and below PFSH PFSH Social History Little interest or pleasure in doing things: not at all Feeling down, depressed, or hopeless: not at all Exam Narrative Exam Narrative: General: alert, no acute distress Cardiovascular: regular rate and rhythm, normal peripheral perfusion. Respiratory: Lungs CTA, respirations non labored. Extremities: Right lower extremity shows mild chronic edema. Left lower extremity shows 4+ edema and the lower extremity and foot. He has a 2 x 2 cm area of ulceration to the lateral malleolus with surrounding mild erythema. No purulent drainage. Patient does have mild erythema on the lateral aspect of the calf some tenderness to palpation. No posterior calf pain. Patient reports normal sensation and motor. Neurological: oriented x 4, LOC appropriate for age. Constitutional Vital Signs, click to edit/add: Last Vital Signs Temp 98.0 F 02/01/24 01:22 Pulse 102 H 02/01/24 01:22 Resp 18 02/01/24 01:22 BP 178/88 H 02/01/24 01:22 Pulse Ox 99 02/01/24 01:22 O2 Del Method Room Air 02/01/24 01:22 Course Vital Signs Vital signs: Vital Signs Temperature 98.0 F 02/01/24 01:22 Pulse Rate 102 H 02/01/24 01:22 Respiratory Rate 18 02/01/24 01:22 Blood Pressure 178/88 H 02/01/24 01:22 Pulse Oximetry 99 02/01/24 01:22 Oxygen Delivery Method Room Air 02/01/24 01:22 Temperature 98.0 F 02/01/24 01:22 Pulse Rate 102 H 02/01/24 01:22 Respiratory Rate 18 02/01/24 01:22 Blood Pressure 178/88 H 02/01/24 01:22 Pulse Oximetry 99 02/01/24 01:22 Oxygen Delivery Method Room Air 02/01/24 01:22 Medical Decision Making MDM Narrative Medical decision making narrative: Patient has signs of an ulcer and cellulitis on the left lower extremity. He said usually they just give me a pill, and that takes care of it. Full admission due to the swelling and erythema it is Lucio Brdigett night he would prefer to go home and try taking the pill and see if he gets better. He states he will be calling Dr. Pugh on the to schedule a follow-up appointment. He says he usually can get in there quickly and does not have an issue getting follow-up appointments. We did draw skin marker pen around the erythematous area so he can monitor his symptoms. The medication as directed. Keep the leg elevated to decrease the swelling. Continue taking home medications especially Lasix. Call Dr. Pugh's office on the to schedule a prompt follow-up appointment. If the redness is spreading or if he is developing fevers nausea vomiting shortness of breath or any further concerns please return immediately to the emergency room. Patient expresses understanding and is comfortable with care plan for home. Differential Diagnosis Differential Diagnosis: Cellulitis, ulcer Discharge Plan Discharge Chief Complaint: Extremity Injury, Lower Clinical Impression: Cellulitis Patient Disposition: Home, Self-Care Time of Disposition Decision: 01:37 Condition: Good Mode of Transportation: Private Vehicle Prescriptions / Home Meds: New doxycycline hyclate 100 mg capsule 100 mg PO BID 10 Days Qty: 20 0RF No Action carvedilol 6.25 mg tablet tamsulosin 0.4 mg capsule PO furosemide 80 mg tablet valsartan 320 mg tablet metformin 500 mg tablet extended release 24 hr PO valsartan 160 mg tablet peg 3350-electrolytes [GaviLyte-G] 236-22.74-6.74 -5.86 gram recon soln buprenorphine-naloxone 8-2 mg film Trulicity 1.5 mg/0.5 mL pen injector SUBCUT Print Language: Kiswahili Instructions: Cellulitis (ED) Referrals: Hemant Mai MD [Primary Care Provider] - 1 week [place] Pugh DPM [Physician] - 1 week
[2024-02-01] MEDS: DOXYCYCLINE MONOHYDRATE 100 MG CAPSULE PO (01:46)
[2024-02-01 01:51] VITALS: BP 163/89; O2SAT 98
--- NOTE | 2024-02-01 02:05 | PC.NURSE ---
Pt with a chronic diabetic ulcer noted to the outer L ankle. Dressed with ABD and YULISSA wrap. also LLE redness and pain. Non-pitting edema that appears to be lymphedema. Skin marker used to draw outer margins of redness. Pt instructed to seek MD care if the redness extends beyond the marked borders. Also instructed to F/U with PCP and Podiatry maria (one week)
== END 2024-02-01 02:05 | disposition home or self-care (01) ==
PROVIDERS: Emergency Provider Emergency Medicine; PCP Family Medicine
DX: L03.116 Cellulitis of left lower limb (principal)
CPT/HCPCS: 99283